=== PATIENT | female | born 1950 | race Caucasian/White ===

== ENCOUNTER → 2016-06-01 | Outpatient (CLI) | payer OTHER ==
[2016-06-01 15:13] LABS: CH 34.7; CHCM 35.2; HCT 48.3 % (34.0-46.0); HDW 2.61; HGB 16.7 gm/dL (11.4-16.0); MCH 34.2 pg (25.0-35.0); MCHC 34.5 g/dL (31.0-37.0); Mean Platelet Volume 8.1; RBC 4.87 m/uL (3.80-5.40)
[2016-06-01 15:30] LABS: Bilirubin, Delta 0.9 mg/dL (0.0-0.2); Total Bilirubin 1.7 mg/dL (0.2-1.3); Total Protein 8.4 g/dL (6.3-8.2)
[2016-06-02 17:21] LABS: Hepatits C Virus RNA, Quant 74 IU/mL (<12); LOG HCV IU/mL 1.87 (<1.08)
== END | disposition home or self-care (01) ==
LOC: LABWHC1 14:37
PROVIDERS: ATTEND Physician Assistant
DX: B18.2 Chronic viral hepatitis C (principal)
CPT/HCPCS: 36415; 80076; 85027; 87522

== ENCOUNTER → 2016-06-08 | Outpatient (CLI) | payer OTHER ==
--- NOTE | 2016-06-08 11:46 | US ---
EXAMINATION TYPE: US venous doppler duplex LE BI DATE OF EXAM: 06/08/2016 10:17 AM COMPARISON: None CLINICAL HISTORY: 65-year-old female with bilateral leg swelling x 1 month. TECHNIQUE: Duplex Doppler ultrasound examination of bilateral lower extremities. FINDINGS: SIDE PERFORMED: Bilateral VESSELS IMAGED: External Iliac Vein (EIV) Common Femoral Vein Deep Femoral Vein Greater Saphenous Vein * Femoral Vein Popliteal Vein Small Saphenous Vein * Proximal Calf Veins (* superficial vessels) Right Leg: Appears negative for DVT Left Leg: Appears negative for DVT IMPRESSION: No evidence of DVT within the bilateral lower extremities imaged from the groin to the upper calves.
== END | disposition home or self-care (01) ==
LOC: RADUSWWP 09:36
PROVIDERS: ATTEND Family Medicine
DX: R60.9 Edema, unspecified (principal)
CPT/HCPCS: 93970

== ENCOUNTER → 2016-06-15 | Outpatient (CLI) | payer OTHER ==
[2016-06-15 13:48] LABS: CH 34.4; HCT 49.4 % (34.0-46.0); HDW 2.74; MCH 34.2 pg (25.0-35.0); MCHC 34.5 g/dL (31.0-37.0); MCV 99.1 fL (80.0-100.0); Mean Platelet Volume 8.1; RBC 4.98 m/uL (3.80-5.40); WBC 4.1 k/uL (3.8-10.6)
[2016-06-15 13:56] LABS: Appearance,Urine Clear (Clear); Bilirubin,Urine Negative (Negative); Glucose,Urine (UA) Negative (Negative); Ketones,Urine Negative (Negative); Leukocyte Esterase,Urine Negative (Negative); Nitrite,Urine Negative (Negative); PH, Urine 6.5 (5.0-8.0); Protein,Urine Negative (Negative); Specific Gravity,Urine 1.004 (1.001-1.035); UA Billing (MACRO vs. MICRO) CHEM; Urobilinogen,Urine <2.0 mg/dL (<2.0)
[2016-06-15 14:08] LABS: Anion Gap 13 mmol/L; Blood Urea Nitrogen 26 mg/dL (7-17); Calcium 9.7 mg/dL (8.4-10.2); Carbon Dioxide 28 mmol/L (22-30); Chloride 98 mmol/L (98-107); Glucose 99 mg/dL (74-99); Non-African American GFR(MDRD) 50 (>60 ml/min/1.73 sqM); Potassium 3.8 mmol/L (3.5-5.1); Sodium 139 mmol/L (137-145)
== END | disposition home or self-care (01) ==
LOC: LABWHC1 12:28
PROVIDERS: ATTEND Nurse Practitioner Family
DX: N18.3 Chronic kidney disease, stage 3 (moderate) (principal); N25.81 Secondary hyperparathyroidism of renal origin; E55.9 Vitamin D deficiency, unspecified; N39.0 Urinary tract infection, site not specified
CPT/HCPCS: 36415; 80048; 81003; 82306; 83970; 85027

== ENCOUNTER → 2016-10-13 | Outpatient (CLI) | payer OTHER ==
[2016-10-13 10:24] LABS: Basophils % (A) 1 %; CH 33.8; Eosinophils # (A) 0.1 k/uL (0-0.7); Eosinophils % (A) 3 %; HCT 45.3 % (34.0-46.0); HGB 15.4 gm/dL (11.4-16.0); Luc # (Auto) 0.18; Luc % (Auto) 4; Lymphocytes # (A) 1.3 k/uL (1.0-4.8); Lymphocytes % (A) 27 %; MCH 33.1 pg (25.0-35.0); MCHC 34.1 g/dL (31.0-37.0); MCV 97.2 fL (80.0-100.0); Mean Platelet Volume 6.9; Monocytes # (A) 0.4 k/uL (0-1.0); Monocytes % (A) 8 %; Neutrophils # (A) 2.7 k/uL (1.3-7.7); Neutrophils % (A) 58 %; RBC 4.66 m/uL (3.80-5.40); RDW 14.2 % (11.5-15.5); WBC 4.7 k/uL (3.8-10.6); WBC (Perox) 4.73
[2016-10-13 10:36] LABS: INR 1.2 (<1.1); Prothrombin Time 11.9 sec (9.0-12.0)
[2016-10-13 10:57] LABS: Bilirubin, Delta 0.5 mg/dL (0.0-0.2); Calcium 9.7 mg/dL (8.4-10.2); Potassium 3.4 mmol/L (3.5-5.1); Total Bilirubin 1.3 mg/dL (0.2-1.3); Total Protein 8.4 g/dL (6.3-8.2)
[2016-10-17 15:04] LABS: Hepatits C Virus RNA, Quant <12 IU/mL (<12); LOG HCV IU/mL <1.08 (<1.08)
== END | disposition home or self-care (01) ==
LOC: LABWHC1 09:39
PROVIDERS: ATTEND Physician Assistant
DX: K74.60 Unspecified cirrhosis of liver (principal); B18.2 Chronic viral hepatitis C
CPT/HCPCS: 36415; 80053; 82105; 82248; 85025; 85610; 87522

== ENCOUNTER → 2016-11-07 | Outpatient (CLI) | payer OTHER ==
--- NOTE | 2016-11-07 16:51 | US ---
EXAMINATION TYPE: US kidneys/renal and bladder DATE OF EXAM: 11/07/2016 COMPARISON: Previous study dated 12/10/2013. CLINICAL HISTORY: Chronic Kidney Disease N18.9. CKD EXAM MEASUREMENTS: Right Kidney: 8.6 x 4.2 x 4.7 cm Left Kidney: 9.4 x 4.1 x 4.2 cm Right Kidney: no hydronephrosis or masses seen, inferior pole limited by overlying bowel gas Left Kidney: no hydronephrosis or masses seen, inferior pole limited by overlying bowel gas Bladder: wnl Bilateral Jets seen: yes The kidneys are morphologically normal. The bladder is unremarkable. Both ureteral jets were visualiz ed. IMPRESSION: NORMAL RENAL ULTRASOUND.
== END | disposition home or self-care (01) ==
LOC: RADUSWWP 14:16
PROVIDERS: ATTEND Family Medicine
DX: N18.9 Chronic kidney disease, unspecified (principal)
CPT/HCPCS: 76770

== ENCOUNTER → 2017-02-16 | Outpatient (CLI) | payer OTHER ==
--- NOTE | 2017-02-19 11:41 | MM ---
Reason for exam: screening (asymptomatic). Last mammogram was performed 1 year and 1 month ago. History: Patient is postmenopausal. Family history of breast cancer in mother at age 52, breast cancer in sister at age 53, and breast cancer in sister at age 48. Physical Findings: A clinical breast exam by your physician is recommended on an annual basis and results should be correlated with mammographic findings. MG Screening Mammo w CAD Bilateral CC and MLO view(s) were taken. Prior study comparison: January 11, 2016, bilateral MG screening mammo w CAD. August 10, 2014, bilateral MG screening mammo w CAD. The breast tissue is heterogeneously dense. This may lower the sensitivity of mammography. Finding: There are typically benign vascular, round calcifications in both breasts. New group of indeterminate calcifications central middle depth 4cm from the nipple. ASSESSMENT: Incomplete: need additional imaging evaluation, BI-RAD 0 RECOMMENDATION: Special view mammogram of the left breast. [facility] will attempt to contact patient to return for supplemental views.
== END | disposition home or self-care (01) ==
LOC: RADMAMWWP 16:53
PROVIDERS: ATTEND Family Medicine
DX: Z12.31 Encounter for screening mammogram for malignant neoplasm of breast (principal)

== ENCOUNTER → 2017-02-20 | Outpatient (CLI) | payer OTHER ==
--- NOTE | 2017-02-20 13:18 | MM ---
Reason for exam: additional evaluation requested from abnormal screening. Last mammogram was performed less than 1 month ago. History: Patient is postmenopausal. Family history of breast cancer in mother at age 52, breast cancer in sister at age 53, and breast cancer in sister at age 48. Physical Findings: Nurse did not find any significant physical abnormalities on exam. MG Work Up Mamm w CAD LT LM, CC with magnification, and LM with magnification view(s) were taken of the left breast. Prior study comparison: February 16, 2017, bilateral MG screening mammo w CAD. January 11, 2016, bilateral MG screening mammo w CAD. The breast tissue is heterogeneously dense. This may lower the sensitivity of mammography. Finding: There are typically benign calcifications in the left breast. These results were verbally communicated with the patient and result sheet given to the patient on 02/20/17. ASSESSMENT: Probably benign, BI-RAD 3 RECOMMENDATION: Follow-up diagnostic mammogram of the left breast in 6 months.
== END | disposition home or self-care (01) ==
LOC: RADMAMWWP 10:03
PROVIDERS: ATTEND Family Medicine
DX: R92.8 Other abnormal and inconclusive findings on diagnostic imaging of breast (principal)

== ENCOUNTER → 2017-07-11 | Outpatient (CLI) | payer OTHER ==
[2017-07-11 14:35] LABS: Appearance,Urine Clear (Clear); Bilirubin,Urine Negative (Negative); Blood,Urine Negative (Negative); Color,Urine Light Yellow; Glucose,Urine (UA) Negative (Negative); Ketones,Urine Negative (Negative); Leukocyte Esterase,Urine Negative (Negative); Nitrite,Urine Negative (Negative); Protein,Urine Negative (Negative); Specific Gravity,Urine 1.006 (1.001-1.035); Urobilinogen,Urine <2.0 mg/dL (<2.0)
== END | disposition home or self-care (01) ==
LOC: LABWHC1 13:40
PROVIDERS: ATTEND Nurse Practitioner Family
DX: N18.3 Chronic kidney disease, stage 3 (moderate) (principal); E55.9 Vitamin D deficiency, unspecified; E21.3 Hyperparathyroidism, unspecified; M10.9 Gout, unspecified; R80.9 Proteinuria, unspecified
CPT/HCPCS: 81003

== ENCOUNTER → 2017-07-12 | Outpatient (CLI) | payer OTHER ==
[2017-07-12 15:41] LABS: Anion Gap 14 mmol/L; Calcium 10.1 mg/dL (8.4-10.2); Carbon Dioxide 26 mmol/L (22-30); Chloride 97 mmol/L (98-107); Glucose 69 mg/dL (74-99); Sodium 137 mmol/L (137-145); Uric Acid 7.2 mg/dL (3.7-7.4)
[2017-07-12 15:48] LABS: Blood Urea Nitrogen 31 mg/dL (7-17); Phosphorus 3.5 mg/dL (2.5-4.5); Potassium 4.1 mmol/L (3.5-5.1)
[2017-07-12 16:06] LABS: Basophils % (A) 0 %; Eosinophils # (A) 0.1 k/uL (0-0.7); Eosinophils % (A) 2 %; HCT 44.4 % (34.0-46.0); HGB 14.7 gm/dL (11.4-16.0); Lymphocytes # (A) 1.1 k/uL (1.0-4.8); Lymphocytes % (A) 29 %; MCH 31.7 pg (25.0-35.0); MCHC 33.2 g/dL (31.0-37.0); MCV 95.5 fL (80.0-100.0); Mean Platelet Volume 7.7; Monocytes # (A) 0.3 k/uL (0-1.0); Monocytes % (A) 7 %; Neutrophils # (A) 2.2 k/uL (1.3-7.7); Neutrophils % (A) 59 %; RBC 4.65 m/uL (3.80-5.40); RDW 13.7 % (11.5-15.5); WBC 3.7 k/uL (3.8-10.6)
[2017-07-12 19:58] LABS: Iron Saturation 33.54 (12.00-45.00)
[2017-07-12 20:08] LABS: Vitamin D 25 Hydroxy 43.2 ng/mL (30.0-100.0)
[2017-07-12 20:09] LABS: Parathyroid Hormone Intact 76.8 pg/mL (14.0-72.0)
== END | disposition home or self-care (01) ==
LOC: LABWHC1 14:25
PROVIDERS: ATTEND Nurse Practitioner Family
DX: N18.3 Chronic kidney disease, stage 3 (moderate) (principal); E55.9 Vitamin D deficiency, unspecified; E21.3 Hyperparathyroidism, unspecified; M10.9 Gout, unspecified; R80.9 Proteinuria, unspecified
CPT/HCPCS: 36415; 80048; 82306; 82728; 83540; 83550; 83735; 83970; 84100; 84550; 85025

== ENCOUNTER 2017-08-09 10:03 | Emergency (ER) | payer OTHER ==
[2017-08-09 10:08] VITALS: RESP 18; TEMP 98.5
[2017-08-09] MEDS ORDERED: SODIUM CHLORIDE 0.9% 1,000 ML IV STA (10:47)
[2017-08-09] MEDS ORDERED: CLINDAMYCIN 600 MG in DEXTROSE 5% IN WATER 50 ML IVPB STA ×2 (10:49)
[2017-08-09] MEDS ORDERED: KETOROLAC 30 MG/ML 1 ML VIAL IVP STA (10:50)
--- NOTE | 2017-08-09 10:52 | ED ---
General Adult HPI - General Chief complaint: Skin/Abscess/Foreign Body Stated complaint: ABSCESS ON FACE, SEVERE HEADACHE Time Seen by Provider: 08/09/17 10:33 Source: patient, RN notes reviewed Mode of arrival: ambulatory Limitations: no limitations - History of Present Illness Initial comments: 66-year-old female presents for a chief complaint of left-sided shoulder pain and infection. She states that she's had an abscess to her left cheek that has been draining. sHe states it causes a lot of headache for her and a lot of pain to touch. She denies any history of MRSA. She states that she does have a low immune system and she feels as if she has had fevers. She denies any nausea vomiting with this. She states that now history of this in the past. She denies any dental pain associated with this. She was concerned due to the redness to the left side the face so she thought that she should be seen. Patient denies any recent shortness of breath, chest pain, back pain, abdominal pain, nausea vomiting, numbness or tingling, dysuria or hematuria, constipation or diarrhea, headaches or visual changes, or any other current symptoms. - Related Data Home Medications Medication Instructions Recorded Confirmed Cholecalciferol [Vitamin D3] 2,000 unit PO DAILY 11/16/15 08/09/17 Potassium Chloride ER [K-Dur 10] 10 meq PO TID@0800,1200,1700 11/16/15 08/09/17 Pravastatin Sodium [Pravachol] 40 mg PO HS 11/16/15 08/09/17 Spironolact/Hydrochlorothiazid 1 tab PO DAILY 11/16/15 08/09/17 [Spironolactone-Hctz 25-25 Tab] Vit C/E/Zn/Coppr/Lutein/Zeaxan 1 cap PO BID 11/16/15 08/09/17 [Preservision Areds 2 Softgel] Ziprasidone HCl [Geodon] 60 mg PO HS 11/16/15 08/09/17 buPROPion XL [Wellbutrin Xl] 150 mg PO DAILY 11/16/15 08/09/17 hydrOXYzine PAMOATE [Vistaril] 25 mg PO HS 11/16/15 08/09/17 ALPRAZolam [Xanax] 0.25 mg PO TID PRN 08/09/17 08/09/17 Fluticasone Nasal [place] [Flonase 1 - 2 spray EA NOSTRIL DAILY PRN 08/09/1708/09 Nasal [place]] Furosemide [Lasix] 40 mg PO BID@0800,1700 08/09/17 08/09/17 HYDROcodone/APAP 7.5-325MG [[place] 1 tab PO TID PRN 08/09/17 08/09/17 7.5-325] rOPINIRole HCL [Requip] 0.25 mg PO HS PRN 08/09/17 08/09/17 Previous Rx's Medication Instructions Recorded Clindamycin [Cleocin] 450 mg PO Q8HR #90 capsule 08/09/17 Allergies Allergy/AdvReac Type Severity Reaction Status Date / Time gabapentin [From Neurontin] Allergy Anaphylaxis Verified 08/09/17 10:26 Review of Systems ROS Statement: Those systems with pertinent positive or pertinent negative responses have been documented in the HPI. ROS Other: All systems not noted in ROS Statement are negative. Past Medical History Past Medical History: Renal Disease History of Any Multi-Drug Resistant Organisms: None Reported Past Surgical History: Back Surgery, Cholecystectomy, Hysterectomy, Joint Replacement Additional Past Surgical History / Comment(s): shoulder surgery, Past Psychological History: Depression Smoking Status: Never smoker Past Alcohol Use History: None Reported Past Drug Use History: None Reported General Exam Limitations: no limitations General appearance: alert, in no apparent distress Head exam: Present: atraumatic, normocephalic, other (Patient does appear to have some erythema along the left cheek with some induration with a healing abscess) Eye exam: Present: normal appearance, PERRL, EOMI. Absent: scleral icterus, conjunctival injection, periorbital swelling ENT exam: Present: normal exam, mucous membranes moist Neck exam: Present: normal inspection. Absent: tenderness, meningismus, lymphadenopathy Respiratory exam: Present: normal lung sounds bilaterally. Absent: respiratory distress, wheezes, rales, rhonchi, stridor Cardiovascular Exam: Present: regular rate, normal rhythm, normal heart sounds. Absent: systolic murmur, diastolic murmur, rubs, gallop, clicks Neurological exam: Present: alert, oriented X3 Course Vital Signs 08/09/17 08/09/17 10:05 12:14 Temperature 98.5 F Pulse Rate 83 74 Respiratory 18 18 Rate Blood Pressure 121/76 118/64 O2 Sat by Pulse 96 98 Oximetry Medical Decision Making - Medical Decision Making 66-year-old female presents with what appears to be a left-sided facial cellulitis with abscess. This time lab work was reviewed. Patient's white count is 2.5 previous WBC low and she states she has seen a beam warper for this platelet also seemed to be around patient's baseline.. At this time we will start patient on clindamycin for home for her facial cellulitis. This time there is no drainage from the wound. We discussed care follow-up return parameters all questions. Patient stated she understood and she is agreement this plan. Patient will be discharged at this time. - Lab Data Result diagrams: 08/09/17 11:53 08/09/17 11:53 Lab Results 08/09/17 08/09/17 Range/Units 11:53 11:53 WBC 2.5 L (3.8-10.6) k/uL RBC 4.82 (3.80-5.40) m/uL Hgb 15.3 (11.4-16.0) gm/dL Hct 42.7 (34.0-46.0) % MCV 88.7 D (80.0-100.0) fL MCH 31.7 (25.0-35.0) pg MCHC 35.8 (31.0-37.0) g/dL RDW 13.8 (11.5-15.5) % Plt Count 72 L (150-450) k/uL Neutrophils % 69 % Lymphocytes % 16 % Monocytes % 9 % Eosinophils % 3 % Basophils % 0 % Neutrophils # 1.7 (1.3-7.7) k/uL Lymphocytes # 0.4 L (1.0-4.8) k/uL Monocytes # 0.2 (0-1.0) k/uL Eosinophils # 0.1 (0-0.7) k/uL Basophils # 0.0 (0-0.2) k/uL Sodium 138 (137-145) mmol/L Potassium 4.0 (3.5-5.1) mmol/L Chloride 95 L (98-107) mmol/L Carbon Dioxide 30 (22-30) mmol/L Anion Gap 13 mmol/L BUN 22 H (7-17) mg/dL Creatinine 1.20 H (0.52-1.04) mg/dL Est GFR (CKD-EPI)AfAm 55 (>60 ml/min/1.73 sqM) Est GFR (CKD-EPI)NonAf 48 (>60 ml/min/1.73 sqM) Glucose 97 (74-99) mg/dL Calcium 10.1 (8.4-10.2) mg/dL Total Bilirubin 1.0 (0.2-1.3) mg/dL AST 60 H (14-36) U/L ALT 46 (9-52) U/L Alkaline Phosphatase 85 (38-126) U/L Total Protein 7.9 (6.3-8.2) g/dL Albumin 4.6 (3.5-5.0) g/dL Disposition Clinical Impression: Facial cellulitis Disposition: HOME SELF-CARE Condition: Stable Instructions: Cellulitis (ED) Additional Instructions: Please use medication as discussed. Please follow up with family doctor if symptoms have not improved over the next two days. Please return to the emergency room if your symptoms increase or worsen or for any other concerns. Prescriptions: Clindamycin [Cleocin] 450 mg PO Q8HR #90 capsule Referrals: Orlando Moore MD [Primary Care Provider] - 1-2 days Time of Disposition: 12:51
[2017-08-09 12:16] VITALS: BP 118/64; PULSE 74
[2017-08-09 12:28] LABS: Albumin 4.6 g/dL (3.5-5.0); Calcium 10.1 mg/dL (8.4-10.2); Total Protein 7.9 g/dL (6.3-8.2)
[2017-08-09 12:38] LABS: Basophils % (A) 0 %; Eosinophils # (A) 0.1 k/uL (0-0.7); Eosinophils % (A) 3 %; HCT 42.7 % (34.0-46.0); HGB 15.3 gm/dL (11.4-16.0); Lymphocytes # (A) 0.4 k/uL (1.0-4.8); Lymphocytes % (A) 16 %; MCH 31.7 pg (25.0-35.0); MCHC 35.8 g/dL (31.0-37.0); Mean Platelet Volume 7.6; Monocytes # (A) 0.2 k/uL (0-1.0); Monocytes % (A) 9 %; Neutrophils # (A) 1.7 k/uL (1.3-7.7); Neutrophils % (A) 69 %; RBC 4.82 m/uL (3.80-5.40); RDW 13.8 % (11.5-15.5); WBC 2.5 k/uL (3.8-10.6)
[2017-08-09 12:39] LABS: MCV 88.7 fL (80.0-100.0)
[2017-08-09 12:40] LABS: Platelet Count 72 k/uL (150-450)
[2017-08-09] MEDS ORDERED: CLINDAMYCIN 150 MG CAP PO STA (12:51)
== END 2017-08-09 13:10 | disposition home or self-care (01) ==
LOC: EC 10:03
DX: L03.211 Cellulitis of face (principal); L02.01 Cutaneous abscess of face; D72.819 Decreased white blood cell count, unspecified; M25.512 Pain in left shoulder; N28.9 Disorder of kidney and ureter, unspecified; Z79.899 Other long term (current) drug therapy; Z88.8 Allergy status to other drugs, medicaments and biological substances
CPT/HCPCS: 36415; 80053; 85025; 87040; 99284; 96374; J1885

== ENCOUNTER 2017-08-11 16:14 | Inpatient (IN) | payer OTHER ==
[2017-08-11] MEDS ORDERED: ONDANSETRON ODT 4 MG TAB PO STA (16:43)
[2017-08-11] MEDS ORDERED: SODIUM CHLORIDE 0.9% 1,000 ML IV STA ×2 (16:43)
[2017-08-11] MEDS ORDERED: KETOROLAC 30 MG/ML 1 ML VIAL IVP STA ×2 (16:44→19:38)
[2017-08-11] MEDS ORDERED: PANTOPRAZOLE 40 MG/10 ML VIAL IVP STA (16:45)
--- NOTE | 2017-08-11 16:48 | ED ---
Nausea/Vomiting/Diarrhea HPI - General Chief complaint: Nausea/Vomiting/Diarrhea Stated complaint: abdominal pain Time Seen by Provider: 08/11/17 16:36 Source: patient, RN notes reviewed Mode of arrival: ambulatory Limitations: no limitations - History of Present Illness Initial comments: This is a 66-year-old female who states she was started on antibiotics 3 days ago for facial infection that she seemed to acquire after cleaning fish tanks out last week. She states the pain is 10/10 severity sharp or radiates to her back from her epigastric area. She states it was 8/10 at worse she denies cough or phlegm production known heart disease she has had fevers chills and sweats however. She does have a history of a cholecystectomy in the past no diarrhea reported. She states the facial infection that she was being treated for has not gotten any better. MD complaint: nausea, vomiting, abdominal pain - Related Data Home Medications Medication Instructions Recorded Confirmed Cholecalciferol [Vitamin D3] 2,000 unit PO DAILY 11/16/15 08/11/17 Potassium Chloride ER [K-Dur 10] 10 meq PO TID@0800,1200,1700 11/16/15 08/11/17 Pravastatin Sodium [Pravachol] 40 mg PO HS 11/16/15 08/11/17 Spironolact/Hydrochlorothiazid 1 tab PO DAILY 11/16/15 08/11/17 [Spironolactone-Hctz 25-25 Tab] Vit C/E/Zn/Coppr/Lutein/Zeaxan 1 cap PO BID 11/16/15 08/11/17 [Preservision Areds 2 Softgel] Ziprasidone HCl [Geodon] 60 mg PO HS 11/16/15 08/11/17 buPROPion XL [Wellbutrin Xl] 150 mg PO DAILY 11/16/15 08/11/17 hydrOXYzine PAMOATE [Vistaril] 25 mg PO HS 11/16/15 08/11/17 ALPRAZolam [Xanax] 0.25 mg PO TID PRN 08/09/17 08/11/17 Fluticasone Nasal [place] [Flonase 1 - 2 spray EA NOSTRIL DAILY PRN 08/09/1708/11 Nasal [place]] Furosemide [Lasix] 40 mg PO BID@0800,1700 08/09/17 08/11/17 HYDROcodone/APAP 7.5-325MG [[place] 1 tab PO TID PRN 08/09/17 08/11/17 7.5-325] rOPINIRole HCL [Requip] 0.25 - 0.5 mg PO HS PRN 08/09/17 08/11/17 Previous Rx's Medication Instructions Recorded Clindamycin [Cleocin] 450 mg PO Q8HR #90 capsule 08/09/17 Allergies Allergy/AdvReac Type Severity Reaction Status Date / Time gabapentin [From Neurontin] Allergy Anaphylaxis Verified 08/11/17 16:54 Review of Systems ROS Statement: Those systems with pertinent positive or pertinent negative responses have been documented in the HPI. ROS Other: All systems not noted in ROS Statement are negative. Past Medical History Past Medical History: Renal Disease History of Any Multi-Drug Resistant Organisms: None Reported Past Surgical History: Back Surgery, Cholecystectomy, Hysterectomy, Joint Replacement Additional Past Surgical History / Comment(s): shoulder surgery, Past Psychological History: Depression Smoking Status: Never smoker Past Alcohol Use History: None Reported Past Drug Use History: None Reported General Exam - General Exam Comments Initial Comments: This is a well-developed well-nourished awake alert oriented 3 female Limitations: no limitations General appearance: alert, anxious Head exam: Present: normocephalic (Examination of face reveals some eschars and cellulitis over the left paranasal face as well as the nose and some medial left orbit involvement. No active bleeding no drainage or discharge at this time) Eye exam: Present: normal appearance, PERRL, EOMI. Absent: scleral icterus, conjunctival injection, periorbital swelling ENT exam: Present: mucous membranes dry Neck exam: Present: normal inspection. Absent: tenderness, meningismus, lymphadenopathy Respiratory exam: Present: normal lung sounds bilaterally. Absent: respiratory distress, wheezes, rales, rhonchi, stridor, chest wall tenderness Cardiovascular Exam: Present: regular rate, normal rhythm, normal heart sounds. Absent: systolic murmur, diastolic murmur, rubs, gallop, clicks GI/Abdominal exam: Present: soft, tenderness (Mild epigastric tenderness palpation no guarding rebound masses or bruits), normal bowel sounds. Absent: distended, guarding, rebound, rigid Extremities exam: Present: normal inspection, full ROM, normal capillary refill. Absent: tenderness, pedal edema, joint swelling, calf tenderness Back exam: Present: normal inspection Neurological exam: Present: alert, oriented X3, CN II-XII intact Psychiatric exam: Present: normal affect, normal mood Skin exam: Present: warm, dry, intact, normal color. Absent: rash Course Vital Signs 08/11/17 08/11/17 08/11/17 16:17 18:58 19:18 Temperature 98.1 F Pulse Rate 102 H 88 86 Respiratory 20 20 16 Rate Blood Pressure 126/84 143/56 104/68 O2 Sat by Pulse 100 99 97 Oximetry 08/11/17 20:46 Temperature Pulse Rate 100 Respiratory 16 Rate Blood Pressure O2 Sat by Pulse 96 Oximetry Medical Decision Making - Medical Decision Making I did discuss the findings with the patient she still has persistent abdominal pain she also has the infected wounds on the face she will be admitted with consultation by Dr. Hernández I did discuss the case with Dr. Moore. - Lab Data Result diagrams: 08/11/17 18:35 08/11/17 18:35 Lab Results 08/11/17 08/11/17 08/11/17 Range/Units 18:35 18:35 20:22 WBC 3.7 L (3.8-10.6) k/uL RBC 4.60 (3.80-5.40) m/uL Hgb 14.8 (11.4-16.0) gm/dL Hct 39.7 (34.0-46.0) % MCV 86.4 (80.0-100.0) fL MCH 32.1 (25.0-35.0) pg MCHC 37.2 H (31.0-37.0) g/dL RDW 13.7 (11.5-15.5) % Plt Count 75 L (150-450) k/uL Neutrophils % (Manual) 53 % Lymphocytes % (Manual) 31 % Monocytes % (Manual) 15 % Eosinophils % (Manual) 1 % Neutrophils # (Manual) 1.96 (1.3-7.7) k/uL Lymphocytes # (Manual) 1.15 (1.0-4.8) k/uL Monocytes # (Manual) 0.56 (0-1.0) k/uL Eosinophils # (Manual) 0.04 (0-0.7) k/uL Nucleated RBCs 0 (0-0) /100 WBC Manual Slide Review Performed Hyperchromasia Slight Sodium 131 L (137-145) mmol/L Potassium 3.7 (3.5-5.1) mmol/L Chloride 91 L (98-107) mmol/L Carbon Dioxide 26 (22-30) mmol/L Anion Gap 14 mmol/L BUN 19 H (7-17) mg/dL Creatinine 1.00 (0.52-1.04) mg/dL Est GFR (CKD-EPI)AfAm 69 (>60 ml/min/1.73 sqM) Est GFR (CKD-EPI)NonAf 60 (>60 ml/min/1.73 sqM) Glucose 95 (74-99) mg/dL Calcium 9.8 (8.4-10.2) mg/dL Total Bilirubin 0.8 (0.2-1.3) mg/dL AST 52 H (14-36) U/L ALT 46 (9-52) U/L Alkaline Phosphatase 87 (38-126) U/L Total Protein 7.4 (6.3-8.2) g/dL Albumin 4.2 (3.5-5.0) g/dL Amylase 112 H (30-110) U/L Lipase 373 H (23-300) U/L Urine Color Yellow Urine Appearance Clear (Clear) Urine pH 7.0 (5.0-8.0) Ur Specific [place] 1.012 (1.001-1.035) Urine Protein Negative (Negative) Urine Glucose (UA) Negative (Negative) Urine Ketones 1+ H (Negative) Urine Blood Negative (Negative) Urine Nitrite Negative (Negative) Urine Bilirubin Negative (Negative) Urine Urobilinogen 2.0 (<2.0) mg/dL Ur Leukocyte Esterase Negative (Negative) - Radiology Data Radiology results: report reviewed (I did review the imaging no definite acute findings or is evidence of hiatal hernia), image reviewed Disposition Clinical Impression: Facial cellulitis, Failure of outpatient treatment, Intractable vomiting, Abdominal pain, Dehydration, Pancreatitis Disposition: ADMITTED IP TO THIS [facility] Condition: Stable Referrals: Orlando Moore MD [Primary Care Provider] - 1-2 days
[2017-08-11 19:08] LABS: Albumin 4.2 g/dL (3.5-5.0); Calcium 9.8 mg/dL (8.4-10.2); Potassium 3.7 mmol/L (3.5-5.1); Total Bilirubin 0.8 mg/dL (0.2-1.3); Total Protein 7.4 g/dL (6.3-8.2)
[2017-08-11 19:14] LABS: HCT 39.7 % (34.0-46.0); HGB 14.8 gm/dL (11.4-16.0); Hyperchromasia Slight; MCH 32.1 pg (25.0-35.0); MCHC 37.2 g/dL (31.0-37.0); MCV 86.4 fL (80.0-100.0); Mean Platelet Volume 7.3; RDW 13.7 % (11.5-15.5); WBC 3.7 k/uL (3.8-10.6)
--- NOTE | 2017-08-11 19:16 | XR ---
Abdomen HISTORY: Pain and vomiting Frontal view of the abdomen on 2 images correlated to prior exam 10/10/2010 Retrocardiac density with central lucency compatible with hiatal hernia. Lung bases are clear. Postop changes are noted to the lumbosacral spine, surgical clips in the right upper quadrant. There is a d extroscoliosis present, degenerative disc changes in the visualized spine. No evident bowel obstructi on or pneumoperitoneum. Postop change noted to the left hip. IMPRESSION: Nonobstructive bowel gas pattern, hiatal hernia is conspicuous as compared to prior exam, follow-up as indicated.
--- NOTE | 2017-08-11 19:17 | XR ---
EXAMINATION TYPE: XR chest 2V DATE OF EXAM: 08/11/2017 COMPARISON: Prior chest x-ray 12/19/2010 HISTORY: Pain and vomiting TECHNIQUE: Frontal and lateral views of the chest are obtained. FINDINGS: Fixed hiatal hernia is noted in the retrocardiac region. Arthropathy noted within the righ t shoulder. No evident pneumonia, pneumothorax, or pleural effusion. The aorta is dense. Surgical cli ps present in the right upper quadrant. IMPRESSION: No acute cardiopulmonary process. Hiatal hernia.
[2017-08-11 19:23] LABS: Platelet Count 75 k/uL (150-450)
[2017-08-11 20:09] LABS: Eosinophils # (M) 0.04 k/uL (0-0.7); Lymphocytes # (M) 1.15 k/uL (1.0-4.8); Monocytes # (M) 0.56 k/uL (0-1.0); Neutrophils # (M) 1.96 k/uL (1.3-7.7); Neutrophils % (M) 53 %; Nucleated Red Blood Cells 0 /100 WBC (0-0); Total Cells Counted 100
[2017-08-11] MEDS ORDERED: MAG HYDROX/AL HYDROX/SIMETH 30 ML, HYOSCYAMINE ELIXIR 10 ML, CIMETIDINE HCL 300 MG PO STA ×3 (20:38)
[2017-08-11 20:40] LABS: Appearance,Urine Clear (Clear); Bilirubin,Urine Negative (Negative); Blood,Urine Negative (Negative); Color,Urine Yellow; Glucose,Urine (UA) Negative (Negative); Ketones,Urine 1+ (Negative); Leukocyte Esterase,Urine Negative (Negative); Nitrite,Urine Negative (Negative); Protein,Urine Negative (Negative); Specific Gravity,Urine 1.012 (1.001-1.035)
[2017-08-11] MEDS ORDERED: ONDANSETRON 4 MG/2 ML VIAL IVP PRN (21:21)
[2017-08-11] MEDS ORDERED: NALOXONE 0.4 MG/ML 1 ML VIAL IV PRN (21:21)
[2017-08-11] MEDS ORDERED: FLUTICASONE 50MCG/SPRAY NASAL 16GM EA NOSTRIL PRN (21:27)
[2017-08-11] MEDS: HYDROcodone/APAP 7.5-325MG 1 EACH TAB PO PRN (21:58)
[2017-08-11] MEDS: SODIUM CHLORIDE 0.9% 1,000 ML IV SCH (22:00)
[2017-08-11] MEDS: hydrOXYzine PAMOATE 25 MG CAP PO SCH (23:34)
[2017-08-11] MEDS: PRAVASTATIN SODIUM 40 MG TAB PO SCH (23:35)
[2017-08-11] MEDS: ZIPRASIDONE 60 MG CAP PO SCH (23:35)
[2017-08-11] MEDS: CLINDAMYCIN 600 MG in DEXTROSE 5% IN WATER 50 ML IVPB SCH ×2 (23:39)
[2017-08-12] MEDS: HYDROcodone/APAP 7.5-325MG 1 EACH TAB PO PRN ×3 (03:51→19:50)
[2017-08-12] MEDS: ALPRAZolam 0.25 MG TAB PO PRN (03:53)
[2017-08-12] MEDS: CLINDAMYCIN 600 MG in DEXTROSE 5% IN WATER 50 ML IVPB SCH ×2 (07:56)
[2017-08-12] MEDS: SODIUM CHLORIDE 0.9% 1,000 ML IV SCH ×2 (07:59→13:51)
[2017-08-12] MEDS ORDERED: POTASSIUM CHLORIDE ER 10 MEQ TAB.ER.PRT PO SCH (08:00)
[2017-08-12] MEDS ORDERED: FUROSEMIDE 40 MG TAB PO SCH (08:00)
[2017-08-12] MEDS: buPROPion XL 150 MG TAB.ER.24H PO SCH ×3 (08:01→21:44)
[2017-08-12] MEDS: PANTOPRAZOLE 40 MG/10 ML VIAL IV SCH ×2 (08:01→21:43)
[2017-08-12] MEDS: VIT A,C & E-LUTEIN-MINERALS 1 EACH TAB PO SCH ×2 (08:02→21:43)
[2017-08-12] MEDS: CHOLECALCIFEROL 1,000 UNIT TAB PO SCH (08:02)
[2017-08-12] MEDS: KETOROLAC 30 MG/ML 1 ML VIAL IVP PRN (08:10)
[2017-08-12] MEDS ORDERED: SPIRONOLACTONE-HCTZ 25-25MG 1 EACH TAB PO SCH (09:00)
[2017-08-12] MEDS ORDERED: buPROPion XL 150 MG TAB.ER.24H PO SCH (09:00)
--- NOTE | 2017-08-12 11:29 | P.CONS ---
History of Present Illness - Reason for Consult Consult date: 08/12/17 - Chief Complaint Lesions of face - History of Present Illness 66-year-old female presents to the emergency center with concerns lesions on her face that did not respond to outpatient clindamycin. The patient relates that she was cleaning a fish tank several days ago. The water had gotten quite dirty because she can take with her hands not wearing gloves. Despite taking water and became quite cloudy and she took a sample to the aquarium store and she was told that the bacterial count the water was extremely high and that was causing the of her fish. She did treat the water. She did notice rapidly after this she started to get some sores on her face. Somewhat uncomfortable. He was not noticing any improvement with antibiotic therapy and counseling presented to the emergency center for further intervention. Area is somewhat uncomfortable. It is not directly interfering with her ability to chew and swallow. She does not believe she's had a significant fever or chills. She's not had this problem in the past. She's noticed no lesions on her hands, subungual, arms or axillary areas. She was somewhat concerned that she transfer the bacteria from her hands to her face as a cause of this problem. Again there are no lesions on her hands at all. It is a fresh water tank. Review of Systems HEENT:Denies headache or acute visual change. Denies sinus or mouth discomforts. Denies neck stiffness or pain. Denies significant oral cavity pain. Denies difficulty on swallowing. Respiratory the HPI has a lesions on her face Lungs: Denies significant shortness of breath, cough, sputum production, or hemoptysis. Cardiovascular: Denies significant shortness of breath, chest pain, chest wall pain, orthopnea, dyspnea on exertion, syncope Gastrointestinal:Denies nausea, vomiting, diarrhea, constipation, hematemesis, melena, hematochezia. No no significant change of bowel habit noticed. Musculoskeletal: denies significant myalgias or arthralgias. No new joint swelling. Denies new back pain. Skin: As per the HPI Neuro: Denies headache or visual change. Denies any new onset weakness or difficulty with ambulation. Denies falls or seizures. Psychiatric:Denies anxiety or depression. Endocrine: Denies significant fatigue, denies significant weight loss or weight gain. Past Medical History Past Medical History: Renal Disease History of Any Multi-Drug Resistant Organisms: None Reported Past Surgical History: Back Surgery, Cholecystectomy, Hysterectomy, Joint Replacement Additional Past Surgical History / Comment(s): shoulder surgery, Past Psychological History: Depression Additional Psychological History / Comment(s): Lives with herfriend. There is a pet dog in the home that the friend is taking care. As noted freshwater aquarium with recent significant off from poor water quality. Does not work outside of the home relates that she is medically disabled. 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 Relates that she is a lifelong nonsmoker. Denies alcohol use. No experience. No extensive travel Smoking Status: Never smoker Past Alcohol Use History: None Reported Past Drug Use History: None Reported Medications and Allergies Home Medications and Allergies Comment(s): Current Medications Hydrocodone Bitart/Acetaminophen ([place] 7.5-325) 1 each PO TID PRN PRN Reason: Pain Last Admin: 08/12/17 03:51 Dose: 1 each Alprazolam (Xanax) 0.25 mg PO TID PRN PRN Reason: Anxiety Last Admin: 08/12/17 03:53 Dose: 0.25 mg Bupropion HCl (Wellbutrin Xl) 150 mg PO TID [facility] Last Admin: 08/12/17 08:01 Dose: 150 mg Cholecalciferol (Vitamin D3) 2,000 unit PO DAILY [facility] Last Admin: 08/12/17 08:02 Dose: 2,000 unit Fluticasone Propionate (Flonase Nasal [place]) 1 spray EA NOSTRIL DAILY PRN PRN Reason: Allergy Symptoms Hydroxyzine Pamoate (Vistaril) 25 mg PO HS [facility] Last Admin: 08/11/17 23:34 Dose: 25 mg Clindamycin Phosphate 600 mg/ (Dextrose/Water) 54 mls @ 100 mls/hr IVPB Q6HR [facility] Last Admin: 08/12/17 07:56 Dose: 100 mls/hr Sodium Chloride (Saline 0.9%) 1,000 mls @ 125 mls/hr IV .Q8H [facility] Last Admin: 08/12/17 07:59 Dose: Not Given Ketorolac Tromethamine (Toradol) 30 mg IVP Q6HR PRN PRN Reason: Moderate Pain Stop: 08/16/17 21:22 Last Admin: 08/12/17 08:10 Dose: 30 mg Multivitamins/Minerals (Ivite) 1 each PO BID [facility] Last Admin: 08/12/17 08:02 Dose: 1 each Naloxone HCl (Narcan) 0.2 mg IV Q2M PRN PRN Reason: Opioid Reversal Ondansetron HCl (Zofran) 4 mg IVP Q8HR PRN PRN Reason: Nausea And Vomiting Pantoprazole Sodium (Protonix) 40 mg IV BID [facility] Last Admin: 08/12/17 08:01 Dose: 40 mg Pravastatin Sodium (Pravachol) 40 mg PO [facility] Last Admin: 08/11/17 23:35 Dose: 40 mg Ropinirole HCl (Requip) 0.25 mg PO HS PRN PRN Reason: sleep Ziprasidone (Geodon) 60 mg PO [facility] Last Admin: 08/11/17 23:35 Dose: 60 mg Home Medications Medication Instructions Recorded Confirmed Type Cholecalciferol [Vitamin D3] 2,000 unit PO DAILY 11/16/15 08/11/17 History Potassium Chloride ER [K-Dur 10] 10 meq PO TID@0800,1200,1700 11/16/15 08/11/17 History Pravastatin Sodium [Pravachol] 40 mg PO HS 11/16/15 08/11/17 History Spironolact/Hydrochlorothiazid 1 tab PO DAILY 11/16/15 08/11/17 History [Spironolactone-Hctz 25-25 Tab] Vit C/E/Zn/Coppr/Lutein/Zeaxan 1 cap PO BID 11/16/15 08/11/17 History [Preservision Areds 2 Softgel] Ziprasidone HCl [Geodon] 60 mg PO HS 11/16/15 08/11/17 History buPROPion XL [Wellbutrin Xl] 150 mg PO DAILY 11/16/15 08/11/17 History hydrOXYzine PAMOATE [Vistaril] 25 mg PO HS 11/16/15 08/11/17 History ALPRAZolam [Xanax] 0.25 mg PO TID PRN 08/09/17 08/11/17 History Clindamycin [Cleocin] 450 mg PO Q8HR #90 capsule 08/09/17 08/11/17 Rx Fluticasone Nasal [place] [Flonase 1 - 2 spray EA NOSTRIL DAILY PRN 08/09/1708/11 History Nasal [place]] Furosemide [Lasix] 40 mg PO BID@0800,1700 08/09/17 08/11/17 History HYDROcodone/APAP 7.5-325MG [[place] 1 tab PO TID PRN 08/09/17 08/11/17 History 7.5-325] rOPINIRole HCL [Requip] 0.25 - 0.5 mg PO HS PRN 08/09/17 08/11/17 History Allergies Allergy/AdvReac Type Severity Reaction Status Date / Time gabapentin [From Neurontin] Allergy Anaphylaxis Verified 08/11/17 16:54 Physical Exam Vitals: Vital Signs Temp Pulse Pulse Resp BP BP Pulse Ox 08/12/17 08:00 73 08/12/17 07:00 97.5 F L 73 18 82/59 96 08/12/17 02:00 98.4 F 71 16 99/67 94 L 08/12/17 00:00 71 16 08/11/17 23:00 98.2 F 73 16 96/57 95 08/11/17 21:31 87 16 104/63 96 08/11/17 20:46 100 16 96 08/11/17 19:18 86 16 104/68 97 08/11/17 18:58 88 20 143/56 99 08/11/17 16:17 98.1 F 102 H 20 126/84 100 Intake and Output 08/11/17 08/12/17 08/12/17 22:59 06:59 14:59 Intake Total 1400 200 Balance 1400 200 Intake: Intake, IV Titration 1000 Amount Sodium Chloride 0.9% 1, 1000 000 ml @ 125 mls/hr IV . Q8H [facility] Rx#:[id number] Oral 400 200 Other: Voiding Method Bedside Commode Toilet # Voids 3 Weight 74.843 kg 66-year-old female who appears older than her stated age and has obesity HEENT: Anicteric conjunctiva are pink and moist nasal mucosa grossly intact without significant lesions, there is no thrush. She is edentulous On the left nasolabial fold is evidence of multiple dried lesions only one appears to have any vesicle nature to it, it involves the nares externally, onto the upper lip, and there is evidence of multiple healing lesions on the hard palate only to the left side that are nontender. Neck: The neck is supple without significant lymphadenopathy or thyromegaly. Lungs: Good bilateral air entry without significant crackles or wheezing. There is no significant bronchial sounds. There is no egophony or dullness. Heart: Regular rate and rhythm with an audible S1-S2, no S3 no S4. There is no significant murmur click or rub, PMI was nondisplaced. Abdomen: Obese, Positive bowel sounds soft and nontender without palpable masses or organomegaly. There was no guarding or rebound. Extremities: The upper extremities have excellent pulses they are symmetric, no significant petechiae or telangiectasia. No splinter hemorrhages were noted. The lower extremities are free from significant edema. The peripheral pulses were 2+ and symmetric. Neuro: Awake alert oriented to person place and time. There are no acute new gross focal sensory motor deficits. Results CBC & Chem 7: 08/11/17 18:35 08/11/17 18:35 Labs: Abnormal Lab Results - Last 24 Hours (Table) 08/11/17 08/11/17 08/11/17 Range/Units 18:35 18:35 20:22 WBC 3.7 L (3.8-10.6) k/uL MCHC 37.2 H (31.0-37.0) g/dL Plt Count 75 L (150-450) k/uL Sodium 131 L (137-145) mmol/L Chloride 91 L (98-107) mmol/L BUN 19 H (7-17) mg/dL AST 52 H (14-36) U/L Amylase 112 H (30-110) U/L Lipase 373 H (23-300) U/L Urine Ketones 1+ H (Negative) Laboratory Results WBC 3.7 k/uL (3.8-10.6) L 08/11/17 18:35 RBC 4.60 m/uL (3.80-5.40) 08/11/17 18:35 Hgb 14.8 gm/dL (11.4-16.0) 08/11/17 18:35 Hct 39.7 % (34.0-46.0) 08/11/17 18:35 MCV 86.4 fL (80.0-100.0) 08/11/17 18:35 MCH 32.1 pg (25.0-35.0) 08/11/17 18:35 MCHC 37.2 g/dL (31.0-37.0) H 08/11/17 18:35 RDW 13.7 % (11.5-15.5) 08/11/17 18:35 Plt Count 75 k/uL (150-450) L 08/11/17 18:35 Neutrophils % (Manual) 53 % 08/11/17 18:35 Lymphocytes % (Manual) 31 % 08/11/17 18:35 Monocytes % (Manual) 15 % 08/11/17 18:35 Eosinophils % (Manual) 1 % 08/11/17 18:35 Neutrophils # (Manual) 1.96 k/uL (1.3-7.7) 08/11/17 18:35 Lymphocytes # (Manual) 1.15 k/uL (1.0-4.8) 08/11/17 18:35 Monocytes # (Manual) 0.56 k/uL (0-1.0) 08/11/17 18:35 Eosinophils # (Manual) 0.04 k/uL (0-0.7) 08/11/17 18:35 Nucleated RBCs 0 /100 WBC (0-0) 08/11/17 18:35 Manual Slide Review Performed 08/11/17 18:35 Hyperchromasia Slight 08/11/17 18:35 Sodium 131 mmol/L (137-145) L 08/11/17 18:35 Potassium 3.7 mmol/L (3.5-5.1) 08/11/17 18:35 Chloride 91 mmol/L (98-107) L 08/11/17 18:35 Carbon Dioxide 26 mmol/L (22-30) 08/11/17 18:35 Anion Gap 14 mmol/L 08/11/17 18:35 BUN 19 mg/dL (7-17) H 08/11/17 18:35 Creatinine 1.00 mg/dL (0.52-1.04) 08/11/17 18:35 Est GFR (CKD-EPI)AfAm 69 (>60 ml/min/1.73 sqM) 08/11/17 18:35 Est GFR (CKD-EPI)NonAf 60 (>60 ml/min/1.73 sqM) 08/11/17 18:35 Glucose 95 mg/dL (74-99) 08/11/17 18:35 Calcium 9.8 mg/dL (8.4-10.2) 08/11/17 18:35 Total Bilirubin 0.8 mg/dL (0.2-1.3) 08/11/17 18:35 AST 52 U/L (14-36) H 08/11/17 18:35 ALT 46 U/L (9-52) 08/11/17 18:35 Alkaline Phosphatase 87 U/L (38-126) 08/11/17 18:35 Total Protein 7.4 g/dL (6.3-8.2) 08/11/17 18:35 Albumin 4.2 g/dL (3.5-5.0) 08/11/17 18:35 Amylase 112 U/L (30-110) H 08/11/17 18:35 Lipase 373 U/L (23-300) H 08/11/17 18:35 Urine Color Yellow 08/11/17 20:22 Urine Appearance Clear (Clear) 08/11/17 20:22 Urine pH 7.0 (5.0-8.0) 08/11/17 20:22 Ur Specific [place] 1.012 (1.001-1.035) 08/11/17 20:22 Urine Protein Negative (Negative) 08/11/17 20:22 Urine Glucose (UA) Negative (Negative) 08/11/17 20:22 Urine Ketones 1+ (Negative) H 08/11/17 20:22 Urine Blood Negative (Negative) 08/11/17 20:22 Urine Nitrite Negative (Negative) 08/11/17 20:22 Urine Bilirubin Negative (Negative) 08/11/17 20:22 Urine Urobilinogen 2.0 mg/dL (<2.0) 08/11/17 20:22 Ur Leukocyte Esterase Negative (Negative) 08/11/17 20:22 Assessment and Plan (1) Facial cellulitis Current Visit: Yes Status: Acute Code(s): L03.211 - CELLULITIS OF FACE SNOMED Code(s): 413938298 (2) Herpes zoster virus infection of face and ear nerves Narrative/Plan: 66-year-old female presents to Hospital with a several-day history of lesions on her face. She thought maybe she transferred bacteria from her fishtailing water onto her face. Being that she has no lesions on her hands, and that it is a freshwater tank to be somewhat unlikely. Patient however has evidence of this cluster of lesions on the nasolabial fold that involves the left nare, left upper lip and the left side of the hard palate which is consistent with varicella-zoster infection of this region. Valtrex will be given. At this juncture not likely to proceed much benefit from addition of steroids and will not be done. Does have some mild secondary infection and cephalexin can be utilized. When improved finished a course of oral Valtrex oral Keflex at her discharge. Current Visit: Yes Status: Acute Code(s): B02.29 - OTHER POSTHERPETIC NERVOUS SYSTEM INVOLVEMENT SNOMED Code(s): 7240837
[2017-08-12] MEDS: valACYclovir HCL 1,000 MG TABLET PO SCH ×2 (12:16→21:43)
[2017-08-12] MEDS: MULTIVITAMINS, THERA 1 EACH TAB PO SCH (12:17)
[2017-08-12] MEDS: ceFAZolin IN SWFI 2 GM/20 ML SYRINGE IVP SCH ×2 (13:40→19:51)
--- NOTE | 2017-08-12 20:28 | HP ---
HISTORY AND PHYSICAL CHIEF COMPLAINT: Rash and infection on the left side of the face. HISTORY OF PRESENT ILLNESS: This lady developed an erythematous, painful ulcerated rash on the left side of her nose, nasolabial fold and left cheek. She apparently was evaluated elsewhere and it was thought that this was MRSA. She was getting worse and came in. REVIEW OF SYSTEMS: She has had no other complaints. She has no chest pain, shortness of breath, abdominal pain, fever, chills, etc. The lesion is fairly painful. Past medical history, family history personal and social histories are otherwise unremarkable. PHYSICAL EXAM: Blood pressure is 140/90 with a pulse of 88, respirations of 35 and she is afebrile. In general, she appeared to be well-developed, well-nourished, in no acute distress. Skin color is normal. Skin is warm, dry. Head, ears, eyes, nose, mouth and throat demonstrated erythematous ulcerated rash on the left side of the nose and into the left cheek. This was consistent with herpes. Eyes were spared. Lymph nodes are slightly enlarged on the left. Chest is clear. The cardiac exam is normal. Abdomen is soft, nontender. Extremities normal. IMPRESSION: Herpes simplex or zoster dermatitis of the left side of the nose and cheek. PLAN: 1. IV fluids. 2. Infectious Disease consult. 3. Valtrex. MMVLAD / BISMARKN: [id number] /
[2017-08-12] MEDS ORDERED: PRAVASTATIN SODIUM 40 MG TAB PO SCH (21:00)
[2017-08-12] MEDS ORDERED: hydrOXYzine PAMOATE 25 MG CAP PO SCH (21:00)
[2017-08-12] MEDS ORDERED: ZIPRASIDONE 60 MG CAP PO SCH (21:00)
[2017-08-12] MEDS: hydrOXYzine PAMOATE 25 MG CAP PO SCH (21:43)
[2017-08-12] MEDS: PRAVASTATIN SODIUM 40 MG TAB PO SCH (21:43)
[2017-08-12] MEDS: ZIPRASIDONE 60 MG CAP PO SCH (21:43)
[2017-08-12] MEDS ORDERED: diphenhydrAMINE 50 MG/ML 1 ML VIAL IVP PRN (22:00)
[2017-08-13] MEDS: ceFAZolin IN SWFI 2 GM/20 ML SYRINGE IVP SCH ×3 (04:14→20:51)
[2017-08-13] MEDS: SODIUM CHLORIDE 0.9% 1,000 ML IV SCH ×3 (06:58→15:14)
[2017-08-13] MEDS: buPROPion XL 150 MG TAB.ER.24H PO SCH ×3 (08:45→20:53)
[2017-08-13] MEDS: valACYclovir HCL 1,000 MG TABLET PO SCH ×2 (08:45→20:53)
[2017-08-13] MEDS: PANTOPRAZOLE 40 MG/10 ML VIAL IV SCH ×2 (08:45→20:54)
[2017-08-13] MEDS: MULTIVITAMINS, THERA 1 EACH TAB PO SCH (08:46)
[2017-08-13] MEDS: CHOLECALCIFEROL 1,000 UNIT TAB PO SCH (08:46)
[2017-08-13] MEDS: VIT A,C & E-LUTEIN-MINERALS 1 EACH TAB PO SCH ×2 (08:58→20:52)
[2017-08-13] MEDS: HYDROcodone/APAP 7.5-325MG 1 EACH TAB PO PRN ×3 (09:03→23:30)
[2017-08-13] MEDS: KETOROLAC 30 MG/ML 1 ML VIAL IVP PRN ×3 (09:06→21:09)
--- NOTE | 2017-08-13 16:59 | PN ---
PROGRESS NOTE CHIEF COMPLAINT: Necrotic ulcer of the left side of the nose and cheek. HISTORY OF PRESENT ILLNESS: This lady is still having quite a bit of discomfort and the ulcers are starting to dry. There is a fair amount of itching associated as well. PHYSICAL EXAM: CHEST: Clear. Cardiac exam is normal. Abdomen is soft and nontender. The areas of the left side of the nose, nasal labial fold and cheek were started and scabbed somewhat. IMPRESSION: Herpes ulcer with necrosis of the left side of the nose and cheek. PLAN: Continue with current program and watch for any involvement of the left eye. MMODL / IJN: [id number] /
--- NOTE | 2017-08-13 17:05 | PN ---
PROGRESS NOTE DATE OF SERVICE: 08/13/2017. CHIEF COMPLAINT: Herpes cellulitis and ulceration of the left cheek and nose. HISTORY OF PRESENT ILLNESS: This lady's symptoms continue and she is having a little bit of irritability in the left eye. The vision is normal. She is having no blurring. PHYSICAL EXAM: Left eye looks normal. The necrotic ulcer on the left cheek nasolabial fold as well as the nose seems to be drying up. IMPRESSION: Herpes and probable herpes simplex of the left cheek and nose. PLAN: No change in program. MMODL / IJN: [id number] /
[2017-08-13] MEDS: FUROSEMIDE 40 MG TAB PO SCH (18:31)
[2017-08-13] MEDS: ZIPRASIDONE 60 MG CAP PO SCH (20:52)
[2017-08-13] MEDS: POTASSIUM CHLORIDE ER 20 MEQ TAB.ER PO SCH (20:52)
[2017-08-13] MEDS: PRAVASTATIN SODIUM 40 MG TAB PO SCH (20:53)
[2017-08-13] MEDS: hydrOXYzine PAMOATE 25 MG CAP PO SCH (21:09)
[2017-08-13] MEDS: ALPRAZolam 0.25 MG TAB PO PRN (23:30)
--- NOTE | 2017-08-13 23:30 | P.PN ---
Subjective Progress Note Date: 08/13/17 Principal diagnosis: Lesions of face 66-year-old female presents to the emergency center with concerns lesions on her face that did not respond to outpatient clindamycin. The patient relates that she was cleaning a fish tank several days ago. The water had gotten quite dirty because she can take with her hands not wearing gloves. Despite taking water and became quite cloudy and she took a sample to the aquarium store and she was told that the bacterial count the water was extremely high and that was causing the of her fish. She did treat the water. She did notice rapidly after this she started to get some sores on her face. Somewhat uncomfortable. He was not noticing any improvement with antibiotic therapy and counseling presented to the emergency center for further intervention. Area is somewhat uncomfortable. It is not directly interfering with her ability to chew and swallow. She does not believe she's had a significant fever or chills. She's not had this problem in the past. She's noticed no lesions on her hands, subungual, arms or axillary areas. She was somewhat concerned that she transfer the bacteria from her hands to her face as a cause of this problem. Again there are no lesions on her hands at all. It is a fresh water tank. 08/13/2017 reveals the patient to be a bit more comfortable. She is without difficulties as fevers chills or rigors but is having some lower extremity edema. Appears her outpatient Lasix has not been given. She relates that the facial lesions are improved but continues to have some discomfort of the oral cavity and of the very posterior aspect of the throat. No Evidence of any bleeding. Objective - Vital Signs Vital signs: Vital Signs Temp 97.8 F 08/13/17 14:24 Pulse 82 08/13/17 14:24 Resp 16 08/13/17 14:24 BP 95/55 08/13/17 14:24 Pulse Ox 93 L 08/13/17 14:24 Intake & Output 08/13/17 08/13/17 08/14/17 06:59 18:59 06:59 Intake Total 1680 Balance 1680 Intake: Intake, IV Titration 900 Amount Sodium Chloride 0.9% 1, 900 000 ml @ 125 mls/hr IV . Q8H [facility] Rx#:[id number] Oral 780 Other: Voiding Method Toilet Toilet # Voids 4 1 - Exam 66-year-old female who appears older than her stated age and has obesity HEENT: Anicteric conjunctiva are pink and moist nasal mucosa grossly intact without significant lesions, there is no thrush. She is edentulous On the left nasolabial fold is evidence of multiple dried lesions only one appears to have any vesicle nature to it, it involves the nares externally, onto the upper lip, and there is evidence of multiple healing lesions on the hard palate only to the left side that are nontender, but does have a few tender lesions on the left side of the uvula. Neck: The neck is supple without significant lymphadenopathy or thyromegaly. Lungs: Good bilateral air entry without significant crackles or wheezing. There is no significant bronchial sounds. There is no egophony or dullness. Heart: Regular rate and rhythm with an audible S1-S2, no S3 no S4. There is no significant murmur click or rub, PMI was nondisplaced. Abdomen: Obese, Positive bowel sounds soft and nontender without palpable masses or organomegaly. There was no guarding or rebound. Extremities: The upper extremities have excellent pulses they are symmetric, no significant petechiae or telangiectasia. No splinter hemorrhages were noted. The lower extremities are free from significant edema. The peripheral pulses were 2+ and symmetric. Neuro: Awake alert oriented to person place and time. There are no acute new gross focal sensory motor deficits. - Labs CBC & Chem 7: 08/11/17 18:35 08/11/17 18:35 Labs: Microbiology - Last 24 Hours (Table) 08/11/17 17:24 Blood Culture - Preliminary Blood No Growth after 48 hours 08/11/17 18:35 Blood Culture - Preliminary Blood No Growth after 24 hours Laboratory Results WBC 3.7 k/uL (3.8-10.6) L 08/11/17 18:35 RBC 4.60 m/uL (3.80-5.40) 08/11/17 18:35 Hgb 14.8 gm/dL (11.4-16.0) 08/11/17 18:35 Hct 39.7 % (34.0-46.0) 08/11/17 18:35 MCV 86.4 fL (80.0-100.0) 08/11/17 18:35 MCH 32.1 pg (25.0-35.0) 08/11/17 18:35 MCHC 37.2 g/dL (31.0-37.0) H 08/11/17 18:35 RDW 13.7 % (11.5-15.5) 08/11/17 18:35 Plt Count 75 k/uL (150-450) L 08/11/17 18:35 Neutrophils % (Manual) 53 % 08/11/17 18:35 Lymphocytes % (Manual) 31 % 08/11/17 18:35 Monocytes % (Manual) 15 % 08/11/17 18:35 Eosinophils % (Manual) 1 % 08/11/17 18:35 Neutrophils # (Manual) 1.96 k/uL (1.3-7.7) 08/11/17 18:35 Lymphocytes # (Manual) 1.15 k/uL (1.0-4.8) 08/11/17 18:35 Monocytes # (Manual) 0.56 k/uL (0-1.0) 08/11/17 18:35 Eosinophils # (Manual) 0.04 k/uL (0-0.7) 08/11/17 18:35 Nucleated RBCs 0 /100 WBC (0-0) 08/11/17 18:35 Manual Slide Review Performed 08/11/17 18:35 Hyperchromasia Slight 08/11/17 18:35 Sodium 131 mmol/L (137-145) L 08/11/17 18:35 Potassium 3.7 mmol/L (3.5-5.1) 08/11/17 18:35 Chloride 91 mmol/L (98-107) L 08/11/17 18:35 Carbon Dioxide 26 mmol/L (22-30) 08/11/17 18:35 Anion Gap 14 mmol/L 08/11/17 18:35 BUN 19 mg/dL (7-17) H 08/11/17 18:35 Creatinine 1.00 mg/dL (0.52-1.04) 08/11/17 18:35 Est GFR (CKD-EPI)AfAm 69 (>60 ml/min/1.73 sqM) 08/11/17 18:35 Est GFR (CKD-EPI)NonAf 60 (>60 ml/min/1.73 sqM) 03/24/18 18:35 Glucose 95 mg/dL (74-99) 08/11/17 18:35 Calcium 9.8 mg/dL (8.4-10.2) 08/11/17 18:35 Total Bilirubin 0.8 mg/dL (0.2-1.3) 08/11/17 18:35 AST 52 U/L (14-36) H 08/11/17 18:35 ALT 46 U/L (9-52) 08/11/17 18:35 Alkaline Phosphatase 87 U/L (38-126) 08/11/17 18:35 Total Protein 7.4 g/dL (6.3-8.2) 08/11/17 18:35 Albumin 4.2 g/dL (3.5-5.0) 08/11/17 18:35 Amylase 112 U/L (30-110) H 08/11/17 18:35 Lipase 373 U/L (23-300) H 08/11/17 18:35 Urine Color Yellow 08/11/17 20:22 Urine Appearance Clear (Clear) 08/11/17 20:22 Urine pH 7.0 (5.0-8.0) 08/11/17 20:22 Ur Specific [place] 1.012 (1.001-1.035) 08/11/17 20:22 Urine Protein Negative (Negative) 08/11/17 20:22 Urine Glucose (UA) Negative (Negative) 08/11/17 20:22 Urine Ketones 1+ (Negative) H 08/11/17 20:22 Urine Blood Negative (Negative) 08/11/17 20:22 Urine Nitrite Negative (Negative) 08/11/17 20:22 Urine Bilirubin Negative (Negative) 08/11/17 20:22 Urine Urobilinogen 2.0 mg/dL (<2.0) 08/11/17 20:22 Ur Leukocyte Esterase Negative (Negative) 08/11/17 20:22 Microbiology 08/11/17 17:24 Blood Blood Culture - Preliminary No Growth after 48 hours 08/11/17 18:35 Blood Blood Culture - Preliminary No Growth after 24 hours Assessment and Plan (1) Facial cellulitis Current Visit: Yes Status: Acute Code(s): L03.211 - CELLULITIS OF FACE SNOMED Code(s): 144276259 (2) Herpes zoster virus infection of face and ear nerves Narrative/Plan: 66-year-old female presents to Hospital with a several-day history of lesions on her face. She thought maybe she transferred bacteria from her fishtailing water onto her face. Being that she has no lesions on her hands, and that it is a freshwater tank to be somewhat unlikely. Patient however has evidence of this cluster of lesions on the nasolabial fold that involves the left nare, left upper lip and the left side of the hard palate which is consistent with varicella-zoster infection of this region. Valtrex will be given. At this juncture not likely to proceed much benefit from addition of steroids and will not be done. Does have some mild secondary infection and cephalexin can be utilized. When improved finished a course of oral Valtrex oral Keflex at her discharge. 08/13/2017 patient is having some improvement. Discomfort is improved. Continues to have the active lesions and the nasolabial fold and in the oral cavity. Continue with the Valtrex and intravenous cefazolin for the secondary bacterial infection from the varicella-zoster. She is definitely having difficulties with increasing edema. He fluid to decrease to 20 and Lasix 40 mg twice per day is given as well as some potassium chloride. Expect this will help her edema. And likely ready for discharge home in the near future. Current Visit: Yes Status: Acute Code(s): B02.29 - OTHER POSTHERPETIC NERVOUS SYSTEM INVOLVEMENT SNOMED Code(s): 8051142
[2017-08-14] MEDS: SODIUM CHLORIDE 0.9% 1,000 ML IV SCH (03:23)
[2017-08-14] MEDS: ceFAZolin IN SWFI 2 GM/20 ML SYRINGE IVP SCH ×3 (05:48→21:27)
[2017-08-14] MEDS: KETOROLAC 30 MG/ML 1 ML VIAL IVP PRN ×3 (05:48→20:12)
[2017-08-14] MEDS: CHOLECALCIFEROL 1,000 UNIT TAB PO SCH (08:18)
[2017-08-14] MEDS: FUROSEMIDE 40 MG TAB PO SCH ×2 (08:18→16:34)
[2017-08-14] MEDS: CHLORTHALIDONE 25 MG TAB PO SCH (08:18)
[2017-08-14] MEDS: POTASSIUM CHLORIDE ER 20 MEQ TAB.ER PO SCH ×2 (08:18→21:28)
[2017-08-14] MEDS: VIT A,C & E-LUTEIN-MINERALS 1 EACH TAB PO SCH ×2 (08:18→21:29)
[2017-08-14] MEDS: buPROPion XL 150 MG TAB.ER.24H PO SCH ×3 (08:18→21:28)
[2017-08-14] MEDS: valACYclovir HCL 1,000 MG TABLET PO SCH ×2 (08:18→21:28)
[2017-08-14] MEDS: PANTOPRAZOLE 40 MG/10 ML VIAL IV SCH ×2 (08:18→21:28)
[2017-08-14] MEDS: HYDROcodone/APAP 7.5-325MG 1 EACH TAB PO PRN ×2 (08:20→16:33)
[2017-08-14] MEDS: TRIFLURIDINE 1% OPHTH DROPS 7.5 ML BTL LEFT EYE SCH ×4 (13:12→17:28)
[2017-08-14] MEDS: MULTIVITAMINS, THERA 1 EACH TAB PO SCH (13:15)
--- NOTE | 2017-08-14 18:10 | PN ---
PROGRESS NOTE CHIEF COMPLAINT: Herpes cellulitis of the left side of the nose and cheek with irritation in the left eye. HISTORY OF PRESENT ILLNESS: This lady's pain is slowly subsiding and the lesions are healing. She still has some irritation in the left eye. PHYSICAL EXAMINATION: She has mild conjunctivitis in the left eye, which is not in the right. Lesions on the nose and cheek are healing. Lymph nodes are not enlarged. IMPRESSION: 1. Herpes ulceration on the left side of the nose and cheek. 2. Possible herpes involvement in the left eye. PLAN: Start Viroptic drops and obtain ophthalmology consult. MMODL / IJN: [id number] /
--- NOTE | 2017-08-14 18:46 | CONS ---
CONSULTATION CHIEF COMPLAINT: Redness, left eye. HISTORY OF PRESENT ILLNESS: Patient developed a rash over the left nose and cheek in the last 4 days. She was admitted and she was treated with an antiviral and antibiotic intravenously. The patient denies any history of previous eye surgery but admits to age-related macular degeneration. The patient is using PreserVision tablets for her macular degeneration. Review of systems was evaluated thoroughly. EYE EXAMINATION: Vision is 20/40, each eye, reading without reading glasses. Extraocular motility full. Confrontation: no visual field defect. Pupils were equal, small and reactive. The left lower lid shows small vesicle. Conjunctiva shows 1+ injection. Cornea shows superficial punctate staining. AC looks quiet. Retina exam deferred. ASSESSMENT: 1. Left herpetic keratitis. 2. Left herpes zoster. PLAN: The intraocular pressure was normal. I advised Ciloxan eye drops 1 drop 4 times a day to the left eye, to continue on the antiviral and antibiotic intravenous treatment. I will re-evaluate the patient on Sunday between 9 and noon in the office. Please call the office to confirm the appointment: . MMODL / IJN: [id number] /
[2017-08-14] MEDS: ZIPRASIDONE 60 MG CAP PO SCH (21:28)
[2017-08-14] MEDS: PRAVASTATIN SODIUM 40 MG TAB PO SCH (21:28)
[2017-08-14] MEDS: hydrOXYzine PAMOATE 25 MG CAP PO SCH (21:31)
[2017-08-14] MEDS: CIPROFLOXACIN 0.3% OPHTH SOLN 5 ML BTL LEFT EYE SCH (21:32)
[2017-08-14] MEDS: ALPRAZolam 0.25 MG TAB PO PRN (21:41)
[2017-08-14 23:19] VITALS: PULSE 76
[2017-08-15] MEDS: CIPROFLOXACIN 0.3% OPHTH SOLN 5 ML BTL LEFT EYE SCH ×4 (00:21→11:20)
--- NOTE | 2017-08-15 00:25 | P.PN ---
Subjective Progress Note Date: 08/14/17 Principal diagnosis: Lesions of face 66-year-old female presents to the emergency center with concerns lesions on her face that did not respond to outpatient clindamycin. The patient relates that she was cleaning a fish tank several days ago. The water had gotten quite dirty because she can take with her hands not wearing gloves. Despite taking water and became quite cloudy and she took a sample to the aquarium store and she was told that the bacterial count the water was extremely high and that was causing the of her fish. She did treat the water. She did notice rapidly after this she started to get some sores on her face. Somewhat uncomfortable. He was not noticing any improvement with antibiotic therapy and counseling presented to the emergency center for further intervention. Area is somewhat uncomfortable. It is not directly interfering with her ability to chew and swallow. She does not believe she's had a significant fever or chills. She's not had this problem in the past. She's noticed no lesions on her hands, subungual, arms or axillary areas. She was somewhat concerned that she transfer the bacteria from her hands to her face as a cause of this problem. Again there are no lesions on her hands at all. It is a fresh water tank. 08/13/2017 reveals the patient to be a bit more comfortable. She is without difficulties as fevers chills or rigors but is having some lower extremity edema. Appears her outpatient Lasix has not been given. She relates that the facial lesions are improved but continues to have some discomfort of the oral cavity and of the very posterior aspect of the throat. No Evidence of any bleeding. 08/14/2017 patient is more comfortable, having no fevers or chills. Lower extremity edema starting to improve with the Lasix is being utilized. Facial pain is improved however now complaining some scratchiness to her left eye that is new today. Objective - Vital Signs Vital signs: Vital Signs Temp 97.7 F 08/14/17 23:00 Pulse 76 08/14/17 23:00 Resp 18 08/14/17 23:00 BP 93/60 08/14/17 23:00 Pulse Ox 96 08/14/17 23:00 Intake & Output 08/14/17 08/14/17 08/15/17 06:59 18:59 06:59 Other: Voiding Method Toilet # Voids 2 2 - Exam 66-year-old female who appears older than her stated age and has obesity HEENT: Anicteric conjunctiva are pink and moist, patient complains of some mild scratchy sensations of the left eye, no purulent drainage is noted nasal mucosa grossly intact without significant lesions, there is no thrush. She is edentulous On the left nasolabial fold is evidence of multiple dried lesions only one appears to have any vesicle nature to it, it involves the nares externally, onto the upper lip, and there is evidence of multiple healing lesions on the hard palate only to the left side that are nontender, but does have a few tender lesions on the left side of the uvula. Neck: The neck is supple without significant lymphadenopathy or thyromegaly. Lungs: Good bilateral air entry without significant crackles or wheezing. There is no significant bronchial sounds. There is no egophony or dullness. Heart: Regular rate and rhythm with an audible S1-S2, no S3 no S4. There is no significant murmur click or rub, PMI was nondisplaced. Abdomen: Obese, Positive bowel sounds soft and nontender without palpable masses or organomegaly. There was no guarding or rebound. Extremities: The upper extremities have excellent pulses they are symmetric, no significant petechiae or telangiectasia. No splinter hemorrhages were noted. The lower extremities are free from significant edema. The peripheral pulses were 2+ and symmetric. Neuro: Awake alert oriented to person place and time. There are no acute new gross focal sensory motor deficits. - Labs CBC & Chem 7: 08/11/17 18:35 08/11/17 18:35 Labs: Microbiology - Last 24 Hours (Table) 08/11/17 18:35 Blood Culture - Preliminary Blood No Growth after 72 hours 08/11/17 17:24 Blood Culture - Preliminary Blood No Growth after 72 hours Laboratory Results WBC 3.7 k/uL (3.8-10.6) L 08/11/17 18:35 RBC 4.60 m/uL (3.80-5.40) 08/11/17 18:35 Hgb 14.8 gm/dL (11.4-16.0) 08/11/17 18:35 Hct 39.7 % (34.0-46.0) 08/11/17 18:35 MCV 86.4 fL (80.0-100.0) 08/11/17 18:35 MCH 32.1 pg (25.0-35.0) 08/11/17 18:35 MCHC 37.2 g/dL (31.0-37.0) H 08/11/17 18:35 RDW 13.7 % (11.5-15.5) 08/11/17 18:35 Plt Count 75 k/uL (150-450) L 08/11/17 18:35 Neutrophils % (Manual) 53 % 08/11/17 18:35 Lymphocytes % (Manual) 31 % 08/11/17 18:35 Monocytes % (Manual) 15 % 08/11/17 18:35 Eosinophils % (Manual) 1 % 08/11/17 18:35 Neutrophils # (Manual) 1.96 k/uL (1.3-7.7) 08/11/17 18:35 Lymphocytes # (Manual) 1.15 k/uL (1.0-4.8) 08/11/17 18:35 Monocytes # (Manual) 0.56 k/uL (0-1.0) 08/11/17 18:35 Eosinophils # (Manual) 0.04 k/uL (0-0.7) 08/11/17 18:35 Nucleated RBCs 0 /100 WBC (0-0) 08/11/17 18:35 Manual Slide Review Performed 08/11/17 18:35 Hyperchromasia Slight 08/11/17 18:35 Sodium 131 mmol/L (137-145) L 08/11/17 18:35 Potassium 3.7 mmol/L (3.5-5.1) 08/11/17 18:35 Chloride 91 mmol/L (98-107) L 08/11/17 18:35 Carbon Dioxide 26 mmol/L (22-30) 08/11/17 18:35 Anion Gap 14 mmol/L 08/11/17 18:35 BUN 19 mg/dL (7-17) H 08/11/17 18:35 Creatinine 1.00 mg/dL (0.52-1.04) 08/11/17 18:35 Est GFR (CKD-EPI)AfAm 69 (>60 ml/min/1.73 sqM) 08/11/17 18:35 Est GFR (CKD-EPI)NonAf 60 (>60 ml/min/1.73 sqM) 08/11/17 18:35 Glucose 95 mg/dL (74-99) 08/11/17 18:35 Calcium 9.8 mg/dL (8.4-10.2) 08/11/17 18:35 Total Bilirubin 0.8 mg/dL (0.2-1.3) 08/11/17 18:35 AST 52 U/L (14-36) H 08/11/17 18:35 ALT 46 U/L (9-52) 08/11/17 18:35 Alkaline Phosphatase 87 U/L (38-126) 08/11/17 18:35 Total Protein 7.4 g/dL (6.3-8.2) 08/11/17 18:35 Albumin 4.2 g/dL (3.5-5.0) 08/11/17 18:35 Amylase 112 U/L (30-110) H 08/11/17 18:35 Lipase 373 U/L (23-300) H 08/11/17 18:35 Urine Color Yellow 08/11/17 20:22 Urine Appearance Clear (Clear) 08/11/17 20:22 Urine pH 7.0 (5.0-8.0) 08/11/17 20:22 Ur Specific [place] 1.012 (1.001-1.035) 08/11/17 20:22 Urine Protein Negative (Negative) 08/11/17 20:22 Urine Glucose (UA) Negative (Negative) 08/11/17 20:22 Urine Ketones 1+ (Negative) H 08/11/17 20:22 Urine Blood Negative (Negative) 08/11/17 20:22 Urine Nitrite Negative (Negative) 08/11/17 20:22 Urine Bilirubin Negative (Negative) 08/11/17 20:22 Urine Urobilinogen 2.0 mg/dL (<2.0) 08/11/17 20:22 Ur Leukocyte Esterase Negative (Negative) 08/11/17 20:22 Microbiology 08/11/17 18:35 Blood Blood Culture - Preliminary No Growth after 72 hours 08/11/17 17:24 Blood Blood Culture - Preliminary No Growth after 72 hours Assessment and Plan (1) Facial cellulitis Current Visit: Yes Status: Acute Code(s): L03.211 - CELLULITIS OF FACE SNOMED Code(s): 915617680 (2) Herpes zoster virus infection of face and ear nerves Narrative/Plan: 66-year-old female presents to Hospital with a several-day history of lesions on her face. She thought maybe she transferred bacteria from her fishtailing water onto her face. Being that she has no lesions on her hands, and that it is a freshwater tank to be somewhat unlikely. Patient however has evidence of this cluster of lesions on the nasolabial fold that involves the left nare, left upper lip and the left side of the hard palate which is consistent with varicella-zoster infection of this region. Valtrex will be given. At this juncture not likely to proceed much benefit from addition of steroids and will not be done. Does have some mild secondary infection and cephalexin can be utilized. When improved finished a course of oral Valtrex oral Keflex at her discharge. 08/13/2017 patient is having some improvement. Discomfort is improved. Continues to have the active lesions and the nasolabial fold and in the oral cavity. Continue with the Valtrex and intravenous cefazolin for the secondary bacterial infection from the varicella-zoster. She is definitely having difficulties with increasing edema. He fluid to decrease to 20 and Lasix 40 mg twice per day is given as well as some potassium chloride. Expect this will help her edema. And likely ready for discharge home in the near future. 08/14/2017 overall the patient has improvement. Diuresis has helped her with her volume overload and lower extremity edema. She relates that she does quite well when she is on Aldactone also. We'll relate that to the primary service. The patient has a varicella-zoster and is showing some improvement but does have some irritation to the left eye. Abnormality is seen or impossible early herpetic keratitis is noted. Continue antiviral therapy. Topical drops of an ordered by ophthalmology. She'll follow in our office. Likely ready for discharge home soon Current Visit: Yes Status: Acute Code(s): B02.29 - OTHER POSTHERPETIC NERVOUS SYSTEM INVOLVEMENT SNOMED Code(s): 5779272
[2017-08-15] MEDS: SODIUM CHLORIDE 0.9% 1,000 ML IV SCH (01:26)
[2017-08-15] MEDS: ceFAZolin IN SWFI 2 GM/20 ML SYRINGE IVP SCH ×2 (05:23→11:20)
[2017-08-15 07:14] VITALS: BP 103/69; RESP 16; TEMP 97.4
[2017-08-15] MEDS: PANTOPRAZOLE 40 MG/10 ML VIAL IV SCH (07:36)
[2017-08-15] MEDS: valACYclovir HCL 1,000 MG TABLET PO SCH (07:36)
[2017-08-15] MEDS: FUROSEMIDE 40 MG TAB PO SCH (07:36)
[2017-08-15] MEDS: buPROPion XL 150 MG TAB.ER.24H PO SCH (07:36)
[2017-08-15] MEDS: CHOLECALCIFEROL 1,000 UNIT TAB PO SCH (07:36)
[2017-08-15] MEDS: VIT A,C & E-LUTEIN-MINERALS 1 EACH TAB PO SCH (07:37)
[2017-08-15] MEDS: CHLORTHALIDONE 25 MG TAB PO SCH (07:37)
[2017-08-15] MEDS: POTASSIUM CHLORIDE ER 20 MEQ TAB.ER PO SCH (07:37)
[2017-08-15] MEDS: HYDROcodone/APAP 7.5-325MG 1 EACH TAB PO PRN (11:00)
[2017-08-15] MEDS: MULTIVITAMINS, THERA 1 EACH TAB PO SCH (11:20)
[2017-08-15] MEDS: KETOROLAC 30 MG/ML 1 ML VIAL IVP PRN (12:25)
--- NOTE | 2017-08-15 19:02 | DS ---
DISCHARGE SUMMARY CHIEF COMPLAINT: Pain, redness and vesicles on the left cheek. HISTORY OF PRESENT ILLNESS AND PHYSICAL EXAM: Details of this lady's history and physical can be found in the initial workup. LABORATORY STUDIES: While she was in a hospital she had laboratory studies, details of which can be found in the laboratory section of her chart. COURSE IN HOSPITAL: After admission, she was placed on bedrest, started on intravenous fluids and IV antibiotics. It was determined that the painful ulcerated erythematous area on the left side of her nose and left cheek was likely due to herpes virus and she was started on acyclovir. She improved slowly and the ulcerated area began to form an eschar. She developed some irritation of the left eye and was started on Viroptic every 2 hours and she was seen by Ophthalmology. She is doing well enough that it was felt that she could go home on the and she will stay on the Valtrex and eye drops as prescribed by Ophthalmology and we will see her in 1 or 2 days. FINAL DIAGNOSIS: Probable herpes simplex ulcerations, cellulitis of the left cheek and left side of the nose. OPERATIONS: None. CONSULTATIONS: Infectious Disease and Ophthalmology. She was improved. MMODL / IJN: [id number] /
== END 2017-08-15 12:57 | disposition home or self-care (01) | DRG 866 ==
LOC: EC 16:14 → 3SUR 21:22 → 4MS4W 08-13 11:06
PROVIDERS: ADMIT Family Medicine; ATTEND Family Medicine
DX: B02.8 Zoster with other complications (principal); B00.52 Herpesviral keratitis; L03.211 Cellulitis of face; B00.1 Herpesviral vesicular dermatitis; E87.70 Fluid overload, unspecified; F32.9 Major depressive disorder, single episode, unspecified; H10.89 Other conjunctivitis; H35.30 Unspecified macular degeneration; Z79.899 Other long term (current) drug therapy; Z90.710 Acquired absence of both cervix and uterus; Z79.51 Long term (current) use of inhaled steroids; Z88.8 Allergy status to other drugs, medicaments and biological substances
CPT/HCPCS: 36415; 71046; 74018; 80053; 81003; 82150; 83690; 85025; 87040; 96361; 96374; 96375; 96376; 99285

== ENCOUNTER → 2017-08-28 | Outpatient (CLI) | payer OTHER ==
--- NOTE | 2017-08-28 13:32 | MM ---
Reason for exam: follow-up at short interval from prior study. Last mammogram was performed 6 months ago. History: Patient is postmenopausal. Family history of breast cancer in mother at age 52, breast cancer in sister at age 53, and breast cancer in sister at age 48. Physical Findings: Nurse did not find any significant physical abnormalities on exam. MG 3D Diag Mammo W/Cad LT CC and MLO view(s) were taken of the left breast. Prior study comparison: February 20, 2017, left breast MG work up mamm w CAD LT. February 16, 2017, bilateral MG screening mammo w CAD. The breast tissue is heterogeneously dense. This may lower the sensitivity of mammography. Linear calcifications, possible early vascular calcifications 1 o'clock left breast middle depth are unchanged for 6 months. Additional short interval follow up recommended. These results were verbally communicated with the patient and result sheet given to the patient on 08/28/17. ASSESSMENT: Probably benign, BI-RAD 3 RECOMMENDATION: Follow-up diagnostic mammogram of both breasts in 6 months (total 1 year followup for the left breast calcifications and annual exam for the right breast ). PHIL
== END | disposition home or self-care (01) ==
LOC: RADMAMWWP 12:44
PROVIDERS: ATTEND Family Medicine
DX: R92.8 Other abnormal and inconclusive findings on diagnostic imaging of breast (principal)
CPT/HCPCS: 77065; G0279

== ENCOUNTER → 2017-12-13 | Outpatient (CLI) | payer MEDICARE, OTHER ==
[2017-12-13 17:49] LABS: INR 1.1 (<1.2); Prothrombin Time 10.7 sec (9.0-12.0)
[2017-12-13 17:54] LABS: Albumin 4.5 g/dL (3.5-5.0); Calcium 9.9 mg/dL (8.4-10.2); Potassium 4.3 mmol/L (3.5-5.1); Total Bilirubin 0.6 mg/dL (0.2-1.3); Total Protein 7.4 g/dL (6.3-8.2)
[2017-12-13 18:38] LABS: Basophils % (A) 1 %; Eosinophils # (A) 0.1 k/uL (0-0.7); Eosinophils % (A) 3 %; HCT 42.7 % (34.0-46.0); HGB 14.4 gm/dL (11.4-16.0); Lymphocytes # (A) 1.2 k/uL (1.0-4.8); Lymphocytes % (A) 28 %; MCHC 33.9 g/dL (31.0-37.0); MCV 91.5 fL (80.0-100.0); Mean Platelet Volume 7.3; Monocytes # (A) 0.3 k/uL (0-1.0); Monocytes % (A) 6 %; Neutrophils # (A) 2.6 k/uL (1.3-7.7); Neutrophils % (A) 60 %; RBC 4.66 m/uL (3.80-5.40); RDW 13.7 % (11.5-15.5); WBC 4.3 k/uL (3.8-10.6)
[2017-12-13 18:47] LABS: Platelet Count 93 k/uL (150-450)
== END | disposition home or self-care (01) ==
LOC: LABWHC1 16:35
PROVIDERS: ATTEND Internal Medicine Gastroenterology
DX: K74.60 Unspecified cirrhosis of liver (principal)
CPT/HCPCS: 36415; 80053; 85025; 85610

== ENCOUNTER → 2018-01-04 | Outpatient (CLI) | payer MEDICARE, OTHER | END | disposition home or self-care (01) | LOC: RADMRIMAIN 16:46 | PROVIDERS: ATTEND Internal Medicine Gastroenterology | DX: Z53.9 Procedure and treatment not carried out, unspecified reason (principal) ==

== ENCOUNTER → 2018-01-25 | Outpatient (CLI) | payer MEDICARE, OTHER ==
--- NOTE | 2018-01-25 12:18 | MR ---
MR liver with and without contrast HISTORY: Cirrhosis Multiplanar multisequence and postcontrast images through the liver following 7 cc Gadavist IV. Correlation to prior liver MRI 04/11/2016 There is a hiatal hernia with partial intrathoracic stomach. Spleen is enlarged. No evident pleural e ffusion. Gallbladder is not seen. The bony artery compatible with postcholecystectomy change. Prominence of th e bile duct likely due to postcholecystectomy change and is stable. Kidneys are unchanged. Adrenal gl ands unremarkable. Pancreas is normal. Postop change suspected to the lumbar spine. Spinal curvature is present. Degenerative disc changes in the visualized spine. Liver shows some signal drop on out of phase imaging suggesting possible underlying component of hepa tic steatosis. Nodular contour is compatible with cirrhosis. There is no evident mass within the live r to suggest hepatocellular carcinoma. Hepatic veins, portal veins are patent. Aorta shows normal caliber, no evident dissection. No retroperitoneal adenopathy or ascites. IMPRESSION: Hepatocellular carcinoma is not evident. Findings compatible with cirrhosis. Additional f indings above.
== END | disposition home or self-care (01) ==
LOC: RADMRIMAIN 08:09
PROVIDERS: ATTEND Internal Medicine Gastroenterology
DX: K74.60 Unspecified cirrhosis of liver (principal)
CPT/HCPCS: 74183; A9581

== ENCOUNTER → 2018-03-14 | Outpatient (CLI) | payer MEDICARE, OTHER ==
--- NOTE | 2018-03-14 14:22 | MM ---
Reason for exam: follow-up at short interval from prior study. Last mammogram was performed 6 months ago. History: Patient is postmenopausal. Family history of breast cancer in mother at age 52, breast cancer in sister at age 53, and breast cancer in sister at age 48. Physical Findings: Nurse did not find any significant physical abnormalities on exam. MG 3D Diag Mammo W/Cad ERYN Bilateral CC and MLO view(s) were taken. Prior study comparison: August 28, 2017, left breast MG 3d diag mammo w/cad LT. February 20, 2017, left breast MG work up mamm w CAD LT. The breast tissue is heterogeneously dense. This may lower the sensitivity of mammography. There is a stable central lower right mass at middle depth similar to 2012. There are stable upper outer quadrant middle depth calcifications, somewhat circular on the CC, possible fat necrosis, probably benign, 1 year follow up diagnostic for 2 year stability documentation. These results were verbally communicated with the patient and result sheet given to the patient on 03/14/18. ASSESSMENT: Probably benign, BI-RAD 3 RECOMMENDATION: Follow-up diagnostic mammogram of both breasts in 1 year.
== END | disposition home or self-care (01) ==
LOC: RADMAMWWP 12:57
PROVIDERS: ATTEND Family Medicine
DX: R92.8 Other abnormal and inconclusive findings on diagnostic imaging of breast (principal)
CPT/HCPCS: 77066; G0279; 77062

== ENCOUNTER → 2018-06-12 | Outpatient (CLI) | payer MEDICARE ==
[2018-06-12 14:34] LABS: Basophils % (A) 0 %; Eosinophils # (A) 0.2 k/uL (0-0.7); Eosinophils % (A) 4 %; HCT 44.8 % (34.0-46.0); HGB 14.9 gm/dL (11.4-16.0); Lymphocytes # (A) 1.2 k/uL (1.0-4.8); Lymphocytes % (A) 30 %; MCH 30.1 pg (25.0-35.0); MCHC 33.3 g/dL (31.0-37.0); MCV 90.5 fL (80.0-100.0); Mean Platelet Volume 7.2; Monocytes # (A) 0.3 k/uL (0-1.0); Monocytes % (A) 8 %; Neutrophils # (A) 2.2 k/uL (1.3-7.7); Neutrophils % (A) 56 %; Platelet Count 114 k/uL (150-450); RBC 4.94 m/uL (3.80-5.40); RDW 13.7 % (11.5-15.5)
[2018-06-12 14:43] LABS: Prothrombin Time 10.8 sec (9.0-12.0)
[2018-06-12 18:14] LABS: Albumin 4.7 g/dL (3.80-4.90); Albumin/Globulin Ratio 1.96 (1.20-2.10); Anion Gap 10.7 mmol/L (4.00-12.00); Calcium 9.9 mg/dL (8.7-10.3); Carbon Dioxide 29.3 mmol/L (21.6-31.8); Globulin 2.4 g/dL (1.6-3.3); Potassium 4.3 mmol/L (3.5-5.5); Total Bilirubin 0.8 mg/dL (0.3-1.2); Total Protein 7.1 g/dL (6.2-8.2)
== END | disposition home or self-care (01) ==
LOC: LABWHC1 13:06
PROVIDERS: ATTEND Internal Medicine Gastroenterology
DX: K74.60 Unspecified cirrhosis of liver (principal)
CPT/HCPCS: 36415; 80053; 82105; 85025; 85610

== ENCOUNTER → 2018-10-29 | Outpatient (CLI) | payer MEDICARE ==
--- NOTE | 2018-10-29 13:55 | US ---
EXAMINATION TYPE: US kidneys/renal and bladder DATE OF EXAM: 10/29/2018 COMPARISON: NONE CLINICAL HISTORY: CKD N18.3 STAGE III. EXAM MEASUREMENTS: Right Kidney: 9.2 x 4.4 x 4.5 cm Left Kidney: 9.0 x 4.7 x 3.9 cm Right Kidney: No hydronephrosis or masses seen, superior pole obscured by bowel gas Left Kidney: No hydronephrosis or masses seen, inferior pole obscured by bowel gas Bladder: wnl Bilateral Jets seen: Yes Very minimal diminished cortical medullary differentiation is appreciated bilaterally. There is no ev idence for hydronephrosis at this point in time. No nephrolithiasis is seen. No masses are identifi ed. The urinary bladder is anechoic. Bilateral ureteral jets are seen. IMPRESSION: Very minimal diminished cortical medullary differentiation, sonographic sequela of medical renal dise ase. No hydronephrosis or nephrolithiasis.
== END | disposition home or self-care (01) ==
LOC: RADUSWWP 12:51
PROVIDERS: ATTEND Internal Medicine Nephrology
DX: N18.3 Chronic kidney disease, stage 3 (moderate) (principal)
CPT/HCPCS: 76770

== ENCOUNTER → 2018-11-27 | Outpatient (CLI) | payer MEDICARE ==
[2018-11-27 14:31] LABS: Basophils % (A) 0 %; Eosinophils # (A) 0.1 k/uL (0-0.7); Eosinophils % (A) 3 %; HCT 42.7 % (34.0-46.0); HGB 14.5 gm/dL (11.4-16.0); Lymphocytes % (A) 27 %; MCH 30.7 pg (25.0-35.0); MCHC 34.1 g/dL (31.0-37.0); Mean Platelet Volume 7.3; Monocytes # (A) 0.2 k/uL (0-1.0); Monocytes % (A) 6 %; Neutrophils # (A) 2.3 k/uL (1.3-7.7); Neutrophils % (A) 62 %; Platelet Count 101 k/uL (150-450); RBC 4.74 m/uL (3.80-5.40); RDW 13.6 % (11.5-15.5); WBC 3.8 k/uL (3.8-10.6)
[2018-11-27 14:41] LABS: Prothrombin Time 10.7 sec (9.0-12.0)
[2018-11-27 19:03] LABS: African American GFR (CKD) 68.5 (60.0-200.0); Total Protein 6.8 g/dL (6.2-8.2)
[2018-11-27 19:04] LABS: Albumin 4.7 g/dL (3.80-4.90); Albumin/Globulin Ratio 2.24 (1.60-3.17); Globulin 2.1 g/dL (1.6-3.3); Total Bilirubin 0.7 mg/dL (0.2-1.2)
== END | disposition home or self-care (01) ==
LOC: LABWHC1 13:52
PROVIDERS: ATTEND Internal Medicine Gastroenterology
DX: K74.60 Unspecified cirrhosis of liver (principal)
CPT/HCPCS: 36415; 80053; 82105; 85025; 85610

== ENCOUNTER 2018-12-13 13:05 | Emergency (ER) | payer MEDICARE, OTHER ==
[2018-12-13 13:08] VITALS: PULSE 83; RESP 18; TEMP 98
[2018-12-13] MEDS ORDERED: LIDOCAINE 5% PATCH TOPICAL STA (14:00)
[2018-12-13] MEDS ORDERED: Acetaminophen-Codeine 300-30mg TAB PO STA (14:01)
[2018-12-13] MEDS ORDERED: CYCLOBENZAPRINE 10MG STARTER 3 TAB BTL PO STA (14:01)
[2018-12-13] MEDS ORDERED: CYCLOBENZAPRINE 10 MG TAB PO STA (14:23)
[2018-12-13 14:34] VITALS: BP 131/75
--- NOTE | 2018-12-13 15:01 | XR ---
EXAMINATION TYPE: XR thoracic spine 2V DATE OF EXAM: 12/13/2018 CLINICAL HISTORY: Twisting injury with subsequent back pain TECHNIQUE: Frontal, lateral, and swimmer's view of thoracic spine are obtained. COMPARISON: 12/05/2009 FINDINGS: Thoracic spine show satisfactory alignment. There is a new compression deformity of the T11 vertebral body in comparison to the prior 2010 with vertebral body height loss of approximately 20%. Old compression deformities of L1 and L2 are similar to the prior 2009. There is also a very mild co mpression deformity of T7. Height loss is approximately 10%. Mild multilevel degenerative changes of the spine are seen as small anterior osteophytes. IMPRESSION: Age indeterminant compression deformities of T7 and T11 are seen that were not present on the prior exam of 2009. Correlate for point tenderness. MRI could evaluate for bone marrow edema if physical exam is equivocal.
--- NOTE | 2018-12-13 15:18 | ED ---
Back Pain HPI - General Chief Complaint: Back Pain/Injury Stated Complaint: back pain Source: patient Limitations: no limitations - History of Present Illness Initial Comments: Patient is 68-year-old female presents emergency Department with thoracic pain. Patient reports the pain started yesterday which she was bending over and felt and heard a "pop" in her thoracic region patient reports the pain is located in her lower thoracic region that is exacerbated with palpation. Patient denies any numbness tingling or radiation of the pain. Patient denies one-sided weakness. Patient reports pain is exacerbated with flexion of her spine and when she is carrying anything in her hands. Patient reports taking pain medication that she was prescribed with minimal improvement. Patient denies chest pain, chest tightness, shortness of breath. - Related Data Home Medications Medication Instructions Recorded Confirmed Cholecalciferol [Vitamin D3 (25 2,000 unit PO DAILY 11/16/15 01/18/18 Mcg = 1000 Iu)] Potassium Chloride ER [K-Dur 10] 10 meq PO TID@0800,1200,1700 11/16/15 01/18/18 Pravastatin Sodium [Pravachol] 40 mg PO HS 11/16/15 01/18/18 Spironolact/Hydrochlorothiazid 1 tab PO BID 11/16/15 01/18/18 [Spironolactone-Hctz 25-25 Tab] Vit C/E/Zn/Coppr/Lutein/Zeaxan 1 cap PO BID 11/16/15 01/18/18 [Preservision Areds 2 Softgel] Ziprasidone HCl [Geodon] 60 mg PO HS 11/16/15 01/18/18 buPROPion XL [Wellbutrin XL] 150 mg PO TID 11/16/15 01/18/18 hydrOXYzine PAMOATE [Vistaril] 25 mg PO HS 11/16/15 01/18/18 ALPRAZolam [Xanax] 0.25 mg PO BID 08/09/17 01/18/18 Fluticasone Nasal [place] [Flonase 1 - 2 spray EA NOSTRIL DAILY PRN 08/09/17 01/18/18 Nasal [place]] Furosemide [Lasix] 40 mg PO 0800 08/09/17 01/18/18 HYDROcodone/APAP 7.5-325MG [[place] 1 tab PO TID PRN 08/09/17 01/18/18 7.5-325] rOPINIRole HCL [Requip] 0.25 - 0.5 mg PO HS PRN 08/09/17 01/18/18 Allergies Allergy/AdvReac Type Severity Reaction Status Date / Time gabapentin [From Neurontin] Allergy Anaphylaxis Verified 12/13/18 13:05 Review of Systems ROS Statement: Those systems with pertinent positive or pertinent negative responses have been documented in the HPI. ROS Other: All systems not noted in ROS Statement are negative. Past Medical History Past Medical History: Coronary Artery Disease (CAD), Eye Disorder, Osteoarthritis (OA), Renal Disease Additional Past Medical History / Comment(s): EDEMA OF LEGS AT TIMES, MACULAR DEGENERATION History of Any Multi-Drug Resistant Organisms: None Reported Past Surgical History: Back Surgery, Cholecystectomy, Hysterectomy, Joint Replacement Additional Past Surgical History / Comment(s): shoulder surgery, Past Anesthesia/Blood Transfusion Reactions: No Reported Reaction Past Psychological History: ADD/ADHD, Depression Smoking Status: Never smoker Past Alcohol Use History: None Reported Past Drug Use History: None Reported - Past Family History Mother Family Medical History: Cancer Father Family Medical History: Cancer Sister(s) Family Medical History: Cancer Additional Family Medical History / Comment(s): SISTER X2 General Exam - General Exam Comments Initial Comments: General: Well-developed well-nourished distress HEENT: Normocephalic/atraumatic, PERLL, no exudates, TM clear, no cervical lymph nodes Neck: Supple, nontender, trachea midline Chest/Lungs: Normal respirations, no signs of respiratory distress clear to auscultation bilaterally no wheezes, rales, rhonchi Cardiac: Regular rate and rhythm, normal S1-S2, no murmurs rubs or gallops Abdomen/GI: Soft nontender, bowel sounds equal or quadrant x4, no guarding, Back: Vertebral tenderness on palpation on the lower thoracic region, no paraspinal tenderness, limited range of motion due to pain especially with flexion Musculoskeletal: Nontender, full range of motion, no edema, strength equal bilaterally, +2 dorsalis pedis and posterior tibialis bilaterally, +2 ulnar and radial pulses bilaterally. Skin: Warmth, no rashes or lesions, no cyanosis or diaphoresis Neurologic: AAO x 3, CN 2-12 intact, Psychiatric: Mood and affect normal, judgment normal Limitations: no limitations Course Vital Signs 12/13/18 12/13/18 13:06 14:32 Temperature 98 F Pulse Rate 83 Respiratory 18 Rate Blood Pressure 134/95 Blood Pressure 124/81 [Left Arm] Blood Pressure 131/75 [Right Arm] O2 Sat by Pulse 96 Oximetry Medical Decision Making - Medical Decision Making Patient is a 68-year-old female presenting to emergency Department with thoracic pain. Thoracic spine x-ray is indicative of compression deformities in T7 and T11 that were not present in her last imaging in 2009. The tenderness noted on physical examination is correlated to the deformities represented in the imaging. Patient advised to follow-up with orthopedics for further management. Patient advised to alternate between Tylenol and ibuprofen for pain control. Strict return parameters were thoroughly discussed with patient was understanding and agreeable. Case discussed with physician. Disposition Clinical Impression: Thoracic back pain Disposition: HOME SELF-CARE Condition: Stable Instructions (If sedation given, give patient instructions): Acute Low Back Pain (ED) Additional Instructions: Please follow up with orthopedics. Alternate between Tylenol and ibuprofen for pain control. Please return to emergency department if symptoms worsen. Is patient prescribed a controlled substance at d/c from ED?: No Referrals: Orlando Moore MD [Primary Care Provider] - 1-2 days Sean Pineda DO [Doctor of Osteopathic Medicine] - 1-2 days Time of Disposition: 15:18
== END 2018-12-13 15:24 | disposition home or self-care (01) ==
LOC: EC 13:05
DX: M54.6 Pain in thoracic spine (principal); M43.8X4 Other specified deforming dorsopathies, thoracic region; I25.10 Atherosclerotic heart disease of native coronary artery without angina pectoris; M19.90 Unspecified osteoarthritis, unspecified site; F90.9 Attention-deficit hyperactivity disorder, unspecified type; F32.9 Major depressive disorder, single episode, unspecified; Z79.899 Other long term (current) drug therapy; Z88.8 Allergy status to other drugs, medicaments and biological substances
CPT/HCPCS: 72070; 99284

== ENCOUNTER → 2018-12-17 | Outpatient (CLI) | payer MEDICARE, OTHER ==
[2018-12-17 14:00] LABS: Appearance,Urine Clear (Clear); Bilirubin,Urine Negative (Negative); Blood,Urine Negative (Negative); Color,Urine Yellow; Glucose,Urine (UA) Negative (Negative); Ketones,Urine Negative (Negative); Leukocyte Esterase,Urine Negative (Negative); Nitrite,Urine Negative (Negative); PH, Urine 5.5 (5.0-8.0); Protein,Urine Negative (Negative); Specific Gravity,Urine 1.022 (1.001-1.035); Urobilinogen,Urine <2.0 mg/dL (<2.0)
[2018-12-17 14:23] LABS: Basophils % (A) 0 %; Eosinophils # (A) 0.2 k/uL (0-0.7); Eosinophils % (A) 4 %; HCT 43.2 % (34.0-46.0); HGB 14.2 gm/dL (11.4-16.0); Lymphocytes # (A) 1.1 k/uL (1.0-4.8); Lymphocytes % (A) 24 %; MCH 29.5 pg (25.0-35.0); MCHC 32.8 g/dL (31.0-37.0); Mean Platelet Volume 7.4; Monocytes # (A) 0.4 k/uL (0-1.0); Monocytes % (A) 9 %; Neutrophils # (A) 2.7 k/uL (1.3-7.7); Neutrophils % (A) 61 %; Platelet Count 109 k/uL (150-450); RDW 13.5 % (11.5-15.5); WBC 4.5 k/uL (3.8-10.6)
[2018-12-17 20:37] LABS: Iron Saturation 27.22 (12.00-45.00)
[2018-12-17 20:45] LABS: Vitamin D 25 Hydroxy 27.9 ng/mL (30.0-100.0)
[2018-12-17 21:02] LABS: African American GFR (CKD) 45.3 (60.0-200.0); Albumin 4.7 g/dL (3.80-4.90); Anion Gap 10.9 mmol/L (4.00-12.00); BUN/Creat Ratio 22.86 Ratio (12.00-20.00); Calcium 9.9 mg/dL (8.7-10.3); Carbon Dioxide 26.1 mmol/L (21.6-31.8); Magnesium 2.2 mg/dL (1.5-2.4); Non-African American GFR(CKD) 39.1 (60.0-200.0); Phosphorus 3.8 mg/dL (2.4-5.1); Potassium 4.3 mmol/L (3.5-5.5); Uric Acid 6.4 mg/dL (2.9-7.7)
[2018-12-17 22:18] LABS: Total Protein,Urine Random 12.3 mg/dL (0.0-13.5)
[2018-12-17 22:19] LABS: Creatinine,Urine Random 107.8 mg/dL
== END | disposition home or self-care (01) ==
LOC: LABWHC1 13:12
PROVIDERS: ATTEND Internal Medicine Nephrology
DX: N18.3 Chronic kidney disease, stage 3 (moderate) (principal); N17.9 Acute kidney failure, unspecified; E55.9 Vitamin D deficiency, unspecified; N25.81 Secondary hyperparathyroidism of renal origin; M10.9 Gout, unspecified; N39.0 Urinary tract infection, site not specified; D63.1 Anemia in chronic kidney disease; R80.9 Proteinuria, unspecified; R07.1 Chest pain on breathing
CPT/HCPCS: 36415; 80048; 81003; 82040; 82306; 82570; 82728; 83540; 83550; 83735; 83970; 84100; 84156; 84550; 85025; 85379

== ENCOUNTER → 2018-12-25 | Outpatient (CLI) | payer MEDICARE, OTHER ==
--- NOTE | 2018-12-25 09:54 | BD ---
EXAMINATION TYPE: Axial Bone Density DATE OF EXAM: 12/25/2018 COMPARISON: 2008 CLINICAL HISTORY: M 83.0, and 80.0 Height: 4 FT 9 1/4 IN Weight: 161 FRAX RISK QUESTIONS: History of Fracture in Adulthood: YES Secondary Osteoporosis: 5. Chronic liver disease: HX HEP C RISK FACTORS HISTORY OF: Hip Fracture (Right/Left): LT HIP When: UNSURE Surgery to Spine/Hip(right/left)/Wrist (right/left): LUMBAR SURG, LT HIP When: POOR HISTORIAN ON DATES OF SURGURIES Active: MUCH SHE CAN Postmenopausal woman: TOTAL HYST AGE 52 Lost more than 2 inches in height since high school: YES MEDICATIONS: Additional Medications: PRAVASTATIN, LASIX,ZAPRASIDONE, BUPROPION, HYDROXYZINE, SPIRONOLACTONE, KLORC ON, XANAX, NORCO, VIT D PRESERVISION Additional History: EXAM MEASUREMENTS: Bone mineral density about the R hip (g/cm2): 0.937 T Score values are as follows: -----R Neck: -0.7 -----R Total: 0.5 Bone mineral density has: DECREASED -0.5 % since study of: 2008 Bone mineral density about the L Wrist (g/cm2): 0.574 T Score values are as follows: -----Dist. R+U: -0.8 -----Prox. R+U: -1.3 -----Radius total: -1.8 Bone mineral density has: INCREASED 6.2 % since study of: 2008 IMPRESSION: Osteopenia (T Score between -2.5 and -1). There is slightly increased risk of fracture and the patient may be considered for treatment. Re-Screen 2-5 years. NOTE: T-SCORE=SD OF THE YOUNG ADULT MEAN.
== END | disposition home or self-care (01) ==
LOC: RADBDWWP 08:01
PROVIDERS: ATTEND Family Medicine
DX: M85.842 Other specified disorders of bone density and structure, left hand (principal)
CPT/HCPCS: 77080

== ENCOUNTER → 2018-12-30 | Outpatient (CLI) | payer MEDICARE, OTHER ==
--- NOTE | 2018-12-30 09:54 | CT ---
EXAMINATION TYPE: CT thoracic spine wo con DATE OF EXAM: 12/30/2018 COMPARISON: X-ray of the thoracic spine dated 12/13/2018 and MRI dated 08/24/2010 HISTORY: Lower dorsal and upper lumbar spine CT DLP: 768.07 mGycm Automated exposure control for dose reduction was used. FINDINGS: Redemonstration of wedge-shaped compression deformities seen in the T7 vertebral body with approximat joshua 60% height loss. Mild bulging of the posterior cortex without evidence of significant retropulsio n. The height loss is increased when compared to x-ray dated 12/13/2018 and was approximately 20-30%. There is adjacent vacuum disc phenomenon in the T7-8 disc space. There is moderate bilateral neural f oraminal stenosis and minimal spinal canal stenosis at T7-8. There is development of kyphosis within the thoracic spine, which appears new when compared to 08/24/2010. The fracture also appears new when c ompared to 08/24/2010. Redemonstration of superior endplate chronic compression deformity of the T11 vertebral body, stable when compared to 08/24/2010. Pedicles and posterior elements appear intact. Visualized lungs are clear. Cholecystectomy clips are seen in the right upper quadrant. Ectasia and tortuosity of the thoracic aorta. Moderate size hiatal hernia. Prevertebral and paraspinal soft tissues and muscles appear grossly unremarkable. IMPRESSION: WORSENING COMPRESSION DEFORMITY IN THE T7 VERTEBRAL BODY WITH APPROXIMATELY 60% HEIGHT LOSS WHEN COMP ARED TO 12/13/2018. UNCHANGED APPEARANCE OF CHRONIC SUPERIOR ENDPLATE COMPRESSION DEFORMITY OF T11 DATING BACK TO 2010. MODERATE HIATAL HERNIA.
--- NOTE | 2018-12-30 09:54 | CT ---
EXAMINATION TYPE: CT lumbar spine wo con DATE OF EXAM: 12/30/2018 8:52 AM COMPARISON: MRI lumbar spine dated 12/13/2010 HISTORY: Lower Dorasal and Upper Lumbar Spine pain CT DLP: 1398.97 mGycm Automated exposure control for dose reduction was used. Unenhanced CT of the lumbar spine was performed. Bone and soft tissue window settings are submitted as well as coronal and sagittal reconstructions. Redemonstration of posterior fusion from L4-S1 with transpedicular screws at L4, L5 and S1 bilaterall y. Bilateral laminectomies are seen at these levels. Hardware appears intact. No evidence of loosenin g. There is redemonstration of mild dextroconvex curvature of the lower thoracic and lumbar spine. Chronic superior endplate compression deformities are seen at L1 and L2, similar to MRI dated 12/14/19 11. There is a Schmorl's node seen at the superior endplate of L3. Prevertebral and paraspinal soft tissues appear grossly unremarkable. L1-L2: Disc spur complex causing [id number] spinal canal stenosis and severe left neural forami nal stenosis. L2-L3: Disc spur complex causing moderate spinal canal stenosis and moderate bilateral neural foramin al stenosis. L3-L4: Disc per complex and disc bulge eccentric to the right, facet arthropathy at the and ligamentu m flavum hypertrophy contributing to mild spinal canal stenosis and severe right neural foraminal chase nosis. There is also moderate left neural foraminal stenosis. L4-L5 and L5-S1: No spinal canal stenosis or neural foraminal stenosis, but limited due to streak art ifact from hardware. IMPRESSION: Posterior fusion from L4-S1. Hardware is intact. Chronic compression deformities of L1 and L2, similar to 2011. Multilevel lumbar spondylosis most severe at L1-2, L2-3 and L3-4, appearing slightly worse when kim red to 2011.
== END | disposition home or self-care (01) ==
LOC: RADCTMAIN 08:00
PROVIDERS: ATTEND Family Medicine
DX: M47.816 Spondylosis without myelopathy or radiculopathy, lumbar region (principal); M54.6 Pain in thoracic spine; Z88.8 Allergy status to other drugs, medicaments and biological substances
CPT/HCPCS: 72128; 72131

== ENCOUNTER → 2019-02-10 | Outpatient (CLI) | payer MEDICARE ==
[2019-02-10 14:43] LABS: Appearance,Urine Clear (Clear); Bilirubin,Urine Negative (Negative); Blood,Urine Negative (Negative); Color,Urine Light Yellow; Glucose,Urine (UA) Negative (Negative); Ketones,Urine Negative (Negative); Leukocyte Esterase,Urine Negative (Negative); Nitrite,Urine Negative (Negative); Protein,Urine Negative (Negative); Specific Gravity,Urine 1.005 (1.001-1.035); Urobilinogen,Urine <2.0 mg/dL (<2.0)
[2019-02-10 15:07] LABS: Basophils % (A) 1 %; Eosinophils # (A) 0.1 k/uL (0-0.7); Eosinophils % (A) 2 %; HCT 45.2 % (34.0-46.0); HGB 15.2 gm/dL (11.4-16.0); Lymphocytes # (A) 0.8 k/uL (1.0-4.8); Lymphocytes % (A) 18 %; MCH 30.3 pg (25.0-35.0); MCHC 33.7 g/dL (31.0-37.0); MCV 89.9 fL (80.0-100.0); Mean Platelet Volume 7.4; Monocytes # (A) 0.3 k/uL (0-1.0); Monocytes % (A) 6 %; Neutrophils # (A) 3.1 k/uL (1.3-7.7); Neutrophils % (A) 71 %; RBC 5.03 m/uL (3.80-5.40); RDW 13.7 % (11.5-15.5); WBC 4.4 k/uL (3.8-10.6)
[2019-02-10 15:36] LABS: Platelet Count 96 k/uL (150-450)
[2019-02-10 20:06] LABS: Iron Saturation 26.77 (12.00-45.00)
[2019-02-10 20:17] LABS: Ferritin 429.2 ng/mL (10.0-291.0)
[2019-02-10 21:44] LABS: African American GFR (CKD) 54.5 (60.0-200.0); Anion Gap 15.2 mmol/L (4.00-12.00); BUN/Creat Ratio 18.33 Ratio (12.00-20.00); Calcium 10.2 mg/dL (8.7-10.3); Carbon Dioxide 26.8 mmol/L (21.6-31.8); Magnesium 2.2 mg/dL (1.5-2.4); Phosphorus 3.1 mg/dL (2.4-5.1); Potassium 3.7 mmol/L (3.5-5.5)
[2019-02-10 22:33] LABS: Total Protein,Urine Random <4.0 mg/dL (0.0-13.5)
[2019-02-10 22:35] LABS: Creatinine,Urine Random 21.3 mg/dL
== END | disposition home or self-care (01) ==
LOC: LABWHC1 13:47
PROVIDERS: ATTEND Internal Medicine Nephrology
DX: N18.3 Chronic kidney disease, stage 3 (moderate) (principal); N17.9 Acute kidney failure, unspecified; E55.9 Vitamin D deficiency, unspecified; N25.81 Secondary hyperparathyroidism of renal origin; M10.9 Gout, unspecified; N39.0 Urinary tract infection, site not specified; D63.1 Anemia in chronic kidney disease; R80.9 Proteinuria, unspecified
CPT/HCPCS: 36415; 80048; 81003; 82040; 82570; 82728; 83540; 83550; 83735; 83970; 84100; 84156; 84550; 85025

== ENCOUNTER → 2019-03-17 | Outpatient (CLI) | payer MEDICARE, OTHER ==
--- NOTE | 2019-03-17 13:21 | US ---
EXAMINATION TYPE: US liver DATE OF EXAM: 03/17/2019 COMPARISON: NONE CLINICAL HISTORY: K74.60 Unspecified cirrhosis of liver. h/o hep c and cirrhosis, no symptoms, cholec ystectomy, EXAM MEASUREMENTS: Liver Length: 13.6 cm Gallbladder Wall: Surgically absent CBD: 0.8 cm Right Kidney: 8.4 x 3.7 x 4.2 cm *patient is short waisted and it limits window of imaging, intercostal space used for imaging Pancreas: Limited by bowel gas Liver: heterogeneous lobes Gallbladder: Surgically absent Evidence for sonographic Lazcano's sign: no CBD: wnl Right Kidney: small in size IMPRESSION: 1. Liver is heterogeneous which is nonspecific be seen with hepatitis or diffuse hepatocellular disea se correlate clinically. 2. Postcholecystectomy.
== END ==
LOC: RADUSWWP 12:34
PROVIDERS: ATTEND Internal Medicine Gastroenterology
DX: R93.3 Abnormal findings on diagnostic imaging of other parts of digestive tract (principal); Z90.49 Acquired absence of other specified parts of digestive tract
CPT/HCPCS: 76705

== ENCOUNTER → 2019-03-17 | Outpatient (CLI) | payer MEDICARE, OTHER ==
--- NOTE | 2019-03-18 08:43 | MM ---
Reason for exam: additional evaluation requested from prior study. Last mammogram was performed 1 year ago. History: Patient is postmenopausal. Family history of breast cancer in mother at age 52, breast cancer in sister at age 53, and breast cancer in sister at age 48. Physical Findings: Nurse did not find any significant physical abnormalities on exam. MG 3D Diag Mammo W/Cad ERYN Bilateral CC and MLO view(s) were taken. ML, spot compression MLO, and spot compression CC view(s) were taken of the right breast. Prior study comparison: March 14, 2018, bilateral MG 3d diag mammo w/cad ERYN. August 28, 2017, left breast MG 3d diag mammo w/cad LT. The breast tissue is heterogeneously dense. This may lower the sensitivity of mammography. Finding #1: There is a 5 mm mass located 5 cm from the nipple in the central position of the right breast. Finding #2: There are typically benign calcifications in both breasts. These results were verbally communicated with the patient and result sheet given to the patient on 03/17/19. ASSESSMENT: Incomplete: need additional imaging evaluation, BI-RAD 0 RECOMMENDATION: Ultrasound of the right breast.
--- NOTE | 2019-03-18 08:45 | USB ---
Reason for exam: additional evaluation requested from abnormal screening. History: Patient is postmenopausal. Family history of breast cancer in mother at age 52, breast cancer in sister at age 53, and breast cancer in sister at age 48. US Breast Limited RT Right limited breast ultrasound including focal area of concern, retroareolar and axilla demonstrates a 0.4 x 0.3 x 0.2cm mixed lesion with calcification at 8 o'clock. These results were verbally communicated with the patient and result sheet given to the patient on 03/17/19. ASSESSMENT: Suspicious, BI-RAD 4 RECOMMENDATION: Ultrasound core biopsy of the right breast. Called office with mammographic findings and has scheduled an appointment for the patient for 04/22/19 at 3:[address] Saldana. Biopsy scheduled for 04/14/19 at 2:00. PRELIMINARY REPORT CALLED AND FAXED TO DR. SALDANA ON 03/18/19.
== END | disposition home or self-care (01) ==
LOC: RADMAMWWP 12:31
PROVIDERS: ATTEND Internal Medicine Hematology & Oncology
DX: R92.8 Other abnormal and inconclusive findings on diagnostic imaging of breast (principal)
CPT/HCPCS: 77066; 76642; G0279; 77062

== ENCOUNTER → 2019-04-08 | Outpatient (CLI) | payer MEDICARE, OTHER ==
[2019-04-08 12:48] LABS: Basophils % (A) 1 %; Eosinophils # (A) 0.1 k/uL (0-0.7); Eosinophils % (A) 2 %; HGB 15.1 gm/dL (11.4-16.0); Lymphocytes # (A) 0.6 k/uL (1.0-4.8); Lymphocytes % (A) 18 %; MCHC 33.6 g/dL (31.0-37.0); MCV 92.3 fL (80.0-100.0); Mean Platelet Volume 7.1; Monocytes # (A) 0.2 k/uL (0-1.0); Monocytes % (A) 7 %; Neutrophils # (A) 2.4 k/uL (1.3-7.7); Neutrophils % (A) 71 %; Platelet Count 101 k/uL (150-450); RBC 4.87 m/uL (3.80-5.40); RDW 13.7 % (11.5-15.5); WBC 3.4 k/uL (3.8-10.6)
[2019-04-08 18:57] LABS: T4, Free (Free Thyroxine) 1.7 ng/dL (0.80-1.80)
[2019-04-08 19:15] LABS: Albumin 4.7 g/dL (3.80-4.90); Albumin/Globulin Ratio 2.14 (1.60-3.17); Anion Gap 10.7 mmol/L (4.00-12.00); Carbon Dioxide 26.3 mmol/L (21.6-31.8); Chol/HDL Ratio 2.98; Globulin 2.2 g/dL (1.6-3.3); LDL Cholesterol,Calculated 80.4 mg/dL (0.0-131.0); Potassium 4.2 mmol/L (3.5-5.5); Total Bilirubin 0.8 mg/dL (0.2-1.2); Total Protein 6.9 g/dL (6.2-8.2); VLDL Calculation 26.6 mg/dL (5.00-40.00)
== END ==
LOC: LABWHC1 11:47
PROVIDERS: ATTEND Family Medicine
DX: Z00.00 Encounter for general adult medical examination without abnormal findings (principal); E55.9 Vitamin D deficiency, unspecified; E78.5 Hyperlipidemia, unspecified; R53.83 Other fatigue; Z13.220 Encounter for screening for lipoid disorders
CPT/HCPCS: 36415; 80053; 80061; 82306; 84439; 84443; 85025

== ENCOUNTER → 2019-04-14 | Day surgery (SDC) | payer MEDICARE, OTHER ==
[2019-04-14 13:08] VITALS: RESP 16
--- NOTE | 2019-04-14 15:16 | USB ---
EXAMINATION TYPE: US biopsy breast VAD RT DATE OF EXAM: 04/14/2019 CLINICAL HISTORY: R92.8 Abn mammo. TECHNIQUE: Ultrasound guided vaccuum assisted core biopsy of right breast, 8:00 position. COMPARISON: NONE FINDINGS: The ultrasound guided core biopsy procedure was explained to the patient. The risks, benef its, alternatives were discussed. An informed consent was then obtained. Timeout was performed. The patient was placed in supine positioning for imaging and for the procedure. The overlying skin w as prepped with betadine and sterilely draped in usual sterile fashion. Lidocaine 1% was used as ane sthetic into the skin and deeper breast tissue up to area of concern in the breast. A small skin james k was made with surgical scalpel. Under ultrasound guidance, a 12-gauge vacuum assisted biopsy device was used to obtain 2 core samples . This appeared to resect the entire lesion. A biopsy clip was left at the lesion site. Good hemostasis was obtained with direct pressure. Discharge instructions were discussed with the pa tieadams. Risks for bleeding and follow-up for bleeding following the procedure were discussed with the patient. The patient will follow up with the referring physician for results. Postprocedure mammogram: The patient was transferred to mammography for physician ordered post proced ure mammogram for clip placement verification. The clip is in the expected region of the biopsy. The patient tolerated the procedure well without any immediate complication. The patient was dischar ged to home in stable condition. IMPRESSION: 1. Successful ultrasound guided biopsy right breast. Recommendations: 1. Recommendations are pending pathology results
[2019-04-14 15:18] VITALS: BP 113/75; PULSE 72; TEMP 97.9
== END ==
LOC: RADUSWWP 12:50
PROVIDERS: ATTEND Internal Medicine Hematology & Oncology
DX: N60.11 Diffuse cystic mastopathy of right breast (principal); N60.21 Fibroadenosis of right breast
CPT/HCPCS: 88305; 77065; 19083; A4648; J2001

== ENCOUNTER → 2019-06-16 | Outpatient (CLI) | payer MEDICARE ==
[2019-06-16 14:18] LABS: Basophils % (A) 1 %; Eosinophils # (A) 0.1 k/uL (0-0.7); Eosinophils % (A) 4 %; HCT 42.4 % (34.0-46.0); HGB 14.3 gm/dL (11.4-16.0); Lymphocytes # (A) 1.3 k/uL (1.0-4.8); Lymphocytes % (A) 34 %; MCH 30.5 pg (25.0-35.0); MCHC 33.7 g/dL (31.0-37.0); MCV 90.6 fL (80.0-100.0); Mean Platelet Volume 8.3; Monocytes # (A) 0.3 k/uL (0-1.0); Monocytes % (A) 7 %; Neutrophils % (A) 53 %; Platelet Count 102 k/uL (150-450); RBC 4.68 m/uL (3.80-5.40); RDW 12.9 % (11.5-15.5); WBC 3.7 k/uL (3.8-10.6)
[2019-06-16 14:22] LABS: INR 1.1 (<1.2); Prothrombin Time 10.9 sec (9.0-12.0)
[2019-06-16 18:36] LABS: African American GFR (CKD) 60.6 (60.0-200.0); Albumin 4.8 g/dL (3.80-4.90); Albumin/Globulin Ratio 2.53 (1.60-3.17); Anion Gap 11.7 mmol/L (4.00-12.00); BUN/Creat Ratio 21.82 Ratio (12.00-20.00); Calcium 9.6 mg/dL (8.7-10.3); Carbon Dioxide 26.3 mmol/L (21.6-31.8); Globulin 1.9 g/dL (1.6-3.3); Non-African American GFR(CKD) 52.3 (60.0-200.0); Potassium 3.6 mmol/L (3.5-5.5); Total Bilirubin 0.6 mg/dL (0.2-1.2); Total Protein 6.7 g/dL (6.2-8.2)
== END | disposition home or self-care (01) ==
LOC: LABWHC1 13:44
PROVIDERS: ATTEND Internal Medicine Gastroenterology
DX: K74.60 Unspecified cirrhosis of liver (principal)
CPT/HCPCS: 36415; 80053; 82105; 85025; 85610

== ENCOUNTER → 2019-11-20 | Outpatient (CLI) | payer MEDICARE ==
--- NOTE | 2019-11-20 11:07 | USB ---
Reason for exam: follow-up at short interval from prior study. History: Patient is postmenopausal. Family history of breast cancer in mother at age 52, breast cancer in sister at age 53, and breast cancer in sister at age 48. Benign US biopsy breast VAD RT of the right breast, April 14, 2019. Physical Findings: Nurse did not find any significant physical abnormalities on exam. US Breast Limited RT Right limited breast ultrasound including focal area of concern, retroareolar and axilla demonstrates a 0.3 x 0.4 x 0.2cm hypoechoic lesion too small to characterize at 8 o'clock, previous biopsy. Scanned 6-9 o'clock. Diagnostic follow up at the time of the patient's annual. These results were verbally communicated with the patient and result sheet given to the patient on 11/20/19. ASSESSMENT: Probably benign, BI-RAD 3 RECOMMENDATION: Follow-up diagnostic mammogram of both breasts in 4 months. (total 1 year follow up right breast) Back on schedule for March 2020.
== END | disposition home or self-care (01) ==
LOC: RADUSWWP 09:32
PROVIDERS: ATTEND Family Medicine
DX: N64.9 Disorder of breast, unspecified (principal)

== ENCOUNTER 2019-12-20 18:35 | Emergency (ER) | payer MEDICARE ==
[2019-12-20 18:41] VITALS: RESP 18
--- NOTE | 2019-12-20 19:36 | ED ---
Extremity Problem HPI - General Chief complaint: Extremity Problem,Nontraumatic Stated complaint: R Arm Injury Time Seen by Provider: 12/20/19 18:57 Source: patient, RN notes reviewed, old records reviewed Mode of arrival: ambulatory Limitations: no limitations - History of Present Illness Initial comments: Patient is a 69-year-old female who presents emergency department today with chief complaint of too tight of a cast on her right hand. She reports that she fell and broke her fifth metasupple. Patient states that she had a cast placed 3 days ago. She reports the cast seems heavy and she is holding her arm down. Patient believes she's had increased swelling causing the pain. She reports normal sensation to the fingertips. She denies any elbow pain. - Related Data Home Medications Medication Instructions Recorded Confirmed Cholecalciferol [Vitamin D3 (25 2,000 unit PO DAILY 11/16/15 04/14/19 Mcg = 1000 Iu)] Potassium Chloride ER [K-Dur 10] 10 meq PO BID 11/16/15 04/14/19 Pravastatin Sodium [Pravachol] 40 mg PO HS 11/16/15 04/14/19 Spironolact/Hydrochlorothiazid 50 mg PO BID 11/16/15 04/14/19 [Spironolactone-Hctz 25-25 Tab] Vit C/E/Zn/Coppr/Lutein/Zeaxan 1 cap PO BID 11/16/15 04/14/19 [Preservision Areds 2 Softgel] Ziprasidone HCl [Geodon] 60 mg PO HS 11/16/15 04/14/19 buPROPion XL [Wellbutrin XL] 450 mg PO DAILY 11/16/15 04/14/19 hydrOXYzine pamoate [Vistaril] 25 mg PO HS 11/16/15 04/14/19 ALPRAZolam [Xanax] 0.25 mg PO BID PRN 08/09/17 04/14/19 Furosemide [Lasix] 40 mg PO 0800 08/09/17 04/14/19 HYDROcodone/APAP 7.5-325MG [[employer] 1 tab PO TID PRN 08/09/17 04/14/19 7.5-325] Alendronate Sodium 70 mg PO WEEKLY 04/02/19 04/14/19 Aspirin 81 mg PO DAILY 04/02/19 04/14/19 Allergies Allergy/AdvReac Type Severity Reaction Status Date / Time No Known Allergies Allergy Verified 12/20/19 18:37 Review of Systems ROS Statement: Those systems with pertinent positive or pertinent negative responses have been documented in the HPI. ROS Other: All systems not noted in ROS Statement are negative. Past Medical History Past Medical History: Coronary Artery Disease (CAD), Eye Disorder, Osteoarthritis (OA), Renal Disease Additional Past Medical History / Comment(s): EDEMA OF LEGS AT TIMES, MACULAR DEGENERATION History of Any Multi-Drug Resistant Organisms: MRSA Date of last positivie culture/infection: face (unknown yr) Past Surgical History: Back Surgery, Cholecystectomy, Hysterectomy, Joint Replacement Additional Past Surgical History / Comment(s): shoulder surgery Past Anesthesia/Blood Transfusion Reactions: No Reported Reaction Past Psychological History: Anxiety, Bipolar Smoking Status: Never smoker Past Alcohol Use History: None Reported Past Drug Use History: None Reported - Past Family History Mother Family Medical History: Cancer Father Family Medical History: Cancer Sister(s) Family Medical History: Cancer Additional Family Medical History / Comment(s): SISTER X2 General Exam Limitations: no limitations General appearance: alert, in no apparent distress Head exam: Present: atraumatic, normocephalic, normal inspection Eye exam: Present: normal appearance, PERRL, EOMI. Absent: scleral icterus, conjunctival injection, periorbital swelling ENT exam: Present: normal exam, mucous membranes moist Neck exam: Present: normal inspection. Absent: tenderness, meningismus, lymphadenopathy Respiratory exam: Present: normal lung sounds bilaterally. Absent: respiratory distress, wheezes, rales, rhonchi, stridor Cardiovascular Exam: Present: regular rate, normal rhythm, normal heart sounds. Absent: systolic murmur, diastolic murmur, rubs, gallop, clicks GI/Abdominal exam: Present: soft, normal bowel sounds. Absent: distended, tenderness, guarding, rebound, rigid Extremities exam: Present: full ROM, normal capillary refill. Absent: tenderness, pedal edema, joint swelling, calf tenderness Right Forearm Wrist exam: Present: full ROM, tenderness (Patient has tenderness over the distal fifth metacarpal with swelling noted over the wrist. Patient had a cast on. She had normal sensation for range motion of fingertips. Capillary refill is less than 2 seconds. The Was removed with bivalve technique. The skin is examined underneath and there is no signs of ulceration or skin breakdown.), swelling. Absent: normal inspection Hand Wrist exam: Present: normal inspection, tenderness (Over fifth metacerbal), swelling Neuro motor exam: Present: wrist extension intact, thumb opposition intact, thumb IP flexion intact, thumb adduction intact, fingers 2-5 abduction intact Vascular: Present: normal capillary refill Back exam: Present: normal inspection Neurological exam: Present: alert, oriented X3, CN II-XII intact Psychiatric exam: Present: normal affect, normal mood Skin exam: Present: warm, dry, intact, normal color. Absent: rash Course Vital Signs 12/20/19 18:37 Temperature 98.3 F Pulse Rate 79 Respiratory 18 Rate Blood Pressure 124/84 O2 Sat by Pulse 95 Oximetry Procedures - Cast Removal Reason for procedure: too tight Cut Saw used: Yes Cast procedure: bivalve Post Removal Neuro Exam: intact Post Removal Vascular Exam: intact Patient Tolerated Procedure: well, no complications Additional Comments: Is instructed to castand skin breakdown. Patient had the bivalved cast wrapped with Joe wrap after taking place. Medical Decision Making - Medical Decision Making 69-year-old female presents for instrument today with concerns for too tight of a cast on her right hand and wrist. She reports that she fell and broke her fifth metacarpal. She had a cast placed 3 days ago. She has normal sensation to the distal fingertips. Capillary refills less than 2 seconds. Patient's complaining of cast swelling and pain near the fracture site. The cast was bivalved. The skin was examined underneath and there is no sign of skin breakdown. Compartment is soft, no erythema. She has normal sensation and rOM of fingers. Cap refill less than 2 seconds. Patient's cast was opened with bivalved technique. I put Labral between the 2 areas of the cast. I discussed Patient needs to keep the hand and wrist elevated. Advised her to follow-up with orthopedic next week to have a new cast placed. Disposition Clinical Impression: Cast discomfort Disposition: HOME SELF-CARE Condition: Good Instructions (If sedation given, give patient instructions): Cast Care (ED) Additional Instructions: Follow-up with orthopedic to have the new cast placed early next week. Remain in JOE wrap. Keep the hand elevated above heart. Return to the emergency department if any alarming signs or symptoms occur. Is patient prescribed a controlled substance at d/c from ED?: No Referrals: Orlando Moore MD [Primary Care Provider] - 1-2 days Time of Disposition: 19:35
[2019-12-20 19:54] VITALS: BP 119/89; PULSE 67; TEMP 97.6
== END 2019-12-20 19:54 | disposition home or self-care (01) ==
LOC: EC 18:35
DX: Z47.89 Encounter for other orthopedic aftercare (principal); S42.301D Unspecified fracture of shaft of humerus, right arm, subsequent encounter for fracture with routine healing; M19.90 Unspecified osteoarthritis, unspecified site; F41.9 Anxiety disorder, unspecified; F31.9 Bipolar disorder, unspecified; Z79.899 Other long term (current) drug therapy; Z79.82 Long term (current) use of aspirin; Z96.60 Presence of unspecified orthopedic joint implant; W19.XXXD Unspecified fall, subsequent encounter
CPT/HCPCS: 29125; 99283

== ENCOUNTER → 2020-03-05 | Outpatient (CLI) | payer MEDICARE ==
[2020-03-05 12:00] LABS: Basophils % (A) 1 %; Eosinophils # (A) 0.1 k/uL (0-0.7); Eosinophils % (A) 4 %; HCT 45.2 % (34.0-46.0); HGB 14.8 gm/dL (11.4-16.0); Lymphocytes % (A) 32 %; MCH 30.9 pg (25.0-35.0); MCHC 32.8 g/dL (31.0-37.0); MCV 94.1 fL (80.0-100.0); Mean Platelet Volume 7.4; Monocytes # (A) 0.2 k/uL (0-1.0); Monocytes % (A) 7 %; Neutrophils # (A) 1.7 k/uL (1.3-7.7); Neutrophils % (A) 54 %; Platelet Count 105 k/uL (150-450); RDW 13.5 % (11.5-15.5); WBC 3.1 k/uL (3.8-10.6)
[2020-03-05 15:45] LABS: INR 0.99 (0.90-1.11); Prothrombin Time 10.6 sec (9.9-11.9)
[2020-03-05 17:23] LABS: African American GFR (CKD) 49.2 (60.0-200.0); Albumin 4.9 g/dL (3.80-4.90); Albumin/Globulin Ratio 1.88 (1.60-3.17); Anion Gap 16.3 mmol/L (4.00-12.00); Carbon Dioxide 20.7 mmol/L (21.6-31.8); Globulin 2.6 g/dL (1.6-3.3); Non-African American GFR(CKD) 42.4 (60.0-200.0); Potassium 4.6 mmol/L (3.5-5.5); Total Bilirubin 0.7 mg/dL (0.2-1.2); Total Protein 7.5 g/dL (6.2-8.2)
== END | disposition home or self-care (01) ==
LOC: LABWHC1 11:03
PROVIDERS: ATTEND Internal Medicine Gastroenterology
DX: K74.60 Unspecified cirrhosis of liver (principal)
CPT/HCPCS: 36415; 80053; 82105; 85025; 85610

== ENCOUNTER 2020-05-17 13:18 | Inpatient (IN) | payer MEDICARE ==
[2020-05-17] MEDS ORDERED: ONDANSETRON 4 MG/2 ML VIAL IVP STA (13:37)
[2020-05-17] MEDS ORDERED: HYDROmorphone 0.5 MG/0.5 ML SYRINGE IVP STA (13:37)
--- NOTE | 2020-05-17 14:02 | ED ---
Fall HPI - General Chief Complaint: Fall Stated Complaint: Fall/Left hip injury Time Seen by Provider: 05/17/20 13:21 Source: patient, RN notes reviewed Mode of arrival: EMS Limitations: no limitations - History of Present Illness Initial Comments: This a 69-year-old female presents emergency from via EMS chief complaint trip and fall. Patient states she tripped over her dog stuff fell onto her left hip. Patient left hip pain she did strike her head has mild headache no neck pain no increasing back pain she states she has chronic back pain. Denies any bowel bladder incontinence or retention. No saddle anesthesias. Patient's had no prior hip surgeries. - Related Data Home Medications Medication Instructions Recorded Confirmed Cholecalciferol [Vitamin D3 (25 2,000 unit PO DAILY 11/16/15 04/14/19 Mcg = 1000 Iu)] Potassium Chloride ER [K-Dur 10] 10 meq PO BID 11/16/15 04/14/19 Pravastatin Sodium [Pravachol] 40 mg PO HS 11/16/15 04/14/19 Spironolact/Hydrochlorothiazid 50 mg PO BID 11/16/15 04/14/19 [Spironolactone-Hctz 25-25 Tab] Vit C/E/Zn/Coppr/Lutein/Zeaxan 1 cap PO BID 11/16/15 04/14/19 [Preservision Areds 2 Softgel] Ziprasidone HCl [Geodon] 60 mg PO HS 11/16/15 04/14/19 buPROPion XL [Wellbutrin XL] 450 mg PO DAILY 11/16/15 04/14/19 hydrOXYzine pamoate [Vistaril] 25 mg PO HS 11/16/15 04/14/19 ALPRAZolam [Xanax] 0.25 mg PO BID PRN 08/09/17 04/14/19 Furosemide [Lasix] 40 mg PO 0800 08/09/17 04/14/19 HYDROcodone/APAP 7.5-325MG [[employer] 1 tab PO TID PRN 08/09/17 04/14/19 7.5-325] Alendronate Sodium 70 mg PO WEEKLY 04/02/19 04/14/19 Aspirin 81 mg PO DAILY 04/02/19 04/14/19 Allergies Allergy/AdvReac Type Severity Reaction Status Date / Time No Known Allergies Allergy Verified 12/20/19 18:37 Review of Systems ROS Statement: Those systems with pertinent positive or pertinent negative responses have been documented in the HPI. ROS Other: All systems not noted in ROS Statement are negative. Past Medical History Past Medical History: Coronary Artery Disease (CAD), Eye Disorder, Osteoarthritis (OA), Renal Disease Additional Past Medical History / Comment(s): EDEMA OF LEGS AT TIMES, MACULAR DEGENERATION History of Any Multi-Drug Resistant Organisms: MRSA Date of last positivie culture/infection: face (unknown yr) Past Surgical History: Back Surgery, Cholecystectomy, Hysterectomy, Joint Replacement Additional Past Surgical History / Comment(s): shoulder surgery Past Anesthesia/Blood Transfusion Reactions: No Reported Reaction Past Psychological History: Anxiety, Bipolar Smoking Status: Never smoker Past Alcohol Use History: None Reported Past Drug Use History: None Reported - Past Family History Mother Family Medical History: Cancer Father Family Medical History: Cancer Sister(s) Family Medical History: Cancer Additional Family Medical History / Comment(s): SISTER X2 General Exam Limitations: no limitations General appearance: alert, in no apparent distress Head exam: Present: atraumatic, normocephalic, normal inspection Eye exam: Present: normal appearance, PERRL, EOMI. Absent: scleral icterus, conjunctival injection, periorbital swelling ENT exam: Present: normal exam, mucous membranes moist Neck exam: Present: normal inspection, full ROM. Absent: tenderness, meningismus, lymphadenopathy Respiratory exam: Present: normal lung sounds bilaterally. Absent: respiratory distress, wheezes, rales, rhonchi, stridor Cardiovascular Exam: Present: regular rate, normal rhythm, normal heart sounds. Absent: systolic murmur, diastolic murmur, rubs, gallop, clicks Extremities exam: Present: other (Moderate left hip tenderness, lower extremity neurovascular intact equal pedal pulses, there is mild shortening to left) Back exam: Present: tenderness, paraspinal tenderness. Absent: vertebral tenderness Neurological exam: Present: alert, oriented X3. Absent: motor sensory deficit Skin exam: Present: warm, dry, intact, normal color. Absent: rash Course Vital Signs 05/17/20 13:29 Temperature 98 F Pulse Rate 72 Respiratory 18 Rate Blood Pressure 107/78 O2 Sat by Pulse 95 Oximetry Medical Decision Making - Medical Decision Making X-ray shows bilateral pubic rami fracture, hardware stable her left hip. Patient unable to ambulate. Patient unable to care for ADLs. Patient's case discussed with neck branch on-call for advanced orthopedics patient will be admitted with physical therapy consult, social work consult for possible placement Disposition Clinical Impression: Fall, Bilateral pubic rami fractures Disposition: ADMITTED IP TO THIS HOSP Condition: Fair Referrals: Orlando Moore MD [Primary Care Provider] - 1-2 days
--- NOTE | 2020-05-17 14:36 | XR ---
EXAMINATION TYPE: XR Hip LT and AP Pelvis DATE OF EXAM: 05/17/2020 COMPARISON: Abdominal x-ray August 11, 2017 HISTORY: Pain after falling. TECHNIQUE: A single AP view of the pelvis is obtained. Two views of the left hip are obtained. FINDINGS: Osseous structures are demineralized. Postsurgical change to the lower lumbar spine and up per sacrum redemonstrated. Postsurgical changes to the left hip again seen through healed fracture. Moderate axial joint space loss both hips right greater than left redemonstrated. Focal demineralization centered at the pubic symphysis without widening. New cortical breakthrough ri ght superior pelvic ramus. Step-off suspected to the left superior and inferior pelvic rami. IMPRESSION: There are acute nondisplaced comminuted fractures is involving the superior and inferio r pelvic rami at level of pubic symphysis without disruption or separation.
--- NOTE | 2020-05-17 14:47 | CT ---
EXAMINATION TYPE: CT brain cspine wo con DATE OF EXAM: 05/17/2020 COMPARISON: CT brain and cervical spine December 01, 2009 HISTORY: Fall injury with headache and neck pain CT DLP: 1256.2 mGycm. Automated Exposure Control for Dose Reduction was Utilized. TECHNIQUE: CT scan of the head and cervical spine are performed without contrast. FINDINGS: There is no acute intracranial hemorrhage or midline shift identified. The mild ventricu lar and sulcal prominence redemonstrated. Low attenuation in the deep and periventricular white matte r is more prominent on current study. Findings presumed on the basis of moderate to severe chronic sm all vessel ischemic change in patient of this age. The globes are intact and the visualized sinuses a re clear. The calvarium is intact. Cervical spine is visualized in its entirety from C1 through upper thoracic levels and demonstrates s table and satisfactory alignment without evidence of acute fracture or dislocation. Prevertebral sof t tissue appears within normal limits. The C1-C2 articulation is within normal limits on the coronal images. Vertebral body heights and disc space heights are maintained. Spinal canal is preserved. Radha ng apices show no pneumothorax. IMPRESSION: 1. There is no acute fracture or dislocation evident in the cervical spine. 2. No acute intracranial hemorrhage or midline shift is seen.
[2020-05-17] MEDS ORDERED: HYDROmorphone 0.5 MG/0.5 ML SYRINGE IVP PRN (15:24)
[2020-05-17] MEDS ORDERED: NALOXONE 0.4 MG/ML 1 ML VIAL IV PRN (15:24)
[2020-05-17] MEDS ORDERED: ONDANSETRON 4 MG/2 ML VIAL IVP PRN (15:24)
[2020-05-17] MEDS ORDERED: ALPRAZolam 0.25 MG TAB PO PRN (15:25)
[2020-05-17 15:52] LABS: Calcium 9.8 mg/dL (8.4-10.2); Potassium 3.6 mmol/L (3.5-5.1); Total Bilirubin 0.8 mg/dL (0.2-1.3); Total Protein 8.1 g/dL (6.3-8.2)
[2020-05-17 16:16] LABS: Basophils % (A) 0 %; Eosinophils # (A) 0.1 k/uL (0-0.7); Eosinophils % (A) 2 %; HCT 42.5 % (34.0-46.0); HGB 14.6 gm/dL (11.4-16.0); Lymphocytes # (A) 0.7 k/uL (1.0-4.8); Lymphocytes % (A) 12 %; MCH 30.3 pg (25.0-35.0); MCHC 34.4 g/dL (31.0-37.0); MCV 88.1 fL (80.0-100.0); Mean Platelet Volume 7.6; Monocytes # (A) 0.3 k/uL (0-1.0); Monocytes % (A) 6 %; Neutrophils # (A) 4.3 k/uL (1.3-7.7); Neutrophils % (A) 78 %; RBC 4.83 m/uL (3.80-5.40); RDW 13.6 % (11.5-15.5); WBC 5.6 k/uL (3.8-10.6)
--- NOTE | 2020-05-17 16:54 | P.HPOR ---
History of Present Illness H&P Date: 05/17/20 Chief Complaint: Bilateral pubic rami fractures Patient is a 69-year-old female who was admitted to [facility] today after falling at home. Patient was walking through her home when she tripped over one of her dogs toys landing on her left side. After the fall, she was unable to weight-bear, EMS was contacted and did bring the patient to the hospital. Upon arrival, multiple lab tests imaging test were done. Images demonstrated superior and inferior pubic rami fractures on the left side along with the superior pubic rami fracture on the right side. I was contacted by the emergency room staff regarding the patient, I then was able to review the case with my attending Dr. Encarnacion. Patient was admitted initially under our care due to the fall and orthopedic problems. Patient was evaluated today on the medical floor, she is resting in her hospital bed. She notes most of discomfort in the pelvic region on both sides, left being worse than the right. Patient admits that she has a very difficult time moving the left and right lower extremity since the fall due to the amount of pain. She denies any numbness or tingling involving the lower extremities. She denies any loss of bowel or bladder function. She denies genital or peroneal n umbness. She has no cervical, thoracic, bilateral upper extremity pain. Patient does have a previous compression screw from a left intertrochanteric femur fracture. She believes this was done more than [address] Lindo. She is a relatively poor historian with her medical history. She also has a history of a lumbar procedure, she believes that was done about 10 years ago at [facility] by Dr. Christine. Other previous surgeries she states she had a connor put in her lower right leg at [facility] by Dr. Mckeon, she believes this was in 2007. Patient states that she spends a lot of time in her chair, she does not utilize a walker or cane for ambulation. Review of Systems Constitutional: Reports as per HPI Past Medical History Past Medical History: Coronary Artery Disease (CAD), Eye Disorder, Osteoarthritis (OA), Renal Disease Additional Past Medical History / Comment(s): EDEMA OF LEGS AT TIMES, MACULAR DEGENERATION History of Any Multi-Drug Resistant Organisms: MRSA Date of last positivie culture/infection: face (unknown yr) Past Surgical History: Back Surgery, Cholecystectomy, Hysterectomy, Joint Replacement Additional Past Surgical History / Comment(s): shoulder surgery Past Anesthesia/Blood Transfusion Reactions: No Reported Reaction Past Psychological History: Anxiety, Bipolar Smoking Status: Never smoker Past Alcohol Use History: None Reported Past Drug Use History: None Reported - Past Family History Mother Family Medical History: Cancer Father Family Medical History: Cancer Sister(s) Family Medical History: Cancer Additional Family Medical History / Comment(s): SISTER X2 Medications and Allergies Home Medications Medication Instructions Recorded Confirmed Type Pravastatin Sodium [Pravachol] 40 mg PO HS 11/16/15 05/17/20 History Spironolact/Hydrochlorothiazid 2 tab PO DAILY 11/16/15 05/17/20 History [Spironolactone-Hctz 25-25 Tab] Ziprasidone HCl [Geodon] 60 mg PO HS 11/16/15 05/17/20 History buPROPion XL [Wellbutrin XL] 150 mg PO TID 11/16/15 05/17/20 History hydrOXYzine pamoate [Vistaril] 25 mg PO HS 11/16/15 05/17/20 History ALPRAZolam [Xanax] 0.25 mg PO TID PRN 08/09/17 05/17/20 History Furosemide [Lasix] 40 mg PO BID PRN 08/09/17 05/17/20 History Alendronate Sodium 70 mg PO MO 04/02/19 05/17/20 History Famotidine [Pepcid] 20 mg PO BID 05/17/20 05/17/20 History Gabapentin 300 mg PO TID 05/17/20 05/17/20 History HYDROcodone/APAP 10-325MG [[place] 1 tab PO QID 05/17/20 05/17/20 History 10-325] Potassium Chloride ER [K-Dur 20] 60 meq PO DAILY 05/17/20 05/17/20 History Allergies Allergy/AdvReac Type Severity Reaction Status Date / Time No Known Allergies Allergy Verified 05/17/20 15:40 Physical Examination General orthopedic exam: Left lower extremity- well-healed scar over the lateral aspect of the upper leg, there is no significant areas of erythema or soft tissue swelling. There are no open lesions or sores visualized. Logroll maneuver the leg does reproduce pain in the groin. She is nontender with palpation over the lateral aspect of the upper leg. She is nontender with palpation surrounding the knee, unable to appreciate any effusion. She is nontender with palpation distal to the knee, this including the foot and ankle. Plantar flexion, dorsiflexion, EHL, FHL are intact, there is weakness noted specifically with plantar and dorsiflexion, this seems related to pain. She is unable to straight leg raise due to pain. Hip flexion she was unable to do also due to pain. Sensory exam to light touch throughout the extremity is intact. Dorsalis pedis pulses 2+ Right lower extremity- well-healed scar over the lower leg just distal to the knee joint. No other areas of erythema or soft tissue swelling. There are no open lesions or sores. Logroll of the leg does reproduce pain in the groin. She is nontender with palpation of the lateral aspect of the upper leg. She is nontender with palpation surrounding the knee, unable to appreciate any effusion. She is nontender with palpation distal to the knee, this including foot and ankle. Plantar flexion, dorsiflexion, EHL, FHL are intact, slight weakness is appreciated with all motions. She is unable to straight leg raise due to pain, hip flexion was unachievable due to pain. Her sensory exam to light touch throughout the extremity is intact. Dorsalis pedis pulses 2+. Attempt was made to examine her spine region, this including cervical, thoracic and lumbar. She was unable to lean forward due to her general medical status along with current pain. Results - Labs Labs: Abnormal Lab Results - Last 24 Hours (Table) 05/17/20 Range/Units 15:35 Sodium 134 L (137-145) mmol/L Chloride 92 L (98-107) mmol/L Carbon Dioxide 32 H (22-30) mmol/L BUN 42 H (7-17) mg/dL Creatinine 1.10 H (0.52-1.04) mg/dL AST 44 H (14-36) U/L H & H 05/17/20 Range/Units 15:39 Hgb 14.6 (11.4-16.0) gm/dL Hct 42.5 (34.0-46.0) % Result Diagrams: 05/17/20 15:39 05/17/20 15:35 - Diagnostic results Hip x-ray: report reviewed, image reviewed (Images demonstrate stable left hip compression screw, no obvious fractures or dislocations appreciated. Evidence of minimally displaced superior and inferior left pubic rami fracture. Minimally displaced superior right pubic rami fractures also noted. Lumbar spine hardware is also noted.) Assessment and Plan Assessment: Left minimally displaced superior and inferior pubic rami fracture Right minimally displaced superior pubic rami fracture Previous left intertrochanteric femur fracture with compression screw, stable hardware History of lumbar fusion Chronic pain Multiple medical comorbidities Plan: I was able to discuss the case, including most physical exam findings and jim ging studies my attending Dr. Encarnacion. No orthopedic surgical intervention recommended at this time. Patient will need PT/OT evaluation, along with likely subacute rehab placement Recommend weight-bear as tolerated with walker at all times Resume her normally prescribed oral pain medication Internal medicine recommendations DVT prophylaxis per medical recommendations We'll reexamine patient tomorrow for any acute changes, we willl also be available for any further questions regarding this patient. Time with Patient: Less than 30
[2020-05-17 17:32] LABS: Platelet Count 95 k/uL (150-450)
[2020-05-17] MEDS: HYDROmorphone 1 MG/ML 1 ML SYRINGE IVP PRN (18:25)
[2020-05-17] MEDS: ZIPRASIDONE 60 MG CAP PO SCH (19:23)
[2020-05-17] MEDS: PRAVASTATIN SODIUM 40 MG TAB PO SCH (19:23)
[2020-05-17] MEDS: POTASSIUM CHLORIDE ER 10 MEQ TAB.ER.PRT PO SCH (19:24)
[2020-05-17] MEDS: hydrOXYzine pamoate 25 MG CAP PO SCH (19:24)
[2020-05-18] MEDS: HYDROmorphone 1 MG/ML 1 ML SYRINGE IVP PRN ×4 (03:06→16:30)
[2020-05-18] MEDS: FUROSEMIDE 40 MG TAB PO SCH (07:57)
[2020-05-18] MEDS: POTASSIUM CHLORIDE ER 10 MEQ TAB.ER.PRT PO SCH ×2 (07:57→19:51)
[2020-05-18] MEDS ORDERED: SPIRONOLACTONE-HCTZ 25-25MG 1 EACH TAB PO SCH (09:00)
[2020-05-18] MEDS: buPROPion XL 150 MG TAB.ER.24H PO SCH (10:15)
--- NOTE | 2020-05-18 11:48 | CT ---
EXAMINATION TYPE: CT pelvis wo con DATE OF EXAM: 05/18/2020 COMPARISON: Pelvic and left hip x-ray from yesterday HISTORY: Bilateral hip pain post fall yesterday CT DLP: 649 mGycm Automated exposure control for dose reduction was used. FINDINGS: Osseous structures are demineralized. Acute comminuted minimally displaced fractures through the bila teral superior and inferior pelvic rami at the level of pubic symphysis is confirmed as suspected on x-ray. No pubic symphysis separation or diastases noted. Metallic hardware from prior fixation through healed fracture intertrochanteric region left proximal femur is redemonstrated. No new fracture is seen. Partial visualization of metallic hardware distal f emur lateral aspect on localizer in the right lower extremity. Sacral iliac joints are maintained bilaterally. No additional fractures seen. Posterior interpedicula r screws L4-S1 level bilaterally are redemonstrated. Thrasher catheter decompresses bladder. Uterus surgically absent. No suspicious bowel dilatation. No rio e air noted. IMPRESSION: Confirmation of acute nondisplaced and minimally displaced fractures through the left and right superior and inferior pelvic rami at level of pubic symphysis without diastases.
--- NOTE | 2020-05-18 12:23 | P.PN ---
Subjective Progress Note Date: 05/18/20 Principal diagnosis: pelvic fractures Patient seen and examined this morning. I agree with no by PAULINA Guo. Patient is a 69-year-old female who had a fall from standing onto her left hip. States immediate pain and inability to actively after this. She denies any nu mbness or tingling or weakness in her legs. She states pain with any motion in her legs. She has a history of shortness of breath or chest pain. Today she is still having pain in her legs and painful motion within both of her hips. She is unable to lift her legs up secondary to the pain that she has in her pelvis. Objective - Vital Signs Vital signs: Vital Signs Temp 98.7 F 05/18/20 02:00 Pulse 77 05/18/20 02:00 Resp 16 05/18/20 02:00 BP 111/73 05/18/20 02:00 Pulse Ox 95 05/18/20 02:00 Intake & Output 05/17/20 05/18/20 05/18/20 18:59 06:59 18:59 Intake Total 120 Output Total 300 550 Balance -180 -550 Weight 74.843 kg Intake: Oral 120 Output: Urine 300 550 Uretheral (Thrasher) 300 Other: Voiding Method Indwelling Catheter Indwelling Catheter - Exam GEN: AOX3, NAD VSS Inspection: Sitting in bed comfortable Palpation: With logroll of bilateral hips as well as palpation of pubic rami. Painful patellar compression test. Motor: [5]/5 shoulder abd/EF/EE/WF/intrinsics 4+ series what/5 DF/PF/EHL/FHL/HF/KE/KF she has 3+ strength in her bilateral hip flexion secondary to pain in her pelvis. Reflexes: 2/4 DTR all upper and LE Sensation intact to light touch in C5-T1 as well as L2-S1 distribution Cranial nerves II through XII grossly intact 2/4 distal pulses in all extremities Full painless range of motion of bilateral upper extremity shoulder elbow and wrists Painless passive range of motion of knee he has and ankles bilaterally lower extremities - Labs CBC & Chem 7: 05/17/20 15:39 05/17/20 15:35 Labs: Abnormal Lab Results - Last 24 Hours (Table) 05/17/20 05/17/20 Range/Units 15:35 15:39 Plt Count 95 L (150-450) k/uL Lymphocytes # 0.7 L (1.0-4.8) k/uL Sodium 134 L (137-145) mmol/L Chloride 92 L (98-107) mmol/L Carbon Dioxide 32 H (22-30) mmol/L BUN 42 H (7-17) mg/dL Creatinine 1.10 H (0.52-1.04) mg/dL AST 44 H (14-36) U/L Assessment and Plan Assessment: 69-year-old female LC 1 right pelvic fracture Superior-inferior pubic rami fractures comminuted minimally displaced Status post fall from standing Plan: -Appreciate medicine management. -Pain control: Currently adequate. She may need more pain control when she is up and about. -Aggressive ambulation protocol. OOB with all meals. OOB or in chair 4-5x daily. -PT/OT -TEDs, SCDs, mechanical ppx. OK for heparin today. Early ambulation is best. -GI ppx. -Computed tomography scan is reviewed this demonstrates LC 1 type fracture on the right with gapping of the right SI joint. There is pedal grade my fractures bilaterally anteriorly superior and inferior. There is no significant displacement however the gapping at the SI joint of the right hip was painful and limit her ambulation. Should this limit her ambulation to extreme she may need SI fixation on the right-hand side -Trend labs. -Dispo: Await PT OT ambulation testing and mobilization
[2020-05-18 15:40] LABS: Basophils % (A) 0 %; Eosinophils # (A) 0.1 k/uL (0-0.7); Eosinophils % (A) 2 %; HCT 38.6 % (34.0-46.0); HGB 13.2 gm/dL (11.4-16.0); Lymphocytes # (A) 0.8 k/uL (1.0-4.8); Lymphocytes % (A) 14 %; MCH 30.6 pg (25.0-35.0); MCHC 34.1 g/dL (31.0-37.0); MCV 89.7 fL (80.0-100.0); Mean Platelet Volume 8.3; Monocytes # (A) 0.5 k/uL (0-1.0); Monocytes % (A) 8 %; Neutrophils # (A) 4.2 k/uL (1.3-7.7); Neutrophils % (A) 74 %; RBC 4.31 m/uL (3.80-5.40); RDW 13.6 % (11.5-15.5); WBC 5.7 k/uL (3.8-10.6)
[2020-05-18 15:42] LABS: Platelet Count 87 k/uL (150-450)
[2020-05-18 15:54] VITALS: RESP 16
[2020-05-18 15:54] LABS: ALT 71 U/L (4-34); AST 88 U/L (14-36); African American GFR (CKD) 71 (>60 ml/min/1.73 sqM); Albumin 4.2 g/dL (3.5-5.0); Albumin/Globulin Ratio 1.5; Alkaline Phosphatase 54 U/L (38-126); Anion Gap 8 mmol/L; Blood Urea Nitrogen 31 mg/dL (7-17); Calcium 9.4 mg/dL (8.4-10.2); Carbon Dioxide 31 mmol/L (22-30); Chloride 94 mmol/L (98-107); Globulin 2.8 g/dL; Glucose 133 mg/dL (74-99); Non-African American GFR(CKD) 61 (>60 ml/min/1.73 sqM); Potassium 3.7 mmol/L (3.5-5.1); Sodium 133 mmol/L (137-145); Total Bilirubin 1.2 mg/dL (0.2-1.3)
[2020-05-18] MEDS: GABAPENTIN 300 MG CAP PO SCH ×2 (16:31→19:51)
[2020-05-18] MEDS: DEXTROSE 5%-0.45% NACL 1,000 ML IV SCH (16:31)
--- NOTE | 2020-05-18 17:14 | CT ---
EXAMINATION TYPE: CT lumbar spine wo con DATE OF EXAM: 05/18/2020 COMPARISON: 12/30/2018 HISTORY: Bilateal hip and back pain post fall. CT DLP: 1455.8 mGycm CONTRAST: None TECHNIQUE: CT of the lumbar spine is performed on a spiral scan at 3 mm thick sections. Reconstructed images are performed in the coronal and sagittal planes. FINDINGS: There are compression deformities of L1 and L2 and T11. Those within the [id number] were present previously and appears stable. Some posterior wall displacement appears to be present at the inferior endplate of L2 superior endplate of L1 with superior stable. Some canal narrowing as it is present at L1 posterior to the posterior wall displacement this is stab le. Right paracentral spur is present at L2 inferior endplate is stable from comparison Pedicle screws cause beam hardening artifact L4-L5 and S1. There is a grade 2 spondylolisthesis of L5 5 anterior on S1 This study is compared with the January 07, 2019 comparison. Findings appear stable over the interval. IMPRESSION: 1. Stable compression deformities L1 and L2 and superior endplate of L3. 4. Posterior wall displacement at L1 and L2 with some spinal canal narrowing. This is stable from the 2019 comparison. 3. Grade 2 spondylolisthesis of L5 anterior on S1. 4. Stable postsurgical changes lumbar spine
[2020-05-18] MEDS: HYDROcodone/APAP 7.5-325MG 1 EACH TAB PO PRN (17:34)
[2020-05-18 19:42] LABS: INR 1.03 (0.90-1.11); Prothrombin Time 11.1 sec (9.9-11.9)
[2020-05-18] MEDS: PRAVASTATIN SODIUM 40 MG TAB PO SCH (19:51)
[2020-05-18] MEDS: ZIPRASIDONE 60 MG CAP PO SCH (19:51)
[2020-05-18] MEDS: FAMOTIDINE 20 MG TAB PO SCH (19:51)
[2020-05-18] MEDS: hydrOXYzine pamoate 25 MG CAP PO SCH (19:52)
--- NOTE | 2020-05-18 19:56 | PN ---
PROGRESS NOTE CHIEF COMPLAINT: Fracture of pelvis. HISTORY OF PRESENT ILLNESS: Other than the discomfort, she is doing well. Physical Therapy is going to be starting to see how she can move about effectively and safely. She will require rehab. PHYSICAL EXAMINATION: Her chest is clear. Cardiac exam is normal. Abdomen is soft, nontender. IMPRESSION: Fracture of the pelvis. PLAN: Physical therapy, rehab and probable skilled nursing placement for a period of time. MMODL / IJN: [id number] /
--- NOTE | 2020-05-18 20:53 | CONS ---
CONSULTATION CHIEF COMPLAINT: Fall with left-sided hip pain and fractured pelvis. HISTORY OF PRESENT ILLNESS: This is another admission for this 69-year-old white female who apparently fell and sustained a significant fracture in the left hemipelvis with disruption of the superior and inferior rami in the SI joint. She did not pass out. She has had no chest pain. She does have a history of hypertension, COPD, anxiety, depression and CKD. REVIEW OF SYSTEMS: She denies any focal neurologic deficits, change in vision or hearing, chest pain, shortness of breath, orthopnea, PND, abdominal pain, nausea, vomiting, hematemesis, melena, hematochezia, jaundice, urinary complaints, hematuria, incontinence, dysuria, diabetes, etc. Past medical history, family history, and personal and social histories reveal that she is on: 1. Hydroxyzine 25 mg daily. 2. KCl 20 mEq 3 a day. 3. Pravastatin 40 mg at bedtime. 4. Aldactazide 25/25 twice a day. 5. Ropinirole 0.25 at bedtime. 6. Alendronate 70 mg once a week. 7. Gabapentin 300 mg t.i.d. 8. Ziprasidone 60 mg once a day. 9. Bupropion 150 mg 3 times a day. 10.Ibuprofen 600 t.i.d. p.r.n. 11.Robaxin 500 mg q.i.d. p.r.n. 12.Vicodin 7.5 p.r.n. 13.Vitamin D. 14.Xanax 0.25 t.i.d. The remainder of her history is unremarkable. She has never been a smoker. She does not drink, either. PHYSICAL EXAMINATION: Blood pressure is 110/62 with a pulse of 68, respirations of 22, and she is afebrile. In general she appears to be in no acute distress. Skin color is normal. Skin is warm and dry. She was slightly dehydrated. Head, ears, eyes, nose, mouth and throat were normal. Neck veins were not distended. Chest is clear to auscultation and percussion. Cardiac exam demonstrated normal sinus rhythm and no murmurs or extra sounds. The abdomen is soft and nontender without any visceromegaly or masses. Bowel sounds are present. Extremities are normal. Neurologically she is intact. She is admitted to the hospital with the diagnoses: 1. Fractured pelvis. 2. Old chronic obstructive pulmonary disease. 3. History of hypertension. 4. History of depression. PLAN/RECOMMENDATIONS: None at this time. Will follow as she goes through rehab and will likely have to go to an extended-care facility for this. CLAIRE / BISMARKN: [id number] /
[2020-05-19 03:24] VITALS: PULSE 77
[2020-05-19] MEDS: HYDROcodone/APAP 7.5-325MG 1 EACH TAB PO PRN (05:18)
[2020-05-19] MEDS: DEXTROSE 5%-0.45% NACL 1,000 ML IV SCH ×2 (05:18→07:23)
[2020-05-19] MEDS: FAMOTIDINE 20 MG TAB PO SCH (07:22)
[2020-05-19] MEDS: GABAPENTIN 300 MG CAP PO SCH (07:22)
[2020-05-19] MEDS: FUROSEMIDE 40 MG TAB PO SCH (07:22)
[2020-05-19] MEDS: buPROPion XL 150 MG TAB.ER.24H PO SCH (07:22)
[2020-05-19] MEDS: POTASSIUM CHLORIDE ER 10 MEQ TAB.ER.PRT PO SCH (07:23)
[2020-05-19 07:26] VITALS: BP 91/62; TEMP 98.6
--- NOTE | 2020-05-19 09:37 | P.PN ---
Subjective Progress Note Date: 05/19/20 Principal diagnosis: pelvic fractures Patient seen and examined this morning. I agree with no by PAULINA Guo. Patient is a 69-year-old female who had a fall from standing onto her left hip. States immediate pain and inability to actively after this. She denies any nu mbness or tingling or weakness in her legs. She states pain with any motion in her legs. She has a history of shortness of breath or chest pain. She continues to have fairly severe pain in her buttock on the right as well as her hip. She refuses to get out of bed secondary to this. He states that her legs feel somewhat heavy secondary to pain. I did speak with Dr. Amado phan at [facility] and we recommend surgical fixation. I discussed this with the patient at length. She is amenable to this. We will send her down to [facility] for pelvic fixation Objective - Vital Signs Vital signs: Vital Signs Temp 98.6 F 05/19/20 07:26 Pulse 77 05/19/20 07:26 Resp 16 05/19/20 07:26 BP 91/62 05/19/20 07:26 Pulse Ox 93 L 05/19/20 07:26 Intake & Output 05/18/20 05/19/20 05/19/20 18:59 06:59 18:59 Intake Total 346 Output Total 300 300 Balance 46 -300 Intake: Oral 346 Output: Urine 300 300 Other: Voiding Method Indwelling Catheter Indwelling Catheter Indwelling Catheter - Exam GEN: AOX3, NAD VSS Inspection: Sitting in bed comfortable Palpation: With logroll of bilateral hips as well as palpation of pubic rami. Painful patellar compression test. Motor: [5]/5 shoulder abd/EF/EE/WF/intrinsics 4+ series what/5 DF/PF/EHL/FHL/HF/KE/KF she has 3+ strength in her bilateral hip flexion secondary to pain in her pelvis. Reflexes: 2/4 DTR all upper and LE Sensation intact to light touch in C5-T1 as well as L2-S1 distribution Cranial nerves II through XII grossly intact 2/4 distal pulses in all extremities Full painless range of motion of bilateral upper extremity shoulder elbow and wrists Painless passive range of motion of knee he has and ankles bilaterally lower extremities - Labs CBC & Chem 7: 05/18/20 14:48 12/29/20 14:48 Labs: Abnormal Lab Results - Last 24 Hours (Table) 05/18/20 05/18/20 Range/Units 14:48 14:48 Plt Count 87 L (150-450) k/uL Lymphocytes # 0.8 L (1.0-4.8) k/uL Sodium 133 L (137-145) mmol/L Chloride 94 L (98-107) mmol/L Carbon Dioxide 31 H (22-30) mmol/L BUN 31 H (7-17) mg/dL Glucose 133 H (74-99) mg/dL AST 88 H (14-36) U/L ALT 71 H (4-34) U/L Assessment and Plan Assessment: 69-year-old female LC 1 right pelvic fracture Superior-inferior pubic rami fractures comminuted minimally displaced Status post fall from standing Plan: -Appreciate medicine management. -Pain control: Currently adequate. She may need more pain control when she is up and about. -Aggressive ambulation protocol. OOB with all meals. OOB or in chair 4-5x daily. -PT/OT -TEDs, SCDs, mechanical ppx. OK for heparin today. Early ambulation is best. -GI ppx. -Computed tomography scan is reviewed this demonstrates LC 1 type fracture on the right with gapping of the right SI joint. There is pedal grade my fractures bilaterally anteriorly superior and inferior. There is no significant d isplacement however the gapping at the SI joint of the right hip was painful and limit her ambulation. Should this limit her ambulation to extreme she may need SI fixation on the right-hand side -Trend labs. -Dispo: I discussed the case with Dr. Amado [facility] he is willing to accept we will send her to [facility] under the trauma service due to her fall as well as needed for pelvic fixation. Plan will be to take the patient to surgery sometime in the next day for pelvic fixation. This is discussed at length with the patient she agreed and was amendable to this. We will work on transfer the patient
[2020-05-19] MEDS: HYDROmorphone 1 MG/ML 1 ML SYRINGE IVP PRN (12:11)
--- NOTE | 2020-05-19 19:35 | PN ---
PROGRESS NOTE DATE OF SERVICE: 05/19/2020 CHIEF COMPLAINT: Fracture of pelvis. HISTORY OF PRESENT ILLNESS: This lady is doing fairly well except for the pain. Orthopedics is apparently considering surgical intervention. It looks as though she may have to be transferred to an outside hospital for this. In the meantime, other than the discomfort, she is doing well. PHYSICAL EXAMINATION: Her vital signs are normal. The chest is clear. Cardiac exam is normal. Abdomen is soft, nontender. IMPRESSION: Fracture of the pelvis. PLAN: Continue with conservative management until a decision is made about possible surgery with or without transfer. MMODL / IJN: [id number] /
== END 2020-05-19 13:00 | disposition other institution (70) | DRG 536 ==
LOC: EC 13:18 → 5NMEDONC 15:23
PROVIDERS: ADMIT Orthopaedic Surgery; ATTEND Orthopaedic Surgery
DX: S32.512A Fracture of superior rim of left pubis, initial encounter for closed fracture (principal); S32.511A Fracture of superior rim of right pubis, initial encounter for closed fracture; I25.10 Atherosclerotic heart disease of native coronary artery without angina pectoris; M19.90 Unspecified osteoarthritis, unspecified site; W01.0XXA Fall on same level from slipping, tripping and stumbling without subsequent striking against object, initial encounter; Y93.01 Activity, walking, marching and hiking; J44.9 Chronic obstructive pulmonary disease, unspecified; I12.9 Hypertensive chronic kidney disease with stage 1 through stage 4 chronic kidney disease, or unspecified chronic kidney disease; F41.9 Anxiety disorder, unspecified; N18.9 Chronic kidney disease, unspecified; F31.9 Bipolar disorder, unspecified; G89.29 Other chronic pain; Y92.009 Unspecified place in unspecified non-institutional (private) residence as the place of occurrence of the external cause; Z80.9 Family history of malignant neoplasm, unspecified; Z79.899 Other long term (current) drug therapy; Z86.14 Personal history of Methicillin resistant Staphylococcus aureus infection; Z98.1 Arthrodesis status; Z90.710 Acquired absence of both cervix and uterus; Z79.82 Long term (current) use of aspirin
CPT/HCPCS: 70450; 72125; 72131; 72192; 73502; 80053; 85025; 85610; 96374; 96375; 99285

== ENCOUNTER 2020-07-14 11:01 | Inpatient (IN) | payer MEDICARE ==
[2020-07-14] MEDS ORDERED: ONDANSETRON 4 MG/2 ML VIAL IVP STA (11:25)
[2020-07-14] MEDS ORDERED: HYDROmorphone 0.5 MG/0.5 ML SYRINGE IVP STA (11:25)
--- NOTE | 2020-07-14 11:28 | ED ---
General Adult HPI - General Chief complaint: Fall Stated complaint: Fall Source: EMS, RN notes reviewed Mode of arrival: EMS Limitations: physical limitation - History of Present Illness Initial comments: 69-year-old female with a past medical history of CAD, renal disease, lower extremity edema presents to the emergency room for a chief complaint of pelvic pain. Patient reports that she had pelvic rami fractures at the end of April. Patient was transferred to [facility] and underwent fixation of this on 05/20/2020. Patient reports she then was at a custodial until about 2 weeks ago when she went back to her house. Patient states that 4 days ago she slipped out of bed and fell and has had pain in the pelvic area ever since. Patient reports that EMS did come to get her up that she did not want to go to the hospital. States that for the past 4 days she has had increasing pain. Today she was walking down the hallway and the pain was too severe so she came to the emergency room. Patient is supposed to follow-up with Dr. Fischer in one week.Patient has no other complaints at this time including shortness of breath, chest pain, abdominal pain, nausea or vomiting, headache, or visual changes. - Related Data Home Medications Medication Instructions Recorded Confirmed Pravastatin Sodium [Pravachol] 40 mg PO HS 11/16/15 05/17/20 Spironolact/Hydrochlorothiazid 2 tab PO DAILY 11/16/15 05/17/20 [Spironolactone-Hctz 25-25 Tab] Ziprasidone HCl [Geodon] 60 mg PO HS 11/16/15 05/17/20 buPROPion XL [Wellbutrin XL] 150 mg PO TID 11/16/15 05/17/20 hydrOXYzine pamoate [Vistaril] 25 mg PO HS 11/16/15 05/17/20 ALPRAZolam [Xanax] 0.25 mg PO TID PRN 08/09/17 05/17/20 Furosemide [Lasix] 40 mg PO BID PRN 08/09/17 05/17/20 Alendronate Sodium 70 mg PO MO 04/02/19 05/17/20 Famotidine [Pepcid] 20 mg PO BID 05/17/20 05/17/20 Gabapentin 300 mg PO TID 05/17/20 05/17/20 HYDROcodone/APAP 10-325MG [[place] 1 tab PO QID 05/17/20 05/17/20 10-325] Potassium Chloride ER [K-Dur 20] 60 meq PO DAILY 05/17/20 05/17/20 Allergies Allergy/AdvReac Type Severity Reaction Status Date / Time No Known Allergies Allergy Verified 07/14/20 11:18 Review of Systems ROS Statement: Those systems with pertinent positive or pertinent negative responses have been documented in the HPI. ROS Other: All systems not noted in ROS Statement are negative. Past Medical History Past Medical History: Coronary Artery Disease (CAD), Eye Disorder, Osteoarthritis (OA), Renal Disease Additional Past Medical History / Comment(s): EDEMA OF LEGS AT TIMES, MACULAR DEGENERATION History of Any Multi-Drug Resistant Organisms: MRSA Date of last positivie culture/infection: face (unknown yr) MDRO Source:: Face Past Surgical History: Back Surgery, Cholecystectomy, Hysterectomy, Joint Replacement Additional Past Surgical History / Comment(s): shoulder surgery, pelvic fracture repaired. Past Anesthesia/Blood Transfusion Reactions: No Reported Reaction Past Psychological History: Anxiety, Bipolar Smoking Status: Never smoker Past Alcohol Use History: None Reported Past Drug Use History: None Reported - Past Family History Mother Family Medical History: Cancer Father Family Medical History: Cancer Sister(s) Family Medical History: Cancer Additional Family Medical History / Comment(s): SISTER X2 General Exam Limitations: physical limitation General appearance: alert, in no apparent distress Head exam: Present: atraumatic, normal inspection Eye exam: Present: normal appearance, PERRL, EOMI. Absent: scleral icterus, conjunctival injection ENT exam: Present: normal exam, mucous membranes moist Neck exam: Present: normal inspection, full ROM. Absent: tenderness Respiratory exam: Present: normal lung sounds bilaterally. Absent: respiratory distress, wheezes Cardiovascular Exam: Present: regular rate, normal rhythm, normal heart sounds GI/Abdominal exam: Present: soft, normal bowel sounds. Absent: distended, tenderness Extremities exam: Present: normal capillary refill (Capillary refill less than 2 seconds, DP pulses 2+ bilaterally), other (Patient able to move both feet. Sensation intact in bilateral lower extremities. 1+ lower extremity edema noted) Back exam: Absent: vertebral tenderness (No lumbar spine tenderness) Course Vital Signs 07/14/20 07/14/20 07/14/20 11:12 12:24 14:29 Temperature 98.3 F Pulse Rate 75 73 75 Respiratory 16 18 18 Rate Blood Pressure 143/88 136/83 111/72 O2 Sat by Pulse 95 97 99 Oximetry Medical Decision Making - Medical Decision Making Vitals are stable. Patient has pain to the right buttock area area and no significant bruising noted. Patient is able to move both legs the wrist pain with lifting the right leg. DP pulse 2+ in bilateral lower extremities. X-ray does show deformities involving the pelvic bones stomach assessment for acute fracture limited. There is irregularity along the superior pubic ramus which is the site of previous fracture. Patient was given pain medications and continues to be unable to ambulate. Upon review of previous admission patient was seen by Dr. Kohler and ultimately transferred to [facility] for ortho trauma to fixate the pelvis. At this time we do not see any new fractures, Dr Redding and I do not think this is surgical, more pain management and possible placement. I discussed this case with Dr. Moore who does accept admission. I will consult Dr. Lindo as he is information technology assistant as Dr Encarnacion as this is who saw patient on previous admission. Disposition Clinical Impression: Fall, Bilateral pubic rami fractures, Intractable pain, Unable to walk Disposition: ADMITTED IP TO THIS HOSP Is patient prescribed a controlled substance at d/c from ED?: No Referrals: Orlando Moore MD [Primary Care Provider] - 1-2 days Time of Disposition: 14:37
[2020-07-14] MEDS ORDERED: HYDROmorphone 1 MG/ML 1 ML SYRINGE IVP STA (12:11)
[2020-07-14] MEDS ORDERED: HYDROmorphone 1 MG/ML 1 ML SYRINGE IM STA (12:11)
[2020-07-14] MEDS ORDERED: ONDANSETRON ODT 4 MG TAB PO STA (12:12)
--- NOTE | 2020-07-14 12:31 | XR ---
EXAMINATION TYPE: XR pelvis AP view DATE OF EXAM: 07/14/2020 COMPARISON: NONE HISTORY: Pain The osseous structures are intact and the joint spaces are preserved. No acute fracture is seen. Vi sualized bowel gas pattern is nonspecific. Postsurgical change involving the pelvis and left hip. Ch ronic appearing deformities of the pelvic bones. Arthropathy of the hips. IMPRESSION: 1. Deformities involving the pelvic bones make assessment for acute fracture limited. There is irregu larity along the right superior pubic ramus which is the site of previous fracture. Correlate with po int tenderness.
[2020-07-14] MEDS ORDERED: NALOXONE 0.4 MG/ML 1 ML VIAL IV PRN (14:29)
[2020-07-14] MEDS ORDERED: ONDANSETRON 4 MG/2 ML VIAL IVP PRN (14:29)
[2020-07-14] MEDS ORDERED: SODIUM CHLORIDE 0.9% 1,000 ML IV STA (14:33)
[2020-07-14 15:28] LABS: Basophils % (A) 0 %; Eosinophils # (A) 0.1 k/uL (0-0.7); Eosinophils % (A) 3 %; HCT 39.5 % (34.0-46.0); Hypochromasia Moderate; Lymphocytes # (A) 0.7 k/uL (1.0-4.8); Lymphocytes % (A) 19 %; MCH 31.7 pg (25.0-35.0); MCHC 32.2 g/dL (31.0-37.0); MCV 98.5 fL (80.0-100.0); Mean Platelet Volume 7.3; Monocytes # (A) 0.3 k/uL (0-1.0); Monocytes % (A) 9 %; Neutrophils # (A) 2.6 k/uL (1.3-7.7); Neutrophils % (A) 66 %; RBC 4.01 m/uL (3.80-5.40); RDW 14.8 % (11.5-15.5); WBC 3.9 k/uL (3.8-10.6)
[2020-07-14 15:31] LABS: HGB 12.7 gm/dL (11.4-16.0)
[2020-07-14 15:32] LABS: Platelet Count 97 k/uL (150-450)
[2020-07-14 15:44] LABS: Albumin 4.2 g/dL (3.5-5.0); Calcium 9.2 mg/dL (8.4-10.2); Potassium 5.3 mmol/L (3.5-5.1); Total Bilirubin 0.9 mg/dL (0.2-1.3); Total Protein 7.2 g/dL (6.3-8.2)
--- NOTE | 2020-07-14 17:08 | XR ---
RESULT: HISTORY: pain TECHNIQUE: 2 views of the right femur were obtained. COMPARISON: 05/17/2020. FINDINGS: There is no acute fracture or dislocation. Remote healed right distal femur fracture status post ORIF is seen. No evidence of hardware complication. IMPRESSION: No acute osseous abnormality.
[2020-07-14] MEDS: HYDROmorphone 0.5 MG/0.5 ML SYRINGE IVP PRN ×2 (18:35→21:31)
[2020-07-14] MEDS ORDERED: IBUPROFEN 600 MG TAB PO PRN (19:33)
[2020-07-14] MEDS ORDERED: ALPRAZolam 0.25 MG TAB PO PRN (19:33)
[2020-07-14] MEDS ORDERED: traZODone HCL 100 MG TAB PO PRN (19:33)
[2020-07-14] MEDS ORDERED: busPIRone HCl 5 MG TAB PO PRN (19:33)
[2020-07-14] MEDS ORDERED: FAMOTIDINE 20 MG TAB PO PRN (19:33)
[2020-07-14] MEDS: HYDROcodone/APAP 5-325MG 1 EACH TAB PO PRN (19:54)
[2020-07-14] MEDS: buPROPion XL 150 MG TAB.ER.24H PO SCH (20:41)
[2020-07-14] MEDS: APIXABAN 5 MG TAB PO SCH (20:42)
[2020-07-14] MEDS: GABAPENTIN 300 MG CAP PO SCH (20:42)
[2020-07-14] MEDS ORDERED: MIRTAZAPINE 45 MG TABLET PO SCH (21:00)
[2020-07-14] MEDS ORDERED: ZIPRASIDONE 60 MG CAP PO SCH (21:00)
[2020-07-15] MEDS: HYDROmorphone 0.5 MG/0.5 ML SYRINGE IVP PRN ×3 (02:39→12:40)
[2020-07-15] MEDS: buPROPion XL 150 MG TAB.ER.24H PO SCH (08:15)
[2020-07-15] MEDS: GABAPENTIN 300 MG CAP PO SCH (08:16)
[2020-07-15] MEDS: APIXABAN 5 MG TAB PO SCH (08:20)
[2020-07-15] MEDS ORDERED: ETODOLAC 400 MG TAB PO SCH (09:00)
[2020-07-15] MEDS ORDERED: NON FORMULARY DRUG (Alendronate Sodium [Alendronate Sodium] 70 MG Tablet) PO SCH (09:00)
[2020-07-15] MEDS ORDERED: SPIRONOLACTONE-HCTZ 25-25MG 1 EACH TAB PO SCH (09:00)
[2020-07-15] MEDS ORDERED: FUROSEMIDE 20 MG TAB PO SCH (09:00)
[2020-07-15] MEDS ORDERED: POTASSIUM CHLORIDE ER 20 MEQ TAB.ER PO SCH (09:00)
[2020-07-15] MEDS ORDERED: hydrOXYzine pamoate 25 MG CAP PO SCH (09:00)
[2020-07-15] MEDS ORDERED: CHOLECALCIFEROL 25 MCG (1000 IU) TABLET PO SCH (09:00)
[2020-07-15] MEDS: HYDROcodone/APAP 5-325MG 1 EACH TAB PO PRN (10:01)
--- NOTE | 2020-07-15 10:28 | P.CNOR ---
History of Present Illness - [facility] Consult date: 07/15/20 Consult reason: other (Intractable pain ,recent pelvic surgery) History of present illness: Patient is a 69-year-old female who was brought to [facility] last night due to right-sided low back pain/pelvic pain and inability to ambulate. Patient was initially evaluated at [facility] by our orthopedic service in late April 2020 after a fall that resulted in a LC1 type injury resulting in an bilateral superior and inferior pubic rami fractures, and right sided SI joint widening. Conservative management was first attempted, but due to her worsening symptoms patient was transferred to [facility] to the orthopedic trauma service where she underwent SI joint fixation. Patient spent about 6 weeks and subacute rehab, she's been home for the last 2 weeks. She has both physical therapy and occupational therapy coming out of the house. She has been utilizing a walker with ambulation. She states that she has been doing a lot better. Patient states that on 07/10/2020 she fell out of bed landing on her right side. EMS did come to the house to evaluate, patient did not want to go to the hospital. She was able to ambulate the next few days, the pain has continued to worsen. As of yesterday, the pain was so severe and had very difficult time with ambulating as she report to the hospital. X-rays were done of the right femur along with pelvis. She was admitted under internal medicine due to the intractable pain and inability to ambulate. Our orthopedic team was not contacted while the patient was in the ER. We were contacted this morning as a consult. Patient was evaluated at bedside today, she is resting comfortably. Her pain is well-controlled when stationary. She notices most of the pain in the right pelvic region with ambulation. She states that she's had bladder incontinence since the fall. She states that the incontinence happens when she stands up, then she realizes she hasn't even urinated. She denies any bowel incontinence. She also notes a vague numbness on the bottom of her right foot that has been present since the fall. She denies any radiating pain, numbness or tingling of the left lower extremity or bilateral upper extremities. She has no radiating pain down the right lower extremity. She denies any pain of the bilateral lower extremities. She denies any discomfort in any areas of the left lower extremity. She admits to pain in the right pelvic area, more anterior and lateral Patient has a very detailed orthopedic history, she has a history of a lumbar fusion procedure, she has a compression screw for a left intertrochanteric also plates and screws of the right distal femur. Review of Systems Constitutional: Reports as per HPI Past Medical History Past Medical History: Coronary Artery Disease (CAD), Eye Disorder, Osteoar thritis (OA), Renal Disease Additional Past Medical History / Comment(s): EDEMA OF LEGS AT TIMES, MACULAR DEGENERATION History of Any Multi-Drug Resistant Organisms: MRSA Year Discovered:: face (unknown yr) MDRO Source:: Face Past Surgical History: Back Surgery, Cholecystectomy, Hysterectomy, Joint Replacement Additional Past Surgical History / Comment(s): shoulder surgery, pelvic fracture repaired. Past Anesthesia/Blood Transfusion Reactions: No Reported Reaction Past Psychological History: Anxiety, Bipolar Additional Psychological History / Comment(s): Lives with her friend. There is a pet dog in the home that the friend is taking care. Does not work outside of the home relates that she is medically disabled. 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 Relates that she is a lifelong nonsmoker. Denies alcohol use. No experience. No extensive travel Smoking Status: Never smoker Past Alcohol Use History: None Reported Past Drug Use History: None Reported - Past Family History Mother Family Medical History: Cancer Father Family Medical History: Cancer Sister(s) Family Medical History: AICD/Pacemaker, Cancer, Chest Pain / Angina, Congestive Heart Failure (CHF), COPD, Coronary Artery Disease (CAD), CVA/TIA, Diabetes Mellitus, GERD/Reflux, Hyperlipidemia, Hypertension, Liver Disease, Myocardial Infarction (VT), Osteoarthritis (OA), Pneumonia, Renal Disease Additional Family Medical History / Comment(s): SISTER X2 Medications and Allergies Home Medications Medication Instructions Recorded Confirmed Type Pravastatin Sodium [Pravachol] 40 mg PO HS 11/16/15 07/14/20 History Spironolact/Hydrochlorothiazid 2 tab PO DAILY 11/16/15 07/14/20 History [Spironolactone-Hctz 25-25 Tab] Ziprasidone HCl [Geodon] 60 mg PO HS 11/16/15 07/14/20 History buPROPion XL [Wellbutrin XL] 150 mg PO TID 11/16/15 07/14/20 History hydrOXYzine pamoate [Vistaril] 25 mg PO DAILY 11/16/15 07/14/20 History ALPRAZolam [Xanax] 0.25 mg PO TID PRN 08/09/17 07/14/20 History Alendronate Sodium 70 mg PO TH 04/02/19 07/14/20 History Famotidine [Pepcid] 20 mg PO BID PRN 05/17/20 07/14/20 History Gabapentin 300 mg PO TID 05/17/20 07/14/20 History HYDROcodone/APAP 10-325MG [[place] 1 tab PO QID 05/17/20 07/14/20 History 10-325] Potassium Chloride ER [K-Dur 20] 60 meq PO DAILY 05/17/20 07/14/20 History Apixaban [Eliquis] 5 mg PO BID 07/14/20 07/14/20 History Cholecalciferol [Vitamin D3 (25 50 mcg PO DAILY 07/14/20 07/14/20 History Mcg = 1000 Iu)] Diclofenac Sodium [Voltaren] 75 mg PO DAILY 07/14/20 07/14/20 History Furosemide [Lasix] 20 mg PO DAILY 07/14/20 07/14/20 History Ibuprofen [Motrin] 600 mg PO Q8HR PRN 07/14/20 07/14/20 History Mirtazapine [Remeron] 45 mg PO HS 07/14/20 07/14/20 History Vit C/E/Zn/Coppr/Lutein/Zeaxan 2 cap PO DAILY 07/14/20 07/14/20 History [Preservision Areds 2 Softgel] busPIRone HCl [Buspar] 5 mg PO TID 07/14/20 07/14/20 History traZODone HCL 100 mg PO HS PRN 07/14/20 07/14/20 History Allergies Allergy/AdvReac Type Severity Reaction Status Date / Time No Known Allergies Allergy Verified 07/14/20 11:18 Physical Examination Gen: AOx3, NAD VSS stable at this time Integument: Incision is well-healed near the right ASIS. Well-healed scar of the right distal femur along with left proximal femur. No obvious skin changes present throughout the cervical, thoracic or lumbar. Previous lumbar incision is well- healed. No areas of fluctuance or erythema appreciated. +1 pitting edema of the bilateral lower extremities Palpation: Patient is nontender with palpation of the midline paraspinal region of the cervical, thoracic or lumbar spine. Patient is tender with palpation in the right pelvic region, near ASIS and superior-inferior rami. She is nontender with palpation of the greater trochanter on the right side, also including the distal femur including the knee, lower leg and foot and ankle. She is nontender with palpation throughout the left side of the pelvis , greater trochanter, proximal femur, knee, lower leg, foot or ankle. ROM/Strength: Full range of motion of all major muscle of bilateral upper extremities Left lower extremity: Hip flexion, knee extension, knee flexion, plantar flexion, dorsiflexion, EHL, FHL are intact. Notable weakness likely due to her medical state Right lower extremity: Hip flexion, knee flexion, knee extension, plantar flexion, dorsiflexion, EHL, FHL are intact. Weakness appreciated with hip flexion, also generalized weakness due to her mental state Sensory Exam: Senory exam to light touch is intact C5-T1 bilateral upper extremities Senosry exam to light touch is intact L2-S1 bilateral lower extremities, she does note tingling on the plantar aspect of the right foot Special Test: Negative straight leg raise left side, straight leg raise on the right does reproduce discomfort in the pelvic region Results - Labs Labs: Abnormal Lab Results - Last 24 Hours (Table) 07/14/20 07/14/20 Range/Units 14:56 14:56 Plt Count 97 L (150-450) k/uL Lymphocytes # 0.7 L (1.0-4.8) k/uL Potassium 5.3 H (3.5-5.1) mmol/L Chloride 108 H (98-107) mmol/L Carbon Dioxide 18 L (22-30) mmol/L AST 40 H (14-36) U/L Alkaline Phosphatase 162 H (38-126) U/L H & H 07/14/20 Range/Units 14:56 Hgb 12.7 D (11.4-16.0) gm/dL Hct 39.5 (34.0-46.0) % Result Diagrams: 07/14/20 14:56 07/14/20 14:56 Assessment and Plan Assessment: Right-sided pelvic pain Bladder incontinence Inability to ambulate Recent fall from bed History of fall from standing with LC1 type injury, bilateral superior and inferior pubic rami fracture, right-sided SI joint widening History of right-sided SI joint stabilization Previous lumbar fusion procedure Previous left intertrochanteric femur fracture with compression screw fixation Previous right distal femur fracture with plate and screw fixation Other medical comorbidities Plan: Imaging: Both images and reports were reviewed of the AP pelvis along with right femur x- rays. Report states no acute changes of the hardware on the right distal femur. They also noted no acute changes of the hardware involving the pelvis, left femur and lumbar spine. Fractures are still visualized of the bilateral superior and inferior pubic rami Plan: I was able to discuss the case, including both physical exam findings and imaging studies with my attending Dr. Lindo. Due to the complexity of this patient, including her recent pelvic surgery along with current symptoms including intractable pain, inability to ambulate and bladder incontinence since most recent fall, we recommended immediate transfer to [facility] for evaluation by orthopedic trauma service. Currently our orthopedic spine surgeon is not available to discuss this case We will hold off on any further imaging or diagnostic studies at this time Please contact us with any questions regarding this patient Time with Patient: Less than 30
[2020-07-15 10:55] VITALS: RESP 14
[2020-07-15 14:08] VITALS: BP 117/82; PULSE 84; TEMP 98.8
--- NOTE | 2020-07-15 14:10 | HP ---
HISTORY AND PHYSICAL CHIEF COMPLAINT: Fall with right hip pain. HISTORY OF PRESENT ILLNESS: This is another admission recently for this 69-year-old white female. She fell some weeks ago and fractured her pelvis. She was admitted here and transferred to [facility] where she underwent a fixation and stabilization surgery. She left there to go to [facility] and did well and recently went home. She apparently fell and landed on the right hip and came in with pain. X-rays in the emergency room failed to demonstrate any problems or obvious new fractures or change in the stability fixation devices. She did not have chest pain, head injury, etc. REVIEW OF SYSTEMS: She has had no headaches, seizures, chest pain, shortness of breath, abdominal pain, nausea, vomiting, diarrhea, melena, urinary complaints, fever, chills, etc. Past medical history, family history and personal and social histories reveal that she has had multiple orthopedic problems in the past, hypertension, CKD, old compression fractures of the dorsal spine history, COPD. Medications can be found in the med rec portion of her chart. Her past medical history, family history and personal and social histories are all otherwise unremarkable or unchanged from her recent admitting and discharge summaries. PHYSICAL EXAMINATION: Blood pressure is 123/86 with a pulse of 79, respirations of 32, and she is afebrile. In general, she appeared to be awake and alert. Skin color is normal. Skin is warm, dry. Lymph nodes are not enlarged. Head, ears, eyes, nose, mouth and throat were unremarkable. Chest is clear to auscultation and percussion. Cardiac exam demonstrates sinus rhythm and no murmurs or extra sounds. Abdomen is soft and nontender without any visceromegaly or masses. She was tender over the iliac crest and anterior iliac spine. Extremities are normal except for shortening of the right lower leg from previous fracture. Pulses are good. Neurologically, she seemed to be intact. IMPRESSION: 1. Fall with pain in the right hip. 2. Recent fracture of the pelvis, status post ORIF. 3. Chronic obstructive pulmonary disease. 4. History of depression. 5. Osteoporosis. PLAN: 1. Bed rest. 2. IV fluids. 3. Analgesics. 4. Consult with Orthopedic Surgery. 5. Physical therapy and rehab and probably readmit to extended-care facility for rehab. MMODL / IJN: [id number] /
--- NOTE | 2020-07-16 22:36 | DS ---
DISCHARGE SUMMARY DATE OF SERVICE: 07/15/2020 CHIEF COMPLAINT: Fall with hip pain. HISTORY OF PRESENT ILLNESS AND PHYSICAL EXAMINATION: Details of this lady's history and physical can be found in the initial workup. LABORATORY STUDIES: While she was in the hospital she had laboratory studies, details of which can be found in the laboratory section of her chart. COURSE IN THE HOSPITAL: After admission she was placed on bedrest, started on intravenous fluids and analgesics. She was seen by Orthopedics. She was not found to have any new orthopedic abnormalities on her x-ray studies. Orthopedics felt she should be transferred back to [facility], where she underwent her original surgery. Arrangements were made for her to be transferred to the 07/15. FINAL DIAGNOSES: 1. Fall with trauma to the right hip and pelvis. 2. Recent pelvic fracture with open reduction internal fixation. 3. Chronic obstructive pulmonary disease. OPERATIONS: None. CONSULTATION: Orthopedics. She was transferred to [facility]. MMVLAD / BISMARKN: [id number] /
== END 2020-07-15 14:45 | disposition short-term general hospital (02) | DRG 536 ==
LOC: EC 11:01 → 5NMEDONC 14:29
PROVIDERS: ADMIT Family Medicine; ATTEND Family Medicine
DX: S32.511A Fracture of superior rim of right pubis, initial encounter for closed fracture (principal); S32.512A Fracture of superior rim of left pubis, initial encounter for closed fracture; F31.9 Bipolar disorder, unspecified; J44.9 Chronic obstructive pulmonary disease, unspecified; Z20.822 Contact with and (suspected) exposure to COVID-19; I25.10 Atherosclerotic heart disease of native coronary artery without angina pectoris; M81.0 Age-related osteoporosis without current pathological fracture; H35.30 Unspecified macular degeneration; F41.9 Anxiety disorder, unspecified; R26.2 Difficulty in walking, not elsewhere classified; R32 Unspecified urinary incontinence; M19.90 Unspecified osteoarthritis, unspecified site; Z79.01 Long term (current) use of anticoagulants; Z79.83 Long term (current) use of bisphosphonates; Z79.899 Other long term (current) drug therapy; Z86.14 Personal history of Methicillin resistant Staphylococcus aureus infection; Z90.49 Acquired absence of other specified parts of digestive tract; Z90.710 Acquired absence of both cervix and uterus; Z87.42 Personal history of other diseases of the female genital tract; Z96.60 Presence of unspecified orthopedic joint implant; Z98.1 Arthrodesis status; Z87.448 Personal history of other diseases of urinary system; Z98.890 Other specified postprocedural states; W06.XXXA Fall from bed, initial encounter; Z80.9 Family history of malignant neoplasm, unspecified; Z82.49 Family history of ischemic heart disease and other diseases of the circulatory system; Z82.5 Family history of asthma and other chronic lower respiratory diseases; Z83.3 Family history of diabetes mellitus; Z82.3 Family history of stroke; Z83.79 Family history of other diseases of the digestive system; Z83.49 Family history of other endocrine, nutritional and metabolic diseases; Z82.61 Family history of arthritis; Z84.1 Family history of disorders of kidney and ureter
CPT/HCPCS: 36415; 72170; 80053; 85025; 87635; 96372; 99284

== ENCOUNTER 2020-07-25 16:53 | Observation (INO) | payer MEDICARE ==
[2020-07-25] MEDS ORDERED: NALOXONE 0.4 MG/ML 1 ML VIAL IV PRN (17:26)
[2020-07-25] MEDS ORDERED: IBUPROFEN 400 MG TAB PO PRN (17:26)
[2020-07-25] MEDS ORDERED: Acetaminophen-Codeine 300-30mg TAB PO PRN (17:26)
--- NOTE | 2020-07-25 17:26 | ED ---
Weakness HPI - General Chief complaint: Weakness Stated complaint: Inability to walk, Hip Pain Source: patient Mode of arrival: EMS Limitations: no limitations - History of Present Illness Initial comments: Ebony is a 69-year-old female who presents the ER today by ambulance for evaluation of back pelvic and hip pain. Patient had a fall on May 17 subsequently underwent orthopedic surgery to repair pelvic fracture. After a stay in rehab she return to this ER for intractable pain and was transferred to [place] for further evaluation. Patient reports that she left [facility] on or Sunday after refusing to be transferred to a care home facility. After returning home she is realized that she's not capable of getting out of better ambulating independently so she called 911 to be brought back to the hospital looking for placement in a subacute rehab. She denies any acute complaints. - Related Data Home Medications Medication Instructions Recorded Confirmed Pravastatin Sodium [Pravachol] 40 mg PO HS 11/16/15 07/14/20 Spironolact/Hydrochlorothiazid 2 tab PO DAILY 11/16/15 07/14/20 [Spironolactone-Hctz 25-25 Tab] Ziprasidone HCl [Geodon] 60 mg PO HS 11/16/15 07/14/20 buPROPion XL [Wellbutrin XL] 150 mg PO TID 11/16/15 07/14/20 hydrOXYzine pamoate [Vistaril] 25 mg PO DAILY 11/16/15 07/14/20 ALPRAZolam [Xanax] 0.25 mg PO TID PRN 08/09/17 07/14/20 Alendronate Sodium 70 mg PO 04/02/19 07/14/20 Famotidine [Pepcid] 20 mg PO BID PRN 05/17/20 07/14/20 Gabapentin 300 mg PO TID 05/17/20 07/14/20 HYDROcodone/APAP 10-325MG [[place] 1 tab PO QID 05/17/20 07/14/20 10-325] Potassium Chloride ER [K-Dur 20] 60 meq PO DAILY 05/17/20 07/14/20 Apixaban [Eliquis] 5 mg PO BID 07/14/20 07/14/20 Cholecalciferol [Vitamin D3 (25 50 mcg PO DAILY 07/14/20 07/14/20 Mcg = 1000 Iu)] Diclofenac Sodium [Voltaren] 75 mg PO DAILY 07/14/20 07/14/20 Furosemide [Lasix] 20 mg PO DAILY 07/14/20 07/14/20 Ibuprofen [Motrin] 600 mg PO Q8HR PRN 07/14/20 07/14/20 Mirtazapine [Remeron] 45 mg PO HS 07/14/20 07/14/20 Vit C/E/Zn/Coppr/Lutein/Zeaxan 2 cap PO DAILY 07/14/20 07/14/20 [Preservision Areds 2 Softgel] busPIRone HCl [Buspar] 5 mg PO TID 07/14/20 07/14/20 traZODone HCL 100 mg PO HS PRN 07/14/20 07/14/20 Allergies Allergy/AdvReac Type Severity Reaction Status Date / Time No Known Allergies Allergy Verified 07/25/20 17:06 Review of Systems ROS Statement: Those systems with pertinent positive or pertinent negative responses have been documented in the HPI. ROS Other: All systems not noted in ROS Statement are negative. Past Medical History Past Medical History: Coronary Artery Disease (CAD), Eye Disorder, Osteoarthritis (OA), Renal Disease Additional Past Medical History / Comment(s): EDEMA OF LEGS AT TIMES, MACULAR DEGENERATION History of Any Multi-Drug Resistant Organisms: MRSA Date of last positivie culture/infection: face (unknown yr) MDRO Source:: Face Past Surgical History: Back Surgery, Cholecystectomy, Hysterectomy, Joint Replacement Additional Past Surgical History / Comment(s): shoulder surgery, pelvic fracture repaired. Past Anesthesia/Blood Transfusion Reactions: No Reported Reaction Past Psychological History: Anxiety, Bipolar Smoking Status: Never smoker Past Alcohol Use History: None Reported Past Drug Use History: None Reported - Past Family History Mother Family Medical History: Cancer Father Family Medical History: Cancer Sister(s) Family Medical History: AICD/Pacemaker, Cancer, Chest Pain / Angina, Congestive Heart Failure (CHF), COPD, Coronary Artery Disease (CAD), CVA/TIA, Diabetes Mellitus, GERD/Reflux, Hyperlipidemia, Hypertension, Liver Disease, Myocardial Infarction ([place]), Osteoarthritis (OA), Pneumonia, Renal Disease Additional Family Medical History / Comment(s): SISTER X2 General Exam - General Exam Comments Initial Comments: Physical Exam GENERAL: Chronically debilitated HENT: Normocephalic, Atraumatic. EYES: PERRL, EOMI PULMONARY: Unlabored respirations. CARDIOVASCULAR: RRR Warm and well perfused extremities ABDOMEN: Non-distended SKIN: No rashes or bruising : Deferred Incontinent of urine NEUROLOGIC: Alert and oriented Normal speech MUSCULOSKELETAL: Moving all extremities with no apparent injury PSYCHIATRIC: No SI/HI Limitations: no limitations Course Vital Signs 07/25/20 17:03 Temperature 97.5 F L Pulse Rate 73 Respiratory 18 Rate Blood Pressure 126/87 O2 Sat by Pulse 99 Oximetry Medical Decision Making - Medical Decision Making The patient was seen and evaluated history was obtained from patient and review of medical record Patient care was discussed with her primary care physician who is familiar with the patient spoke with her earlier today over the phone. He agrees with plan for patient patient in observation with social work consult for placement in a subacute rehab Disposition Clinical Impression: Intractable pain, Unable to walk, Failure of outpatient treatment Disposition: ADMITTED IP TO THIS HOSP Condition: Stable Is patient prescribed a controlled substance at d/c from ED?: No Referrals: Orlando Moore MD [Primary Care Provider] - 1-2 days
[2020-07-25] MEDS ORDERED: HYDROcodone/APAP 10-325MG 1 EACH TAB PO ONE (18:03)
[2020-07-25] MEDS: ACETAMINOPHEN TAB 325 MG TAB PO PRN (23:24)
[2020-07-26] MEDS ORDERED: ALPRAZolam 0.25 MG TAB PO PRN (00:37)
[2020-07-26] MEDS ORDERED: FAMOTIDINE 20 MG TAB PO PRN (00:37)
[2020-07-26] MEDS ORDERED: traZODone HCL 100 MG TAB PO PRN (01:00)
[2020-07-26] MEDS: HYDROcodone/APAP 10-325MG 1 EACH TAB PO SCH ×5 (01:29→21:07)
[2020-07-26] MEDS: GABAPENTIN 300 MG CAP PO SCH ×4 (01:29→21:07)
[2020-07-26] MEDS: ZIPRASIDONE 60 MG CAP PO SCH ×2 (01:33→21:07)
[2020-07-26] MEDS: APIXABAN 5 MG TAB PO SCH ×2 (08:58→21:07)
[2020-07-26] MEDS: buPROPion XL 150 MG TAB.ER.24H PO SCH ×3 (08:58→21:07)
[2020-07-26] MEDS: ETODOLAC 400 MG TAB PO SCH (08:59)
[2020-07-26] MEDS: busPIRone HCl 5 MG TAB PO SCH ×3 (08:59→21:07)
[2020-07-26] MEDS: FERROUS SULFATE 325 MG TAB PO SCH ×3 (09:00→21:07)
[2020-07-26] MEDS: VIT A,C & E-LUTEIN-MINERALS 1 EACH TAB PO SCH ×2 (09:00→21:07)
[2020-07-26] MEDS: SPIRONOLACTONE 25 MG TAB PO SCH (09:01)
[2020-07-26] MEDS: hydrOXYzine pamoate 25 MG CAP PO SCH (09:03)
[2020-07-26] MEDS: POTASSIUM CHLORIDE ER 20 MEQ TAB.ER PO SCH (09:13)
[2020-07-26] MEDS: CHOLECALCIFEROL 25 MCG (1000 IU) TABLET PO SCH (09:13)
--- NOTE | 2020-07-26 18:52 | HP ---
HISTORY AND PHYSICAL CHIEF COMPLAINT: Pelvic pain, failure to thrive and inability to ambulate. HISTORY OF PRESENT ILLNESS: This is another admission for this 69-year-old white female. She fell a month or 2 ago and fractured her pelvis. She was sent to a [facility] where she underwent surgery. She then went to a longterm for rehab and went home. She was doing reasonably well and then she fell. She came back in the hospital and was transferred back to [place] where nothing further was done. She was sent home. However, she is not doing well at home. She can't walk or get about and the family cannot take care of her. She is brought back to the emergency room for readmission, placement and physical therapy. REVIEW OF SYSTEMS: She has had no neurologic problems, difficulty with vision or hearing, chest pain, shortness of breath, abdominal pain, etc. Past medical history, family history and personal social history are all otherwise unremarkable or unchanged from her recent admissions and discharges. PHYSICAL EXAMINATION: Her blood pressure is 137/74 with a pulse of 80, respirations of 15 and she is afebrile. General she appeared to be slightly pale and in no acute distress. Skin was dry. Head, ears, eyes, nose, mouth and throat were normal. Chest is clear to auscultation. Cardiac exam demonstrates sinus rhythm and there are no murmurs or extra sounds. Abdomen is soft, nontender. Extremities are normal except for her orthopedic deficiencies in the lower extremities from a prior fracture. Neurologically she is intact. IMPRESSION: 1. General debility and failure to thrive. 2. Inability to ambulate. 3. Pain in the right pelvic girdle area with ambulation. 4. Status post surgical stabilization of pelvic fracture. 5. Chronic obstructive pulmonary disease. PLAN: 1. Bedrest. 2. IV fluids. 3. PT and OT. 4. Discharge planning for rehab. MMODL / IJN: [id number] /
--- NOTE | 2020-07-26 19:05 | PN ---
PROGRESS NOTE CHIEF COMPLAINT: Fractured pelvis and inability to bear weight. HISTORY OF PRESENT ILLNESS: This lady is doing fairly well and is comfortable. PHYSICAL EXAMINATION: Chest is clear. Cardiac exam is normal. Abdomen is soft and nontender. IMPRESSION: Fracture of the pelvis status post surgery and inability to bear weight. PLAN: Physical therapy and then discharge again to rehab. MMODL / IJN: [id number] /
[2020-07-26] MEDS: PRAVASTATIN SODIUM 40 MG TAB PO SCH (21:07)
[2020-07-26] MEDS: MIRTAZAPINE 45 MG TABLET PO SCH (21:07)
[2020-07-27] MEDS: VIT A,C & E-LUTEIN-MINERALS 1 EACH TAB PO SCH ×2 (08:39→20:59)
[2020-07-27] MEDS: hydrOXYzine pamoate 25 MG CAP PO SCH (08:39)
[2020-07-27] MEDS: busPIRone HCl 5 MG TAB PO SCH ×3 (08:40→20:59)
[2020-07-27] MEDS: POTASSIUM CHLORIDE ER 20 MEQ TAB.ER PO SCH (08:41)
[2020-07-27] MEDS: FERROUS SULFATE 325 MG TAB PO SCH ×3 (08:41→20:59)
[2020-07-27] MEDS: SPIRONOLACTONE 25 MG TAB PO SCH (08:41)
[2020-07-27] MEDS: ETODOLAC 400 MG TAB PO SCH (08:41)
[2020-07-27] MEDS: HYDROcodone/APAP 10-325MG 1 EACH TAB PO SCH ×4 (08:41→20:59)
[2020-07-27] MEDS: GABAPENTIN 300 MG CAP PO SCH ×3 (08:41→21:00)
[2020-07-27] MEDS: CHOLECALCIFEROL 25 MCG (1000 IU) TABLET PO SCH (08:41)
[2020-07-27] MEDS: buPROPion XL 150 MG TAB.ER.24H PO SCH ×3 (08:41→20:59)
[2020-07-27] MEDS: APIXABAN 5 MG TAB PO SCH ×2 (08:41→20:59)
--- NOTE | 2020-07-27 17:55 | PN ---
PROGRESS NOTE DATE OF SERVICE: 07/27/2020 CHIEF COMPLAINT: Status post fracture of the pelvis with inability to ambulate. HISTORY OF PRESENT ILLNESS: This lady is stable. Vital signs are normal. She has had no shortness of breath, chest pain, fever, chills, etc. PHYSICAL EXAMINATION: Chest is clear. Cardiac exam is normal. The abdomen is soft, nontender. Extremities are normal. IMPRESSION: Fracture of the pelvis with inability to ambulate. PLAN: Await arrangements to be made for her to go to rehab. MMODL / IJN: [id number] /
[2020-07-27] MEDS: MIRTAZAPINE 45 MG TABLET PO SCH (20:59)
[2020-07-27] MEDS: ZIPRASIDONE 60 MG CAP PO SCH (20:59)
[2020-07-27] MEDS: PRAVASTATIN SODIUM 40 MG TAB PO SCH (20:59)
[2020-07-28] MEDS: ACETAMINOPHEN TAB 325 MG TAB PO PRN (06:09)
[2020-07-28] MEDS: VIT A,C & E-LUTEIN-MINERALS 1 EACH TAB PO SCH (08:34)
[2020-07-28] MEDS: buPROPion XL 150 MG TAB.ER.24H PO SCH ×2 (08:34→15:56)
[2020-07-28] MEDS: hydrOXYzine pamoate 25 MG CAP PO SCH (08:34)
[2020-07-28] MEDS: ETODOLAC 400 MG TAB PO SCH (08:34)
[2020-07-28] MEDS: GABAPENTIN 300 MG CAP PO SCH ×2 (08:35→15:57)
[2020-07-28] MEDS: CHOLECALCIFEROL 25 MCG (1000 IU) TABLET PO SCH (08:35)
[2020-07-28] MEDS: SPIRONOLACTONE 25 MG TAB PO SCH (08:35)
[2020-07-28] MEDS: APIXABAN 5 MG TAB PO SCH (08:35)
[2020-07-28] MEDS: HYDROcodone/APAP 10-325MG 1 EACH TAB PO SCH ×2 (08:35→13:24)
[2020-07-28] MEDS: POTASSIUM CHLORIDE ER 20 MEQ TAB.ER PO SCH (08:35)
[2020-07-28] MEDS: busPIRone HCl 5 MG TAB PO SCH ×2 (08:36→15:57)
[2020-07-28] MEDS: FERROUS SULFATE 325 MG TAB PO SCH ×2 (08:36→15:57)
[2020-07-28 12:28] VITALS: PULSE 75; RESP 17; TEMP 98.1
[2020-07-28 12:31] VITALS: BP 96/61
--- NOTE | 2020-07-28 13:09 | DS ---
DISCHARGE SUMMARY CHIEF COMPLAINT: Pain in the hip and inability to bear weight and ambulate. HISTORY OF PRESENT ILLNESS AND PHYSICAL EXAM: Details of this lady's history and physical can be found in the initial workup. COURSE IN THE HOSPITAL: After admission she was placed on bedrest and started on intravenous fluids and attempt at physical therapy. She could not bear weight. It was determined that she could not be managed at home and she will go back to [facility]. A bed was found and placement was arranged and she will go there on the . FINAL DIAGNOSES: 1. Fracture of the pelvis, status post ORIF. 2. Inability to ambulate. 3. Right hip pain. 4. Chronic obstructive pulmonary disease. OPERATIONS: None. CONSULTATION: None. She is improved. MMODL / IJN: [id number] /
[2020-07-29] MEDS ORDERED: NON FORMULARY DRUG (Alendronate Sodium [Alendronate Sodium] 70 MG Tablet) PO SCH (00:37)
== END 2020-07-28 17:01 ==
LOC: EC 16:53 → 5NMEDONC 17:26
PROVIDERS: ADMIT Family Medicine; ATTEND Family Medicine
DX: R26.2 Difficulty in walking, not elsewhere classified (principal); M25.551 Pain in right hip; R62.7 Adult failure to thrive; J44.9 Chronic obstructive pulmonary disease, unspecified; I25.10 Atherosclerotic heart disease of native coronary artery without angina pectoris; F31.9 Bipolar disorder, unspecified; Z79.899 Other long term (current) drug therapy; Z79.01 Long term (current) use of anticoagulants; Z90.710 Acquired absence of both cervix and uterus; Z83.3 Family history of diabetes mellitus; Z82.49 Family history of ischemic heart disease and other diseases of the circulatory system; Z82.5 Family history of asthma and other chronic lower respiratory diseases; Z87.81 Personal history of (healed) traumatic fracture; Z20.822 Contact with and (suspected) exposure to COVID-19; Z96.60 Presence of unspecified orthopedic joint implant
CPT/HCPCS: 99285; 97530 ×2; 97162; 97535; 97166; 87635; G0378 ×4

== ENCOUNTER 2020-12-16 19:18 | Emergency (ER) | payer MEDICARE, OTHER ==
[2020-12-16 19:30] VITALS: TEMP 98.9
--- NOTE | 2020-12-16 20:11 | ED ---
Lower Extremity Injury HPI - General Chief Complaint: Extremity Injury, Lower Stated Complaint: RT foot injury Time Seen by Provider: 12/16/20 19:36 Source: patient Mode of arrival: wheelchair Limitations: no limitations - History of Present Illness Initial Comments: Patient is a 70-year-old female presenting to the emergency Department with complaints of pain in her right great toe. Patient states she was walking back inside her house and not lift up her foot high enough and jammed it on the dorsal. She states this happened about 10 AM this morning. She continues to have pain and swelling present she came in for evaluation. She admits to previous nerve surgery of her right foot, no other injuries. She is no further complaints. - Related Data Home Medications Medication Instructions Recorded Confirmed Pravastatin Sodium [Pravachol] 40 mg PO HS 11/16/15 07/25/20 Ziprasidone HCl [Geodon] 60 mg PO HS 11/16/15 07/25/20 buPROPion XL [Wellbutrin XL] 150 mg PO TID 11/16/15 07/25/20 hydrOXYzine pamoate [Vistaril] 25 mg PO DAILY 11/16/15 07/25/20 ALPRAZolam [Xanax] 0.25 mg PO TID PRN 08/09/17 07/25/20 Alendronate Sodium 70 mg PO TH 04/02/19 07/25/20 Famotidine [Pepcid] 20 mg PO BID PRN 05/17/20 07/25/20 Gabapentin 300 mg PO TID 05/17/20 07/25/20 Potassium Chloride ER [K-Dur 20] 60 meq PO DAILY 05/17/20 07/25/20 Apixaban [Eliquis] 5 mg PO BID 07/14/20 07/25/20 Cholecalciferol [Vitamin D3 (25 50 mcg PO DAILY 07/14/20 07/25/20 Mcg = 1000 Iu)] Diclofenac Sodium [Voltaren] 75 mg PO DAILY 07/14/20 07/25/20 Mirtazapine [Remeron] 45 mg PO HS 07/14/20 07/25/20 busPIRone HCl [Buspar] 5 mg PO TID 07/14/20 07/25/20 traZODone HCL 100 mg PO HS PRN 07/14/20 07/25/20 Ferrous Sulfate [Iron (65 MG 325 mg PO TID 07/25/20 07/25/20 Elemental)] Spironolactone 25 mg PO DAILY 07/25/20 07/25/20 Allergies Allergy/AdvReac Type Severity Reaction Status Date / Time No Known Allergies Allergy Verified 12/16/20 19:30 Review of Systems ROS Statement: Those systems with pertinent positive or pertinent negative responses have been documented in the HPI. ROS Other: All systems not noted in ROS Statement are negative. Past Medical History Past Medical History: Coronary Artery Disease (CAD), Chest Pain / Angina, CVA/TIA, Eye Disorder, Osteoarthritis (OA), Renal Disease Additional Past Medical History / Comment(s): EDEMA OF LEGS AT TIMES, MACULAR DEGENERATION; Pt. states she had chest pain years ago as well as a stroke History of Any Multi-Drug Resistant Organisms: MRSA Date of last positivie culture/infection: face (unknown yr) MDRO Source:: Face Past Surgical History: Back Surgery, Cholecystectomy, Hysterectomy, Joint Replacement Additional Past Surgical History / Comment(s): shoulder surgery, pelvic fracture repaired. Past Anesthesia/Blood Transfusion Reactions: No Reported Reaction Past Psychological History: Anxiety, Bipolar Smoking Status: Never smoker Past Alcohol Use History: None Reported Past Drug Use History: None Reported - Past Family History Mother Family Medical History: Cancer Additional Family Medical History / Comment(s): Breast cancer Father Family Medical History: Cancer Additional Family Medical History / Comment(s): Lung cancer Sister(s) Family Medical History: AICD/Pacemaker, Cancer, Chest Pain / Angina, Congestive Heart Failure (CHF), COPD, Coronary Artery Disease (CAD), CVA/TIA, Diabetes Mellitus, GERD/Reflux, Hyperlipidemia, Hypertension, Liver Disease, Myocardial Infarction ([place]), Osteoarthritis (OA), Pneumonia, Renal Disease Additional Family Medical History / Comment(s): SISTER X2 General Exam - General Exam Comments Initial Comments: GENERAL: Patient is well-developed and well-nourished. Patient is nontoxic and in no acute distress. HEAD: Atraumatic, normocephalic. EYES: Pupils equal round and reactive to light, extraocular movements intact, sclera anicteric, conjunctiva are normal. Eyelids were unremarkable. LUNGS: Unlabored respirations. Breath sounds clear to auscultation bilaterally and equal. No wheezes rales or rhonchi. HEART: Regular rate and rhythm without murmurs, rubs or gallops. MUSCULOSKELETAL: She has pain with palpation of the right great toe, bruising present. She has painful range of motion. Neurovascular intact. No deformity, very mild swelling present. No clubbing or cyanosis. NEUROLOGICAL: Patient is alert and oriented x 3. SKIN: Warm, Dry, normal turgor, no rashes or lesions noted. Limitations: no limitations Course Vital Signs 12/16/20 19:27 Temperature 98.9 F Pulse Rate 79 Respiratory 17 Rate Blood Pressure 123/83 O2 Sat by Pulse 96 Oximetry Medical Decision Making - Medical Decision Making Patient is a 70-year-old female here with right great toe pain after she hit it on a door sill about 10 AM today. She does have some mild swelling, bruising present, pain over the first great toe. X-ray reveals a suspicious small fracture of the distal phalanx of the great toe. Recommended repeat x-rays in 7-10 days. Patient is requesting pain medic ation. I will give her a shot of pain meds before discharge. She'll follow up with orthopedics. She is agreeable to this plan of care is stable for discharge. Disposition Clinical Impression: Fracture of right great toe Disposition: HOME SELF-CARE Condition: Stable Instructions (If sedation given, give patient instructions): Toe Fracture (ED) Additional Instructions: Please return to the Emergency Department if symptoms worsen or any other concerns. Recommend ice to the area, elevation above the heart level to control swelling. Please follow-up with your family doctor or orthopedics in 7-10 days for repeat x-rays. Is patient prescribed a controlled substance at d/c from ED?: No Referrals: Orlando Moore MD [Primary Care Provider] - 1-2 days Suraj Encarnacion DO [Doctor of Osteopathic Medicine] - 1-2 days Time of Disposition: 20:42
--- NOTE | 2020-12-16 20:24 | XR ---
Result: History: Great toe pain. Comparison: None available. Technique: 3 views of the right foot. Findings: There is a suspicious small fracture of the great toe distal phalangeal base at the lateral aspect. R emote healed fourth metatarsal fractures. There are scattered moderate degenerative changes. Impression: Suspicious small fracture of the great toe distal phalanx. Repeat radiographs in 7-10 days may be obt ained for confirmation as clinically indicated.
[2020-12-16] MEDS ORDERED: MORPHINE SULFATE 2 MG/ML SYRINGE IM STA (20:40)
[2020-12-16 21:03] VITALS: BP 128/88; PULSE 76; RESP 18
== END 2020-12-16 20:48 | disposition home or self-care (01) ==
LOC: EC 19:18
DX: S92.421A Displaced fracture of distal phalanx of right great toe, initial encounter for closed fracture (principal); M19.90 Unspecified osteoarthritis, unspecified site; Z79.899 Other long term (current) drug therapy; W23.0XXA Caught, crushed, jammed, or pinched between moving objects, initial encounter; Y93.01 Activity, walking, marching and hiking; Y92.009 Unspecified place in unspecified non-institutional (private) residence as the place of occurrence of the external cause
CPT/HCPCS: 99283; 96372; 73630; J2270

== ENCOUNTER 2020-12-27 12:47 | Emergency (ER) | payer MEDICARE, OTHER ==
[2020-12-27 13:02] VITALS: TEMP 98.9
--- NOTE | 2020-12-27 14:38 | XR ---
EXAMINATION TYPE: XR wrist complete LT DATE OF EXAM: 12/27/2020 COMPARISON: 12/27/2020 hand HISTORY: Fall, pain TECHNIQUE: 4 views of the left wrist were obtained. 3 views of the bilateral hands were obtained. FINDINGS: Left wrist: Spiral fractures of the proximal third and fourth metacarpals is evident. There is increa sed scapholunate space compatible with disassociation. This may be chronic. Soft tissues appear margo l. Left hand: Spiral fractures of the third and fourth metacarpal are again evident. Degenerative joint changes are present in the proximal distal interphalangeal joint spaces of the fifth digit. Milder di ffuse narrowing is present within the proximal and distal interphalangeal joint spaces of the remaini ng digits. Soft tissues are normal. Right hand: Advanced degenerative changes present at the proximal interphalangeal joint space of the fifth digit. There is an old fifth metacarpal fracture. There is diffuse narrowing of the distal inte rphalangeal joint spaces of the remaining proximal interphalangeal joint spaces. Soft tissues appear normal. IMPRESSION: 1. Spiral fracture nondisplaced within the third left proximal diaphyseal metacarpal. 2. Spiral fracture with minimal displacement in the proximal to mid diaphyseal fourth left metacarpal . 3. Scapholunate disassociation left hand. This could be further evaluated with MRI. 4. No acute fractures right hand. 5. Bilateral hand joint space degenerative changes
[2020-12-27 15:07] LABS: Appearance,Urine Cloudy (Clear); Bacteria,Urine Rare /hpf; Bilirubin,Urine Negative (Negative); Blood,Urine Negative (Negative); Color,Urine Yellow; Glucose,Urine (UA) Negative (Negative); Ketones,Urine Negative (Negative); Leukocyte Esterase,Urine Large (Negative); Nitrite,Urine Negative (Negative); PH, Urine 6.5 (5.0-8.0); Protein,Urine Trace (Negative); RBC,Urine 3 /hpf (0-5); Specific Gravity,Urine 1.025 (1.001-1.035); WBC,Urine >182 /hpf (0-5)
[2020-12-27 15:19] LABS: Albumin 4.8 g/dL (3.5-5.0); Calcium 9.7 mg/dL (8.4-10.2); Potassium 3.6 mmol/L (3.5-5.1); Total Bilirubin 0.7 mg/dL (0.2-1.3); Total Protein 7.4 g/dL (6.3-8.2)
[2020-12-27 15:29] LABS: Basophils % (A) 0 %; Eosinophils # (A) 0.1 k/uL (0-0.7); Eosinophils % (A) 2 %; HCT 40.5 % (34.0-46.0); HGB 13.7 gm/dL (11.4-16.0); Lymphocytes # (A) 1.2 k/uL (1.0-4.8); Lymphocytes % (A) 24 %; MCHC 33.9 g/dL (31.0-37.0); MCV 91.4 fL (80.0-100.0); Mean Platelet Volume 7.7; Monocytes # (A) 0.4 k/uL (0-1.0); Monocytes % (A) 9 %; Neutrophils # (A) 3.2 k/uL (1.3-7.7); Neutrophils % (A) 63 %; Platelet Count 132 k/uL (150-450); RBC 4.43 m/uL (3.80-5.40); RDW 14.7 % (11.5-15.5)
[2020-12-27] MEDS ORDERED: cefTRIAXone 1,000 MG VIAL (IM USE) IM STA (16:10)
--- NOTE | 2020-12-27 16:28 | ED ---
General Adult HPI - General Chief complaint: Fall Stated complaint: Fall, Bilateral hand injury Time Seen by Provider: 12/27/20 13:18 Source: patient, RN notes reviewed Mode of arrival: ambulatory Limitations: no limitations - History of Present Illness Initial comments: 70-year-old female with a past medical history of CAD, CVA, renal disease presents to the emergency room for a chief complaint of fall. Patient woke up in the middle of the night last night and was walking around her room trying to find the door. She ended up in the other corner because it was very dark. Patient became disoriented and lost her footing. Patient fell on the bilateral outstretched hands. Patient did not hit her head. Patient is complaining of left hand and wrist pain as well as right hand pain. Her daughter also wants to make sure that there is nothing else wrong that may have caused the fall. Patient denies any chest pain, shortness of breath or lightheadedness at that time. She does states she was a little dizzy but thinks that was because she is disoriented about where she was in the room.Patient has no other complaints at this time including shortness of breath, chest pain, abdominal pain, nausea or vomiting, headache, or visual changes. - Related Data Home Medications Medication Instructions Recorded Confirmed Pravastatin Sodium [Pravachol] 40 mg PO HS 11/16/15 07/25/20 Ziprasidone HCl [Geodon] 60 mg PO HS 11/16/15 07/25/20 buPROPion XL [Wellbutrin XL] 150 mg PO TID 11/16/15 07/25/20 hydrOXYzine pamoate [Vistaril] 25 mg PO DAILY 11/16/15 07/25/20 ALPRAZolam [Xanax] 0.25 mg PO TID PRN 08/09/17 07/25/20 Alendronate Sodium 70 mg PO TH 04/02/19 07/25/20 Famotidine [Pepcid] 20 mg PO BID PRN 05/17/20 07/25/20 Gabapentin 300 mg PO TID 05/17/20 07/25/20 Potassium Chloride ER [K-Dur 20] 60 meq PO DAILY 05/17/20 07/25/20 Apixaban [Eliquis] 5 mg PO BID 07/14/20 07/25/20 Cholecalciferol [Vitamin D3 (25 50 mcg PO DAILY 07/14/20 07/25/20 Mcg = 1000 Iu)] Diclofenac Sodium [Voltaren] 75 mg PO DAILY 07/14/20 07/25/20 Mirtazapine [Remeron] 45 mg PO HS 07/14/20 07/25/20 busPIRone HCl [Buspar] 5 mg PO TID 07/14/20 07/25/20 traZODone HCL 100 mg PO HS PRN 07/14/20 07/25/20 Ferrous Sulfate [Iron (65 MG 325 mg PO TID 07/25/20 07/25/20 Elemental)] Spironolactone 25 mg PO DAILY 07/25/20 07/25/20 Previous Rx's Medication Instructions Recorded Cephalexin [Keflex] 500 mg PO TID 7 Days #21 cap 12/27/20 Allergies Allergy/AdvReac Type Severity Reaction Status Date / Time No Known Allergies Allergy Verified 12/27/20 13:02 Review of Systems ROS Statement: Those systems with pertinent positive or pertinent negative responses have been documented in the HPI. ROS Other: All systems not noted in ROS Statement are negative. Past Medical History Past Medical History: Coronary Artery Disease (CAD), Chest Pain / Angina, CVA/TIA, Eye Disorder, Osteoarthritis (OA), Renal Disease Additional Past Medical History / Comment(s): EDEMA OF LEGS AT TIMES, MACULAR DEGENERATION; Pt. states she had chest pain years ago as well as a stroke, History of Any Multi-Drug Resistant Organisms: MRSA Date of last positivie culture/infection: face (unknown yr) MDRO Source:: Face Past Surgical History: Back Surgery, Cholecystectomy, Hysterectomy, Joint Replacement Additional Past Surgical History / Comment(s): shoulder surgery, pelvic fracture repaired., Past Anesthesia/Blood Transfusion Reactions: No Reported Reaction Past Psychological History: Anxiety, Bipolar Smoking Status: Never smoker Past Alcohol Use History: None Reported Past Drug Use History: None Reported - Past Family History Mother Family Medical History: Cancer Additional Family Medical History / Comment(s): Breast cancer Father Family Medical History: Cancer Additional Family Medical History / Comment(s): Lung cancer Sister(s) Family Medical History: AICD/Pacemaker, Cancer, Chest Pain / Angina, Congestive Heart Failure (CHF), COPD, Coronary Artery Disease (CAD), CVA/TIA, Diabetes Mellitus, GERD/Reflux, Hyperlipidemia, Hypertension, Liver Disease, Myocardial Infarction ([place]), Osteoarthritis (OA), Pneumonia, Renal Disease Additional Family Medical History / Comment(s): SISTER X2 General Exam - General Exam Comments Initial Comments: Left hand: Patient has tenderness on the dorsum of the mid left hand. No tenderness in the fingers. Mild dorsal wrist tenderness. No scaphoid tenderness. Limited range of motion of the left wrist secondary to pain. Patient able to move all digits of the left hand.Radial pulse 2+. Capillary refill less than 2 seconds. Right hand: Patient has ecchymosis of the second metacarpal head with minimal tenderness. Range of motion of the right hand and wrist. No wrist pain. Radial pulse 2+. Capillary refill less than 2 seconds. Limitations: no limitations General appearance: alert, in no apparent distress Head exam: Present: atraumatic, normocephalic, normal inspection Eye exam: Present: normal appearance, PERRL, EOMI. Absent: scleral icterus, conjunctival injection, periorbital swelling ENT exam: Present: normal exam, mucous membranes moist Neck exam: Present: normal inspection, full ROM. Absent: tenderness Respiratory exam: Present: normal lung sounds bilaterally. Absent: respiratory distress, wheezes Cardiovascular Exam: Present: regular rate, normal rhythm, normal heart sounds GI/Abdominal exam: Present: soft, normal bowel sounds. Absent: distended, tenderness, guarding, rebound, rigid Course Vital Signs 12/27/20 12:59 Temperature 98.9 F Pulse Rate 78 Respiratory 17 Rate Blood Pressure 119/86 O2 Sat by Pulse 97 Oximetry Procedures - Orthopedic Splinting/Casting Injury #1 Side: left Upper Extremity Injury Location: short arm Upper Extremity Immobilizer: volar splint Additional Comments: Neurovascular status intact after splint applied. Medical Decision Making - Medical Decision Making Vitals are stable. HPI and physical exam as documented. CBC CMP unremarkable. Troponin within normal limits. Urinalysis however does show infection. Patient was given IM Rocephin. X-ray did show fracture of the third of fourth metacarpals of the left hand. Patient was splinted in a volar wrist splint. No scaphoid tenderness. No acute fractures of the left wrist or right hand. At this time I suspect patient fell possibly because of UTI but also because she is disoriented in the room with the lights off. Patient will follow-up with orthopedics. She'll return for any worsening symptoms. [facility] and will be referred to them. - Lab Data Result diagrams: 12/27/20 14:21 12/27/20 14:21 Lab Results 12/27/20 12/27/20 12/27/20 Range/Units 14:21 14:21 14:21 WBC 5.0 (3.8-10.6) k/uL RBC 4.43 (3.80-5.40) m/uL Hgb 13.7 (11.4-16.0) gm/dL Hct 40.5 (34.0-46.0) % MCV 91.4 (80.0-100.0) fL MCH 31.0 (25.0-35.0) pg MCHC 33.9 (31.0-37.0) g/dL RDW 14.7 (11.5-15.5) % Plt Count 132 L (150-450) k/uL MPV 7.7 Neutrophils % 63 % Lymphocytes % 24 % Monocytes % 9 % Eosinophils % 2 % Basophils % 0 % Neutrophils # 3.2 (1.3-7.7) k/uL Lymphocytes # 1.2 (1.0-4.8) k/uL Monocytes # 0.4 (0-1.0) k/uL Eosinophils # 0.1 (0-0.7) k/uL Basophils # 0.0 (0-0.2) k/uL Sodium 135 L (137-145) mmol/L Potassium 3.6 (3.5-5.1) mmol/L Chloride 96 L (98-107) mmol/L Carbon Dioxide 27 (22-30) mmol/L Anion Gap 12 mmol/L BUN 30 H (7-17) mg/dL Creatinine 1.06 H (0.52-1.04) mg/dL Est GFR (CKD-EPI)AfAm 63 (>60 ml/min/1.73 sqM) Est GFR (CKD-EPI)NonAf 54 (>60 ml/min/1.73 sqM) Glucose 104 H (74-99) mg/dL Calcium 9.7 (8.4-10.2) mg/dL Total Bilirubin 0.7 (0.2-1.3) mg/dL AST 37 H (14-36) U/L ALT 23 (4-34) U/L Alkaline Phosphatase 86 (38-126) U/L Troponin I (0.000-0.034) ng/mL Total Protein 7.4 (6.3-8.2) g/dL Albumin 4.8 (3.5-5.0) g/dL Urine Color Yellow Urine Appearance Cloudy H (Clear) Urine pH 6.5 (5.0-8.0) Ur Specific [place] 1.025 (1.001-1.035) Urine Protein Trace H (Negative) Urine Glucose (UA) Negative (Negative) Urine Ketones Negative (Negative) Urine Blood Negative (Negative) Urine Nitrite Negative (Negative) Urine Bilirubin Negative (Negative) Urine Urobilinogen 3.0 (<2.0) mg/dL Ur Leukocyte Esterase Large H (Negative) Urine RBC 3 (0-5) /hpf Urine WBC >182 H (0-5) /hpf Urine WBC Clumps Occasional H (None) /hpf Urine Bacteria Rare H (None) /hpf 12/27/20 Range/Units 14:21 WBC (3.8-10.6) k/uL RBC (3.80-5.40) m/uL Hgb (11.4-16.0) gm/dL Hct (34.0-46.0) % MCV (80.0-100.0) fL MCH (25.0-35.0) pg MCHC (31.0-37.0) g/dL RDW (11.5-15.5) % Plt Count (150-450) k/uL MPV Neutrophils % % Lymphocytes % % Monocytes % % Eosinophils % % Basophils % % Neutrophils # (1.3-7.7) k/uL Lymphocytes # (1.0-4.8) k/uL Monocytes # (0-1.0) k/uL Eosinophils # (0-0.7) k/uL Basophils # (0-0.2) k/uL Sodium (137-145) mmol/L Potassium (3.5-5.1) mmol/L Chloride (98-107) mmol/L Carbon Dioxide (22-30) mmol/L Anion Gap mmol/L BUN (7-17) mg/dL Creatinine (0.52-1.04) mg/dL Est GFR (CKD-EPI)AfAm (>60 ml/min/1.73 sqM) Est GFR (CKD-EPI)NonAf (>60 ml/min/1.73 sqM) Glucose (74-99) mg/dL Calcium (8.4-10.2) mg/dL Total Bilirubin (0.2-1.3) mg/dL AST (14-36) U/L ALT (4-34) U/L Alkaline Phosphatase (38-126) U/L Troponin I 0.019 (0.000-0.034) ng/mL Total Protein (6.3-8.2) g/dL Albumin (3.5-5.0) g/dL Urine Color Urine Appearance (Clear) Urine pH (5.0-8.0) Ur Specific [place] (1.001-1.035) Urine Protein (Negative) Urine Glucose (UA) (Negative) Urine Ketones (Negative) Urine Blood (Negative) Urine Nitrite (Negative) Urine Bilirubin (Negative) Urine Urobilinogen (<2.0) mg/dL Ur Leukocyte Esterase (Negative) Urine RBC (0-5) /hpf Urine WBC (0-5) /hpf Urine WBC Clumps (None) /hpf Urine Bacteria (None) /hpf Disposition Clinical Impression: Fall, Hand fracture, left, UTI (urinary tract infection) Disposition: HOME SELF-CARE Condition: Good Instructions (If sedation given, give patient instructions): Hand Fracture (ED), Urinary Tract Infection in Women (ED) Additional Instructions: Take antibiotic as directed. Follow-up with primary care and orthopedics. Return for any worsening symptoms. Prescriptions: Cephalexin [Keflex] 500 mg PO TID 7 Days #21 cap Is patient prescribed a controlled substance at d/c from ED?: No Referrals: Orlando Moore MD [Primary Care Provider] - 1-2 days Rasheed Mitchell MD [STAFF PHYSICIAN] - 1-2 days Time of Disposition: 16:27
[2020-12-27 16:44] VITALS: BP 124/92; PULSE 74; RESP 18
== END 2020-12-27 16:36 | disposition home or self-care (01) ==
LOC: EC 12:47
DX: N39.0 Urinary tract infection, site not specified (principal); S62.335A Displaced fracture of neck of fourth metacarpal bone, left hand, initial encounter for closed fracture; S62.363A Nondisplaced fracture of neck of third metacarpal bone, left hand, initial encounter for closed fracture; I25.7 Atherosclerosis of coronary artery bypass graft(s) and coronary artery of transplanted heart with angina pectoris; Z79.899 Other long term (current) drug therapy; Z86.73 Personal history of transient ischemic attack (TIA), and cerebral infarction without residual deficits; W01.198A Fall on same level from slipping, tripping and stumbling with subsequent striking against other object, initial encounter; Y92.009 Unspecified place in unspecified non-institutional (private) residence as the place of occurrence of the external cause
CPT/HCPCS: 36415; 93005; 80053; 84484; 85025; 81001; 87086; 73130; 73110; 96372; 99284; 29125; J0696

== ENCOUNTER 2021-02-21 16:28 | Emergency (ER) | payer MEDICARE, OTHER ==
[2021-02-21 16:44] VITALS: TEMP 97.3
[2021-02-21] MEDS ORDERED: HYDROmorphone 1 MG/ML 1 ML SYRINGE IVP STA ×3 (16:58→19:35)
[2021-02-21] MEDS ORDERED: HYDROmorphone 1 MG/ML 1 ML SYRINGE IM STA (17:01)
--- NOTE | 2021-02-21 19:31 | ED ---
Fall HPI - General Chief Complaint: Fall Stated Complaint: FALL,RT hip injury Time Seen by Provider: 02/21/21 16:40 Source: patient, EMS Mode of arrival: EMS - History of Present Illness Initial Comments: Patient is a 70-year-old female with past history of coronary artery disease, CVA who presents emergency Department with reported right hip pain. She states that she wore new shoes today. She tripped on the shoes and fell from a standing position onto a coffee table. Incident happened 30 minutes prior to arrival. She was unable to get up and ambulate. EMS was called. They had significant difficulty moving the patient onto the stretcher. The right leg was noted to be shortened and rotated. She does have previous history of surgical repair at [facility] of her distal right femur per the patient. Patient denies hitting her head. No loss of consciousness. She is not on any blood thinners. She denies any neck or back pain. No pain in her upper extremities. No numbness, tingling or weakness in her foot. Patient did receive 100 mcg of Fentayl without improvement. No other alleviating, precipitating or modifying factors - Related Data Home Medications Medication Instructions Recorded Confirmed Pravastatin Sodium [Pravachol] 40 mg PO HS 11/16/15 02/21/21 Ziprasidone HCl [Geodon] 60 mg PO HS 11/16/15 02/21/21 buPROPion XL [Wellbutrin XL] 450 mg PO DAILY 11/16/15 02/21/21 hydrOXYzine pamoate [Vistaril] 25 mg PO DAILY 11/16/15 02/21/21 ALPRAZolam [Xanax] 0.25 mg PO HS 08/09/17 02/21/21 Alendronate Sodium 70 mg PO MO 04/02/19 02/21/21 Potassium Chloride ER [K-Dur 20] 20 meq PO BID 05/17/20 02/21/21 busPIRone HCl [Buspar] 5 mg PO TID 07/14/20 02/21/21 Allopurinol [Zyloprim] 300 mg PO HS 02/21/21 02/21/21 Furosemide [Lasix] 20 mg PO DAILY 02/21/21 02/21/21 Gabapentin [Neurontin] 400 mg PO BID 02/21/21 02/21/21 HYDROcodone/APAP 10-325MG [[place] 1 tab PO QID 02/21/21 02/21/21 10-325] Spironolactone-Hctz 25-25Mg 1 tab PO DAILY 02/21/21 02/21/21 [Aldactazide 25-25Mg] Allergies Allergy/AdvReac Type Severity Reaction Status Date / Time No Known Allergies Allergy Verified 02/21/21 19:41 Review of Systems ROS Statement: Those systems with pertinent positive or pertinent negative responses have been documented in the HPI. ROS Other: All systems not noted in ROS Statement are negative. Past Medical History Past Medical History: Coronary Artery Disease (CAD), Chest Pain / Angina, CVA/TIA, Eye Disorder, Osteoarthritis (OA), Renal Disease Additional Past Medical History / Comment(s): EDEMA OF LEGS AT TIMES, MACULAR DEGENERATION; Pt. states she had chest pain years ago as well as a stroke, History of Any Multi-Drug Resistant Organisms: MRSA Date of last positivie culture/infection: face (unknown yr) MDRO Source:: Face Past Surgical History: Back Surgery, Cholecystectomy, Hysterectomy, Joint Replacement Additional Past Surgical History / Comment(s): shoulder surgery, pelvic fracture repaired., Past Anesthesia/Blood Transfusion Reactions: No Reported Reaction Past Psychological History: Anxiety, Bipolar Smoking Status: Never smoker Past Alcohol Use History: None Reported Past Drug Use History: None Reported - Past Family History Mother Family Medical History: Cancer Additional Family Medical History / Comment(s): Breast cancer Father Family Medical History: Cancer Additional Family Medical History / Comment(s): Lung cancer Sister(s) Family Medical History: AICD/Pacemaker, Cancer, Chest Pain / Angina, Congestive Heart Failure (CHF), COPD, Coronary Artery Disease (CAD), CVA/TIA, Diabetes Mellitus, GERD/Reflux, Hyperlipidemia, Hypertension, Liver Disease, Myocardial Infarction ([place]), Osteoarthritis (OA), Pneumonia, Renal Disease Additional Family Medical History / Comment(s): SISTER X2 General Exam Limitations: no limitations General appearance: alert, in no apparent distress Head exam: Present: atraumatic, normocephalic, normal inspection Eye exam: Present: normal appearance, PERRL, EOMI. Absent: scleral icterus, conjunctival injection, periorbital swelling ENT exam: Present: normal exam, mucous membranes moist Neck exam: Present: normal inspection. Absent: tenderness, meningismus, lymphadenopathy Respiratory exam: Present: normal lung sounds bilaterally. Absent: respiratory distress, wheezes, rales, rhonchi, stridor Cardiovascular Exam: Present: regular rate, normal rhythm, normal heart sounds. Absent: systolic murmur, diastolic murmur, rubs, gallop, clicks GI/Abdominal exam: Present: soft, normal bowel sounds. Absent: distended, tenderness, guarding, rebound, rigid Extremities exam: Present: tenderness (Right hip tenderness. Right leg is shortened and rotated externally. 2+ DP and PT pulses. Intact sensation over the medial, lateral and dorsal aspect of the bilateral lower extremites), normal capillary refill. Absent: pedal edema, joint swelling, calf tenderness Back exam: Present: normal inspection Neurological exam: Present: alert, oriented X3, CN II-XII intact Psychiatric exam: Present: normal affect, normal mood Skin exam: Present: warm, dry, intact, normal color. Absent: rash Course Vital Signs 02/21/21 02/21/21 16:37 19:37 Temperature 97.3 F L Pulse Rate 80 81 Respiratory 20 18 Rate Blood Pressure 129/77 115/93 O2 Sat by Pulse 99 96 Oximetry - Reevaluation(s) Reevaluation #1: Spoke with Dr. Mcgill - will need more information regarding previous repairs before accepting 02/21/21 1857 Reevaluation #2: Spoke with Dr. Powers - will transfer to [place] 02/21/21 19:30 Reevaluation #3: 02/21/21 19:54 Dr. Oconnell accepts Reevaluation #4: 02/21/21 20:22 Awaiting callback from transfer center. Still no accepting trauma doctor Reevaluation #5: Still attempting to get ahold of transfer center - on hold. No accepting trauma doc. 02/21/21 20:46 Dr. Pike accepted. EMS called for transfer 02/21/21 20:50 Multiple EMS units have be into the hospital however none are available to take transfer. Called dispatch who states they have a unit on the way right now. 02/21/21 22:13 Medical Decision Making - Medical Decision Making On arrival patient is placed into room 7. A thorough history and physical exam is performed here patient is neurovascularly intact. She is requesting more pain meds. She was given 1 mg of Dilaudid. Patient is difficult to access the IV. Ultrasound guidance is placed by JACQUELINE Egan. X-rays are completed which demonstrate a comminuted and displaced fracture of the right proximal femoral metaphysis. I did speak with Dr. Powers on 2 occasions. He initially requests more information regarding the patient's surgical repair of her distal right femur. The patient is a very poor historian. I did review the patient's chart and have difficulty finding any information regarding the surgical repair. I did speak with Dr. Powers once again who feels that if the patient had multiple surgical repairs out of [facility] that she should be transferred for any further procedures. He is apprehensive to remove any hardware in the distal right femur as he is unaware of when the procedure was completed. I did call and speak with Dr. Haile who accepted transfer. Dr. Pike accepted transfer. Patients transfer delayed due to lack of EMS to transport patient and delay in return call from callback center. Disposition Clinical Impression: Closed right hip fracture, Fall Disposition: OTHER INSTITUTION NOT DEFINED Condition: Stable Is patient prescribed a controlled substance at d/c from ED?: No Referrals: Orlando Moore MD [Primary Care Provider] - 1-2 days - Out of Hospital Transfer - Req. Specs Out of Hospital Transfer - Requested Specifics: Other Emergency Center ([facility])
--- NOTE | 2021-02-21 19:36 | XR ---
EXAMINATION TYPE: XR Hip RT and AP Pelvis, XR femur RT DATE OF EXAM: 02/21/2021 COMPARISON: NONE HISTORY: Fall TECHNIQUE: A single AP view of the pelvis is obtained. Two views of the right hip are obtained. AP an d Lateral views of the right femur. FINDINGS: There is a comminuted and displaced fracture of the right proximal femur. Partial visualization of plate and screw fixation of right femur. Partially visualized intramedullary nail of the left femur. Lumbar spinal fusion hardware. Sacroiliac screws. No acute fracture of the pelvis. IMPRESSION: 1. There is a comminuted and displaced fracture of the right proximal femoral metaphysis. 2. No acute fracture of the pelvis.
[2021-02-21 19:38] VITALS: BP 115/93; PULSE 81; RESP 18
--- NOTE | 2021-02-21 19:40 | XR ---
EXAMINATION TYPE: XR chest 1V DATE OF EXAM: 02/21/2021 COMPARISON: CT abdomen October HISTORY: Fall TECHNIQUE: Single frontal view of the chest is obtained. FINDINGS: There is no focal air space opacity, pleural effusion, or pneumothorax seen. The cardiac silhouette size is within normal limits. The osseous structures are intact. Retrocardiac opacity likely relates to hiatal hernia seen on prior CT abdomen. IMPRESSION: No acute process.
== END 2021-02-21 22:58 | disposition other institution (70) ==
LOC: EC 16:28
DX: S72.351A Displaced comminuted fracture of shaft of right femur, initial encounter for closed fracture (principal); Z86.73 Personal history of transient ischemic attack (TIA), and cerebral infarction without residual deficits; W01.190A Fall on same level from slipping, tripping and stumbling with subsequent striking against furniture, initial encounter; Y92.009 Unspecified place in unspecified non-institutional (private) residence as the place of occurrence of the external cause
CPT/HCPCS: 73502; 73552; 71045; 99285; 96374; 96376; 96372; J1170

== ENCOUNTER → 2021-03-11 | Outpatient (CLI) | payer MEDICARE, OTHER ==
--- NOTE | 2021-03-11 17:04 | XR ---
EXAMINATION TYPE: XR Hip Complete RT, XR femur RT DATE OF EXAM: 03/11/2021 CLINICAL HISTORY: pain TECHNIQUE: Two views of the right femur and right hip are obtained. COMPARISON: 02/21/2021 FINDINGS: Again noted is comminuted mildly displaced fracture of the proximal right femoral subtrochanteric reg ion. No significant change is appreciated. Intramedullary connor and fixation screws are in place. Fixat ion sideplate noted as well. IMPRESSION: No interval change in proximal femoral fracture.
== END | disposition home or self-care (01) ==
LOC: RADXRMAIN 15:42
PROVIDERS: ATTEND Orthopaedic Surgery Orthopaedic Trauma
DX: S72.21XA Displaced subtrochanteric fracture of right femur, initial encounter for closed fracture (principal)
CPT/HCPCS: 73502

== ENCOUNTER → 2021-03-31 | Outpatient (CLI) | payer MEDICARE, OTHER ==
--- NOTE | 2021-03-31 11:14 | XR ---
EXAMINATION TYPE: XR Hip Complete RT DATE OF EXAM: 03/31/2021 COMPARISON: 03/11/2021 HISTORY: Fracture repair TECHNIQUE: 2 view right hip FINDINGS: 2 femoral pins are within the right hip. Medullary connor is present. Comminuted fracture in t he subtrochanteric region is present. Transverse fracture of the proximal femur is faintly visualized . IMPRESSION: 1. No new fractures post fracture repair
--- NOTE | 2021-03-31 11:21 | XR ---
EXAMINATION TYPE: XR femur RT DATE OF EXAM: 03/31/2021 COMPARISON: 03/11/2021 HISTORY: Fracture TECHNIQUE: Right femur is examined in 2 views. Images are obtained post fracture repair. FINDINGS: Medullary connor and hip pins are present through the subtrochanteric fracture. Plate and scre ws from prior distal fracture repair is evident. There is a transverse fracture in the mid medullary portion of the right femur. Degenerative changes are noted at the knee joint space. IMPRESSION: 1. Status post fracture repair. No new fractures are evident
== END | disposition home or self-care (01) ==
LOC: RADXRMAIN 10:29
PROVIDERS: ATTEND Orthopaedic Surgery Orthopaedic Trauma
DX: S72.321A Displaced transverse fracture of shaft of right femur, initial encounter for closed fracture (principal); S72.21XA Displaced subtrochanteric fracture of right femur, initial encounter for closed fracture
CPT/HCPCS: 73502

== ENCOUNTER → 2021-05-10 | Outpatient (CLI) | payer MEDICARE, OTHER ==
--- NOTE | 2021-05-10 10:12 | XR ---
Right hip and right femur HISTORY: Fracture 2 views of the right hip, frontal lateral views of the right femur on 4 additional images submitted a nd correlated to prior right femur and hip dated 03/31/2021 The fracture through the proximal right femur and postop change status post intramedullary connor placem ent, side screws is again noted. There is also a lucency present along the proximal femur at the leve l of the side plate similar to prior exam, side plate is displaced similar to prior. No evident perio stitis with exception along the medial aspect of the proximal aspect of the right femur on the obliqu e view. Postop changes again noted along the distal right femur with cortical thickening. Bone minera lization is reduced. IMPRESSION: Findings are similar to prior exam, postop changes, areas of fracture again noted with so me questionable healing as described, no other significant change in fracture healing. Hardware as de scribed.
== END | disposition home or self-care (01) ==
LOC: RADXRMAIN 08:49
PROVIDERS: ATTEND Orthopaedic Surgery
DX: S72.91XD Unspecified fracture of right femur, subsequent encounter for closed fracture with routine healing (principal); X58.XXXD Exposure to other specified factors, subsequent encounter
CPT/HCPCS: 73502

== ENCOUNTER 2021-11-21 13:46 | Emergency (ER) | payer MEDICARE, OTHER ==
[2021-11-21 13:51] VITALS: BP 128/90; PULSE 80; RESP 18; TEMP 98.4
--- NOTE | 2021-11-21 14:12 | ED ---
General Adult HPI - General Chief complaint: Extremity Injury, Lower Stated complaint: Fall left knee pain Time Seen by Provider: 11/21/21 13:48 Source: patient Mode of arrival: ambulatory Limitations: no limitations - History of Present Illness Initial comments: Dictation was produced using [employer] dictation software. please excuse any grammatical, word or spelling errors. Chief Complaint: 70-year-old female presents with left knee pain History of Present Illness: She is a 70-year-old female presents to the emergency department for left knee pain. Patient states she tripped over suitcase 2 days ago landed on her left knee. Patient denies any other injuries. Patient's decided not to go to the emergency department at that time patient that her pain would go away. Yesterday and today she was not able to walk. She decided come to be evaluated today due to persistent symptoms. Patient denies any numbness distally paresthesias to the lower extremity. The ROS documented in this emergency department record has been reviewed and confirmed by me. Those systems with pertinent positive or negative responses have been documented in the HPI. All other systems are other negative and/or noncontributory. PHYSICAL EXAM: General Impression: Alert and oriented x3, not in acute distress HEENT: Normocephalic atraumatic, extra-ocular movements intact, pupils equal and reactive to light bilaterally, mucous membranes moist. Cardiovascular: Heart regular rate and rhythm Chest: Able to complete full sentences, no retractions, no tachypnea Abdomen: abdomen soft, non-tender, non-distended, no organomegaly Musculoskeletal: Pulses present and equal in all extremities, no peripheral edema Knee: Palpatory tenderness to the lateral left knee joint, no appreciable effusion, no bruising, no gross deformity Motor: no focal deficits noted Neurological: CN II-XII grossly intact, no focal motor or sensory deficits noted Skin: Intact with no visualized rashes Psych: Normal affect and mood ED course: 70-year-old female presents to the emergency Department with left knee pain after she tripped over suitcase 2 days ago. Vital signs upon arrival are within acceptable limits. The x-rays unremarkable for any acute processes. There however does appear to be moderate tricompartmental osteocytic changes. Clinical presentation consistent with knee contusion and knee strain. Patient dose of IM analgesics and will be discharged. - Related Data Home Medications Medication Instructions Recorded Confirmed Pravastatin Sodium [Pravachol] 40 mg PO HS 11/16/15 11/21/21 buPROPion XL [Wellbutrin XL] 450 mg PO DAILY 11/16/15 11/21/21 hydrOXYzine pamoate [Vistaril] 25 mg PO DAILY 11/16/15 11/21/21 ziprasidone HCL [Geodon] 60 mg PO HS 11/16/15 11/21/21 ALPRAZolam [Xanax] 0.25 mg PO TID PRN 08/09/17 11/21/21 Alendronate Sodium 70 mg PO MO 04/02/19 11/21/21 Potassium Chloride ER [K-Dur 20] 20 meq PO DAILY 05/17/20 11/21/21 Furosemide [Lasix] 20 mg PO BID 02/21/21 11/21/21 Gabapentin [Neurontin] 400 mg PO QID PRN 02/21/21 11/21/21 HYDROcodone/APAP 10-325MG [[place] 1 tab PO QID 02/21/21 11/21/21 10-325] Spironolactone-Hctz 25-25Mg 1 tab PO DAILY 02/21/21 11/21/21 [Aldactazide 25-25Mg] allopurinoL [Zyloprim] 300 mg PO HS 02/21/21 11/21/21 Albuterol Inhaler [Ventolin Hfa 1 - 2 puff INHALATION RT-QID PRN 11/21/21 11/21/21 Inhaler] Cholecalciferol [Vitamin D3 (25 25 mcg PO DAILY 11/21/21 11/21/21 Mcg = 1000 Iu)] Docusate Sodium 250mg 250 mg PO DAILY 11/21/21 11/21/21 Sulfamethox-Tmp 800-160Mg [Bactrim 1 tab PO Q12HR 11/21/21 11/21/21 DS 800-160 mg] Vit C/E/Zn/Coppr/Lutein/Zeaxan 1 cap PO BID 11/21/21 11/21/21 [Preservision Areds 2 Softgel] traZODone HCL [Desyrel] 100 mg PO HS PRN 11/21/21 11/21/21 Allergies Allergy/AdvReac Type Severity Reaction Status Date / Time No Known Allergies Allergy Verified 11/21/21 14:57 Review of Systems ROS Statement: Those systems with pertinent positive or pertinent negative responses have been documented in the HPI. ROS Other: All systems not noted in ROS Statement are negative. Past Medical History Past Medical History: Coronary Artery Disease (CAD), Chest Pain / Angina, CVA/TIA, Eye Disorder, Osteoarthritis (OA), Renal Disease Additional Past Medical History / Comment(s): EDEMA OF LEGS AT TIMES, MACULAR DEGENERATION; Pt. states she had chest pain years ago as well as a stroke, History of Any Multi-Drug Resistant Organisms: MRSA Date of last positivie culture/infection: face (unknown yr) MDRO Source:: Face Past Surgical History: Back Surgery, Cholecystectomy, Hysterectomy, Joint Replacement Additional Past Surgical History / Comment(s): shoulder surgery, pelvic fracture repaired., Past Anesthesia/Blood Transfusion Reactions: No Reported Reaction Past Psychological History: Anxiety, Bipolar Smoking Status: Never smoker Past Alcohol Use History: None Reported Past Drug Use History: None Reported - Past Family History Mother Family Medical History: Cancer Additional Family Medical History / Comment(s): Breast cancer Father Family Medical History: Cancer Additional Family Medical History / Comment(s): Lung cancer Sister(s) Family Medical History: AICD/Pacemaker, Cancer, Chest Pain / Angina, Congestive Heart Failure (CHF), COPD, Coronary Artery Disease (CAD), CVA/TIA, Diabetes Mellitus, GERD/Reflux, Hyperlipidemia, Hypertension, Liver Disease, Myocardial Infarction (VT), Osteoarthritis (OA), Pneumonia, Renal Disease Additional Family Medical History / Comment(s): SISTER X2 General Exam Limitations: no limitations Course Vital Signs 11/21/21 13:47 Temperature 98.4 F Pulse Rate 80 Respiratory 18 Rate Blood Pressure 128/90 O2 Sat by Pulse 96 Oximetry Disposition Clinical Impression: Knee contusion Disposition: HOME SELF-CARE Condition: Good Instructions (If sedation given, give patient instructions): Knee Sprain (ED) Is patient prescribed a controlled substance at d/c from ED?: No Referrals: Orlando Moore MD [Primary Care Provider] - 1-2 days [facility] [Provider Group] - 1-2 days Time of Disposition: 15:11
[2021-11-21] MEDS ORDERED: MORPHINE SULFATE 4 MG/ML SYRINGE IM STA (14:35)
--- NOTE | 2021-11-21 15:01 | XR ---
EXAMINATION TYPE: XR knee complete LT DATE OF EXAM: 11/21/2021 2:22 PM INDICATION: Patient age:Female; 70 years old; Reason for study: fall 2 days ago; COMPARISON: None. TECHNIQUE: The Left knee(s) was examined in 3 projections. Frontal lateral and oblique. FINDINGS: No evidence of any acute osseous pathology, joint space narrowing, soft tissue swelling, or significant joint effusion is noted. Tricompartmental osteophyte formation involving the femoral c ondyles, tibial plateau and patella. IMPRESSION: 1. No acute osseous pathology. 2. Moderate tricompartmental osteoarthritic changes.
[2021-11-21] MEDS ORDERED: ACET/COD 300 MG/30 MG STARTER PACK 6 TAB BTL PO STA (15:11)
== END 2021-11-21 16:32 | disposition home or self-care (01) ==
LOC: EC 13:46
DX: S80.02XA Contusion of left knee, initial encounter (principal); Z86.73 Personal history of transient ischemic attack (TIA), and cerebral infarction without residual deficits; W03.XXXA Other fall on same level due to collision with another person, initial encounter
CPT/HCPCS: 73562; 99283; 96372; J2270

== ENCOUNTER 2021-12-09 14:57 | Observation (INO) | payer MEDICARE, OTHER ==
--- NOTE | 2021-12-09 15:32 | ED ---
Weakness HPI - General Chief complaint: Weakness Stated complaint: Weakness Time Seen by Provider: 12/09/21 15:05 Source: patient, EMS Mode of arrival: EMS Limitations: physical limitation - History of Present Illness Initial comments: 71-year-old female with past medical history of coronary artery disease, CVA, congestive heart failure presents to the emergency department with inability to ambulate. Patient fell week ago. She is reevaluated in the emergency room for knee pain and discharged home. She has not ambulated since. Cannot weight-bear on her left ankle. Normally ambulates with a walker however has been bedbound. Her fianc has been helping her use a bedside commode. She has not been taking her Lasix as she has difficulty getting up to go to the bathroom. She is taking her Magnolia for pain. Denies any new falls. This morning she felt extremely shaky has that she was going to pass out. Denies chest pain or shortness of breath. No fevers no changes or bowel or bladder habits. No alleviating, precipitating or modifying factors - Related Data Home Medications Medication Instructions Recorded Confirmed buPROPion XL [Wellbutrin XL] 150 mg PO TID 11/16/15 12/09/21 ziprasidone HCL [Geodon] 60 mg PO HS 11/16/15 12/09/21 ALPRAZolam [Xanax] 0.25 mg PO TID PRN 08/09/17 12/09/21 Alendronate Sodium 70 mg PO MO 04/02/19 12/09/21 HYDROcodone/APAP 10-325MG [Magnolia 1 tab PO QID 02/21/21 12/09/21 10-325] Spironolactone-Hctz 25-25Mg 1 tab PO DAILY 02/21/21 12/09/21 [Aldactazide 25-25 MG] allopurinoL [Zyloprim] 300 mg PO DAILY 02/21/21 12/09/21 Albuterol Inhaler [Ventolin Hfa 2 puff INHALATION RT-QID PRN 11/21/21 12/09/21 Inhaler] Cholecalciferol [Vitamin D3 (125 125 mcg PO DAILY 12/09/21 12/09/21 Mcg = 5000 Iu)] Docusate Sodium 250 mg PO DAILY 12/09/21 12/09/21 hydrOXYzine pamoate [Vistaril] 25 mg PO DAILY 12/09/21 12/09/21 Allergies Allergy/AdvReac Type Severity Reaction Status Date / Time No Known Allergies Allergy Verified 12/09/21 16:51 Review of Systems ROS Statement: Those systems with pertinent positive or pertinent negative responses have been documented in the HPI. ROS Other: All systems not noted in ROS Statement are negative. Past Medical History Past Medical History: Coronary Artery Disease (CAD), Chest Pain / Angina, CVA/TIA, Eye Disorder, Osteoarthritis (OA), Renal Disease Additional Past Medical History / Comment(s): EDEMA OF LEGS AT TIMES, MACULAR DEGENERATION; Pt. states she had chest pain years ago as well as a stroke, History of Any Multi-Drug Resistant Organisms: MRSA Date of last positivie culture/infection: face (unknown yr) MDRO Source:: Face Past Surgical History: Back Surgery, Cholecystectomy, Hysterectomy, Joint Replacement Additional Past Surgical History / Comment(s): shoulder surgery, pelvic fracture repaired., Past Anesthesia/Blood Transfusion Reactions: No Reported Reaction Past Psychological History: Anxiety, Bipolar Smoking Status: Never smoker Past Alcohol Use History: None Reported Past Drug Use History: None Reported - Past Family History Mother Family Medical History: Cancer Additional Family Medical History / Comment(s): Breast cancer Father Family Medical History: Cancer Additional Family Medical History / Comment(s): Lung cancer Sister(s) Family Medical History: AICD/Pacemaker, Cancer, Chest Pain / Angina, Congestive Heart Failure (CHF), COPD, Coronary Artery Disease (CAD), CVA/TIA, Diabetes Me llitus, GERD/Reflux, Hyperlipidemia, Hypertension, Liver Disease, Myocardial Infarction (CO), Osteoarthritis (OA), Pneumonia, Renal Disease Additional Family Medical History / Comment(s): SISTER X2 General Exam Limitations: physical limitation General appearance: alert, in no apparent distress Head exam: Present: atraumatic, normocephalic, normal inspection Eye exam: Present: normal appearance, PERRL, EOMI. Absent: scleral icterus, conjunctival injection, periorbital swelling ENT exam: Present: normal exam, mucous membranes dry Neck exam: Present: normal inspection. Absent: tenderness, meningismus, ly mphadenopathy Respiratory exam: Present: normal lung sounds bilaterally. Absent: respiratory distress, wheezes, rales, rhonchi, stridor Cardiovascular Exam: Present: regular rate, normal rhythm, normal heart sounds. Absent: systolic murmur, diastolic murmur, rubs, gallop, clicks GI/Abdominal exam: Present: soft, normal bowel sounds. Absent: distended, tenderness, guarding, rebound, rigid Extremities exam: Present: tenderness (to palpation of the medial/lateral ankle and dorsal midfoot. associated swelling without deformity. ), normal capillary refill, pedal edema (brawny edema, 4+). Absent: joint swelling, calf tenderness Back exam: Present: normal inspection Neurological exam: Present: alert, oriented X3, CN II-XII intact Psychiatric exam: Present: normal affect, normal mood Skin exam: Present: warm, dry, intact, normal color. Absent: rash Course Vital Signs 12/09/21 12/09/21 12/09/21 15:04 16:58 18:15 Temperature 98.1 F 98.2 F Pulse Rate 82 84 80 Respiratory 20 18 18 Rate Blood Pressure 121/80 120/78 122/74 O2 Sat by Pulse 96 100 98 Oximetry EKG Findings - EKG Comments: EKG Findings:: EKG demonstrates sinus rhythm with rate of 80. MO interval 166. QRS 88. QTC 47. No acute ST segment elevations or depressions Medical Decision Making - Medical Decision Making Upon arrival patient was placed into room 6. IV was established laboratory studies were conducted. Patient does go over for a chest x-ray and an x-ray of her left foot and ankle. Laboratory studies are reviewed. X-ray demonstrates no acute fracture. Patient has had difficulty with ambulation for the past week and therefore I will admit the patient for orthopedic evaluation. [facility] for [facility] consult was placed for this group. I spoke with Dr. Hsu who is covering for Dr. Moore. She did agree to admit the patient. Patient was taken to floor in stable condition - Lab Data Result diagrams: 12/11/21 06:38 12/12/21 06:10 Lab Results 12/09/21 12/09/21 12/09/21 Range/Units 15:50 15:50 15:50 WBC 4.1 (3.8-10.6) k/uL RBC 4.28 (3.80-5.40) m/uL Hgb 13.4 (11.4-16.0) gm/dL Hct 41.4 (34.0-46.0) % MCV 96.8 (80.0-100.0) fL MCH 31.4 (25.0-35.0) pg MCHC 32.4 (31.0-37.0) g/dL RDW 14.8 (11.5-15.5) % Plt Count 154 (150-450) k/uL MPV 7.5 Immature Gran % (Auto) % Absolute Nucleated RBC (0.00-0.00) X 10*3/uL Neutrophils % 77 % Lymphocytes % 13 % Monocytes % 7 % Eosinophils % 1 % Basophils % 1 % Immature Gran # (0.00-0.04) X 10*3/uL Neutrophils # 3.1 (1.3-7.7) k/uL Lymphocytes # 0.6 L (1.0-4.8) k/uL Monocytes # 0.3 (0-1.0) k/uL Eosinophils # 0.1 (0-0.7) k/uL Basophils # 0.0 (0-0.2) k/uL NRBC/100 WBC Diff (0.0-0.0) /100 WBCS PT 11.0 (9.0-12.0) sec INR 1.0 (<1.2) APTT 26.0 (22.0-30.0) sec Sodium 133 L (137-145) mmol/L Potassium 4.6 (3.5-5.1) mmol/L Chloride 95 L (98-107) mmol/L Carbon Dioxide 28 (22-30) mmol/L Anion Gap 10 mmol/L BUN 20 H (7-17) mg/dL Creatinine 0.87 (0.52-1.04) mg/dL Est GFR (CKD-EPI)AfAm 79 (>60 ml/min/1.73 sqM) Est GFR (CKD-EPI)NonAf 68 (>60 ml/min/1.73 sqM) BUN/Creatinine Ratio (12.00-20.00) Ratio Glucose 109 H (74-99) mg/dL POC Glucose (mg/dL) (70-110) mg/dL POC Glu Fuel [employer] Builder ID Plasma Lactic Acid Ry (0.7-2.0) mmol/L Calcium 10.0 (8.4-10.2) mg/dL Magnesium 1.9 (1.6-2.3) mg/dL Total Bilirubin 0.8 (0.2-1.3) mg/dL Conjugated Bilirubin (0.20-0.40) mg/dL Unconjugated Bilirubin (0.20-1.00) mg/dL AST 47 H (14-36) U/L ALT 28 (4-34) U/L Alkaline Phosphatase 119 (38-126) U/L Troponin I (0.000-0.034) ng/mL NT-Pro-B Natriuret Pep pg/mL Total Protein 8.1 (6.3-8.2) g/dL Albumin 4.9 (3.5-5.0) g/dL Globulin (1.6-3.3) g/dL Albumin/Globulin Ratio (1.60-3.17) g/dL Urine Color Urine Appearance (Clear) Urine pH (5.0-8.0) Ur Specific Babbitt (1.001-1.035) Urine Protein (Negative) Urine Glucose (UA) (Negative) Urine Ketones (Negative) Urine Blood (Negative) Urine Nitrite (Negative) Urine Bilirubin (Negative) Urine Urobilinogen (<2.0) mg/dL Ur Leukocyte Esterase (Negative) 12/09/21 12/09/21 12/09/21 Range/Units 15:50 15:50 15:51 WBC (3.8-10.6) k/uL RBC (3.80-5.40) m/uL Hgb (11.4-16.0) gm/dL Hct (34.0-46.0) % MCV (80.0-100.0) fL MCH (25.0-35.0) pg MCHC (31.0-37.0) g/dL RDW (11.5-15.5) % Plt Count (150-450) k/uL MPV Immature Gran % (Auto) % Absolute Nucleated RBC (0.00-0.00) X 10*3/uL Neutrophils % % Lymphocytes % % Monocytes % % Eosinophils % % Basophils % % Immature Gran # (0.00-0.04) X 10*3/uL Neutrophils # (1.3-7.7) k/uL Lymphocytes # (1.0-4.8) k/uL Monocytes # (0-1.0) k/uL Eosinophils # (0-0.7) k/uL Basophils # (0-0.2) k/uL NRBC/100 WBC Diff (0.0-0.0) /100 WBCS PT (9.0-12.0) sec INR (<1.2) APTT (22.0-30.0) sec Sodium (137-145) mmol/L Potassium (3.5-5.1) mmol/L Chloride (98-107) mmol/L Carbon Dioxide (22-30) mmol/L Anion Gap mmol/L BUN (7-17) mg/dL Creatinine (0.52-1.04) mg/dL Est GFR (CKD-EPI)AfAm (>60 ml/min/1.73 sqM) Est GFR (CKD-EPI)NonAf (>60 ml/min/1.73 sqM) BUN/Creatinine Ratio (12.00-20.00) Ratio Glucose (74-99) mg/dL POC Glucose (mg/dL) (70-110) mg/dL POC Glu Fuel [employer] Builder ID Plasma Lactic Acid Ry 1.0 (0.7-2.0) mmol/L Calcium (8.4-10.2) mg/dL Magnesium (1.6-2.3) mg/dL Total Bilirubin (0.2-1.3) mg/dL Conjugated Bilirubin (0.20-0.40) mg/dL Unconjugated Bilirubin (0.20-1.00) mg/dL AST (14-36) U/L ALT (4-34) U/L Alkaline Phosphatase (38-126) U/L Troponin I <0.012 (0.000-0.034) ng/mL NT-Pro-B Natriuret Pep 155 pg/mL Total Protein (6.3-8.2) g/dL Albumin (3.5-5.0) g/dL Globulin (1.6-3.3) g/dL Albumin/Globulin Ratio (1.60-3.17) g/dL Urine Color Urine Appearance (Clear) Urine pH (5.0-8.0) Ur Specific Babbitt (1.001-1.035) Urine Protein (Negative) Urine Glucose (UA) (Negative) Urine Ketones (Negative) Urine Blood (Negative) Urine Nitrite (Negative) Urine Bilirubin (Negative) Urine Urobilinogen (<2.0) mg/dL Ur Leukocyte Esterase (Negative) 12/09/21 12/09/21 12/10/21 Range/Units 15:51 22:30 06:24 WBC 3.17 L (3.8-10.6) k/uL RBC 3.73 L (3.80-5.40) m/uL Hgb 11.9 L (11.4-16.0) gm/dL Hct 35.6 L (34.0-46.0) % MCV 95.4 (80.0-100.0) fL MCH 31.9 (25.0-35.0) pg MCHC 33.4 (31.0-37.0) g/dL RDW 14.8 H (11.5-15.5) % Plt Count 137 L (150-450) k/uL MPV 10.9 Immature Gran % (Auto) 0 % Absolute Nucleated RBC 0 (0.00-0.00) X 10*3/uL Neutrophils % 46.1 % Lymphocytes % 36.6 % Monocytes % 14.2 % Eosinophils % 2.8 % Basophils % 0.3 % Immature Gran # 0 (0.00-0.04) X 10*3/uL Neutrophils # 1.46 L (1.3-7.7) k/uL Lymphocytes # 1.16 (1.0-4.8) k/uL Monocytes # 0.45 (0-1.0) k/uL Eosinophils # 0.09 (0-0.7) k/uL Basophils # 0.01 (0-0.2) k/uL NRBC/100 WBC Diff 0 (0.0-0.0) /100 WBCS PT (9.0-12.0) sec INR (<1.2) APTT (22.0-30.0) sec Sodium (137-145) mmol/L Potassium (3.5-5.1) mmol/L Chloride (98-107) mmol/L Carbon Dioxide (22-30) mmol/L Anion Gap mmol/L BUN (7-17) mg/dL Creatinine (0.52-1.04) mg/dL Est GFR (CKD-EPI)AfAm (>60 ml/min/1.73 sqM) Est GFR (CKD-EPI)NonAf (>60 ml/min/1.73 sqM) BUN/Creatinine Ratio (12.00-20.00) Ratio Glucose (74-99) mg/dL POC Glucose (mg/dL) 108 (70-110) mg/dL POC Glu Fuel Cell Builder ID Dayanara Laughlin Plasma Lactic Acid Ry (0.7-2.0) mmol/L Calcium (8.4-10.2) mg/dL Magnesium (1.6-2.3) mg/dL Total Bilirubin (0.2-1.3) mg/dL Conjugated Bilirubin (0.20-0.40) mg/dL Unconjugated Bilirubin (0.20-1.00) mg/dL AST (14-36) U/L ALT (4-34) U/L Alkaline Phosphatase (38-126) U/L Troponin I (0.000-0.034) ng/mL NT-Pro-B Natriuret Pep pg/mL Total Protein (6.3-8.2) g/dL Albumin (3.5-5.0) g/dL Globulin (1.6-3.3) g/dL Albumin/Globulin Ratio (1.60-3.17) g/dL Urine Color Light Yellow Urine Appearance Clear (Clear) Urine pH 7.5 (5.0-8.0) Ur Specific Babbitt 1.009 (1.001-1.035) Urine Protein Negative (Negative) Urine Glucose (UA) Negative (Negative) Urine Ketones Negative (Negative) Urine Blood Negative (Negative) Urine Nitrite Negative (Negative) Urine Bilirubin Negative (Negative) Urine Urobilinogen <2.0 (<2.0) mg/dL Ur Leukocyte Esterase Negative (Negative) 12/10/21 12/10/21 12/10/21 Range/Units 06:24 06:24 06:49 WBC (3.8-10.6) k/uL RBC (3.80-5.40) m/uL Hgb (11.4-16.0) gm/dL Hct (34.0-46.0) % MCV (80.0-100.0) fL MCH (25.0-35.0) pg MCHC (31.0-37.0) g/dL RDW (11.5-15.5) % Plt Count (150-450) k/uL MPV Immature Gran % (Auto) % Absolute Nucleated RBC (0.00-0.00) X 10*3/uL Neutrophils % % Lymphocytes % % Monocytes % % Eosinophils % % Basophils % % Immature Gran # (0.00-0.04) X 10*3/uL Neutrophils # (1.3-7.7) k/uL Lymphocytes # (1.0-4.8) k/uL Monocytes # (0-1.0) k/uL Eosinophils # (0-0.7) k/uL Basophils # (0-0.2) k/uL NRBC/100 WBC Diff (0.0-0.0) /100 WBCS PT (9.0-12.0) sec INR (<1.2) APTT (22.0-30.0) sec Sodium 134 L (137-145) mmol/L Potassium 4.0 (3.5-5.1) mmol/L Chloride 96 (98-107) mmol/L Carbon Dioxide 24.7 (22-30) mmol/L Anion Gap 13.30 mmol/L BUN 15.4 (7-17) mg/dL Creatinine 0.9 (0.52-1.04) mg/dL Est GFR (CKD-EPI)AfAm 75.6 (>60 ml/min/1.73 sqM) Est GFR (CKD-EPI)NonAf 65.2 (>60 ml/min/1.73 sqM) BUN/Creatinine Ratio 17.11 (12.00-20.00) Ratio Glucose 89 (74-99) mg/dL POC Glucose (mg/dL) 100 (70-110) mg/dL POC Glu Fuel Cell Builder ID Dora Gilliland Plasma Lactic Acid Ry (0.7-2.0) mmol/L Calcium 9.5 (8.4-10.2) mg/dL Magnesium (1.6-2.3) mg/dL Total Bilirubin 0.50 (0.2-1.3) mg/dL Conjugated Bilirubin <0.20 L (0.20-0.40) mg/dL Unconjugated Bilirubin (0.20-1.00) mg/dL AST 39 H (14-36) U/L ALT 21 (4-34) U/L Alkaline Phosphatase 112 (38-126) U/L Troponin I (0.000-0.034) ng/mL NT-Pro-B Natriuret Pep pg/mL Total Protein 6.8 (6.3-8.2) g/dL Albumin 4.3 (3.5-5.0) g/dL Globulin 2.5 (1.6-3.3) g/dL Albumin/Globulin Ratio 1.72 (1.60-3.17) g/dL Urine Color Urine Appearance (Clear) Urine pH (5.0-8.0) Ur Specific Babbitt (1.001-1.035) Urine Protein (Negative) Urine Glucose (UA) (Negative) Urine Ketones (Negative) Urine Blood (Negative) Urine Nitrite (Negative) Urine Bilirubin (Negative) Urine Urobilinogen (<2.0) mg/dL Ur Leukocyte Esterase (Negative) 12/10/21 12/10/21 12/10/21 Range/Units 11:11 16:27 21:34 WBC (3.8-10.6) k/uL RBC (3.80-5.40) m/uL Hgb (11.4-16.0) gm/dL Hct (34.0-46.0) % MCV (80.0-100.0) fL MCH (25.0-35.0) pg MCHC (31.0-37.0) g/dL RDW (11.5-15.5) % Plt Count (150-450) k/uL MPV Immature Gran % (Auto) % Absolute Nucleated RBC (0.00-0.00) X 10*3/uL Neutrophils % % Lymphocytes % % Monocytes % % Eosinophils % % Basophils % % Immature Gran # (0.00-0.04) X 10*3/uL Neutrophils # (1.3-7.7) k/uL Lymphocytes # (1.0-4.8) k/uL Monocytes # (0-1.0) k/uL Eosinophils # (0-0.7) k/uL Basophils # (0-0.2) k/uL NRBC/100 WBC Diff (0.0-0.0) /100 WBCS PT (9.0-12.0) sec INR (<1.2) APTT (22.0-30.0) sec Sodium (137-145) mmol/L Potassium (3.5-5.1) mmol/L Chloride (98-107) mmol/L Carbon Dioxide (22-30) mmol/L Anion Gap mmol/L BUN (7-17) mg/dL Creatinine (0.52-1.04) mg/dL Est GFR (CKD-EPI)AfAm (>60 ml/min/1.73 sqM) Est GFR (CKD-EPI)NonAf (>60 ml/min/1.73 sqM) BUN/Creatinine Ratio (12.00-20.00) Ratio Glucose (74-99) mg/dL POC Glucose (mg/dL) 101 141 H 101 (70-110) mg/dL POC Glu Fuel Cell Builder Dora Kaba, Balbir Carr Plasma Lactic Acid Ry (0.7-2.0) mmol/L Calcium (8.4-10.2) mg/dL Magnesium (1.6-2.3) mg/dL Total Bilirubin (0.2-1.3) mg/dL Conjugated Bilirubin (0.20-0.40) mg/dL Unconjugated Bilirubin (0.20-1.00) mg/dL AST (14-36) U/L ALT (4-34) U/L Alkaline Phosphatase (38-126) U/L Troponin I (0.000-0.034) ng/mL NT-Pro-B Natriuret Pep pg/mL Total Protein (6.3-8.2) g/dL Albumin (3.5-5.0) g/dL Globulin (1.6-3.3) g/dL Albumin/Globulin Ratio (1.60-3.17) g/dL Urine Color Urine Appearance (Clear) Urine pH (5.0-8.0) Ur Specific Babbitt (1.001-1.035) Urine Protein (Negative) Urine Glucose (UA) (Negative) Urine Ketones (Negative) Urine Blood (Negative) Urine Nitrite (Negative) Urine Bilirubin (Negative) Urine Urobilinogen (<2.0) mg/dL Ur Leukocyte Esterase (Negative) 12/11/21 12/11/21 12/11/21 Range/Units 06:38 06:38 07:29 WBC 2.89 L (3.8-10.6) k/uL RBC 3.90 L (3.80-5.40) m/uL Hgb 12.3 (11.4-16.0) gm/dL Hct 38.0 (34.0-46.0) % MCV 97.4 H (80.0-100.0) fL MCH 31.5 (25.0-35.0) pg MCHC 32.4 (31.0-37.0) g/dL RDW 15.1 H (11.5-15.5) % Plt Count 105 L (150-450) k/uL MPV 10.8 Immature Gran % (Auto) 0.3 % Absolute Nucleated RBC 0 (0.00-0.00) X 10*3/uL Neutrophils % 51.3 % Lymphocytes % 32.2 % Monocytes % 12.8 % Eosinophils % 3.1 % Basophils % 0.3 % Immature Gran # 0.01 (0.00-0.04) X 10*3/uL Neutrophils # 1.48 L (1.3-7.7) k/uL Lymphocytes # 0.93 (1.0-4.8) k/uL Monocytes # 0.37 (0-1.0) k/uL Eosinophils # 0.09 (0-0.7) k/uL Basophils # 0.01 (0-0.2) k/uL NRBC/100 WBC Diff 0 (0.0-0.0) /100 WBCS PT (9.0-12.0) sec INR (<1.2) APTT (22.0-30.0) sec Sodium 137 (137-145) mmol/L Potassium 3.9 (3.5-5.1) mmol/L Chloride 104 (98-107) mmol/L Carbon Dioxide 22.8 (22-30) mmol/L Anion Gap 10.80 mmol/L BUN 9.8 (7-17) mg/dL Creatinine 0.9 (0.52-1.04) mg/dL Est GFR (CKD-EPI)AfAm 80.9 (>60 ml/min/1.73 sqM) Est GFR (CKD-EPI)NonAf 69.8 (>60 ml/min/1.73 sqM) BUN/Creatinine Ratio 11.49 L (12.00-20.00) Ratio Glucose 84 (74-99) mg/dL POC Glucose (mg/dL) 79 (70-110) mg/dL POC Glu Fuel [employer] Builder ID Dora Gilliland Plasma Lactic Acid Ry (0.7-2.0) mmol/L Calcium 9.3 (8.4-10.2) mg/dL Magnesium (1.6-2.3) mg/dL Total Bilirubin (0.2-1.3) mg/dL Conjugated Bilirubin (0.20-0.40) mg/dL Unconjugated Bilirubin (0.20-1.00) mg/dL AST (14-36) U/L ALT (4-34) U/L Alkaline Phosphatase (38-126) U/L Troponin I (0.000-0.034) ng/mL NT-Pro-B Natriuret Pep pg/mL Total Protein (6.3-8.2) g/dL Albumin (3.5-5.0) g/dL Globulin (1.6-3.3) g/dL Albumin/Globulin Ratio (1.60-3.17) g/dL Urine Color Urine Appearance (Clear) Urine pH (5.0-8.0) Ur Specific Babbitt (1.001-1.035) Urine Protein (Negative) Urine Glucose (UA) (Negative) Urine Ketones (Negative) Urine Blood (Negative) Urine Nitrite (Negative) Urine Bilirubin (Negative) Urine Urobilinogen (<2.0) mg/dL Ur Leukocyte Esterase (Negative) 12/11/21 12/11/21 12/11/21 Range/Units 11:31 16:57 22:24 WBC (3.8-10.6) k/uL RBC (3.80-5.40) m/uL Hgb (11.4-16.0) gm/dL Hct (34.0-46.0) % MCV (80.0-100.0) fL MCH (25.0-35.0) pg MCHC (31.0-37.0) g/dL RDW (11.5-15.5) % Plt Count (150-450) k/uL MPV Immature Gran % (Auto) % Absolute Nucleated RBC (0.00-0.00) X 10*3/uL Neutrophils % % Lymphocytes % % Monocytes % % Eosinophils % % Basophils % % Immature Gran # (0.00-0.04) X 10*3/uL Neutrophils # (1.3-7.7) k/uL Lymphocytes # (1.0-4.8) k/uL Monocytes # (0-1.0) k/uL Eosinophils # (0-0.7) k/uL Basophils # (0-0.2) k/uL NRBC/100 WBC Diff (0.0-0.0) /100 WBCS PT (9.0-12.0) sec INR (<1.2) APTT (22.0-30.0) sec Sodium (137-145) mmol/L Potassium (3.5-5.1) mmol/L Chloride (98-107) mmol/L Carbon Dioxide (22-30) mmol/L Anion Gap mmol/L BUN (7-17) mg/dL Creatinine (0.52-1.04) mg/dL Est GFR (CKD-EPI)AfAm (>60 ml/min/1.73 sqM) Est GFR (CKD-EPI)NonAf (>60 ml/min/1.73 sqM) BUN/Creatinine Ratio (12.00-20.00) Ratio Glucose (74-99) mg/dL POC Glucose (mg/dL) 125 H 84 86 (70-110) mg/dL POC Glu Fuel Cell Builder Dora Kaba Joanne Kelly, Jamie Plasma Lactic Acid Ry (0.7-2.0) mmol/L Calcium (8.4-10.2) mg/dL Magnesium (1.6-2.3) mg/dL Total Bilirubin (0.2-1.3) mg/dL Conjugated Bilirubin (0.20-0.40) mg/dL Unconjugated Bilirubin (0.20-1.00) mg/dL AST (14-36) U/L ALT (4-34) U/L Alkaline Phosphatase (38-126) U/L Troponin I (0.000-0.034) ng/mL NT-Pro-B Natriuret Pep pg/mL Total Protein (6.3-8.2) g/dL Albumin (3.5-5.0) g/dL Globulin (1.6-3.3) g/dL Albumin/Globulin Ratio (1.60-3.17) g/dL Urine Color Urine Appearance (Clear) Urine pH (5.0-8.0) Ur Specific Babbitt (1.001-1.035) Urine Protein (Negative) Urine Glucose (UA) (Negative) Urine Ketones (Negative) Urine Blood (Negative) Urine Nitrite (Negative) Urine Bilirubin (Negative) Urine Urobilinogen (<2.0) mg/dL Ur Leukocyte Esterase (Negative) 12/12/21 12/12/21 12/12/21 Range/Units 06:10 07:06 11:53 WBC (3.8-10.6) k/uL RBC (3.80-5.40) m/uL Hgb (11.4-16.0) gm/dL Hct (34.0-46.0) % MCV (80.0-100.0) fL MCH (25.0-35.0) pg MCHC (31.0-37.0) g/dL RDW (11.5-15.5) % Plt Count (150-450) k/uL MPV Immature Gran % (Auto) % Absolute Nucleated RBC (0.00-0.00) X 10*3/uL Neutrophils % % Lymphocytes % % Monocytes % % Eosinophils % % Basophils % % Immature Gran # (0.00-0.04) X 10*3/uL Neutrophils # (1.3-7.7) k/uL Lymphocytes # (1.0-4.8) k/uL Monocytes # (0-1.0) k/uL Eosinophils # (0-0.7) k/uL Basophils # (0-0.2) k/uL NRBC/100 WBC Diff (0.0-0.0) /100 WBCS PT (9.0-12.0) sec INR (<1.2) APTT (22.0-30.0) sec Sodium 138 (137-145) mmol/L Potassium 4.0 (3.5-5.1) mmol/L Chloride 103 (98-107) mmol/L Carbon Dioxide 24.2 (22-30) mmol/L Anion Gap 10.80 mmol/L BUN 10.3 (7-17) mg/dL Creatinine 0.8 (0.52-1.04) mg/dL Est GFR (CKD-EPI)AfAm 87.2 (>60 ml/min/1.73 sqM) Est GFR (CKD-EPI)NonAf 75.2 (>60 ml/min/1.73 sqM) BUN/Creatinine Ratio 12.88 (12.00-20.00) Ratio Glucose 84 (74-99) mg/dL POC Glucose (mg/dL) 88 95 (70-110) mg/dL POC Glu [employer] ID [email or web address], Angela zelaya, Angela Plasma Lactic Acid Ry (0.7-2.0) mmol/L Calcium 9.5 (8.4-10.2) mg/dL Magnesium (1.6-2.3) mg/dL Total Bilirubin (0.2-1.3) mg/dL Conjugated Bilirubin (0.20-0.40) mg/dL Unconjugated Bilirubin (0.20-1.00) mg/dL AST (14-36) U/L ALT (4-34) U/L Alkaline Phosphatase (38-126) U/L Troponin I (0.000-0.034) ng/mL NT-Pro-B Natriuret Pep pg/mL Total Protein (6.3-8.2) g/dL Albumin (3.5-5.0) g/dL Globulin (1.6-3.3) g/dL Albumin/Globulin Ratio (1.60-3.17) g/dL Urine Color Urine Appearance (Clear) Urine pH (5.0-8.0) Ur Specific [place] (1.001-1.035) Urine Protein (Negative) Urine Glucose (UA) (Negative) Urine Ketones (Negative) Urine Blood (Negative) Urine Nitrite (Negative) Urine Bilirubin (Negative) Urine Urobilinogen (<2.0) mg/dL Ur Leukocyte Esterase (Negative) 12/12/21 12/12/21 12/13/21 Range/Units 16:31 20:30 07:23 WBC (3.8-10.6) k/uL RBC (3.80-5.40) m/uL Hgb (11.4-16.0) gm/dL Hct (34.0-46.0) % MCV (80.0-100.0) fL MCH (25.0-35.0) pg MCHC (31.0-37.0) g/dL RDW (11.5-15.5) % Plt Count (150-450) k/uL MPV Immature Gran % (Auto) % Absolute Nucleated RBC (0.00-0.00) X 10*3/uL Neutrophils % % Lymphocytes % % Monocytes % % Eosinophils % % Basophils % % Immature Gran # (0.00-0.04) X 10*3/uL Neutrophils # (1.3-7.7) k/uL Lymphocytes # (1.0-4.8) k/uL Monocytes # (0-1.0) k/uL Eosinophils # (0-0.7) k/uL Basophils # (0-0.2) k/uL NRBC/100 WBC Diff (0.0-0.0) /100 WBCS PT (9.0-12.0) sec INR (<1.2) APTT (22.0-30.0) sec Sodium (137-145) mmol/L Potassium (3.5-5.1) mmol/L Chloride (98-107) mmol/L Carbon Dioxide (22-30) mmol/L Anion Gap mmol/L BUN (7-17) mg/dL Creatinine (0.52-1.04) mg/dL Est GFR (CKD-EPI)AfAm (>60 ml/min/1.73 sqM) Est GFR (CKD-EPI)NonAf (>60 ml/min/1.73 sqM) BUN/Creatinine Ratio (12.00-20.00) Ratio Glucose (74-99) mg/dL POC Glucose (mg/dL) 89 106 83 (70-110) mg/dL POC Glu [employer] ETTA zelaya, Angela Carr, Lise [place] Plasma Lactic Acid Ry (0.7-2.0) mmol/L Calcium (8.4-10.2) mg/dL Magnesium (1.6-2.3) mg/dL Total Bilirubin (0.2-1.3) mg/dL Conjugated Bilirubin (0.20-0.40) mg/dL Unconjugated Bilirubin (0.20-1.00) mg/dL AST (14-36) U/L ALT (4-34) U/L Alkaline Phosphatase (38-126) U/L Troponin I (0.000-0.034) ng/mL NT-Pro-B Natriuret Pep pg/mL Total Protein (6.3-8.2) g/dL Albumin (3.5-5.0) g/dL Globulin (1.6-3.3) g/dL Albumin/Globulin Ratio (1.60-3.17) g/dL Urine Color Urine Appearance (Clear) Urine pH (5.0-8.0) Ur Specific [place] (1.001-1.035) Urine Protein (Negative) Urine Glucose (UA) (Negative) Urine Ketones (Negative) Urine Blood (Negative) Urine Nitrite (Negative) Urine Bilirubin (Negative) Urine Urobilinogen (<2.0) mg/dL Ur Leukocyte Esterase (Negative) 12/13/21 12/13/21 12/13/21 Range/Units 11:27 16:48 20:17 WBC (3.8-10.6) k/uL RBC (3.80-5.40) m/uL Hgb (11.4-16.0) gm/dL Hct (34.0-46.0) % MCV (80.0-100.0) fL MCH (25.0-35.0) pg MCHC (31.0-37.0) g/dL RDW (11.5-15.5) % Plt Count (150-450) k/uL MPV Immature Gran % (Auto) % Absolute Nucleated RBC (0.00-0.00) X 10*3/uL Neutrophils % % Lymphocytes % % Monocytes % % Eosinophils % % Basophils % % Immature Gran # (0.00-0.04) X 10*3/uL Neutrophils # (1.3-7.7) k/uL Lymphocytes # (1.0-4.8) k/uL Monocytes # (0-1.0) k/uL Eosinophils # (0-0.7) k/uL Basophils # (0-0.2) k/uL NRBC/100 WBC Diff (0.0-0.0) /100 WBCS PT (9.0-12.0) sec INR (<1.2) APTT (22.0-30.0) sec Sodium (137-145) mmol/L Potassium (3.5-5.1) mmol/L Chloride (98-107) mmol/L Carbon Dioxide (22-30) mmol/L Anion Gap mmol/L BUN (7-17) mg/dL Creatinine (0.52-1.04) mg/dL Est GFR (CKD-EPI)AfAm (>60 ml/min/1.73 sqM) Est GFR (CKD-EPI)NonAf (>60 ml/min/1.73 sqM) BUN/Creatinine Ratio (12.00-20.00) Ratio Glucose (74-99) mg/dL POC Glucose (mg/dL) 100 133 H 115 H (70-110) mg/dL POC Glu [employer] ID Lise Lay, Paola Avendano Plasma Lactic Acid Ry (0.7-2.0) mmol/L Calcium (8.4-10.2) mg/dL Magnesium (1.6-2.3) mg/dL Total Bilirubin (0.2-1.3) mg/dL Conjugated Bilirubin (0.20-0.40) mg/dL Unconjugated Bilirubin (0.20-1.00) mg/dL AST (14-36) U/L ALT (4-34) U/L Alkaline Phosphatase (38-126) U/L Troponin I (0.000-0.034) ng/mL NT-Pro-B Natriuret Pep pg/mL Total Protein (6.3-8.2) g/dL Albumin (3.5-5.0) g/dL Globulin (1.6-3.3) g/dL Albumin/Globulin Ratio (1.60-3.17) g/dL Urine Color Urine Appearance (Clear) Urine pH (5.0-8.0) Ur Specific [place] (1.001-1.035) Urine Protein (Negative) Urine Glucose (UA) (Negative) Urine Ketones (Negative) Urine Blood (Negative) Urine Nitrite (Negative) Urine Bilirubin (Negative) Urine Urobilinogen (<2.0) mg/dL Ur Leukocyte Esterase (Negative) 12/14/21 Range/Units 06:53 WBC (3.8-10.6) k/uL RBC (3.80-5.40) m/uL Hgb (11.4-16.0) gm/dL Hct (34.0-46.0) % MCV (80.0-100.0) fL MCH (25.0-35.0) pg MCHC (31.0-37.0) g/dL RDW (11.5-15.5) % Plt Count (150-450) k/uL MPV Immature Gran % (Auto) % Absolute Nucleated RBC (0.00-0.00) X 10*3/uL Neutrophils % % Lymphocytes % % Monocytes % % Eosinophils % % Basophils % % Immature Gran # (0.00-0.04) X 10*3/uL Neutrophils # (1.3-7.7) k/uL Lymphocytes # (1.0-4.8) k/uL Monocytes # (0-1.0) k/uL Eosinophils # (0-0.7) k/uL Basophils # (0-0.2) k/uL NRBC/100 WBC Diff (0.0-0.0) /100 WBCS PT (9.0-12.0) sec INR (<1.2) APTT (22.0-30.0) sec Sodium (137-145) mmol/L Potassium (3.5-5.1) mmol/L Chloride (98-107) mmol/L Carbon Dioxide (22-30) mmol/L Anion Gap mmol/L BUN (7-17) mg/dL Creatinine (0.52-1.04) mg/dL Est GFR (CKD-EPI)AfAm (>60 ml/min/1.73 sqM) Est GFR (CKD-EPI)NonAf (>60 ml/min/1.73 sqM) BUN/Creatinine Ratio (12.00-20.00) Ratio Glucose (74-99) mg/dL POC Glucose (mg/dL) 116 H (70-110) mg/dL POC Glu [employer] ID [facility] Plasma Lactic Acid Ry (0.7-2.0) mmol/L Calcium (8.4-10.2) mg/dL Magnesium (1.6-2.3) mg/dL Total Bilirubin (0.2-1.3) mg/dL Conjugated Bilirubin (0.20-0.40) mg/dL Unconjugated Bilirubin (0.20-1.00) mg/dL AST (14-36) U/L ALT (4-34) U/L Alkaline Phosphatase (38-126) U/L Troponin I (0.000-0.034) ng/mL NT-Pro-B Natriuret Pep pg/mL Total Protein (6.3-8.2) g/dL Albumin (3.5-5.0) g/dL Globulin (1.6-3.3) g/dL Albumin/Globulin Ratio (1.60-3.17) g/dL Urine Color Urine Appearance (Clear) Urine pH (5.0-8.0) Ur Specific [place] (1.001-1.035) Urine Protein (Negative) Urine Glucose (UA) (Negative) Urine Ketones (Negative) Urine Blood (Negative) Urine Nitrite (Negative) Urine Bilirubin (Negative) Urine Urobilinogen (<2.0) mg/dL Ur Leukocyte Esterase (Negative) Disposition Clinical Impression: Unable to walk, Intractable pain, Left foot pain, Fall Disposition: ADMITTED IP TO THIS [facility] Condition: Stable Is patient prescribed a controlled substance at d/c from ED?: No Decision to Admit Reason: Admit from EC Decision Date: 12/09/21 Decision Time: 17:35
[2021-12-09 15:59] LABS: Basophils % (A) 1 %; Eosinophils # (A) 0.1 k/uL (0-0.7); Eosinophils % (A) 1 %; HCT 41.4 % (34.0-46.0); HGB 13.4 gm/dL (11.4-16.0); Lymphocytes # (A) 0.6 k/uL (1.0-4.8); Lymphocytes % (A) 13 %; MCH 31.4 pg (25.0-35.0); MCHC 32.4 g/dL (31.0-37.0); MCV 96.8 fL (80.0-100.0); Mean Platelet Volume 7.5; Monocytes # (A) 0.3 k/uL (0-1.0); Monocytes % (A) 7 %; Neutrophils # (A) 3.1 k/uL (1.3-7.7); Neutrophils % (A) 77 %; Platelet Count 154 k/uL (150-450); RBC 4.28 m/uL (3.80-5.40); RDW 14.8 % (11.5-15.5); WBC 4.1 k/uL (3.8-10.6)
[2021-12-09 16:10] LABS: Albumin 4.9 g/dL (3.5-5.0); Magnesium 1.9 mg/dL (1.6-2.3); Potassium 4.6 mmol/L (3.5-5.1); Total Bilirubin 0.8 mg/dL (0.2-1.3); Total Protein 8.1 g/dL (6.3-8.2)
--- NOTE | 2021-12-09 16:51 | XR ---
EXAMINATION TYPE: XR chest 2V DATE OF EXAM: 12/09/2021 COMPARISON: 08/11/2017 HISTORY: Weakness TECHNIQUE: FINDINGS: There is no heart failure nor confluent pneumonic infiltrate. There is hiatal hernia. No pl eural effusion. Bony thorax shows anterior wedging 75% of midthoracic vertebra. IMPRESSION: Large hiatal hernia. Inspiration decrease compared to the old exam.
--- NOTE | 2021-12-09 16:58 | XR ---
EXAMINATION TYPE: XR ankle complete LT DATE OF EXAM: 12/09/2021 COMPARISON: NONE HISTORY: Pain TECHNIQUE: 3 views FINDINGS: Ankle mortise is anatomic. There is soft tissue swelling around the ankle. No fracture seen . There is moderate spurring at the talonavicular joint. This fusion of the subtalar joint. IMPRESSION: Soft tissue swelling. Deformities as above. No fracture seen.
--- NOTE | 2021-12-09 17:00 | XR ---
EXAMINATION TYPE: XR foot complete LT DATE OF EXAM: 12/09/2021 COMPARISON: NONE HISTORY: Pain TECHNIQUE: 3 views FINDINGS: There is soft tissue swelling of the forefoot. There is plantar and Achilles calcaneal spur ring. There is some mild hammertoe deformity. There is mild hallux valgus. There is spurring of the t alonavicular joint. There is some deformity distal fifth metatarsal related to old healed fracture. IMPRESSION: Soft tissue swelling. No fracture seen.
[2021-12-09 17:11] LABS: Appearance,Urine Clear (Clear); Bilirubin,Urine Negative (Negative); Blood,Urine Negative (Negative); Color,Urine Light Yellow; Glucose,Urine (UA) Negative (Negative); Ketones,Urine Negative (Negative); Leukocyte Esterase,Urine Negative (Negative); Nitrite,Urine Negative (Negative); PH, Urine 7.5 (5.0-8.0); Protein,Urine Negative (Negative); Specific Gravity,Urine 1.009 (1.001-1.035); Urobilinogen,Urine <2.0 mg/dL (<2.0)
[2021-12-09] MEDS ORDERED: MORPHINE SULFATE 4 MG/ML SYRINGE IVP STA (17:34)
[2021-12-09] MEDS ORDERED: NALOXONE 0.4 MG/ML 1 ML VIAL IV PRN (17:35)
[2021-12-09] MEDS: ALBUTEROL NEBULIZED 2.5 MG/3 ML INHALATION PRN (20:05)
[2021-12-09] MEDS: ALPRAZolam 0.25 MG TAB PO PRN (20:25)
[2021-12-09] MEDS ORDERED: ONDANSETRON 4 MG/2 ML VIAL IVP PRN (21:58)
[2021-12-09] MEDS: HYDROcodone/APAP 10-325MG 1 EACH TAB PO PRN (22:27)
[2021-12-09] MEDS: ZIPRASIDONE 60 MG CAP PO SCH (22:27)
[2021-12-09] MEDS: buPROPion XL 150 MG TAB.ER.24H PO SCH (22:27)
[2021-12-09 22:31] LABS: Glucose,Whole Blood 108 mg/dL (70-110)
[2021-12-10 06:50] LABS: Glucose,Whole Blood 100 mg/dL (70-110)
[2021-12-10] MEDS: buPROPion XL 150 MG TAB.ER.24H PO SCH ×3 (08:17→21:13)
[2021-12-10] MEDS: allopurinoL 300 MG TAB PO SCH (08:17)
[2021-12-10] MEDS: hydrOXYzine pamoate 25 MG CAP PO SCH (08:17)
[2021-12-10] MEDS: CHOLECALCIFEROL 125 MCG (5000 IU) TABLET PO SCH (08:18)
[2021-12-10] MEDS: DOCUSATE 100 MG CAP PO SCH (08:18)
[2021-12-10] MEDS: SPIRONOLACTONE-HCTZ 25-25MG 1 EACH TAB PO SCH (08:18)
[2021-12-10] MEDS: ALBUTEROL NEBULIZED 2.5 MG/3 ML INHALATION PRN (08:58)
--- NOTE | 2021-12-10 10:56 | P.HPIM ---
History of Present Illness H&P Date: 12/09/21 Chief Complaint: Weakness/inability to ambulate 71-year-old female with past medical history of coronary artery disease, CVA, congestive heart failure presents to the emergency department with inability to ambulate. Patient fell week ago. She is reevaluated in the emergency room for knee pain and discharged home. She has not ambulated since. Cannot weight-bear on her left ankle. Normally ambulates with a walker however has been bedbound. Her fianc has been helping her use a bedside commode. She has not been taking her Lasix as she has difficulty getting up to go to the bathroom. She is taking her [place] for pain. Denies any new falls. This morning she felt extremely shaky has that she was going to pass out. Denies chest pain or shortness of breath. No fevers no changes or bowel or bladder habits. No alleviating, precipitating or modifying factors Blood work completed in ED reveals a WBC of 4.1, hemoglobin 13.4 and platelet count of 154, sodium 133, potassium 4.6, BUN/creatinine of 20/0.87 X-ray demonstrates no acute fracture. Patient has had difficulty with ambulation for the past week and therefore I will admit the patient for orthopedic evaluation. [facility] for the consult was placed for this group. Review of Systems REVIEW OF SYSTEMS: CONSTITUTIONAL: No fever, no malaise, no fatigue. HEENT: No recent visual problems or hearing problems. Denied any sore throat. CARDIOVASCULAR: No chest pain, orthopnea, PND, no palpitations, no syncope. PULMONARY: No shortness of breath, no cough, no hemoptysis. GASTROINTESTINAL: No diarrhea, no nausea, no vomiting, no abdominal pain. NEUROLOGICAL: No headaches, no weakness, no numbness. HEMATOLOGICAL: Denies any bleeding or petechiae. GENITOURINARY: Denies any burning micturition, frequency, or urgency. MUSCULOSKELETAL/RHEUMATOLOGICAL: Denies any joint pain, swelling, or any muscle pain. ENDOCRINE: Denies any polyuria or polydipsia. The rest of the 14-point review of systems is negative. Past Medical History Past Medical History: Coronary Artery Disease (CAD), Chest Pain / Angina, CVA/TIA, Eye Disorder, Osteoarthritis (OA), Renal Disease Additional Past Medical History / Comment(s): EDEMA OF LEGS AT TIMES, MACULAR DEGENERATION; Pt. states she had chest pain years ago as well as a stroke, History of Any Multi-Drug Resistant Organisms: MRSA Date of last positivie culture/infection: face (unknown yr) MDRO Source:: Face Past Surgical History: Back Surgery, Cholecystectomy, Hysterectomy, Joint Replacement Additional Past Surgical History / Comment(s): shoulder surgery, pelvic fracture repaired., Past Anesthesia/Blood Transfusion Reactions: No Reported Reaction Past Psychological History: Anxiety, Bipolar Smoking Status: Never smoker Past Alcohol Use History: None Reported Past Drug Use History: None Reported - Past Family History Mother Family Medical History: Cancer Additional Family Medical History / Comment(s): Breast cancer Father Family Medical History: Cancer Additional Family Medical History / Comment(s): Lung cancer Sister(s) Family Medical History: AICD/Pacemaker, Cancer, Chest Pain / Angina, Congestive Heart Failure (CHF), COPD, Coronary Artery Disease (CAD), CVA/TIA, Diabetes Mellitus, GERD/Reflux, Hyperlipidemia, Hypertension, Liver Disease, Myocardial Infarction ([place]), Osteoarthritis (OA), Pneumonia, Renal Disease Additional Family Medical History / Comment(s): SISTER X2 Medications and Allergies Home Medications Medication Instructions Recorded Confirmed Type buPROPion XL [Wellbutrin XL] 150 mg PO TID 11/16/15 12/09/21 History ziprasidone HCL [Geodon] 60 mg PO HS 11/16/15 12/09/21 History ALPRAZolam [Xanax] 0.25 mg PO TID PRN 08/09/17 12/09/21 History Alendronate Sodium 70 mg PO MO 04/02/19 12/09/21 History HYDROcodone/APAP 10-325MG [[place] 1 tab PO QID 02/21/21 12/09/21 History 10-325] Spironolactone-Hctz 25-25Mg 1 tab PO DAILY 02/21/21 12/09/21 History [Aldactazide 25-25Mg] allopurinoL [Zyloprim] 300 mg PO DAILY 02/21/21 12/09/21 History Albuterol Inhaler [Ventolin Hfa 2 puff INHALATION RT-QID PRN 11/21/21 12/09/21 History Inhaler] Cholecalciferol [Vitamin D3 (125 125 mcg PO DAILY 12/09/21 12/09/21 History Mcg = 5000 Iu)] Docusate Sodium 250 mg PO DAILY 12/09/21 12/09/21 History hydrOXYzine pamoate [Vistaril] 25 mg PO DAILY 12/09/21 12/09/21 History Allergies Allergy/AdvReac Type Severity Reaction Status Date / Time No Known Allergies Allergy Verified 12/09/21 16:51 Physical Exam Vitals: Vital Signs Temp Pulse Pulse Resp BP BP Pulse Ox 12/09/21 18:38 98.6 F 84 17 113/79 95 12/09/21 18:15 98.2 F 80 18 122/74 98 12/09/21 16:58 84 18 120/78 100 12/09/21 15:04 98.1 F 82 20 121/80 96 Intake and Output 12/09/21 12/09/21 12/09/21 06:59 14:59 22:59 Other: Weight 72.575 kg - Constitutional General appearance: Present: average body habitus, cooperative, no acute distress - EENT Eyes: Present: anicteric sclerae, EOMI, PERRLA, normal appearance ENT: Present: hearing grossly normal, normal oropharynx Ears: bilateral: normal - Neck Neck: Present: normal ROM. Absent: lymphadenopathy, rigidity, thyromegaly Carotids: negative: bruit present Thyroid: bilateral: normal size, negative: enlarged, nodule - Respiratory Respiratory: bilateral: CTA, negative: rales, rhonchi, wheezing - Cardiovascular Rhythm: regular Heart sounds: normal: S1, S2 Abnormal Heart Sounds: Absent: systolic murmur, diastolic murmur - Gastrointestinal General gastrointestinal: Present: normal bowel sounds, soft. Absent: distended, organomegaly, tenderness - Genitourinary Genitourinary Comment(s): deferred - Integumentary Integumentary: Present: normal turgor. Absent: jaundiced, rash, ulcer - Neurologic Neurologic: Present: CNII-XII intact. Absent: focal deficits - Musculoskeletal Musculoskeletal: Present: gait normal, strength equal bilaterally - Psychiatric Psychiatric: Present: A&O x's 3, appropriate affect, intact judgment & insight Results CBC & Chem 7: 12/09/21 15:50 12/09/21 15:50 Labs: Abnormal Lab Results - Last 24 Hours (Table) 07/22/22 07/22/22 Range/Units 15:50 15:50 Lymphocytes # 0.6 L (1.0-4.8) k/uL Sodium 133 L (137-145) mmol/L Chloride 95 L (98-107) mmol/L BUN 20 H (7-17) mg/dL Glucose 109 H (74-99) mg/dL AST 47 H (14-36) U/L Assessment and Plan Assessment: 1. Fall/intractable Left foot pain/inability to ambulate - Pain controlled with Toradol; orthopedic surgery is consulted; we will plan to consult PT/OT once orthopedic recommendations are in 2. Mild renal injury; we will start patient on IV fluids, normal saline at 75 mL an hour; monitor renal function and electrolytes; strict JACK's; avoid nephrotoxins and hypotension 3. Mild hyponatremia; slow IV fluid hydration as indicated in form of normal saline at a rate of 75 mL an hour; we will monitor electrolytes closely 4. Transaminitis; possibly medication related; we will order liver function test and make recommendations accordingly 5. Hypertension; continue with Aldactazide 2525 milligrams 1 daily 6. History of CVA/TIA; currently not on aspirin or statin therapy 7. Osteoarthritis; [place] 10/325 mg by mouth 4 times a day when necessary 8. Bipolar depression; Geodon 60 mg by mouth daily at bedtime along with Wellbutrin 150 mg 3 times a day
[2021-12-10 11:12] LABS: Glucose,Whole Blood 101 mg/dL (70-110)
[2021-12-10 11:43] LABS: Basophils # (A) 0.01 X 10*3/uL (0.00-0.10); Basophils % (A) 0.3 %; Eosinophils # (A) 0.09 X 10*3/uL (0.04-0.35); Eosinophils % (A) 2.8 %; HCT 35.6 % (37.2-46.3); HGB 11.9 g/dL (12.0-15.0); Immature Grans, Automated 0 %; Lymphocytes # (A) 1.16 X 10*3/uL (0.90-5.00); Lymphocytes % (A) 36.6 %; MCH 31.9 pg (27.0-32.0); MCHC 33.4 g/dL (32.0-37.0); MCV 95.4 fL (80.0-97.0); Mean Platelet Volume 10.9 fL (9.5-12.2); Monocytes # (A) 0.45 X 10*3/uL (0.20-1.00); Monocytes % (A) 14.2 %; NRBC Per 100 WBC 0 /100 WBCS (0.0-0.0); Neutrophils # (A) 1.46 X 10*3/uL (1.80-7.70); Neutrophils % (A) 46.1 %; Platelet Count 137 X 10*3/uL (140-440); RBC 3.73 X 10*6/uL (4.10-5.20); RDW 14.8 % (11.5-14.5); WBC 3.17 X 10*3/uL (4.50-10.00)
[2021-12-10] MEDS: HYDROcodone/APAP 10-325MG 1 EACH TAB PO PRN ×2 (11:45→17:38)
[2021-12-10] MEDS: SODIUM CHLORIDE 0.9% 1,000 ML IV SCH (11:46)
[2021-12-10 12:36] LABS: African American GFR (CKD) 75.6 (60.0-200.0); Anion Gap 13.3 mmol/L (10.00-18.00); BUN/Creat Ratio 17.11 Ratio (12.00-20.00); Blood Urea Nitrogen 15.4 mg/dL (9.0-27.0); Calcium 9.5 mg/dL (8.7-10.3); Carbon Dioxide 24.7 mmol/L (20.0-27.5); Non-African American GFR(CKD) 65.2 (60.0-200.0)
--- NOTE | 2021-12-10 14:21 | P.CNOR ---
History of Present Illness - HPI Consult date: 12/10/21 History of present illness: History of Presenting Illness Patient is a pleasant 71-year-old female who presented to the ER for frequent falls and inability to ambulate for approximately 1 week. Patient reported she had fallen and came into the ER recently and had x-rays of her knee and was sent home. Patient states since this time she has been unable to get up on her own and her family has been assisting her. She states that she is normally independent with a walker. Patient has full range of motion of left lower extremity with some weakness noted when asked to lift her leg off of bed. She denies any numbness tingling to bilateral lower extremities. Patient denies any perineal numbness/tingling and loss of bowel or bladder. She denies any nausea/vomiting, fever, or chest pain. Review of Systems Pertinent positives and negatives as discussed in HPI, a complete review of systems was performed and all other systems are negative. Physical Examination General: The patient is awake and alert, in no acute distress Skin: Skin is warm and dry with no obvious rashes or lesions. Hairy patches absent, no dorsal skin dimples, no cafe au lait spots, and no surgical incisions. Eye: Pupils are equal, round and reactive to light, extra-ocular movements are intact; there is normal conjunctiva bilaterally. Neck: The neck is supple, there is no tenderness and ROM intact. Cardiovascular: There is a regular rate and rhythm. No murmur, rub or gallop is appreciated. Respiratory: Lungs are clear to auscultation, respirations are non-labored, breath sounds are equal. Gastrointestinal: Soft, non-distended, non-tender abdomen. Back: There is no tenderness to palpation in the midline, paralumbar, pa rathoracic or buttocks region. There is no obvious deformity. Musculoskeletal: ROM limited secondary to pain and stiffness from surgical procedure. Shoulder abduction 5/5, elbow flexors 5/5, wrist dorsiflexors 5/5. finger abductor 5/5, photography teacher 5/5, hip flexor 4/5, knee flexor 4/5, ankle dorsiflexor 4/5, ankle plantarflexion 4/5 and extensor hallucis 4/5. Neurological: CN 2-12 intact. There are no obvious motor or sensory deficits. Movement and coordination equal and intact. Sensory exam to light touch intact C5-T1 and intact from L2-S1. Reflexes 2/4 in bilateral upper and lower extremities. Negative Hoffmans, babinski, and clonus signs. Psychiatric: Cooperative, appropriate mood & affect, normal judgment. Assessment and Plan Inability to ambulate Left foot pain Advanced midfoot arthritis -Appreciate systems security consultant and team management. -Daily PT/OT, increase ambulation strength and balance, WBAT -Continue with pain management -Dispo: No orthopedic surgical interventions at this time. Patient may follow up in office as outpatient prn. Please contact our service if any further questions. *I reviewed and discussed this case with my attending Dr. Coleman, whom has reviewed this chart and films and is in agreement with assessment and plan of care as outlined above. I have personally seen and examined the patient, performed the documentation and the assessment and plan as written. Number of minutes spent on the visit: 25m Past Medical History Past Medical History: Coronary Artery Disease (CAD), Chest Pain / Angina, CVA/TIA, Eye Disorder, Osteoarthritis (OA), Renal Disease Additional Past Medical History / Comment(s): EDEMA OF LEGS AT TIMES, MACULAR DEGENERATION; Pt. states she had chest pain years ago as well as a stroke, History of Any Multi-Drug Resistant Organisms: MRSA Year Discovered:: face (unknown yr) MDRO Source:: Face Past Surgical History: Back Surgery, Cholecystectomy, Hysterectomy, Joint Replacement Additional Past Surgical History / Comment(s): shoulder surgery, pelvic fracture repaired., Past Anesthesia/Blood Transfusion Reactions: No Reported Reaction Past Psychological History: Anxiety, Bipolar Smoking Status: Never smoker Past Alcohol Use History: None Reported Past Drug Use History: None Reported - Past Family History Mother Family Medical History: Cancer Additional Family Medical History / Comment(s): Breast cancer Father Family Medical History: Cancer Additional Family Medical History / Comment(s): Lung cancer Sister(s) Family Medical History: AICD/Pacemaker, Cancer, Chest Pain / Angina, Congestive Heart Failure (CHF), COPD, Coronary Artery Disease (CAD), CVA/TIA, Diabetes Mellitus, GERD/Reflux, Hyperlipidemia, Hypertension, Liver Disease, Myocardial Infarction ([place]), Osteoarthritis (OA), Pneumonia, Renal Disease Additional Family Medical History / Comment(s): SISTER X2 Medications and Allergies Home Medications Medication Instructions Recorded Confirmed Type buPROPion XL [Wellbutrin XL] 150 mg PO TID 11/16/15 12/09/21 History ziprasidone HCL [Geodon] 60 mg PO HS 11/16/15 12/09/21 History ALPRAZolam [Xanax] 0.25 mg PO TID PRN 08/09/17 12/09/21 History Alendronate Sodium 70 mg PO MO 04/02/19 12/09/21 History HYDROcodone/APAP 10-325MG [[place] 1 tab PO QID 02/21/21 12/09/21 History 10-325] Spironolactone-Hctz 25-25Mg 1 tab PO DAILY 02/21/21 12/09/21 History [Aldactazide 25-25Mg] allopurinoL [Zyloprim] 300 mg PO DAILY 02/21/21 12/09/21 History Albuterol Inhaler [Ventolin Hfa 2 puff INHALATION RT-QID PRN 11/21/21 12/09/21 History Inhaler] Cholecalciferol [Vitamin D3 (125 125 mcg PO DAILY 12/09/21 12/09/21 History Mcg = 5000 Iu)] Docusate Sodium 250 mg PO DAILY 12/09/21 12/09/21 History hydrOXYzine pamoate [Vistaril] 25 mg PO DAILY 12/09/21 12/09/21 History Allergies Allergy/AdvReac Type Severity Reaction Status Date / Time No Known Allergies Allergy Verified 12/09/21 16:51 Results - Labs Labs: Abnormal Lab Results - Last 24 Hours (Table) 12/09/21 12/09/21 12/10/21 Range/Units 15:50 15:50 06:24 WBC 3.17 L (4.50-10.00) X 10*3/uL RBC 3.73 L (4.10-5.20) X 10*6/uL Hgb 11.9 L (12.0-15.0) g/dL Hct 35.6 L (37.2-46.3) % RDW 14.8 H (11.5-14.5) % Plt Count 137 L (140-440) X 10*3/uL Neutrophils # 1.46 L (1.80-7.70) X 10*3/uL Lymphocytes # 0.6 L (1.0-4.8) k/uL Sodium 133 L (137-145) mmol/L Chloride 95 L (98-107) mmol/L BUN 20 H (7-17) mg/dL Glucose 109 H (74-99) mg/dL AST 47 H (14-36) U/L 12/10/21 Range/Units 06:24 WBC (4.50-10.00) X 10*3/uL RBC (4.10-5.20) X 10*6/uL Hgb (12.0-15.0) g/dL Hct (37.2-46.3) % RDW (11.5-14.5) % Plt Count (140-440) X 10*3/uL Neutrophils # (1.80-7.70) X 10*3/uL Lymphocytes # (1.0-4.8) k/uL Sodium 134 L (137-145) mmol/L Chloride (98-107) mmol/L BUN (7-17) mg/dL Glucose (74-99) mg/dL AST (14-36) U/L H & H 12/09/21 12/10/21 Range/Units 15:50 06:24 Hgb 13.4 11.9 L (11.4-16.0) gm/dL Hct 41.4 35.6 L (34.0-46.0) % Coagulation 12/09/21 Range/Units 15:50 INR 1.0 (<1.2) Result Diagrams: 12/10/21 06:24 12/10/21 06:24
[2021-12-10 16:31] LABS: Glucose,Whole Blood 141 mg/dL (70-110)
[2021-12-10] MEDS ORDERED: SODIUM CHLORIDE 0.9% 500 ML 250 ML IV ONE (21:01)
[2021-12-10] MEDS: ALPRAZolam 0.25 MG TAB PO PRN (21:13)
[2021-12-10] MEDS: GABAPENTIN 400 MG CAP PO SCH (21:13)
[2021-12-10] MEDS: ZIPRASIDONE 60 MG CAP PO SCH (21:13)
[2021-12-10 21:35] LABS: Glucose,Whole Blood 101 mg/dL (70-110)
[2021-12-11] MEDS: HYDROcodone/APAP 10-325MG 1 EACH TAB PO PRN ×3 (01:20→16:43)
[2021-12-11] MEDS: SODIUM CHLORIDE 0.9% 1,000 ML IV SCH ×2 (01:21→14:17)
[2021-12-11 07:30] LABS: Glucose,Whole Blood 79 mg/dL (70-110)
[2021-12-11] MEDS: SPIRONOLACTONE-HCTZ 25-25MG 1 EACH TAB PO SCH (07:55)
[2021-12-11] MEDS: hydrOXYzine pamoate 25 MG CAP PO SCH (08:01)
[2021-12-11] MEDS: DOCUSATE 100 MG CAP PO SCH (08:01)
[2021-12-11] MEDS: allopurinoL 300 MG TAB PO SCH (08:02)
[2021-12-11] MEDS: buPROPion XL 150 MG TAB.ER.24H PO SCH ×3 (08:02→20:08)
[2021-12-11] MEDS: CHOLECALCIFEROL 125 MCG (5000 IU) TABLET PO SCH (08:02)
[2021-12-11] MEDS: GABAPENTIN 400 MG CAP PO SCH ×3 (08:02→20:08)
[2021-12-11 09:37] LABS: Basophils # (A) 0.01 X 10*3/uL (0.00-0.10); Basophils % (A) 0.3 %; Eosinophils # (A) 0.09 X 10*3/uL (0.04-0.35); Eosinophils % (A) 3.1 %; HGB 12.3 g/dL (12.0-15.0); Immature Grans, Automated 0.3 %; Lymphocytes # (A) 0.93 X 10*3/uL (0.90-5.00); Lymphocytes % (A) 32.2 %; MCH 31.5 pg (27.0-32.0); MCHC 32.4 g/dL (32.0-37.0); MCV 97.4 fL (80.0-97.0); Mean Platelet Volume 10.8 fL (9.5-12.2); Monocytes # (A) 0.37 X 10*3/uL (0.20-1.00); Monocytes % (A) 12.8 %; NRBC Per 100 WBC 0 /100 WBCS (0.0-0.0); Neutrophils # (A) 1.48 X 10*3/uL (1.80-7.70); Neutrophils % (A) 51.3 %; Platelet Count 105 X 10*3/uL (140-440); RDW 15.1 % (11.5-14.5); WBC 2.89 X 10*3/uL (4.50-10.00)
[2021-12-11 10:23] LABS: African American GFR (CKD) 80.9 (60.0-200.0); Anion Gap 10.8 mmol/L (10.00-18.00); BUN/Creat Ratio 11.49 Ratio (12.00-20.00); Blood Urea Nitrogen 9.8 mg/dL (9.0-27.0); Calcium 9.3 mg/dL (8.7-10.3); Carbon Dioxide 22.8 mmol/L (20.0-27.5); Non-African American GFR(CKD) 69.8 (60.0-200.0); Potassium 3.9 mmol/L (3.5-5.5)
[2021-12-11 11:33] LABS: Glucose,Whole Blood 125 mg/dL (70-110)
[2021-12-11 16:58] LABS: Glucose,Whole Blood 84 mg/dL (70-110)
[2021-12-11] MEDS: ZIPRASIDONE 60 MG CAP PO SCH (20:08)
[2021-12-11] MEDS: ALPRAZolam 0.25 MG TAB PO PRN (20:13)
[2021-12-11 22:25] LABS: Glucose,Whole Blood 86 mg/dL (70-110)
--- NOTE | 2021-12-11 22:28 | P.PN ---
Subjective Progress Note Date: 12/10/21 Principal diagnosis: Fall/intractable Left foot pain/inability to ambulate Mild renal injury Mild hyponatremia Transaminitis 71-year-old female with past medical history of coronary artery disease, CVA, congestive heart failure presents to the emergency department with inability to ambulate. Patient fell week ago. She is reevaluated in the emergency room for knee pain and discharged home. She has not ambulated since. Cannot weight-bear on her left ankle. Normally ambulates with a walker however has been bedbound. Her fianc has been helping her use a bedside commode. She has not been taking her Lasix as she has difficulty getting up to go to the bathroom. She is taking her [place] for pain. Denies any new falls. This morning she felt extremely shaky has that she was going to pass out. Denies chest pain or shortness of breath. No fevers no changes or bowel or bladder habits. No alleviating, precipitating or modifying factors Blood work completed in ED reveals a WBC of 4.1, hemoglobin 13.4 and platelet count of 154, sodium 133, potassium 4.6, BUN/creatinine of 20/0.87 X-ray demonstrates no acute fracture. Patient has had difficulty with ambulation for the past week and therefore I will admit the patient for orthopedic evaluation. [facility] for the consult was placed for this group. 12/11/2021 Patient is seen and evaluated in room at bedside; discussed with nursing staff; continues to complain of severe pain which is somewhat improved from yesterday Vital signs are reviewed and stable Patient has been evaluated by orthopedic surgery and no orthopedic surgical intervention is recommended at this time; patient is recommended to follow-up in outpatient as needed - Continue with pain management; PT's to evaluate patient with possible placement Objective - Vital Signs Vital signs: Vital Signs Temp 98.3 F 12/10/21 08:00 Pulse 84 12/10/21 09:08 Resp 17 12/10/21 02:09 BP 98/65 12/10/21 08:00 Pulse Ox 96 12/10/21 08:00 FiO2 Intake & Output 12/09/21 12/10/21 12/10/21 18:59 06:59 18:59 Output Total 1100 Balance -1100 Weight 72.575 kg 72.575 kg Output: Urine 1100 Other: Voiding Method Indwelling Catheter Indwelling Catheter - Exam - Constitutional General appearance: Present: average body habitus, cooperative, no acute distress - EENT Eyes: Present: anicteric sclerae, EOMI, PERRLA, normal appearance ENT: Present: hearing grossly normal, normal oropharynx Ears: bilateral: normal - Neck Neck: Present: normal ROM. Absent: lymphadenopathy, rigidity, thyromegaly Carotids: negative: bruit present Thyroid: bilateral: normal size, negative: enlarged, nodule - Respiratory Respiratory: bilateral: CTA, negative: rales, rhonchi, wheezing - Cardiovascular Rhythm: regular Heart sounds: normal: S1, S2 Abnormal Heart Sounds: Absent: systolic murmur, diastolic murmur - Gastrointestinal General gastrointestinal: Present: normal bowel sounds, soft. Absent: distended, organomegaly, tenderness - Genitourinary Genitourinary Comment(s): deferred - Integumentary Integumentary: Present: normal turgor. Absent: jaundiced, rash, ulcer - Neurologic Neurologic: Present: CNII-XII intact. Absent: focal deficits - Musculoskeletal Musculoskeletal: Present: gait normal, strength equal bilaterally - Psychiatric Psychiatric: Present: A&O x's 3, appropriate affect, intact judgment & insight - Labs CBC & Chem 7: 12/11/21 06:38 12/11/21 06:38 Labs: Abnormal Lab Results - Last 24 Hours (Table) 12/09/21 12/09/21 12/10/21 Range/Units 15:50 15:50 06:24 WBC 3.17 L (4.50-10.00) X 10*3/uL RBC 3.73 L (4.10-5.20) X 10*6/uL Hgb 11.9 L (12.0-15.0) g/dL Hct 35.6 L (37.2-46.3) % RDW 14.8 H (11.5-14.5) % Plt Count 137 L (140-440) X 10*3/uL Neutrophils # 1.46 L (1.80-7.70) X 10*3/uL Lymphocytes # 0.6 L (1.0-4.8) k/uL Sodium 133 L (137-145) mmol/L Chloride 95 L (98-107) mmol/L BUN 20 H (7-17) mg/dL Glucose 109 H (74-99) mg/dL AST 47 H (14-36) U/L 12/10/21 Range/Units 06:24 WBC (4.50-10.00) X 10*3/uL RBC (4.10-5.20) X 10*6/uL Hgb (12.0-15.0) g/dL Hct (37.2-46.3) % RDW (11.5-14.5) % Plt Count (140-440) X 10*3/uL Neutrophils # (1.80-7.70) X 10*3/uL Lymphocytes # (1.0-4.8) k/uL Sodium 134 L (137-145) mmol/L Chloride (98-107) mmol/L BUN (7-17) mg/dL Glucose (74-99) mg/dL AST (14-36) U/L Assessment and Plan Assessment: 1. Fall/intractable Left foot pain/inability to ambulate - Pain controlled with Toradol; orthopedic surgery is consulted; we will plan to consult PT/OT once orthopedic recommendations are in 2. Mild renal injury; we will start patient on IV fluids, normal saline at 75 mL an hour; monitor renal function and electrolytes; strict JACK's; avoid nephrotoxins and hypotension 3. Mild hyponatremia; slow IV fluid hydration as indicated in form of normal saline at a rate of 75 mL an hour; we will monitor electrolytes closely 4. Transaminitis; possibly medication related; we will order liver function test and make recommendations accordingly 5. Hypertension; continue with Aldactazide 2525 milligrams 1 daily 6. History of CVA/TIA; currently not on aspirin or statin therapy 7. Osteoarthritis; [place] 10/325 mg by mouth 4 times a day when necessary 8. Bipolar depression; Geodon 60 mg by mouth daily at bedtime along with Wellbutrin 150 mg 3 times a day
[2021-12-12] MEDS: SODIUM CHLORIDE 0.9% 1,000 ML IV SCH ×2 (03:34→08:01)
[2021-12-12] MEDS: HYDROcodone/APAP 10-325MG 1 EACH TAB PO PRN ×3 (06:05→21:34)
[2021-12-12 07:08] LABS: Glucose,Whole Blood 88 mg/dL (70-110)
[2021-12-12] MEDS: DOCUSATE 100 MG CAP PO SCH (07:59)
[2021-12-12] MEDS: allopurinoL 300 MG TAB PO SCH (07:59)
[2021-12-12] MEDS: hydrOXYzine pamoate 25 MG CAP PO SCH (07:59)
[2021-12-12] MEDS: GABAPENTIN 400 MG CAP PO SCH ×3 (07:59→21:30)
[2021-12-12] MEDS: CHOLECALCIFEROL 125 MCG (5000 IU) TABLET PO SCH (07:59)
[2021-12-12] MEDS: SPIRONOLACTONE-HCTZ 25-25MG 1 EACH TAB PO SCH (08:00)
[2021-12-12] MEDS: buPROPion XL 150 MG TAB.ER.24H PO SCH ×3 (08:00→21:30)
[2021-12-12 09:38] LABS: African American GFR (CKD) 87.2 (60.0-200.0); Anion Gap 10.8 mmol/L (10.00-18.00); BUN/Creat Ratio 12.88 Ratio (12.00-20.00); Blood Urea Nitrogen 10.3 mg/dL (9.0-27.0); Calcium 9.5 mg/dL (8.7-10.3); Carbon Dioxide 24.2 mmol/L (20.0-27.5); Non-African American GFR(CKD) 75.2 (60.0-200.0)
[2021-12-12 11:54] LABS: Glucose,Whole Blood 95 mg/dL (70-110)
[2021-12-12 15:42] VITALS: BMI 33.4
[2021-12-12 15:45] LABS: ALT 21 U/L (8-44); AST 39 U/L (13-35); Albumin 4.3 g/dL (3.8-4.9); Albumin/Globulin Ratio 1.72 (1.60-3.17); Alkaline Phosphatase 112 U/L (41-126); Bilirubin, Conjugated <0.20 mg/dL (0.20-0.40); Globulin 2.5 g/dL (1.6-3.3); Total Protein 6.8 g/dL (6.2-8.2)
[2021-12-12 16:32] LABS: Glucose,Whole Blood 89 mg/dL (70-110)
[2021-12-12 20:32] LABS: Glucose,Whole Blood 106 mg/dL (70-110)
[2021-12-12] MEDS: ALPRAZolam 0.25 MG TAB PO PRN (20:44)
[2021-12-12] MEDS: ZIPRASIDONE 60 MG CAP PO SCH (21:30)
[2021-12-13] MEDS: SODIUM CHLORIDE 0.9% 1,000 ML IV SCH ×2 (07:16→15:48)
[2021-12-13 07:24] LABS: Glucose,Whole Blood 83 mg/dL (70-110)
[2021-12-13] MEDS: buPROPion XL 150 MG TAB.ER.24H PO SCH ×3 (08:13→21:13)
[2021-12-13] MEDS: DOCUSATE 100 MG CAP PO SCH (08:13)
[2021-12-13] MEDS: GABAPENTIN 400 MG CAP PO SCH ×3 (08:13→21:12)
[2021-12-13] MEDS: hydrOXYzine pamoate 25 MG CAP PO SCH (08:13)
[2021-12-13] MEDS: CHOLECALCIFEROL 125 MCG (5000 IU) TABLET PO SCH (08:13)
[2021-12-13] MEDS: allopurinoL 300 MG TAB PO SCH (08:14)
[2021-12-13] MEDS: SPIRONOLACTONE-HCTZ 25-25MG 1 EACH TAB PO SCH (08:15)
[2021-12-13] MEDS: HYDROcodone/APAP 10-325MG 1 EACH TAB PO PRN ×3 (08:15→21:12)
[2021-12-13 11:28] LABS: Glucose,Whole Blood 100 mg/dL (70-110)
[2021-12-13 16:50] LABS: Glucose,Whole Blood 133 mg/dL (70-110)
--- NOTE | 2021-12-13 17:43 | PN ---
PROGRESS NOTE CHIEF COMPLAINT: Pain in the left foot, ankle and left knee. HISTORY OF PRESENT ILLNESS: This lady's is still complaining of a lot of pain in the left foot and left ankle as well as left knee. Because of her prior orthopedic problems on the right, she is having trouble bearing weight on the left leg which is creating knee pain. She has been seen by Orthopedics. She is waiting to go to [facility]. She is requesting a knee brace. REVIEW OF SYSTEMS: She denies any other problems. PHYSICAL EXAM: Head, ears, eyes, nose, mouth and normal. Chest is clear. Cardiac exam is normal. Abdomen is soft, nontender. She has prior orthopedic issues and foreshortening of the right leg. Left knee is hypertrophic. It is tender, it suggests significant arthritis. IMPRESSION: 1. Pain in the left foot and ankle. 2. Left knee arthritis. PLAN: 1. Request knee brace from physical therapy. 2. Await discharge to [facility]. MMVLAD / LEILA: [id number] /
--- NOTE | 2021-12-13 18:13 | PN ---
PROGRESS NOTE DATE OF SERVICE: 12/12/2021 CHIEF COMPLAINT: Pain in the left ankle and left knee. HISTORY OF PRESENT ILLNESS: This lady is still complaining a great deal about pain in the left knee and states that she cannot walk. Orthopedics has seen her for her left ankle and left foot. She would like to see about getting a knee brace. We are waiting to get her into the skilled nursing. PHYSICAL EXAMINATION: Vital signs are normal. Chest is clear. Cardiac exam is normal. Abdomen is soft, nontender. The right knee is definitely hypertrophic and tender. She cannot straighten it. Right foot and ankle appear to be normal. IMPRESSION: 1. Pain in the right foot and ankle with inability to ambulate. 2. Osteoarthritis of the left knee. PLAN: Will look into ordering a brace for her left knee before she goes to the skilled nursing, the date of which is to be determined. MMMORTEZAL / IJN: [id number] /
[2021-12-13 20:18] LABS: Glucose,Whole Blood 115 mg/dL (70-110)
[2021-12-13] MEDS: ALPRAZolam 0.25 MG TAB PO PRN (21:12)
[2021-12-13] MEDS: ZIPRASIDONE 60 MG CAP PO SCH (21:12)
[2021-12-14 06:55] LABS: Glucose,Whole Blood 116 mg/dL (70-110)
[2021-12-14] MEDS: SODIUM CHLORIDE 0.9% 1,000 ML IV SCH ×2 (07:11→21:19)
[2021-12-14] MEDS: HYDROcodone/APAP 10-325MG 1 EACH TAB PO PRN ×3 (07:24→23:01)
[2021-12-14] MEDS: hydrOXYzine pamoate 25 MG CAP PO SCH (09:25)
[2021-12-14] MEDS: DOCUSATE 100 MG CAP PO SCH (09:26)
[2021-12-14] MEDS: GABAPENTIN 400 MG CAP PO SCH ×3 (09:26→21:17)
[2021-12-14] MEDS: allopurinoL 300 MG TAB PO SCH (09:26)
[2021-12-14] MEDS: CHOLECALCIFEROL 125 MCG (5000 IU) TABLET PO SCH (09:26)
[2021-12-14] MEDS: SPIRONOLACTONE-HCTZ 25-25MG 1 EACH TAB PO SCH (09:27)
[2021-12-14] MEDS: buPROPion XL 150 MG TAB.ER.24H PO SCH ×3 (09:27→21:17)
[2021-12-14 12:02] LABS: Glucose,Whole Blood 83 mg/dL (70-110)
--- NOTE | 2021-12-14 15:14 | DS ---
DISCHARGE SUMMARY CHIEF COMPLAINT: Pain in the left foot and ankle with inability to ambulate. HISTORY OF PRESENT ILLNESS AND PHYSICAL EXAMINATION: Details of this lady's history and physical can be found in the initial workup. LABORATORY STUDIES: While she was in the hospital, she had laboratory studies, details of which can be found in the laboratory section of her chart. COURSE IN THE HOSPITAL: After admission, she was placed on bedrest, started on intravenous fluids and analgesics. She was seen by Orthopedics and studies failed to demonstrate any pathology in the foot of the ankle. She did complain of a lot of discomfort on instability in the left knee and this was also evaluated. It was felt that she should return to the group home. Arrangements were made for her to go to [facility] on December 14. She will go there on light activity about the house and physical therapy as well as her usual medications. FINAL DIAGNOSES: 1. Intractable pain in the left foot, left ankle. 2. General debility and inability to ambulate. 3. Osteoarthritis, left knee. OPERATIONS: None. CONSULTATIONS: Orthopedics. She is improved. MMODL / IJN: [id number] /
[2021-12-14 16:33] LABS: Glucose,Whole Blood 91 mg/dL (70-110)
[2021-12-14 19:20] LABS: Glucose,Whole Blood 148 mg/dL (70-110)
[2021-12-14] MEDS: ALPRAZolam 0.25 MG TAB PO PRN (21:17)
[2021-12-14] MEDS: ZIPRASIDONE 60 MG CAP PO SCH (21:17)
[2021-12-15 06:47] LABS: Glucose,Whole Blood 93 mg/dL (70-110)
[2021-12-15] MEDS: HYDROcodone/APAP 10-325MG 1 EACH TAB PO PRN ×3 (09:42→22:12)
[2021-12-15] MEDS: allopurinoL 300 MG TAB PO SCH (11:07)
[2021-12-15] MEDS: buPROPion XL 150 MG TAB.ER.24H PO SCH ×3 (11:08→22:03)
[2021-12-15] MEDS: DOCUSATE 100 MG CAP PO SCH (11:08)
[2021-12-15] MEDS: CHOLECALCIFEROL 125 MCG (5000 IU) TABLET PO SCH (11:08)
[2021-12-15] MEDS: GABAPENTIN 400 MG CAP PO SCH ×3 (11:09→22:00)
[2021-12-15] MEDS: SPIRONOLACTONE-HCTZ 25-25MG 1 EACH TAB PO SCH (11:09)
[2021-12-15] MEDS: hydrOXYzine pamoate 25 MG CAP PO SCH (11:10)
[2021-12-15 11:35] LABS: Glucose,Whole Blood 114 mg/dL (70-110)
[2021-12-15 16:43] LABS: Glucose,Whole Blood 109 mg/dL (70-110)
[2021-12-15 19:06] LABS: Glucose,Whole Blood 120 mg/dL (70-110)
[2021-12-15] MEDS: ZIPRASIDONE 60 MG CAP PO SCH (22:00)
[2021-12-15] MEDS: ALPRAZolam 0.25 MG TAB PO PRN (22:13)
[2021-12-15] MEDS: SODIUM CHLORIDE 0.9% 1,000 ML IV SCH (22:29)
[2021-12-16] MEDS: SODIUM CHLORIDE 0.9% 1,000 ML IV SCH (01:53)
[2021-12-16 07:16] LABS: Glucose,Whole Blood 78 mg/dL (70-110)
[2021-12-16] MEDS: HYDROcodone/APAP 10-325MG 1 EACH TAB PO PRN ×2 (07:31→13:58)
[2021-12-16] MEDS: allopurinoL 300 MG TAB PO SCH (09:38)
[2021-12-16] MEDS: CHOLECALCIFEROL 125 MCG (5000 IU) TABLET PO SCH (09:38)
[2021-12-16] MEDS: DOCUSATE 100 MG CAP PO SCH (09:38)
[2021-12-16] MEDS: buPROPion XL 150 MG TAB.ER.24H PO SCH ×2 (09:38→15:46)
[2021-12-16] MEDS: SPIRONOLACTONE-HCTZ 25-25MG 1 EACH TAB PO SCH (09:38)
[2021-12-16] MEDS: hydrOXYzine pamoate 25 MG CAP PO SCH (09:38)
[2021-12-16] MEDS: GABAPENTIN 400 MG CAP PO SCH ×2 (09:38→15:46)
[2021-12-16 11:37] LABS: Glucose,Whole Blood 92 mg/dL (70-110)
[2021-12-16] MEDS: ALPRAZolam 0.25 MG TAB PO PRN (12:23)
--- NOTE | 2021-12-16 14:00 | PN ---
PROGRESS NOTE DATE OF SERVICE: 12/15/2021 CHIEF COMPLAINT: Pain in the left ankle and foot. HISTORY OF PRESENT ILLNESS: This lady was discharged and apparently a bed is being awaited. She has not gotten the knee brace that she requested. A consult has been placed with Physical Therapy. PHYSICAL EXAMINATION: Chest is clear. Cardiac exam is normal. Abdomen is soft, nontender. IMPRESSION: 1. Intractable pain in the left foot and left ankle. 2. Arthritis of the left knee. PLAN: Await discharge to half-way. MMODL / IJN: [id number] /
--- NOTE | 2021-12-16 15:09 | PN ---
PROGRESS NOTE DATE OF SERVICE: 12/16/2021 CHIEF COMPLAINT: Pain in the left foot and ankle. HISTORY OF PRESENT ILLNESS: This lady continues to slowly improve. She is waiting for a bed to open up at the [facility]. PHYSICAL EXAMINATION: Her chest is clear. Cardiac exam is normal. The abdomen is soft, nontender. IMPRESSION: Arthritis in the left foot and ankle. PLAN: Await discharge to [facility]. MMODL / IJN: [id number] /
[2021-12-16 16:11] VITALS: BP 92/68; PULSE 85; RESP 17; TEMP 98.4
== END 2021-12-16 16:05 ==
LOC: EC 14:57 → 4SSUR 17:35 → OBSVTOIN 12-14 07:23 → INTOOBSV 12-14 07:23 → UNDODISIN 12-16 16:05
PROVIDERS: ADMIT Family Medicine; ATTEND Family Medicine
DX: M79.672 Pain in left foot (principal); E87.1 Hypo-osmolality and hyponatremia; M17.12 Unilateral primary osteoarthritis, left knee; M19.072 Primary osteoarthritis, left ankle and foot; I11.0 Hypertensive heart disease with heart failure; I50.9 Heart failure, unspecified; I25.10 Atherosclerotic heart disease of native coronary artery without angina pectoris; R29.6 Repeated falls; M25.362 Other instability, left knee; K44.9 Diaphragmatic hernia without obstruction or gangrene; T50.1X6A Underdosing of loop [high-ceiling] diuretics, initial encounter; Z91.128 Patient's intentional underdosing of medication regimen for other reason; H35.30 Unspecified macular degeneration; R74.01 Elevation of levels of liver transaminase levels; F31.9 Bipolar disorder, unspecified; F41.9 Anxiety disorder, unspecified; R53.81 Other malaise; Z79.891 Long term (current) use of opiate analgesic; Z79.899 Other long term (current) drug therapy; Z86.73 Personal history of transient ischemic attack (TIA), and cerebral infarction without residual deficits; Z74.01 Bed confinement status; Z87.01 Personal history of pneumonia (recurrent); Z86.14 Personal history of Methicillin resistant Staphylococcus aureus infection; Z90.710 Acquired absence of both cervix and uterus; Z90.49 Acquired absence of other specified parts of digestive tract; Z96.60 Presence of unspecified orthopedic joint implant; Z98.890 Other specified postprocedural states; Z80.1 Family history of malignant neoplasm of trachea, bronchus and lung; Z80.3 Family history of malignant neoplasm of breast; Z82.3 Family history of stroke; Z82.49 Family history of ischemic heart disease and other diseases of the circulatory system; Z82.5 Family history of asthma and other chronic lower respiratory diseases; Z83.3 Family history of diabetes mellitus; Z83.49 Family history of other endocrine, nutritional and metabolic diseases; Z82.61 Family history of arthritis; Z84.1 Family history of disorders of kidney and ureter
CPT/HCPCS: 96361; 96375; 96374; 99285; 51702; 36415; 94640 ×2; 93005; 97116; 97530 ×5; 97162; 97166; 83880; 80053; 80048 ×3; 80076; 83605; 83735; 84484; 85025 ×3; 85610; 85730; 81003; 73610; 73630; 71046; G0378 ×8; J2270; J2405

== ENCOUNTER 2022-04-22 01:33 | Observation (INO) | payer MEDICARE, OTHER ==
[2022-04-22] MEDS ORDERED: SODIUM CHLORIDE 0.9% 500 ML 500 ML IV STA (01:52)
[2022-04-22] MEDS ORDERED: ASPIRIN 81 MG PO STA (01:52)
--- NOTE | 2022-04-22 01:58 | ED ---
General Adult HPI - General Chief complaint: Chest Pain Stated complaint: Chest Pain Time Seen by Provider: 04/22/22 01:48 Source: patient, EMS, RN notes reviewed, old records reviewed Mode of arrival: EMS Limitations: no limitations - History of Present Illness Initial comments: 71-year-old female presents to the emergency room via EMS with complaints of midsternal chest pain radiating to her left jaw and between her shoulder blades. Patient states that the pain started 2 hours ago while at rest and has been constant. Denies any nausea vomiting or diarrhea. No fevers. No cough or shortness of breath. No diaphoresis. Patient states that she does have a blockage behind her heart which is being medically managed. Also has a history of coronary artery disease, angina, and CVA. -: hour(s) (2) Location: chest Radiation: other (jaw and between shoulder blades) Severity scale (1-10): 9 Quality: sharp Consistency: constant Improves with: none Worsens with: none Associated Symptoms: other (sore throat) - Related Data Home Medications Medication Instructions Recorded Confirmed buPROPion XL [Wellbutrin XL] 150 mg PO TID 11/16/15 12/09/21 ziprasidone HCL [Geodon] 60 mg PO HS 11/16/15 12/09/21 ALPRAZolam [Xanax] 0.25 mg PO TID PRN 08/09/17 12/09/21 Alendronate Sodium 70 mg PO MO 04/02/19 12/09/21 HYDROcodone/APAP 10-325MG [[place] 1 tab PO QID 02/21/21 12/09/21 10-325] Spironolactone-Hctz 25-25Mg 1 tab PO DAILY 02/21/21 12/09/21 [Aldactazide 25-25 MG] allopurinoL [Zyloprim] 300 mg PO DAILY 02/21/21 12/09/21 Albuterol Inhaler [Ventolin Hfa 2 puff INHALATION RT-QID PRN 11/21/21 12/09/21 Inhaler] Cholecalciferol [Vitamin D3 (125 125 mcg PO DAILY 12/09/21 12/09/21 Mcg = 5000 Iu)] Docusate Sodium 250 mg PO DAILY 12/09/21 12/09/21 hydrOXYzine pamoate [Vistaril] 25 mg PO DAILY 12/09/21 12/09/21 Allergies Allergy/AdvReac Type Severity Reaction Status Date / Time No Known Allergies Allergy Verified 04/22/22 01:43 Review of Systems ROS Statement: Those systems with pertinent positive or pertinent negative responses have been documented in the HPI. ROS Other: All systems not noted in ROS Statement are negative. Past Medical History Past Medical History: Coronary Artery Disease (CAD), Chest Pain / Angina, CVA/TIA, Eye Disorder, Osteoarthritis (OA), Renal Disease Additional Past Medical History / Comment(s): EDEMA OF LEGS AT TIMES, MACULAR DEGENERATION; Pt. states she had chest pain years ago as well as a stroke, History of Any Multi-Drug Resistant Organisms: MRSA Date of last positivie culture/infection: face (unknown yr) MDRO Source:: Face Past Surgical History: Back Surgery, Cholecystectomy, Hysterectomy, Joint Replacement Additional Past Surgical History / Comment(s): shoulder surgery, pelvic fracture repaired., Past Anesthesia/Blood Transfusion Reactions: No Reported Reaction Past Psychological History: Anxiety, Bipolar Smoking Status: Never smoker Past Alcohol Use History: None Reported Past Drug Use History: None Reported - Past Family History Mother Family Medical History: Cancer Additional Family Medical History / Comment(s): Breast cancer Father Family Medical History: Cancer Additional Family Medical History / Comment(s): Lung cancer Sister(s) Family Medical History: AICD/Pacemaker, Cancer, Chest Pain / Angina, Congestive Heart Failure (CHF), COPD, Coronary Artery Disease (CAD), CVA/TIA, Diabetes Mellitus, GERD/Reflux, Hyperlipidemia, Hypertension, Liver Disease, Myocardial Infarction (MA), Osteoarthritis (OA), Pneumonia, Renal Disease Additional Family Medical History / Comment(s): SISTER X2 General Exam Limitations: no limitations General appearance: alert, in no apparent distress Head exam: Present: atraumatic, normocephalic Eye exam: Absent: scleral icterus, conjunctival injection, periorbital swelling ENT exam: Present: mucous membranes moist Neck exam: Present: normal inspection, full ROM. Absent: tenderness, m eningismus, lymphadenopathy Respiratory exam: Present: normal lung sounds bilaterally, rales (bases). Absent: respiratory distress, wheezes, rhonchi, stridor, chest wall tenderness, accessory muscle use Cardiovascular Exam: Present: regular rate GI/Abdominal exam: Present: soft. Absent: distended, tenderness Extremities exam: Present: pedal edema (BLLE nonpitting) Back exam: Absent: tenderness, CVA tenderness (R), CVA tenderness (L) Neurological exam: Present: alert, oriented X3 Psychiatric exam: Present: normal affect, normal mood Skin exam: Present: warm, dry, normal color. Absent: cyanosis, diaphoretic, pallor Course Vital Signs 04/22/22 04/22/22 01:40 03:26 Temperature 96.9 F L 97.1 F L Pulse Rate 78 87 Respiratory 20 18 Rate Blood Pressure 100/68 131/95 O2 Sat by Pulse 92 L 95 Oximetry EKG Findings - EKG Results: EKG: sinus rhythm (Ventricular rate 90, IA interval 0.154, QRS 0.102, QTC 0.407, normal axis) Medical Decision Making - Medical Decision Making Patient presents to the emergency room with complaints of 2 hours of chest pain midsternal radiating into her left jaw from between her shoulder blades. She does have a history of coronary artery disease, angina and stroke. Patient has chronic bilateral lower extremity edema with hyperpigmentation. Chest x-ray reviewed by me shows increased pulmonary markings consistent with interstitial edema worse on the left. Radiologist interpretation mild pulmonary interstitial edema could be mild acute heart failure. Lungs clear of consolidation. Hiatal hernia without change comparison November 2021 Labs show no leukocytosis. Electrolytes are unremarkable. Troponin is negative at 0.012. BNP 222. Influenza, RSV and coronavirus swabs are negative. Patient was given baby aspirin and started on heparin. She'll be admitted for chest pain with cardiology in consult. Case discussed with Dr. Costa. - Lab Data Result diagrams: 04/22/22 02:21 04/22/22 02:21 Lab Results 04/22/22 04/22/22 04/22/22 Range/Units 02:21 02:21 02:21 WBC 6.3 (3.8-10.6) k/uL RBC 4.25 (3.80-5.40) m/uL Hgb 13.9 (11.4-16.0) gm/dL Hct 41.3 (34.0-46.0) % MCV 97.1 (80.0-100.0) fL MCH 32.6 (25.0-35.0) pg MCHC 33.5 (31.0-37.0) g/dL RDW 15.0 (11.5-15.5) % Plt Count 93 L (150-450) k/uL MPV 9.1 Neutrophils % 73 % Lymphocytes % 12 % Monocytes % 12 % Eosinophils % 0 % Basophils % 1 % Neutrophils # 4.6 (1.3-7.7) k/uL Lymphocytes # 0.7 L (1.0-4.8) k/uL Monocytes # 0.8 (0-1.0) k/uL Eosinophils # 0.0 (0-0.7) k/uL Basophils # 0.0 (0-0.2) k/uL Manual Slide Review Performed PT 10.3 (9.0-12.0) sec INR 1.0 (<1.2) APTT 26.8 (22.0-30.0) sec Sodium 137 (137-145) mmol/L Potassium 3.7 (3.5-5.1) mmol/L Chloride 100 (98-107) mmol/L Carbon Dioxide 29 (22-30) mmol/L Anion Gap 8 mmol/L BUN 24 H (7-17) mg/dL Creatinine 0.93 (0.52-1.04) mg/dL Est GFR (CKD-EPI)AfAm 73 (>60 ml/min/1.73 sqM) Est GFR (CKD-EPI)NonAf 63 (>60 ml/min/1.73 sqM) Glucose 123 H (74-99) mg/dL Calcium 9.0 (8.4-10.2) mg/dL Magnesium 1.7 (1.6-2.3) mg/dL Total Bilirubin 0.7 (0.2-1.3) mg/dL AST 34 (14-36) U/L ALT 23 (4-34) U/L Alkaline Phosphatase 57 (38-126) U/L Troponin I (0.000-0.034) ng/mL NT-Pro-B Natriuret Pep pg/mL Total Protein 6.9 (6.3-8.2) g/dL Albumin 4.5 (3.5-5.0) g/dL Influenza Type A (PCR) (Not Detectd) Influenza Type B (PCR) (Not Detectd) RSV (PCR) (Not Detectd) SARS-CoV-2 (PCR) (Not Detectd) 04/22/22 04/22/22 04/22/22 Range/Units 02:21 02:21 02:29 WBC (3.8-10.6) k/uL RBC (3.80-5.40) m/uL Hgb (11.4-16.0) gm/dL Hct (34.0-46.0) % MCV (80.0-100.0) fL MCH (25.0-35.0) pg MCHC (31.0-37.0) g/dL RDW (11.5-15.5) % Plt Count (150-450) k/uL MPV Neutrophils % % Lymphocytes % % Monocytes % % Eosinophils % % Basophils % % Neutrophils # (1.3-7.7) k/uL Lymphocytes # (1.0-4.8) k/uL Monocytes # (0-1.0) k/uL Eosinophils # (0-0.7) k/uL Basophils # (0-0.2) k/uL Manual Slide Review PT (9.0-12.0) sec INR (<1.2) APTT (22.0-30.0) sec Sodium (137-145) mmol/L Potassium (3.5-5.1) mmol/L Chloride (98-107) mmol/L Carbon Dioxide (22-30) mmol/L Anion Gap mmol/L BUN (7-17) mg/dL Creatinine (0.52-1.04) mg/dL Est GFR (CKD-EPI)AfAm (>60 ml/min/1.73 sqM) Est GFR (CKD-EPI)NonAf (>60 ml/min/1.73 sqM) Glucose (74-99) mg/dL Calcium (8.4-10.2) mg/dL Magnesium (1.6-2.3) mg/dL Total Bilirubin (0.2-1.3) mg/dL AST (14-36) U/L ALT (4-34) U/L Alkaline Phosphatase (38-126) U/L Troponin I <0.012 (0.000-0.034) ng/mL NT-Pro-B Natriuret Pep 222 pg/mL Total Protein (6.3-8.2) g/dL Albumin (3.5-5.0) g/dL Influenza Type A (PCR) Not Detected (Not Detectd) Influenza Type B (PCR) Not Detected (Not Detectd) RSV (PCR) Not Detected (Not Detectd) SARS-CoV-2 (PCR) Not Detected (Not Detectd) Disposition Clinical Impression: Chest pain Disposition: ADMITTED IP TO THIS HOSP Decision Date: 04/22/22 Decision Time: 03:22
[2022-04-22 02:29] LABS: Basophils % (A) 1 %; Eosinophils % (A) 0 %; HCT 41.3 % (34.0-46.0); HGB 13.9 gm/dL (11.4-16.0); Lymphocytes # (A) 0.7 k/uL (1.0-4.8); Lymphocytes % (A) 12 %; MCH 32.6 pg (25.0-35.0); MCHC 33.5 g/dL (31.0-37.0); MCV 97.1 fL (80.0-100.0); Mean Platelet Volume 9.1; Monocytes # (A) 0.8 k/uL (0-1.0); Monocytes % (A) 12 %; Neutrophils # (A) 4.6 k/uL (1.3-7.7); Neutrophils % (A) 73 %; RBC 4.25 m/uL (3.80-5.40); WBC 6.3 k/uL (3.8-10.6)
[2022-04-22 02:44] LABS: Partial Thromboplastin Time 26.8 sec (22.0-30.0); Prothrombin Time 10.3 sec (9.0-12.0)
[2022-04-22 02:47] LABS: Albumin 4.5 g/dL (3.5-5.0); Magnesium 1.7 mg/dL (1.6-2.3); Potassium 3.7 mmol/L (3.5-5.1); Total Bilirubin 0.7 mg/dL (0.2-1.3); Total Protein 6.9 g/dL (6.3-8.2)
[2022-04-22 02:55] LABS: Platelet Count 93 k/uL (150-450)
--- NOTE | 2022-04-22 03:02 | XR ---
EXAMINATION TYPE: XR chest 2V DATE OF EXAM: 04/22/2022 COMPARISON: 12/09/2021 HISTORY: Chest pain TECHNIQUE: 2 views FINDINGS: There is some pulmonary interstitial edema. There are chest leads. No pleural effusion. Nery gs are clear of consolidation. There is hiatal hernia. IMPRESSION: There is mild pulmonary interstitial edema which is new compared to the old exam and coul d be mild acute heart failure. Hiatal hernia without change.
[2022-04-22] MEDS ORDERED: HEPARIN SODIUM 1,000 UN/ML (10ML VL) IV ONE (03:17)
[2022-04-22] MEDS ORDERED: HEPARIN SODIUM 1,000 UN/ML (10ML VL) IV PRN (03:17)
[2022-04-22] MEDS ORDERED: ACETAMINOPHEN TAB 325 MG TAB PO PRN (03:18)
[2022-04-22] MEDS ORDERED: NALOXONE 0.4 MG/ML 1 ML VIAL IV PRN (03:18)
[2022-04-22] MEDS ORDERED: NITROGLYCERIN SL TABS 0.4 MG TAB SUBLINGUAL PRN (03:21)
[2022-04-22] MEDS ORDERED: HEPARIN SOD,PORK IN 0.45% NACL 25,000 UNIT in 0.45% NACL 1 250ML.BAG IV SCH (03:30)
[2022-04-22] MEDS ORDERED: GABAPENTIN 400 MG CAP PO PRN (14:35)
[2022-04-22] MEDS ORDERED: ALBUTEROL NEBULIZED 2.5 MG/3 ML INHALATION PRN (14:35)
[2022-04-22] MEDS ORDERED: ALPRAZolam 0.5 MG TAB PO PRN (14:35)
[2022-04-22] MEDS: HYDROcodone/APAP 5-325MG 1 EACH TAB PO PRN (15:02)
--- NOTE | 2022-04-22 15:12 | CA ---
Transthoracic Echo Report Name: Ebony Restrepo Age: 71 Gender: F : 1950 Exam Date: 04/22/2022 08:12 Exam Location: [facility] Ht (in): 50 Wt (lb): 150 Ordering Physician: Anuj Russell Attending/Referring Phys: Apricot Washer Domenica Sheikh RDCS Procedure CPT: Indications: Chest Pain Cardiac Hx: Technical Quality: Contrast 1: Total Dose (mL): Contrast 2: Total Dose (mL): MEASUREMENTS (Male / Female) Normal Values 2D ECHO LV Diastolic Diameter PLAX 3.7 cm 4.2 - 5.9 / 3.9 - 5.3 cm LV Systolic Diameter PLAX 2.8 cm IVS Diastolic Thickness 0.9 cm 0.6 - 1.0 / 0.6 - 0.9 cm LVPW Diastolic Thickness 0.9 cm 0.6 - 1.0 / 0.6 - 0.9 cm LV Relative Wall Thickness 0.5 RV Internal Dim ED PLAX 2.7 cm M-MODE MV E Point Septal Separation 0.7 cm DOPPLER MV Area PHT 3.6 cm??? Mitral E Point Velocity 102.4 cm/s Mitral A Point Velocity 92.8 cm/s Mitral E to A Ratio 1.1 MV Deceleration Time 212.4 ms MV E' Velocity 5.6 cm/s Mitral E to MV E' Ratio 18.4 TR Peak Velocity 246.2 cm/s TR Peak Gradient 24.2 mmHg Right Ventricular Systolic Press 29.2 mmHg FINDINGS Left Ventricle Left ventricular ejection fraction is estimated at 55%. Left ventricular cavity size normal. Mildly increased left ventricular wall thickness. Right Ventricle Normal right ventricular size and function. Right ventricular systolic pressure within normal limits. Right Atrium Normal right atrial size. Left Atrium Normal left atrial size. Mitral Valve Structurally normal mitral valve. Mitral annular calcification. Mild mitral regurgitation. Aortic Valve Trileaflet aortic valve. Aortic valve sclerosis. Tricuspid Valve Structurally normal tricuspid valve. Mild tricuspid regurgitation. Pulmonic Valve Structurally normal pulmonic valve. Pericardium Normal pericardium. Aorta Normal size aortic root and proximal ascending aorta. CONCLUSIONS Technically suboptimal study with normal LV systolic function Mild mitral regurgitation Previewed by: Dr. Willis Oliveira MD (Electronically Signed) Final Date: 22 April 2022 15:11
[2022-04-22] MEDS: buPROPion XL 150 MG TAB.ER.24H PO SCH ×2 (15:33→19:47)
[2022-04-22 20:11] LABS: Amorphous Sediment,Urine Rare /hpf; Appearance,Urine Cloudy (Clear); Bilirubin,Urine Negative (Negative); Blood,Urine Trace (Negative); Color,Urine Yellow; Glucose,Urine (UA) Negative (Negative); Ketones,Urine Negative (Negative); Leukocyte Esterase,Urine Large (Negative); Nitrite,Urine Negative (Negative); PH, Urine 7.5 (5.0-8.0); Protein,Urine Negative (Negative); RBC,Urine 2 /hpf (0-5); Specific Gravity,Urine 1.015 (1.001-1.035); Squamous Epithelial Cell,Urine <1 /hpf (0-4); WBC,Urine 12 /hpf (0-5)
--- NOTE | 2022-04-22 20:31 | HP ---
HISTORY AND PHYSICAL CHIEF COMPLAINT: Chest pain. HISTORY OF PRESENT ILLNESS: This is another admission for this 71-year-old white female. She presented to the emergency room, stating that she had had anterior chest pain for 2 days. She described it is a pressure-like feeling like somebody standing on her chest. She had no associated shortness of breath, diaphoresis, nausea, radiation of pain, etc. REVIEW OF SYSTEMS: She has had no other symptoms and has been doing fairly well. She has had multiple orthopedic issues in the past resulting in several surgeries that have left her nearly unable to ambulate. Past medical history, family history, personal and social histories are other otherwise unremarkable. PHYSICAL EXAMINATION: VITAL SIGNS: Blood pressure is 139/86 with a pulse of 84, respirations of 30, and she is afebrile. GENERAL: She appeared to be well developed, well nourished. She was in no acute distress. HEAD, EARS, EYES, NOSE, MOUTH AND THROAT: Normal. CHEST: Clear. CARDIAC: Normal. ABDOMEN: Soft and nontender. EXTREMITIES: Unremarkable except for her postsurgical changes. NEUROLOGICAL: She is intact. DIAGNOSES: She is admitted to the hospital with diagnoses of: 1. Chest pain. 2. Hypertension. PLAN: 1. Bedrest. 2. IV fluids. 3. Serial EKGs and enzymes. 4. Cardiology consult. CLAIRE / LEILA: [id number] /
[2022-04-22] MEDS ORDERED: ZIPRASIDONE 60 MG CAP PO SCH (21:00)
[2022-04-23] MEDS: HYDROcodone/APAP 5-325MG 1 EACH TAB PO PRN (03:36)
--- NOTE | 2022-04-23 06:11 | CONS ---
CONSULTATION Cardiology Consultation CHIEF COMPLAINT: Chest pain. Ebony is a 71-year-old lady, who is a poor historian, has history of COPD, who presented to hospital complaining of chest discomfort. It is mild in intensity, pericardial that radiated between her shoulder blades, but not consists with diaphoresis. There is no shortness of breath. She does not have leg edema, PND, or orthopnea. At the time of my evaluation, she appears comfortable at rest. EKG shows sinus rhythm with nonspecific ST-T wave changes. An echocardiogram showed normal left ventricular size, wall motion, systolic function. Three sets of cardiac enzymes have all been negative. BNP is normal. PAST MEDICAL HISTORY: Significant for COPD, hypertension, dyslipidemia. MEDICATIONS: At home included: 1. Xanax. 2. Ventolin. 3. Wellbutrin. 4. [place]. 5. Aldactazide. 6. Geodon. ALLERGIES: No known drug allergies. FAMILY HISTORY: Significant for coronary artery disease. SOCIAL HISTORY: Significant for smoking. There is no history of EtOH abuse or drug abuse. REVIEW OF SYSTEMS: review of systems has been performed. Pertinents are as documented. PHYSICAL EXAMINATION: GENERAL: Comfortable at rest. VITAL SIGNS: Stable. CHEST: Reveals diminished air entry at the bases. HEART: Reveals first and second heart sounds. No gallop. ABDOMEN: Soft. EXTREMITIES: Reveal mild edema. Peripheral pulses are felt. LABORATORY DATA: Showed that the hemoglobin is 13.9, potassium is 3.7, creatinine is 0.9. ASSESSMENT AND PLAN: Chest pain, MS ruled out. I will stop the IV heparin, ambulate her, see how she does. If she is doing well, we can consider a stress test on Sunday and cardiac catheterization if necessary. MMODL / IJN: [id number] /
[2022-04-23] MEDS: buPROPion XL 150 MG TAB.ER.24H PO SCH (08:20)
[2022-04-23 08:29] VITALS: PULSE 85; RESP 16; TEMP 98.2
[2022-04-23] MEDS ORDERED: SPIRONOLACTONE-HCTZ 25-25MG 1 EACH TAB PO SCH (09:00)
[2022-04-23] MEDS ORDERED: allopurinoL 300 MG TAB PO SCH (09:00)
[2022-04-23 09:41] LABS: INR 1.01 (0.90-1.11); Prothrombin Time 11.4 sec (9.9-11.9)
[2022-04-23 10:20] LABS: Basophils # (A) 0.01 X 10*3/uL (0.00-0.10); Basophils % (A) 0.2 %; Eosinophils # (A) 0.02 X 10*3/uL (0.04-0.35); Eosinophils % (A) 0.3 %; HCT 37.6 % (37.2-46.3); HGB 12.5 g/dL (12.0-15.0); Immature Grans, Automated 0.2 %; Lymphocytes # (A) 0.82 X 10*3/uL (0.90-5.00); Lymphocytes % (A) 13.1 %; MCHC 33.2 g/dL (32.0-37.0); MCV 96.2 fL (80.0-97.0); Mean Platelet Volume 12.1 fL (9.5-12.2); Monocytes # (A) 0.63 X 10*3/uL (0.20-1.00); NRBC Per 100 WBC 0 /100 WBCS (0.0-0.0); Neutrophils # (A) 4.78 X 10*3/uL (1.80-7.70); Neutrophils % (A) 76.2 %; Platelet Count 76 X 10*3/uL (140-440); RBC 3.91 X 10*6/uL (4.10-5.20); RDW 15.3 % (11.5-14.5); WBC 6.27 X 10*3/uL (4.50-10.00)
[2022-04-23 10:21] LABS: RBC Morphology NORMAL
[2022-04-23 11:10] VITALS: BP 95/66
--- NOTE | 2022-04-23 12:02 | PN ---
PROGRESS NOTE SUBJECTIVE: A 71-year-old lady who is admitted to hospital with chest pain and ruled out myocardial infarction. This morning she is doing well. Denies any further episodes of chest pain. Echocardiogram shows normal LV function and wall motion. OBJECTIVE: VITAL SIGNS: Afebrile, heart rate is 85 beats per minute, blood pressure 94/65, O2 saturation is 95% on room air. NECK: There is no jugular venous distention. CHEST: Reveals good air entry bilaterally. HEART: Reveals first and second heart sounds. No gallop, no murmur. ABDOMEN: Soft. EXTREMITIES: Did not reveal any edema, peripheral pulses are felt. LABORATORY DATA: Labs showed that the hemoglobin is 13.9, troponins are negative, and potassium is 3.7. ASSESSMENT: Chest pain, myocardial infarction ruled out. The patient is doing well. I talked to her about staying here and getting a stress test done tomorrow, going home and scheduling a dobutamine stress echo as outpatient. She wishes to go home and will schedule a stress test through her primary care physician's office. MMODL / IJN: [id number] /
--- NOTE | 2022-04-23 13:08 | DS ---
DISCHARGE SUMMARY CHIEF COMPLAINT: Chest pain for 2 days. HISTORY OF PRESENT ILLNESS AND PHYSICAL EXAMINATION: Details of this lady's history and physical can be found in the initial workup. LABORATORY STUDIES: While she is in the hospital, she had laboratory studies, details of which can be found in the laboratory section of her chart. COURSE IN THE HOSPITAL: After admission, she was placed on bedrest on intravenous fluids and had serial EKGs and enzymes. She was seen by Cardiology and it was felt that she could be discharged on , and she will go home on her usual activity, diet, and medications. She will follow up in the office in several days and Cardiology is planning a stress test in the future. FINAL DIAGNOSIS: 1. Atypical chest pain. 2. History of hypertension. OPERATIONS: None. CONSULTATIONS: Cardiology. She is improved. MMODL / BISMARKN: [id number] /
== END 2022-04-23 14:21 | disposition home or self-care (01) ==
LOC: EC 01:33 → 6NMEDSUR 03:28
PROVIDERS: ADMIT Family Medicine; ATTEND Family Medicine
DX: R07.89 Other chest pain (principal); J44.9 Chronic obstructive pulmonary disease, unspecified; I25.10 Atherosclerotic heart disease of native coronary artery without angina pectoris; I10 Essential (primary) hypertension; E78.5 Hyperlipidemia, unspecified; N28.9 Disorder of kidney and ureter, unspecified; J02.9 Acute pharyngitis, unspecified; H35.30 Unspecified macular degeneration; M19.90 Unspecified osteoarthritis, unspecified site; I34.0 Nonrheumatic mitral (valve) insufficiency; R60.0 Localized edema; L81.9 Disorder of pigmentation, unspecified; K44.9 Diaphragmatic hernia without obstruction or gangrene; F31.9 Bipolar disorder, unspecified; F41.9 Anxiety disorder, unspecified; Z20.822 Contact with and (suspected) exposure to COVID-19; Z79.891 Long term (current) use of opiate analgesic; Z79.899 Other long term (current) drug therapy; Z86.73 Personal history of transient ischemic attack (TIA), and cerebral infarction without residual deficits; Z86.14 Personal history of Methicillin resistant Staphylococcus aureus infection; Z90.710 Acquired absence of both cervix and uterus; Z90.49 Acquired absence of other specified parts of digestive tract; Z96.60 Presence of unspecified orthopedic joint implant; Z98.890 Other specified postprocedural states; Z80.3 Family history of malignant neoplasm of breast; Z80.1 Family history of malignant neoplasm of trachea, bronchus and lung; Z82.49 Family history of ischemic heart disease and other diseases of the circulatory system; Z83.3 Family history of diabetes mellitus; Z82.61 Family history of arthritis; Z83.49 Family history of other endocrine, nutritional and metabolic diseases; Z82.5 Family history of asthma and other chronic lower respiratory diseases
CPT/HCPCS: 96376 ×2; 96366 ×2; 96361; 96365; 99285; 36415; 93005; 93306; 83880; 80053; 83735; 84484; 85025 ×2; 85610 ×2; 85730; 81001; 87086; 87636; 71046; G0378 ×2; J1644 ×2

== ENCOUNTER 2022-06-01 17:15 | Inpatient (IN) | payer MEDICARE, OTHER ==
[2022-06-01] MEDS ORDERED: AZITHROMYCIN 500 MG in SODIUM CHLORIDE 0.9% 250 ML IVPB STA (19:41)
[2022-06-01] MEDS ORDERED: SODIUM CHLORIDE 0.9% 500 ML 500 ML IV STA (19:41)
[2022-06-01] MEDS ORDERED: IPRATROPIUM-ALBUTEROL 3 ML NEB INHALATION STA (19:41)
--- NOTE | 2022-06-01 20:49 | ED ---
General Adult HPI - General Chief complaint: Upper Respiratory Infection Stated complaint: Pneumonia,Sent by PCP Time Seen by Provider: 06/01/22 19:25 Source: patient Mode of arrival: ambulatory Limitations: no limitations - History of Present Illness Initial comments: Patient is a 71-year-old female presenting with chief complaint of difficulty breathing. Patient was seen by her PCP Dr. Moore for this issue who prompted her to report to the ER after taking a chest x-ray and office concerning for pneumonia. Patient was seen at [facility], she stayed overnight in the left yesterday because "she didn't like the way the staff was treating her". Patient states that she called Dr. Moore today who advised her to report back to the hospital for continuing treatment. She is continuing to have shortness of breath and some chest tightness. No fever or chills. No nausea, vomiting, abdominal pain. She admits to productive cough. - Related Data Home Medications Medication Instructions Recorded Confirmed buPROPion XL [Wellbutrin XL] 150 mg PO TID 11/16/15 06/01/22 ziprasidone HCL [Geodon] 60 mg PO HS 11/16/15 06/01/22 Alendronate Sodium 70 mg PO FR 04/02/19 06/01/22 HYDROcodone/APAP 10-325MG [[place] 1 tab PO QID 02/21/21 06/01/22 10-325] Spironolactone-Hctz 25-25Mg 2 tab PO DAILY 02/21/21 06/01/22 [Aldactazide 25-25 MG] allopurinoL [Zyloprim] 300 mg PO BID 02/21/21 06/01/22 Albuterol Inhaler [Ventolin Hfa 2 puff INHALATION RT-Q6H PRN 11/21/21 06/01/22 Inhaler] ALPRAZolam [Xanax] 0.5 mg PO TID PRN 04/22/22 06/01/22 Gabapentin [Neurontin] 400 mg PO QID PRN 04/22/22 06/01/22 Pravastatin Sodium [Pravachol] 40 mg PO DAILY 04/22/22 06/01/22 Ondansetron [Zofran] 4 mg PO Q6H PRN 06/01/22 06/01/22 Allergies Allergy/AdvReac Type Severity Reaction Status Date / Time No Known Allergies Allergy Verified 06/01/22 22:15 Review of Systems ROS Statement: Those systems with pertinent positive or pertinent negative responses have been documented in the HPI. ROS Other: All systems not noted in ROS Statement are negative. Past Medical History Past Medical History: Coronary Artery Disease (CAD), Chest Pain / Angina, CVA/ TIA, Eye Disorder, Osteoarthritis (OA), Renal Disease Additional Past Medical History / Comment(s): EDEMA OF LEGS AT TIMES, MACULAR DEGENERATION; Pt. states she had chest pain years ago as well as a stroke, History of Any Multi-Drug Resistant Organisms: MRSA Date of last positivie culture/infection: face (unknown yr) MDRO Source:: Face Past Surgical History: Back Surgery, Cholecystectomy, Hysterectomy, Joint Replacement Additional Past Surgical History / Comment(s): shoulder surgery, pelvic fracture repaired., Past Anesthesia/Blood Transfusion Reactions: No Reported Reaction Past Psychological History: Anxiety, Bipolar Smoking Status: Never smoker Past Alcohol Use History: None Reported Past Drug Use History: None Reported - Past Family History Mother Family Medical History: Cancer Additional Family Medical History / Comment(s): Breast cancer Father Family Medical History: Cancer Additional Family Medical History / Comment(s): Lung cancer Sister(s) Family Medical History: AICD/Pacemaker, Cancer, Chest Pain / Angina, Congestive Heart Failure (CHF), COPD, Coronary Artery Disease (CAD), CVA/TIA, Diabetes Mellitus, GERD/Reflux, Hyperlipidemia, Hypertension, Liver Disease, Myocardial Infarction (OR), Osteoarthritis (OA), Pneumonia, Renal Disease Additional Family Medical History / Comment(s): SISTER X2 General Exam Limitations: no limitations General appearance: alert, in no apparent distress Head exam: Present: atraumatic, normocephalic, normal inspection Eye exam: Present: normal appearance Neck exam: Present: normal inspection Respiratory exam: Present: wheezes. Absent: respiratory distress, rales, rhonchi, stridor Cardiovascular Exam: Present: regular rate, normal rhythm, normal heart sounds. Absent: systolic murmur, diastolic murmur, rubs, gallop, clicks Neurological exam: Present: alert, oriented X3, CN II-XII intact Psychiatric exam: Present: normal affect, normal mood Skin exam: Present: warm, dry, intact, normal color. Absent: rash Course Vital Signs 06/01/22 06/01/2206/01/23 18:10 19:39 19:50 Temperature 98.4 F 98.2 F Pulse Rate 98 94 92 Respiratory 20 14 Rate Blood Pressure 117/80 116/79 102/55 O2 Sat by Pulse 96 94 L 97 Oximetry 06/01/22 06/01/22 06/01/22 20:55 21:00 21:44 Temperature Pulse Rate 94 96 103 H Respiratory 16 Rate Blood Pressure 93/58 O2 Sat by Pulse 97 Oximetry EKG Findings - EKG Comments: EKG Findings:: Sinus rhythm. Ventricular rate 95. MI interval 160. QRS 93. QTc 356. QTc 409. T-wave inversion in leads 2, 3, aVF as well as the lateral leads. There appears to be some progression from previous EKGs. EKG is interp reted by myself as well as my attending Dr. Carlos Medical Decision Making - Medical Decision Making Was pt. sent in by a medical professional or institution (, PA, SAUSAGE STUFFER, urgent care, hospital, or group home...) When possible be specific @ -PCP Dr. Moore Did you speak to anyone other than the patient for history (EMS, parent, family, police, friend...)? What history was obtained from this source @ -[No] Did you review nursing and triage notes (agree or disagree)? Why? @ -[I reviewed and agree with nursing and triage notes] Were old charts reviewed (outside hosp., previous admission, EMS record, old EKG, old radiological studies, urgent care reports/EKG's, group home records)? Report findings @ -Previous visits reviewed Differential Diagnosis (chest pain, altered mental status, abdominal pain women, abdominal pain men, vaginal bleeding, weakness, fever, dyspnea, syncope, headache, dizziness, GI bleed, back pain, seizure, CVA, palpatations, mental health)? @ -[facility] Differential Dyspnea: Coronary syndrome, arrhythmia, tamponade, asthma, COPD, pulmonary embolism, pneumonia, pneumothorax, pulmonary effusion, anaphylaxis, diabetic ketoacidosis, flailed chest, pulmonary contusion, diaphragmatic rupture, anemia, neuromuscular this is not meant to be an all-inclusive list. EKG interpreted by me (3pts min.). @ -[As above] X-rays interpreted by me (1pt min.). @ -X-ray shows left basilar airspace opacities correlate for left pleural effusion and/or developing pneumonia as well as cardiomegaly. CT interpreted by me (1pt min.). @ -[None done] U/S interpreted by me (1pt. min.). @ -[None done] What testing was considered but not performed or refused? (CT, X-rays, U/S, lab s)? Why? @ -[None] What meds were considered but not given or refused? Why? @ -[None] Did you discuss the management of the patient with other professionals (professionals i.e. DrYaquelin, PA, SAUSAGE STUFFER, lab, RT, psych nurse, social work supervisor, straw baler, teacher, geographic area intelligence officer, embedded case manager)? Give summary @ -[No] Was smoking cessation discussed for >3mins.? @ -[No] Was critical care preformed (if so, how long)? @ -[No] Were there social determinants of health that impacted care today? How? (Homelessness, low income, unemployed, alcoholism, drug addiction, transportation, low edu. Level, literacy, decrease access to med. care, half-way, rehab)? @ -[No] Was there de-escalation of care discussed even if they declined (Discuss DNR or withdrawal of care, Hospice)? DNR status @ -[No] What co-morbidities impacted this encounter? (DM, HTN, Smoking, COPD, CAD, Cancer, CVA, ARF, Chemo, Hep., AIDS, mental health diagnosis, sleep apnea, morbid obesity)? @ -COPD, coronary artery disease Was patient admitted / discharged? Hospital course, mention meds given and route, prescriptions, significant lab abnormalities, going to OR and other pertinent info. @ -Patient is a 71-year-old female presenting with chief complaint of dyspnea. Patient was seen by her PCP. Days ago for this complaint chest x-ray was concerning for pneumonia and she was advised to report to the hospital. Patient was at [facility] and stayed overnight, she left yesterday as she did not like the way she was being treated. She called her PCPs office today who advised that she report back to the hospital for continued treatment. She is continuing to have dyspnea and some chest tightness. Chest x-ray shows possible pleural effusion or developing pneumonia, patient was covered with azithromycin and Rocephin. WBC 5.3. Mild transaminitis. Troponin is less than 0.012. Patient is negative for influenza, RSV, and Covid. I spoke with Dr. Moore regarding the patient, he requested that I order a CT of the chest due to the pleural effusion. He also requested that a placement for Vicodin 7.5 every 6 hours when necessary for pain before ordered as patient has history of chronic pain. He accepted admission. Patient is agreeable with this plan. I discussed this case with my attending Dr. Carlos Undiagnosed new problem with uncertain prognosis? @ -[No] Drug Therapy requiring intensive monitoring for toxicity (Heparin, Nitro, Insulin, Cardizem)? @ -[No] Were any procedures done? @ -[No] Diagnosis/symptom? @ -Pneumonia Acute, or Chronic, or Acute on Chronic? @ -acute Uncomplicated (without systemic symptoms) or Complicated (systemic symptoms)? @ -complicated Side effects of treatment? @ -[No] Exacerbation, Progression, or Severe Exacerbation? @ -[No] Poses a threat to life or bodily function? How? (Chest pain, USA, OR, pneumonia, PE, COPD, DKA, ARF, appy, cholecystitis, CVA, Diverticulitis, Homicidal, Suicidal, threat to staff... and all critical care pts) @ -yes - Lab Data Result diagrams: 06/01/22 20:45 06/01/22 20:45 Lab Results 06/01/22 06/01/22 06/01/22 Range/Units 20:07 20:45 20:45 WBC 5.3 (3.8-10.6) k/uL RBC 3.85 (3.80-5.40) m/uL Hgb 12.1 (11.4-16.0) gm/dL Hct 37.0 (34.0-46.0) % MCV 96.0 (80.0-100.0) fL MCH 31.4 (25.0-35.0) pg MCHC 32.7 (31.0-37.0) g/dL RDW 14.4 (11.5-15.5) % Plt Count 167 D (150-450) k/uL MPV 8.8 Neutrophils % 72 % Lymphocytes % 15 % Monocytes % 10 % Eosinophils % 1 % Basophils % 0 % Neutrophils # 3.8 (1.3-7.7) k/uL Lymphocytes # 0.8 L (1.0-4.8) k/uL Monocytes # 0.5 (0-1.0) k/uL Eosinophils # 0.1 (0-0.7) k/uL Basophils # 0.0 (0-0.2) k/uL PT 10.6 (9.0-12.0) sec INR 1.0 (<1.2) APTT 23.2 (22.0-30.0) sec Sodium (137-145) mmol/L Potassium (3.5-5.1) mmol/L Chloride (98-107) mmol/L Carbon Dioxide (22-30) mmol/L Anion Gap mmol/L BUN (7-17) mg/dL Creatinine (0.52-1.04) mg/dL Est GFR (CKD-EPI)AfAm (>60 ml/min/1.73 sqM) Est GFR (CKD-EPI)NonAf (>60 ml/min/1.73 sqM) Glucose (74-99) mg/dL Plasma Lactic Acid Ry (0.7-2.0) mmol/L Calcium (8.4-10.2) mg/dL Total Bilirubin (0.2-1.3) mg/dL AST (14-36) U/L ALT (4-34) U/L Alkaline Phosphatase (38-126) U/L Troponin I (0.000-0.034) ng/mL Total Protein (6.3-8.2) g/dL Albumin (3.5-5.0) g/dL Influenza Type A (PCR) Not Detected (Not Detectd) Influenza Type B (PCR) Not Detected (Not Detectd) RSV (PCR) Not Detected (Not Detectd) SARS-CoV-2 (PCR) Not Detected (Not Detectd) 06/01/22 06/01/22 06/01/22 Range/Units 20:45 20:45 20:45 WBC (3.8-10.6) k/uL RBC (3.80-5.40) m/uL Hgb (11.4-16.0) gm/dL Hct (34.0-46.0) % MCV (80.0-100.0) fL MCH (25.0-35.0) pg MCHC (31.0-37.0) g/dL RDW (11.5-15.5) % Plt Count (150-450) k/uL MPV Neutrophils % % Lymphocytes % % Monocytes % % Eosinophils % % Basophils % % Neutrophils # (1.3-7.7) k/uL Lymphocytes # (1.0-4.8) k/uL Monocytes # (0-1.0) k/uL Eosinophils # (0-0.7) k/uL Basophils # (0-0.2) k/uL PT (9.0-12.0) sec INR (<1.2) APTT (22.0-30.0) sec Sodium 138 (137-145) mmol/L Potassium 3.6 (3.5-5.1) mmol/L Chloride 102 (98-107) mmol/L Carbon Dioxide 25 (22-30) mmol/L Anion Gap 11 mmol/L BUN 20 H (7-17) mg/dL Creatinine 0.66 (0.52-1.04) mg/dL Est GFR (CKD-EPI)AfAm >90 (>60 ml/min/1.73 sqM) Est GFR (CKD-EPI)NonAf >90 (>60 ml/min/1.73 sqM) Glucose 93 (74-99) mg/dL Plasma Lactic Acid Ry 1.1 (0.7-2.0) mmol/L Calcium 9.0 (8.4-10.2) mg/dL Total Bilirubin 0.9 (0.2-1.3) mg/dL AST 94 H (14-36) U/L ALT 63 H (4-34) U/L Alkaline Phosphatase 165 H (38-126) U/L Troponin I <0.012 (0.000-0.034) ng/mL Total Protein 7.0 (6.3-8.2) g/dL Albumin 4.0 (3.5-5.0) g/dL Influenza Type A (PCR) (Not Detectd) Influenza Type B (PCR) (Not Detectd) RSV (PCR) (Not Detectd) SARS-CoV-2 (PCR) (Not Detectd) Disposition Clinical Impression: Pneumonia Disposition: ADMITTED IP TO [facility] Condition: Fair Time of Disposition: 21:48 Decision to Admit Reason: Admit from EC Decision Date: 06/01/22 Decision Time: 21:48
[2022-06-01 20:57] LABS: Basophils % (A) 0 %; Eosinophils # (A) 0.1 k/uL (0-0.7); Eosinophils % (A) 1 %; HGB 12.1 gm/dL (11.4-16.0); Lymphocytes # (A) 0.8 k/uL (1.0-4.8); Lymphocytes % (A) 15 %; MCH 31.4 pg (25.0-35.0); MCHC 32.7 g/dL (31.0-37.0); Mean Platelet Volume 8.8; Monocytes # (A) 0.5 k/uL (0-1.0); Monocytes % (A) 10 %; Neutrophils # (A) 3.8 k/uL (1.3-7.7); Neutrophils % (A) 72 %; RBC 3.85 m/uL (3.80-5.40); RDW 14.4 % (11.5-15.5); WBC 5.3 k/uL (3.8-10.6)
[2022-06-01 20:59] LABS: Platelet Count 167 k/uL (150-450)
[2022-06-01 21:05] LABS: Potassium 3.6 mmol/L (3.5-5.1)
[2022-06-01 21:06] LABS: ALT 63 U/L (4-34); AST 94 U/L (14-36); African American GFR (CKD) >90 (>60 ml/min/1.73 sqM); Alkaline Phosphatase 165 U/L (38-126); Anion Gap 11 mmol/L; Blood Urea Nitrogen 20 mg/dL (7-17); Carbon Dioxide 25 mmol/L (22-30); Chloride 102 mmol/L (98-107); Glucose 93 mg/dL (74-99); Non-African American GFR(CKD) >90 (>60 ml/min/1.73 sqM); Sodium 138 mmol/L (137-145); Total Bilirubin 0.9 mg/dL (0.2-1.3)
[2022-06-01 21:07] LABS: Partial Thromboplastin Time 23.2 sec (22.0-30.0); Prothrombin Time 10.6 sec (9.0-12.0)
--- NOTE | 2022-06-01 21:08 | XR ---
EXAMINATION TYPE: XR chest 2V DATE OF EXAM: 06/01/2022 8:49 PM COMPARISON: Chest radiographs from 04/22/2022 TECHNIQUE: XR chest 2V two-view. CLINICAL INDICATION:Female, 71 years old with history of difficulty breathing; FINDINGS: Lungs/Pleura: Opacity in the left lung base is new from prior and could represent combination of diap hragm and left pleural effusion. Pulmonary vascularity: Unremarkable. Heart/mediastinum: Cardiomediastinal silhouette is partially obscured due to overlying and adjacent o pacities. A hiatal hernia is again seen. Musculoskeletal: No acute osseous pathology. Old right-sided rib fractures. IMPRESSION: 1. Left basilar airspace opacities correlate for left pleural effusion and/or developing pneumonia. 2. Cardiomegaly.
[2022-06-01] MEDS ORDERED: NALOXONE 0.4 MG/ML 1 ML VIAL IV PRN (21:38)
[2022-06-01] MEDS ORDERED: HYDROcodone/APAP 7.5-325MG 1 EACH TAB PO PRN (21:40)
[2022-06-01] MEDS ORDERED: RX INFO: IV CONTRAST WAS GIVEN 1 EACH MISC MISCELLANE PRN (21:43)
[2022-06-02] MEDS ORDERED: ALPRAZolam 0.25 MG TAB PO STA (08:59)
--- NOTE | 2022-06-02 09:04 | US ---
EXAMINATION TYPE: US chest DATE OF EXAM: 06/02/2022 COMPARISON: CXR CLINICAL HISTORY: Markings for thoracentesis by pulmonary staff. Pleural effusion TECHNIQUE: Targeted ultrasound of the posterior lower bilateral hemithoraces EXAM MEASUREMENTS: Right Pleural Effusion pocket size: 0.0 cm Left Pleural Effusion pocket size: 1.5 cm Left skin surface to fluid distance: 3.4 cm Right side NOT marked for possible thoracentesis outside the dept. Left side NOT marked for possible thoracentesis outside the dept. Pulmonologists are able to review the images in the patient?s EMR. IMPRESSIONS: 1. No visualized pleural effusion on the right. 2. Trace left pleural effusion.
--- NOTE | 2022-06-02 11:25 | CT ---
EXAMINATION TYPE: CT angio chest DATE OF EXAM: 06/02/2022 COMPARISON: Radiograph 06/01/2022 HISTORY: 71-year-old female SOB TECHNIQUE: Contiguous axial scanning of the chest performed with IV Contrast, patient injected with 6 0 mL of Isovue 300. Coronal/sagittal MIP reconstructions performed. CT DLP: 345.80 mGycm Automated exposure control for dose reduction was used. FINDINGS: Heart upper limits of normal in size with small pericardial effusion. LAD and circumflex coronary art francis calcifications are present. Ectasia ascending aorta 3.8 cm. Mild atherosclerotic arch calcifications. Bovine configuration to the aortic arch. Borderline to mildly enlarged 1.1 cm right tracheoesophageal lymph node, axial image 18. Otherwise, n o thoracic lymphadenopathy by CT size criteria. Satisfactory opacification of the pulmonary artery system. There is some breathing motion artifact which limits evaluation. No definite pulmonary embolus is see n. There is a moderate left and trace right pleural effusion. Atelectasis of the large posterior and of the left lower lobe. Mild adjacent atelectasis on the right. Large hiatal hernia involving two thirds of the stomach in the lower chest. Cholecystectomy clips. Bones: Severe degenerative change right shoulder and moderate at the left shoulder. There is vertebra l compression collapse and T7 with retropulsion into the ventral spinal canal contributing to mild-to -moderate spinal stenosis narrowing. The vertebral compression deformity was seen on the 12/09/2021 ra diograph. Mild superior end plate deformity of both T11 and L1 likely chronic as well. IMPRESSION: 1. BREATHING MOTION ARTIFACT LIMITING THE EVALUATION. NO DEFINITE PULMONARY EMBOLUS. 2. MODERATE LEFT PLEURAL EFFUSION WITH ADJACENT ATELECTATIC COLLAPSE OF MOST OF THE LEFT LOWER LOBE. A SMALL PORTION OF THE SUPERIOR SEGMENT REMAINS AERATED. CORRELATE CLINICALLY TO EXCLUDE UNDERLYING P NEUMONIA. 3. TRACE RIGHT PLEURAL EFFUSION WITH ADJACENT ATELECTASIS. 4. BORDERLINE TO MILDLY ENLARGED 1.1 CM RIGHT SUPERIOR MEDIASTINAL LYMPH NODE PROBABLY REACTIVE/POST INFLAMMATORY. ATTENTION ON FOLLOW-UP. 5. LARGE HIATAL HERNIA INVOLVING TWO THIRDS OF THE STOMACH IN THE LOWER CHEST. 6. CHRONIC VERTEBRAL COMPRESSION COLLAPSE OF T7.
[2022-06-02] MEDS ORDERED: IPRATROPIUM-ALBUTEROL 3 ML NEB INHALATION PRN (13:15)
--- NOTE | 2022-06-02 13:17 | P.CNPUL ---
History of Present Illness Consult date: 06/02/22 Requesting physician: Azael Alba Reason for consult: dyspnea Chief complaint: shortness of breath for 4 days History of present illness: Patient is a 71-year-old, , female presenting with chief complaint of difficulty breathing for 4 or 5 days. Patient was seen by her PCP Dr. Moore for this issue who prompted her to report to the ER after taking a chest x-ray in the office concerning for pneumonia. Patient was seen at [facility], she stayed overnight and then left against MEDICAL advice yesterday because "she didn't like the way the staff was treating her". Patient states that she called Dr. Moore today who advised her to report back to the hospital for continuing treatment. She is continuing to have shortness of breath and some chest tightness. denies fever or chills, cough, hemoptysis, nausea, vomiting, abdominal pain. she denies any sick contacts. patient's past medical history is positive for coronary artery disease, CVA/TIA, chronic kidney disease, hiatal hernia, GERD, anxiety, bipolar. she denies history of smoking. patient is sitting up in bed, on room air, in no acute distress. her chest x-ray on arrival did show left basilar airspace opacity which could correlate with left pleural effusion or pneumonia and some mild cardiomegaly and a large hiatal hernia. A follow up chest CT angiogram was performed which was limited due to breathing artifact however no definite pulmonary embolism was identified. A moderate left pleural effusion was found with compressive atelectasis of the left lower lobe which could correlate with underlining pneumonia. There is also a right trace pleural effusion identified. Mildly enlarged mediastinal lymph node 1.1 cm on the right superior segment was identified. And a large hiatal hernia was redemonstrated. There was also a chronic vertebral collapse of T7. a chest ultrasound was performed which showed only a trace left pleural effusion. her CBC on arrival showed a WBC count of 5.3, hemoglobin of 12.1, hematocrit 37, platelets 167,000. her BMP showed a sodium 138, potassium 3.6, chloride 102, serum CO2 25, BUN 20, creatinine 0.66, glucose 93. Normal saline is infusing at 20 mL per hour. she's afebrile.Patient's LFTs were mildly elevated. Troponins are negative 1. .patient's proBNP was 1290. patient did have an echocardiogram performed on a recent admission on 04/22/2022 which showed a preserved ejection fraction of 55% with some mild mitral regurgitation. patient is currently being managed with DuoNeb inhalation. Patient did receive azithromycin and Rocephin in the ER. She is afebrile. Vital signs remain stable. Review of Systems REVIEW OF SYSTEMS: CONSTITUTIONAL: Denies any recent significant weight loss or weight gain. EYES: Denies change in vision. EARS, NOSE, MOUTH, THROAT: Denies headaches, denies sore throat. CARDIOVASCULAR: Denies chest pain, palpitations or syncopal episodes. RESPIRATORY: see HPI GASTROINTESTINAL: Denies change in appetite, denies abdominal pain GENITOURINARY: Denies hematuria, denies infections. MUSKULOSKELETAL: Denies pain, denies swelling. INTEGUMENTARY: Denies rash, denies eczema. NEUROLOGICAL: Denies recent memory loss, no recent seizure activity. PSYCHIATRIC: Denies anxiety, denies depression. HEMATOLOGIC/LYMPHATIC: Denies anemia, denies enlarged lymph nodes. Past Medical History Past Medical History: Coronary Artery Disease (CAD), Chest Pain / Angina, CVA/TIA, Eye Disorder, Osteoarthritis (OA), Renal Disease Additional Past Medical History / Comment(s): EDEMA OF LEGS AT TIMES, MACULAR DEGENERATION; Pt. states she had chest pain years ago as well as a stroke, History of Any Multi-Drug Resistant Organisms: MRSA Date of last positivie culture/infection: face (unknown yr) MDRO Source:: Face Past Surgical History: Back Surgery, Cholecystectomy, Hysterectomy, Joint Replacement Additional Past Surgical History / Comment(s): shoulder surgery, pelvic fracture repaired., Past Anesthesia/Blood Transfusion Reactions: No Reported Reaction Past Psychological History: Anxiety, Bipolar Smoking Status: Never smoker Past Alcohol Use History: None Reported Past Drug Use History: None Reported - Past Family History Mother Family Medical History: Cancer Additional Family Medical History / Comment(s): Breast cancer Father Family Medical History: Cancer Additional Family Medical History / Comment(s): Lung cancer Sister(s) Family Medical History: AICD/Pacemaker, Cancer, Chest Pain / Angina, Congestive Heart Failure (CHF), COPD, Coronary Artery Disease (CAD), CVA/TIA, Diabetes Mellitus, GERD/Reflux, Hyperlipidemia, Hypertension, Liver Disease, Myocardial Infarction ([place]), Osteoarthritis (OA), Pneumonia, Renal Disease Additional Family Medical History / Comment(s): SISTER X2 Medications and Allergies Home Medications Medication Instructions Recorded Confirmed Type buPROPion XL [Wellbutrin XL] 150 mg PO TID 11/16/15 06/01/22 History ziprasidone HCL [Geodon] 60 mg PO HS 11/16/15 06/01/22 History Alendronate Sodium 70 mg PO FR 04/02/19 06/01/22 History HYDROcodone/APAP 10-325MG [Hodges 1 tab PO QID 02/21/21 06/01/22 History 10-325] Spironolactone-Hctz 25-25Mg 2 tab PO DAILY 02/21/21 06/01/22 History [Aldactazide 25-25 MG] allopurinoL [Zyloprim] 300 mg PO BID 02/21/21 06/01/22 History Albuterol Inhaler [Ventolin Hfa 2 puff INHALATION RT-Q6H PRN 11/21/21 06/01/22 History Inhaler] ALPRAZolam [Xanax] 0.5 mg PO TID PRN 04/22/22 06/01/22 History Gabapentin [Neurontin] 400 mg PO QID PRN 04/22/22 06/01/22 History Pravastatin Sodium [Pravachol] 40 mg PO DAILY 04/22/22 06/01/22 History Ondansetron [Zofran] 4 mg PO Q6H PRN 06/01/22 06/01/22 History Allergies Allergy/AdvReac Type Severity Reaction Status Date / Time No Known Allergies Allergy Verified 06/01/22 22:15 Physical Exam Vitals: Vital Signs Temp Pulse Pulse Resp BP BP Pulse Ox 06/02/22 07:55 98.3 F 102 H 16 111/74 94 L 06/02/22 02:41 98.5 F 94 20 119/79 93 L 06/01/22 23:02 98.4 F 100 20 117/81 95 06/01/22 21:44 103 H 16 93/58 97 06/01/22 21:00 96 06/01/22 20:55 94 06/01/22 19:50 92 14 102/55 97 06/01/22 19:39 98.2 F 94 116/79 94 L 06/01/22 18:10 98.4 F 98 20 117/80 96 Intake and Output 06/01/22 06/02/22 06/02/22 22:59 06:59 14:59 Intake Total 200 Balance 200 Intake: Oral 200 Other: Voiding Method Bedside Commode # Voids 1 Weight 77.111 kg 77.111 kg GENERAL EXAM: Alert, active, comfortable in no apparent distress. HEAD: Normocephalic and atraumatic EYES: Normal reaction of pupils, equal size. NOSE: Clear with pink turbinates. THROAT: No erythema or exudates. NECK: No masses, no JVD. CHEST: No chest wall deformity. LUNGS: Equal air entry with no crackles, wheeze, rhonchi or dullness. on room air.No conversational dyspnea or accessory muscle use. CVS: S1 and S2 normal with no audible murmur, regular rhythm. ABDOMEN: No hepatosplenomegaly, normal bowel sounds, no guarding or rigidity. SPINE: No scoliosis or deformity SKIN: No rashes CENTRAL NERVOUS SYSTEM: No focal deficits, tone is normal in all 4 extremities. EXTREMITIES: There is no peripheral edema, clubbing, or cyanosis. Peripheral pulses are intact. Results - Laboratory Findings CBC and BMP: 06/01/22 20:45 06/01/22 20:45 PT/INR, D-dimer PT 10.6 sec (9.0-12.0) 06/01/22 20:45 INR 1.0 (<1.2) 06/01/22 20:45 Abnormal lab findings: Abnormal Labs 06/01/22 06/01/22 20:45 20:45 Lymphocytes # 0.8 L BUN 20 H AST 94 H ALT 63 H Alkaline Phosphatase 165 H - Diagnostic Findings Chest x-ray: image reviewed CT scan - chest: image reviewed Assessment and Plan Assessment: community-acquired pneumonia. chest CT angiogram was limited due to breathing artifact however no definite pulmonary embolism was identified. A moderate left pleural effusion was found with compressive atelectasis of the left lower lobe which could correlate with underlying pneumonia. There is also a right trace pleural effusion identified. Mildly enlarged mediastinal lymph node 1.1 cm on the right superior segment was identified. And a large hiatal hernia was redemonstrated. There was also a chronic vertebral collapse of T7. ultrasound of the chest revealed trace left pleural effusion, not enough for thoracentesis. we'll cover empirically with Rocephin and Zithromax. chest pain, chest CTA negative for pulmonary embolus Dyspnea, improved hiatal hernia coronary artery disease macular degeneration Anxiety Bipolar Plan: patient's medications, labs, chest x-ray Continue updrafts as needed we will empirically cover the patient with a course of azithromycin and ceftriaxone. Patient is clinically stable and can remain in a general medical floor we will continue to follow. I have personally seen and examined the patient, performed the documentation and the assessment and plan as written. Number of minutes spent on the visit: 20 Time with Patient: Greater than 30
[2022-06-02] MEDS: AZITHROMYCIN 500 MG TAB PO SCH (13:34)
[2022-06-02] MEDS ORDERED: ONDANSETRON 4 MG TAB PO PRN (15:48)
[2022-06-02] MEDS ORDERED: ALPRAZolam 0.5 MG TAB PO PRN (15:48)
[2022-06-02] MEDS: buPROPion XL 150 MG TAB.ER.24H PO SCH ×2 (16:42→21:27)
[2022-06-02] MEDS: HYDROcodone/APAP 10-325MG 1 EACH TAB PO SCH ×2 (17:35→21:27)
[2022-06-02] MEDS: allopurinoL 300 MG TAB PO SCH (20:27)
[2022-06-02] MEDS: ZIPRASIDONE 60 MG CAP PO SCH (20:27)
[2022-06-02] MEDS: GABAPENTIN 400 MG CAP PO PRN (21:27)
[2022-06-03] MEDS: PRAVASTATIN SODIUM 40 MG TAB PO SCH (08:18)
[2022-06-03] MEDS: buPROPion XL 150 MG TAB.ER.24H PO SCH ×3 (08:18→22:14)
[2022-06-03] MEDS: HYDROcodone/APAP 10-325MG 1 EACH TAB PO SCH ×4 (08:18→22:14)
[2022-06-03] MEDS: AZITHROMYCIN 500 MG TAB PO SCH (08:18)
[2022-06-03] MEDS: allopurinoL 300 MG TAB PO SCH ×2 (08:18→22:15)
[2022-06-03] MEDS: SPIRONOLACTONE-HCTZ 25-25MG 1 EACH TAB PO SCH (08:18)
--- NOTE | 2022-06-03 12:32 | P.PN ---
Subjective Progress Note Date: 06/03/22 Patient is a 71-year-old, , female presenting with chief complaint of difficulty breathing for 4 or 5 days. Patient was seen by her PCP Dr. Moore for this issue who prompted her to report to the ER after taking a chest x-ray in the office concerning for pneumonia. Patient was seen at [facility], she stayed overnight and then left against MEDICAL advice yesterday because "she didn't like the way the staff was treating her". Patient states that she called Dr. Moore today who advised her to report back to the hospital for continuing treatment. She is continuing to have shortness of breath and some chest tightness. denies fever or chills, cough, hemoptysis, nausea, vomiting, a bdominal pain. she denies any sick contacts. patient's past medical history is positive for coronary artery disease, CVA/TIA, chronic kidney disease, hiatal hernia, GERD, anxiety, bipolar. she denies history of smoking. patient is sitting up in bed, on room air, in no acute distress. her chest x-ray on arrival did show left basilar airspace opacity which could correlate with left pleural effusion or pneumonia and some mild cardiomegaly and a large hiatal hernia. A follow up chest CT angiogram was performed which was limited due to breathing artifact however no definite pulmonary embolism was identified. A moderate left pleural effusion was found with compressive atelectasis of the left lower lobe which could correlate with underlining pneumonia. There is also a right trace pleural effusion identified. Mildly enlarged mediastinal lymph node 1.1 cm on the right superior segment was identified. And a large hiatal hernia was redemonstrated. There was also a chronic vertebral collapse of T7. a chest ultrasound was performed which showed only a trace left pleural effusion. her CBC on arrival showed a WBC count of 5.3, hemoglobin of 12.1, hematocrit 37, platelets 167,000. her BMP showed a sodium 138, potassium 3.6, chloride 102, serum CO2 25, BUN 20, creatinine 0.66, glucose 93. Normal saline is infusing at 20 mL per hour. she's afebrile.Patient's LFTs were mildly elevated. Troponins are negative 1. .patient's proBNP was 1290. patient did have an echocardiogram performed on a recent admission on 04/22/2022 which showed a preserved ejection fraction of 55% with some mild mitral regurgitation. patient is currently being managed with DuoNeb inhalation. Patient did receive azithromycin and Rocephin in the ER. She is afebrile. Vital signs remain stable. The patient is seen today 06/03/2022 in follow-up on the regular medical floor. She is sitting up in bed. Awake alert no acute distress. Denies any shortness breath, cough or congestion. Maintaining good O2 saturations in the mid 90s on room air. Afebrile. Hemodynamically stable. Continued on Rocephin and azith romycin. Remains on DuoNeb inhalations. Objective - Vital Signs Vital signs: Vital Signs Temp 97.7 F 06/03/22 07:25 Pulse 74 06/03/22 07:25 Resp 16 06/03/22 07:25 BP 108/72 06/03/22 07:25 Pulse Ox 94 L 06/03/22 07:25 FiO2 Intake & Output 06/02/22 06/03/22 06/03/22 18:59 06:59 18:59 Intake Total 100 Balance 100 Intake: Intake, IV Titration 100 Amount cefTRIAXone 1 gm In 100 Sodium Chloride 0.9% 50 ml @ 100 mls/hr IVPB Q24HR [facility] Rx#:[id number] Other: Voiding Method Bedside Commode Toilet Bedside Commode Diaper Incontinent # Voids 1 1 - Exam GENERAL EXAM: Alert, pleasant 71-year-old female, on room air, comfortable in no apparent distress. HEAD: Normocephalic. EYES: Normal reaction of pupils, equal size. NOSE: Clear with pink turbinates. THROAT: No erythema or exudates. NECK: No masses, no JVD. CHEST: No chest wall deformity. LUNGS: Equal air entry with no crackles, wheeze, rhonchi or dullness. CVS: S1 and S2 normal with no audible murmur, regular rhythm. ABDOMEN: No hepatosplenomegaly, normal bowel sounds, no guarding or rigidity. SPINE: No scoliosis or deformity SKIN: No rashes CENTRAL NERVOUS SYSTEM: No focal deficits, tone is normal in all 4 extremities. EXTREMITIES: There is no peripheral edema. No clubbing, no cyanosis. Peripheral pulses are intact. - Labs CBC & Chem 7: 06/01/22 20:45 06/01/22 20:45 Labs: Abnormal Lab Results - Last 24 Hours (Table) 06/02/22 Range/Units 09:10 Procalcitonin 0.10 H (0.02-0.09) ng/mL Assessment and Plan Assessment: Community-acquired pneumonia. chest CT angiogram was limited due to breathing artifact however no definite pulmonary embolism was identified. A moderate left pleural effusion was found with compressive atelectasis of the left lower lobe which could correlate with underlying pneumonia. There is also a right trace pleural effusion identified. Mildly enlarged mediastinal lymph node 1.1 cm on the right superior segment was identified. And a large hiatal hernia was red emonstrated. There was also a chronic vertebral collapse of T7. ultrasound of the chest revealed trace left pleural effusion, not enough for thoracentesis. Currently on empirically with Rocephin and Zithromax. Chest pain, chest CTA negative for pulmonary embolus Dyspnea, improved Hiatal hernia Coronary artery disease Macular degeneration Anxiety Bipolar sorter Plan: The patient was seen and evaluated Medications reviewed Stable for discharge from the pulmonary standpoint Complete course of antibiotics Follow-up in the office in 1 week I have personally seen and examined the patient, performed the documentation and the assessment and plan as written. Number of minutes spent on the visit: 10.
[2022-06-03 14:50] LABS: Basophils % (A) 0 %; Eosinophils # (A) 0.1 k/uL (0-0.7); Eosinophils % (A) 2 %; HGB 12.4 gm/dL (11.4-16.0); Lymphocytes # (A) 0.7 k/uL (1.0-4.8); Lymphocytes % (A) 22 %; MCH 31.5 pg (25.0-35.0); MCHC 31.9 g/dL (31.0-37.0); MCV 98.7 fL (80.0-100.0); Mean Platelet Volume 8.6; Monocytes # (A) 0.3 k/uL (0-1.0); Monocytes % (A) 8 %; Neutrophils # (A) 2.1 k/uL (1.3-7.7); Neutrophils % (A) 65 %; Platelet Count 180 k/uL (150-450); RBC 3.95 m/uL (3.80-5.40); RDW 14.2 % (11.5-15.5); WBC 3.2 k/uL (3.8-10.6)
[2022-06-03 15:21] LABS: ALT 60 U/L (4-34); AST 71 U/L (14-36); African American GFR (CKD) >90 (>60 ml/min/1.73 sqM); Albumin 3.9 g/dL (3.5-5.0); Albumin/Globulin Ratio 1.3; Alkaline Phosphatase 142 U/L (38-126); Anion Gap 12 mmol/L; Blood Urea Nitrogen 15 mg/dL (7-17); Calcium 8.9 mg/dL (8.4-10.2); Carbon Dioxide 21 mmol/L (22-30); Chloride 106 mmol/L (98-107); Globulin 3.1 g/dL; Glucose 144 mg/dL (74-99); Non-African American GFR(CKD) >90 (>60 ml/min/1.73 sqM); Potassium 3.9 mmol/L (3.5-5.1); Sodium 139 mmol/L (137-145); Total Bilirubin 0.5 mg/dL (0.2-1.3)
--- NOTE | 2022-06-03 18:33 | PN ---
PROGRESS NOTE DATE OF SERVICE: 06/03/2022 CHIEF COMPLAINT: Left pleural effusion and shortness of breath. HISTORY OF PRESENT ILLNESS: This lady is feeling a lot better. However, liver enzymes are slightly elevated, as is her BNP. Her picture is not completely compatible with pneumonia. She is also starting to develop slight right-sided pleural effusion. Congestive heart failure would have to be considered. PHYSICAL EXAMINATION: LUNGS: Breath sounds are still diminished on the left. VITAL SIGNS: Normal. CARDIAC: Normal. ABDOMEN: Soft. IMPRESSION: 1. Left pleural effusion. 2. Small right pleural effusion. 3. Elevated liver function studies, possibly related to passive congestion in the liver. 4. Elevated BNP. 5. Rule out congestive heart failure. PLAN: 1. Echocardiogram. 2. Continue to follow blood work. CAROLEL / IJN: [id number] /
[2022-06-03 20:42] LABS: Appearance,Urine Cloudy (Clear); Bacteria,Urine Rare /hpf; Bilirubin,Urine Negative (Negative); Blood,Urine Trace (Negative); Color,Urine Yellow; Glucose,Urine (UA) Negative (Negative); Hyaline Casts,Urine 1 /lpf (0-2); Ketones,Urine Negative (Negative); Leukocyte Esterase,Urine Moderate (Negative); Mucus,Urine Rare /hpf; Nitrite,Urine Negative (Negative); Protein,Urine Trace (Negative); RBC,Urine 2 /hpf (0-5); Specific Gravity,Urine 1.029 (1.001-1.035); Squamous Epithelial Cell,Urine 10 /hpf (0-4); WBC,Urine 2 /hpf (0-5)
[2022-06-03] MEDS: ZIPRASIDONE 60 MG CAP PO SCH (22:14)
[2022-06-03] MEDS: GABAPENTIN 400 MG CAP PO PRN (22:23)
[2022-06-04] MEDS: PRAVASTATIN SODIUM 40 MG TAB PO SCH (08:17)
[2022-06-04] MEDS: buPROPion XL 150 MG TAB.ER.24H PO SCH ×3 (08:17→21:12)
[2022-06-04] MEDS: HYDROcodone/APAP 10-325MG 1 EACH TAB PO SCH ×4 (08:17→21:12)
[2022-06-04] MEDS: allopurinoL 300 MG TAB PO SCH ×2 (08:17→21:12)
[2022-06-04] MEDS: AZITHROMYCIN 500 MG TAB PO SCH (08:17)
[2022-06-04] MEDS: SPIRONOLACTONE-HCTZ 25-25MG 1 EACH TAB PO SCH (08:18)
--- NOTE | 2022-06-04 13:04 | P.PN ---
Subjective Progress Note Date: 06/04/22 Principal diagnosis: Left lower lobe community-acquired pneumonia and parapneumonic effusion Patient is a 71-year-old, , female presenting with chief complaint of difficulty breathing for 4 or 5 days. Patient was seen by her PCP Dr. Moore for this issue who prompted her to report to the ER after taking a chest x-ray in the office concerning for pneumonia. Patient was seen at [facility], she stayed overnight and then left against MEDICAL advice yesterday because "she didn't like the way the staff was treating her". Patient states that she called Dr. Moore today who advised her to report back to the hospital for continuing treatment. She is continuing to have shortness of breath and some chest tightness. denies fever or chills, cough, hemoptysis, nausea, vomiting, abdominal pain. she denies any sick contacts. patient's past medical history is positive for coronary artery disease, CVA/TIA, chronic kidney disease, hiatal hernia, GERD, anxiety, bipolar. she denies history of smoking. patient is sitting up in bed, on room air, in no acute distress. her chest x-ray on arrival did show left basilar airspace opacity which could correlate with left pleural effusion or pneumonia and some mild cardiomegaly and a large hiatal hernia. A follow up chest CT angiogram was performed which was limited due to breathing artifact however no definite pulmonary embolism was identified. A moderate left pleural effusion was found with compressive atelectasis of the left lower lobe which could correlate with underlining pneumonia. There is also a right trace pleural effusion identified. Mildly enlarged mediastinal lymph node 1.1 cm on the right superior segment was identified. And a large hiatal hernia was redemonstrated. There was also a chronic vertebral collapse of T7. a chest ultrasound was performed which showed only a trace left pleural effusion. her CBC on arrival showed a WBC count of 5.3, hemoglobin of 12.1, hematocrit 37, platelets 167,000. her BMP showed a sodium 138, potassium 3.6, chloride 102, serum CO2 25, BUN 20, creatinine 0.66, glucose 93. Normal saline is infusing at 20 mL per hour. she's afebrile.Patient's LFTs were mildly elevated. Troponins are negative 1. .patient's proBNP was 1290. patient did have an echocardiogram performed on a recent admission on 04/22/2022 which showed a preserved ejection fraction of 55% with some mild mitral regurgitation. patient is currently being managed with DuoNeb inhalation. Patient did receive azithromycin and Rocephin in the ER. She is afebrile. Vital signs remain stable. The patient is seen today 06/03/2022 in follow-up on the regular medical floor. She is sitting up in bed. Awake alert no acute distress. Denies any shortness breath, cough or congestion. Maintaining good O2 saturations in the mid 90s on room air. Afebrile. Hemodynamically stable. Continued on Rocephin and azithromycin. Remains on DuoNeb inhalations. Reevaluated today on 06/04/2022, patient is doing well, asymptomatic sitting at a bedside chair, eating on room air, not in any form of distress. Patient remains on antibiotics, could be transitioned to oral antibiotics and could consider discharge planning with outpatient follow-up. Apparently had echocardiogram was ordered, I believe all of this could be done on outpatient basis. Patient could be potentially discharged home and follow up on outpatient basis. Objective - Vital Signs Vital signs: Vital Signs Temp 98.3 F 06/04/22 07:31 Pulse 82 06/04/22 07:31 Resp 16 06/04/22 07:31 BP 106/66 06/04/22 07:31 Pulse Ox 97 06/04/22 07:31 FiO2 Intake & Output 06/03/22 06/04/22 06/04/22 18:59 06:59 18:59 Intake Total 50 Balance 50 Intake: Intake, IV Titration 50 Amount cefTRIAXone 1 gm In 50 Sodium Chloride 0.9% 50 ml @ 100 mls/hr IVPB Q24HR [facility] Rx#:[id number] Other: Voiding Method Toilet Toilet Bedside Commode Bedside Commode Diaper Diaper Incontinent Incontinent # Voids 1 1 - Exam Physical Exam: Revealed a 71-year-old female in no distress Head: Atraumatic normocephalic. HEENT:[Neck is supple.] [No neck masses.] [No thyromegaly.] [No JVD.] Chest: [Clear throughout, no crackles, no rhonchi, no wheezes.] Cardiac Exam: [Normal S1 and S2, no S3 gallop, no murmur.] Abdomen: [Soft, nontender, no megaly, no rebound, no guarding, normal bowel sounds.] Extremities: [No clubbing, no edema, no cyanosis.] Neurological Exam: [No focal neurologic deficit.] Alert and oriented 3 Psychiatric: Normal mood affect and normal mental status examination - Labs CBC & Chem 7: 06/03/22 14:30 06/03/22 14:30 Labs: Abnormal Lab Results - Last 24 Hours (Table) 06/03/22 06/03/22 06/03/22 Range/Units 14:30 14:30 20:05 WBC 3.2 L (3.8-10.6) k/uL Lymphocytes # 0.7 L (1.0-4.8) k/uL Carbon Dioxide 21 L (22-30) mmol/L Glucose 144 H (74-99) mg/dL AST 71 H (14-36) U/L ALT 60 H (4-34) U/L Alkaline Phosphatase 142 H (38-126) U/L Urine Appearance Cloudy H (Clear) Urine Protein Trace H (Negative) Urine Blood Trace H (Negative) Ur Leukocyte Esterase Moderate H (Negative) Ur Squamous Epith Cells 10 H (0-4) /hpf Urine Bacteria Rare H (None) /hpf Urine Mucus Rare H (None) /hpf Assessment and Plan Assessment: Impression: Acute community-acquired pneumonia. chest CT angiogram was limited due to breath ing artifact however no definite pulmonary embolism was identified. A moderate left pleural effusion was found with compressive atelectasis of the left lower lobe which could correlate with underlying pneumonia. There is also a right trace pleural effusion identified. Mildly enlarged mediastinal lymph node 1.1 cm on the right superior segment was identified. And a large hiatal hernia was redemonstrated. There was also a chronic vertebral collapse of T7. ultrasound of the chest revealed trace left pleural effusion, not enough for thoracentesis. we'll cover empirically with Rocephin and Zithromax. chest pain, chest CTA negative for pulmonary embolus Dyspnea, improved hiatal hernia coronary artery disease macular degeneration Anxiety Bipolar disorder. Recommendation: Will clear the patient to be discharged home on oral antibiotics Patient to follow up on outpatient basis Her echocardiogram could be done also on outpatient basis Will follow as needed. Time with Patient: Less than 30
[2022-06-04] MEDS: GABAPENTIN 400 MG CAP PO PRN (19:30)
[2022-06-04] MEDS: ZIPRASIDONE 60 MG CAP PO SCH (21:12)
[2022-06-05] MEDS: GABAPENTIN 400 MG CAP PO PRN ×2 (06:28→21:13)
--- NOTE | 2022-06-05 09:09 | XR ---
EXAMINATION TYPE: XR chest 1V portable DATE OF EXAM: 06/05/2022 9:03 AM COMPARISON: Chest radiographs from 06/01/2022, CTA chest 06/02/2022, ultrasound chest 06/02/2022 TECHNIQUE: XR chest 1V portable Portable AP radiograph of the chest. CLINICAL INDICATION:Female, 71 years old with history of pleural effusion; FINDINGS: Lungs/Pleura: Small left pleural effusion with associated atelectasis. Right lung is clear. No pneumo thorax. Pulmonary vascularity: Unremarkable. Heart/mediastinum: Cardiomediastinal silhouette is stable. Large hiatal hernia redemonstrated. Musculoskeletal: No acute osseous pathology. IMPRESSION: 1. Small left pleural effusion with associated atelectasis redemonstrated. 2. Large lateral hernia demonstrated.
[2022-06-05] MEDS: buPROPion XL 150 MG TAB.ER.24H PO SCH ×3 (09:39→21:10)
[2022-06-05] MEDS: HYDROcodone/APAP 10-325MG 1 EACH TAB PO SCH ×4 (09:39→21:10)
[2022-06-05] MEDS: allopurinoL 300 MG TAB PO SCH ×2 (09:39→21:11)
[2022-06-05] MEDS: PRAVASTATIN SODIUM 40 MG TAB PO SCH (09:40)
[2022-06-05] MEDS: SPIRONOLACTONE-HCTZ 25-25MG 1 EACH TAB PO SCH (09:40)
[2022-06-05] MEDS ORDERED: IOPAMIDOL CONTRAST (ORAL USE) VIAL PO PRN (10:44)
--- NOTE | 2022-06-05 11:20 | P.PN ---
Subjective Progress Note Date: 06/05/22 Principal diagnosis: Left lower lobe community-acquired pneumonia and parapneumonic effusion Patient is a 71-year-old, , female presenting with chief complaint of difficulty breathing for 4 or 5 days. Patient was seen by her PCP Dr. Moore for this issue who prompted her to report to the ER after taking a chest x-ray in the office concerning for pneumonia. Patient was seen at [facility], she stayed overnight and then left against MEDICAL advice yesterday because "she didn't like the way the staff was treating her". Patient states that she called Dr. Moore today who advised her to report back to the hospital for continuing treatment. She is continuing to have shortness of breath and some chest tightness. denies fever or chills, cough, hemoptysis, nausea, vomiting, abdominal pain. she denies any sick contacts. patient's past medical history is positive for coronary artery disease, CVA/TIA, chronic kidney disease, hiatal hernia, GERD, anxiety, bipolar. she denies history of smoking. patient is sitting up in bed, on room air, in no acute distress. her chest x-ray on arrival did show left basilar airspace opacity which could correlate with left pleural effusion or pneumonia and some mild cardiomegaly and a large hiatal hernia. A follow up chest CT angiogram was performed which was limited due to breathing artifact however no definite pulmonary embolism was identified. A moderate left pleural effusion was found with compressive atelectasis of the left lower lobe which could correlate with underlining pneumonia. There is also a right trace pleural effusion identified. Mildly enlarged mediastinal lymph node 1.1 cm on the right superior segment was identified. And a large hiatal hernia was redemonstrated. There was also a chronic vertebral collapse of T7. a chest ultrasound was performed which showed only a trace left pleural effusion. her CBC on arrival showed a WBC count of 5.3, hemoglobin of 12.1, hematocrit 37, platelets 167,000. her BMP showed a sodium 138, potassium 3.6, chloride 102, serum CO2 25, BUN 20, creatinine 0.66, glucose 93. Normal saline is infusing at 20 mL per hour. she's afebrile.Patient's LFTs were mildly elevated. Troponins are negative 1. .patient's proBNP was 1290. patient did have an echocardiogram performed on a recent admission on 04/22/2022 which showed a preserved ejection fraction of 55% with some mild mitral regurgitation. patient is currently being managed with DuoNeb inhalation. Patient did receive azithromycin and Rocephin in the ER. She is afebrile. Vital signs remain stable. The patient is seen today 06/03/2022 in follow-up on the regular medical floor. She is sitting up in bed. Awake alert no acute distress. Denies any shortness breath, cough or congestion. Maintaining good O2 saturations in the mid 90s on room air. Afebrile. Hemodynamically stable. Continued on Rocephin and azithromycin. Remains on DuoNeb inhalations. Reevaluated today on 06/04/2022, patient is doing well, asymptomatic sitting at a bedside chair, eating on room air, not in any form of distress. Patient remains on antibiotics, could be transitioned to oral antibiotics and could consider discharge planning with outpatient follow-up. Apparently had echocardiogram was ordered, I believe all of this could be done on outpatient basis. Patient could be potentially discharged home and follow up on outpatient basis. I am reevaluating this patient today 06/05/2022 in follow-up on a general medical floor. Patient is resting comfortably, on room air, in no acute distress. patient feels that her breathing is back to baseline. patient's chest x-ray from today redemonstrated a small left pleural effusion with compressive atelectasis and a large hiatal hernia. no new labs to review today. patient continues to receive empiric Rocephin. she remains afebrile, and her vital signs remain stable. Objective - Vital Signs Vital signs: Vital Signs Temp 98.1 F 06/05/22 07:33 Pulse 75 06/05/22 07:33 Resp 16 06/05/22 07:33 BP 106/70 06/05/22 07:33 Pulse Ox 95 06/05/22 07:33 FiO2 Intake & Output 06/04/22 06/05/22 06/05/22 18:59 06:59 18:59 Intake Total 50 300 Balance 50 300 Intake: Intake, IV Titration 50 Amount cefTRIAXone 1 gm In 50 Sodium Chloride 0.9% 50 ml @ 100 mls/hr IVPB Q24HR FORMERLY [facility], 1928–1983 Rx#:[id number] Oral 300 Other: Voiding Method Toilet Bedside Commode Diaper Incontinent # Voids 2 - Exam Physical Exam: a 71-year-old, female, in no acute distress Head: Atraumatic normocephalic. HEENT:[Neck is supple.] [No neck masses.] [No thyromegaly.] [No JVD.] Chest: mild rhonchi appreciated throughout. No crackles or wheezes. On room air. No accessory muscle use or conversational dyspnea Cardiac Exam: [Normal S1 and S2, no S3 gallop, no murmur.] Abdomen: [Soft, nontender, no megaly, no rebound, no guarding, normal bowel sounds.] Extremities: [No clubbing, no edema, no cyanosis.] Neurological Exam: [No focal neurologic deficit.] Alert and oriented 3 Psychiatric: Normal mood affect and normal mental status examination - Labs CBC & Chem 7: 06/03/22 14:30 06/03/22 14:30 Assessment and Plan Assessment: community-acquired pneumonia. chest CT angiogram was limited due to breathing artifact however no definite pulmonary embolism was identified. A moderate left pleural effusion was found with compressive atelectasis of the left lower lobe which could correlate with underlying pneumonia. There is also a right trace pleural effusion identified. Mildly enlarged mediastinal lymph node 1.1 cm on the right superior segment was identified. And a large hiatal hernia was redemonstrated. There was also a chronic vertebral collapse of T7. ultrasound of the chest revealed trace left pleural effusion, not enough for thoracentesis. we'll cover empirically with Rocephin and Zithromax. chest pain improved, chest CTA negative for pulmonary embolus Dyspnea, improved hiatal hernia coronary artery disease macular degeneration Anxiety Bipolar Plan: patient's medications, labs, chest x-ray Continue updrafts as needed continue ceftriaxone for now, may transition to oral antibiotics for discharge. patient is cleared for discharge, and may follow-up in the office I have personally seen and examined the patient, performed the documentation and the assessment and plan as written. Number of minutes spent on the visit: 10 Time with Patient: Less than 30
--- NOTE | 2022-06-05 17:49 | CT ---
EXAMINATION TYPE: CT abdomen pelvis w con DATE OF EXAM: 06/05/2022 COMPARISON: None INDICATION: Elevated LFT's. Patient has no complaints at time of scan pertaining to her abdomen. DLP: 1269.1 mGycm, Automated exposure control for dose reduction was used. CONTRAST: 70ml mL of Isovue 300. Study performed with Oral Contrast TECHNIQUE: Axial images were obtained from above the diaphragm to the pubic rami in the axial plane a t 5 mm thick sections. Reconstructed images are reviewed on the computer in the coronal plane. FINDINGS: Limited CT sections are obtained the lung bases. There is a small left pleural effusion. Large hiata l hernia is present. Compressive atelectasis at the left lung base is evident. CT ABDOMEN: Liver: Normal Spleen: Normal Pancreas: Normal Adrenal glands: The adrenal glands are normal. Gallbladder: Surgically absent Kidneys: No masses are evident. No hydronephrosis is present. No cysts are present. Delayed images were obtained through the kidneys, which remain unremarkable. Aorta: Vascular calcification is within the aorta. Inferior vena cava: Normal. CT PELVIS: Extensive postsurgical changes are within the lower spine and within the bilateral hips. T his causes beam hardening artifact in some limitation on evaluation through the pelvis. Pelvic fractu res are evident sacroiliac joint degenerative changes are present. Lumbar laminectomies been performe d. There is facet hypertrophy in the lower lumbar spine. Fecal debris is colon. Oral contrast extends to distal small bowel loops. There are loops of bowel wh ich are incompletely distended or lack oral contrast limiting their evaluation. Appendix: The appendix is not identified. No dilated tubular structure or inflammatory changes eviden t. Urinary bladder: Normal. Genitourinary structures: Uterus and ovaries are not identified. Osseous structures: No suspicious lytic or sclerotic lesions. Prior pelvic fractures are evident. IMPRESSIONS: 1. Moderate fecal retention through the ascending and transverse colon. 2. Small left pleural effusion with compressive atelectasis at the left lung base. 3. Large hiatal hernia
--- NOTE | 2022-06-05 19:34 | PN ---
PROGRESS NOTE DATE OF SERVICE: 06/05/2022 CHIEF COMPLAINT: Difficulty breathing, elevated liver function studies, and left pleural effusion. HISTORY OF PRESENT ILLNESS: This lady is doing fairly well. We are awaiting an echocardiogram. CT of the abdomen and pelvis are also pending looking at her liver enzymes. PHYSICAL EXAMINATION: GENERAL: She seems to be feeling well. She is awake and alert. Color is good. CHEST: Improving. There are better breath sounds of the left base. CARDIAC: Normal. ABDOMEN: Soft, nontender. IMPRESSION: 1. Left pleural effusion. 2. Shortness of breath. 3. Pneumonitis. 4. Elevated liver function studies. 5. Congestive heart failure. PLAN: Await results of echocardiogram. MMODL / IJN: [id number] /
[2022-06-05] MEDS: ZIPRASIDONE 60 MG CAP PO SCH (21:11)
[2022-06-06 07:54] VITALS: RESP 16
[2022-06-06] MEDS: PRAVASTATIN SODIUM 40 MG TAB PO SCH (10:11)
[2022-06-06] MEDS: SPIRONOLACTONE-HCTZ 25-25MG 1 EACH TAB PO SCH (10:11)
[2022-06-06] MEDS: buPROPion XL 150 MG TAB.ER.24H PO SCH ×3 (10:11→21:22)
[2022-06-06] MEDS: allopurinoL 300 MG TAB PO SCH ×2 (10:11→21:22)
[2022-06-06] MEDS: HYDROcodone/APAP 10-325MG 1 EACH TAB PO SCH ×4 (10:12→21:21)
--- NOTE | 2022-06-06 12:01 | P.PN ---
Subjective Progress Note Date: 06/06/22 Principal diagnosis: Left lower lobe community-acquired pneumonia and parapneumonic effusion Patient is a 71-year-old, , female presenting with chief complaint of difficulty breathing for 4 or 5 days. Patient was seen by her PCP Dr. Moore for this issue who prompted her to report to the ER after taking a chest x-ray in the office concerning for pneumonia. Patient was seen at [facility], she stayed overnight and then left against MEDICAL advice yesterday because "she didn't like the way the staff was treating her". Patient states that she called Dr. Moore today who advised her to report back to the hospital for continuing treatment. She is continuing to have shortness of breath and some chest tightness. denies fever or chills, cough, hemoptysis, nausea, vomiting, abdominal pain. she denies any sick contacts. patient's past medical history is positive for coronary artery disease, CVA/TIA, chronic kidney disease, hiatal hernia, GERD, anxiety, bipolar. she denies history of smoking. patient is sitting up in bed, on room air, in no acute distress. her chest x-ray on arrival did show left basilar airspace opacity which could correlate with left pleural effusion or pneumonia and some mild cardiomegaly and a large hiatal hernia. A follow up chest CT angiogram was performed which was limited due to breathing artifact however no definite pulmonary embolism was identified. A moderate left pleural effusion was found with compressive atelectasis of the left lower lobe which could correlate with underlining pneumonia. There is also a right trace pleural effusion identified. Mildly enlarged mediastinal lymph node 1.1 cm on the right superior segment was identified. And a large hiatal hernia was redemonstrated. There was also a chronic vertebral collapse of T7. a chest ultrasound was performed which showed only a trace left pleural effusion. her CBC on arrival showed a WBC count of 5.3, hemoglobin of 12.1, hematocrit 37, platelets 167,000. her BMP showed a sodium 138, potassium 3.6, chloride 102, serum CO2 25, BUN 20, creatinine 0.66, glucose 93. Normal saline is infusing at 20 mL per hour. she's afebrile.Patient's LFTs were mildly elevated. Troponins are negative 1. .patient's proBNP was 1290. patient did have an echocardiogram performed on a recent admission on 04/22/2022 which showed a preserved ejection fraction of 55% with some mild mitral regurgitation. patient is currently being managed with DuoNeb inhalation. Patient did receive azithromycin and Rocephin in the ER. She is afebrile. Vital signs remain stable. The patient is seen today 06/03/2022 in follow-up on the regular medical floor. She is sitting up in bed. Awake alert no acute distress. Denies any shortness breath, cough or congestion. Maintaining good O2 saturations in the mid 90s on room air. Afebrile. Hemodynamically stable. Continued on Rocephin and azithromycin. Remains on DuoNeb inhalations. Reevaluated today on 06/04/2022, patient is doing well, asymptomatic sitting at a bedside chair, eating on room air, not in any form of distress. Patient remains on antibiotics, could be transitioned to oral antibiotics and could consider discharge planning with outpatient follow-up. Apparently had echocardiogram was ordered, I believe all of this could be done on outpatient basis. Patient could be potentially discharged home and follow up on outpatient basis. I am reevaluating this patient today 06/05/2022 in follow-up on a general medical floor. Patient is resting comfortably, on room air, in no acute distress. patient feels that her breathing is back to baseline. patient's chest x-ray from today redemonstrated a small left pleural effusion with compressive atelectasis and a large hiatal hernia. no new labs to review today. patient continues to receive empiric Rocephin. she remains afebrile, and her vital signs remain stable. I'm reevaluating this patient today on 06/06/2022 in follow-up on a general medical floor. Patient is currently resting comfortably in bed, on room air, in no acute distress. She is currently receiving an echocardiogram. Patient has no pulmonary complaints. No new chest x-ray to review today. Patient did have an abdominal/pelvis CT with contrast yesterday because of elevated LFTs. This study showed moderate fecal retention of the ascending and transverse colon, small left pleural effusion with compressive atelectasis at the lung left lung base, and a large hiatal hernia. Patient denies any abdominal pain. Patient did have a positive hep C IgG antibody. No new CBC or BMP today. Continues to receive empiric Rocephin and bronchodilators. Patient remains afebrile. Vital signs remain stable. Objective - Vital Signs Vital signs: Vital Signs Temp 97.9 F 06/06/22 07:42 Pulse 80 06/06/22 07:42 Resp 16 06/06/22 07:42 BP 109/69 06/06/22 07:42 Pulse Ox 94 L 06/06/22 07:42 FiO2 Intake & Output 06/05/22 06/06/22 06/06/22 18:59 06:59 18:59 Intake Total 100 Balance 100 Intake: Oral 100 Other: Voiding Method Toilet Bedside Commode Diaper Incontinent # Voids 1 2 - Exam Physical Exam: a 71-year-old, female, in no acute distress Head: Atraumatic normocephalic. HEENT:[Neck is supple.] [No neck masses.] [No thyromegaly.] [No JVD.] Chest: No lung sounds clear to auscultation with equal air entry throughout. No crackles, rhonchi, wheezes. On room air. No accessory muscle use or con versational dyspnea Cardiac Exam: [Normal S1 and S2, no S3 gallop, no murmur.] Abdomen: [Soft, nontender, no megaly, no rebound, no guarding, normal bowel sounds.] Extremities: [No clubbing, no edema, no cyanosis.] Neurological Exam: [No focal neurologic deficit.] Alert and oriented 3 Psychiatric: Normal mood affect and normal mental status examination - Labs CBC & Chem 7: 06/03/22 14:30 06/03/22 14:30 Labs: Abnormal Lab Results - Last 24 Hours (Table) 06/03/22 Range/Units 14:30 Hep C IgG Ab Reactive A (Nonreactive) Assessment and Plan Assessment: community-acquired pneumonia. chest CT angiogram was limited due to breathing artifact however no definite pulmonary embolism was identified. A moderate left pleural effusion was found with compressive atelectasis of the left lower lobe which could correlate with underlying pneumonia. There is also a right trace pleural effusion identified. Mildly enlarged mediastinal lymph node 1.1 cm on the right superior segment was identified. And a large hiatal hernia was redemonstrated. There was also a chronic vertebral collapse of T7. ultrasound of the chest revealed trace left pleural effusion, not enough for thoracentesis. Being covered empirically with Rocephin. chest pain improved, chest CTA negative for pulmonary embolus Dyspnea, improved hiatal hernia coronary artery disease macular degeneration Anxiety Bipolar Plan: patient's medications, labs, and abdominal CT reviewed Continue updrafts as needed continue ceftriaxone for now, may transition to oral antibiotics for discharge. From a pulmonary perspective, patient is cleared for discharge, and we will see as needed. I have personally seen and examined the patient, performed the documentation and the assessment and plan as written. Number of minutes spent on the visit: 10 Time with Patient: Less than 30
[2022-06-06 15:22] LABS: Basophils % (A) 1 %; Eosinophils # (A) 0.1 k/uL (0-0.7); Eosinophils % (A) 3 %; HCT 38.5 % (34.0-46.0); HGB 12.5 gm/dL (11.4-16.0); Lymphocytes # (A) 0.6 k/uL (1.0-4.8); Lymphocytes % (A) 21 %; MCH 31.2 pg (25.0-35.0); MCHC 32.5 g/dL (31.0-37.0); MCV 95.8 fL (80.0-100.0); Mean Platelet Volume 7.9; Monocytes # (A) 0.2 k/uL (0-1.0); Monocytes % (A) 7 %; Neutrophils % (A) 66 %; Platelet Count 183 k/uL (150-450); RBC 4.02 m/uL (3.80-5.40); RDW 14.3 % (11.5-15.5)
[2022-06-06 15:45] LABS: ALT 43 U/L (4-34); AST 44 U/L (14-36); African American GFR (CKD) >90 (>60 ml/min/1.73 sqM); Albumin 4.1 g/dL (3.5-5.0); Albumin/Globulin Ratio 1.4; Alkaline Phosphatase 116 U/L (38-126); Anion Gap 12 mmol/L; Blood Urea Nitrogen 17 mg/dL (7-17); Calcium 9.4 mg/dL (8.4-10.2); Carbon Dioxide 27 mmol/L (22-30); Chloride 102 mmol/L (98-107); Globulin 2.9 g/dL; Glucose 118 mg/dL (74-99); Non-African American GFR(CKD) 84 (>60 ml/min/1.73 sqM); Potassium 4.2 mmol/L (3.5-5.1); Sodium 141 mmol/L (137-145); Total Bilirubin 0.5 mg/dL (0.2-1.3)
--- NOTE | 2022-06-06 16:03 | CA ---
Transthoracic Echo Report Name: Ebony Restrepo Age: 71 Gender: F : 1950 Exam Date: 06/06/2022 07:40 Exam Location: [facility] Ht (in): 51 Wt (lb): 170 Ordering Physician: Orlando Moore MD Attending/Referring Phys: Teresa BOBBY [employer] Kimberly Ramirez, STEPH Procedure CPT: Indications: effusion, elev. BNP Cardiac Hx: Technical Quality: fair Contrast 1: Total Dose (mL): Contrast 2: Total Dose (mL): MEASUREMENTS (Male / Female) Normal Values 2D ECHO RV Internal Dim ED PLAX 4.5 cm LA Volume 76.7 cm??? 18 - 58 / 22 - 52 cm??? M-MODE Aortic Root Diameter MM 3.1 cm LA Systolic Diameter MM 4.2 cm LA Ao Ratio MM 1.4 AV Cusp Separation MM 1.5 cm DOPPLER AV Peak Velocity 135.6 cm/s AV Peak Gradient 7.4 mmHg LVOT Peak Velocity 90.4 cm/s LVOT Peak Gradient 3.3 mmHg MV Area PHT 4.1 cm??? MR Peak Velocity 288.2 cm/s MR Peak Gradient 33.2 mmHg Mitral E Point Velocity 79.3 cm/s Mitral A Point Velocity 82.6 cm/s Mitral E to A Ratio 1.0 MV Deceleration Time 186.0 ms MV E' Velocity 7.6 cm/s Mitral E to MV E' Ratio 10.5 TR Peak Velocity 278.1 cm/s TR Peak Gradient 30.9 mmHg FINDINGS Left Ventricle Right Ventricle Mild to moderate right ventricular dilatation. Right ventricular systolic pressure within normal limits. RVSP 33 Right Atrium Normal right atrial size. Left Atrium Severely increased left atrial volume. Mitral Valve Mitral annular calcification of posterior leaflet. Aortic Valve Trileaflet aortic valve. Tricuspid Valve Moderate tricuspid regurgitation. Pulmonic Valve Pulmonic valve not well visualized. Pericardium No pericardial effusion. Aorta Normal size aortic root and proximal ascending aorta. CONCLUSIONS Normal LV cavity size with normal LV systolic function RV enlargement Suboptimal acoustic windows Previewed by: Dr. Surinder Ham MD (Electronically Signed) Final Date: 06 June 2022 16:02
--- NOTE | 2022-06-06 20:34 | PN ---
PROGRESS NOTE DATE OF SERVICE: 06/04/2022 CHIEF COMPLAINT: Left pleural effusion. HISTORY OF PRESENT ILLNESS: This lady is doing a little bit better. Breathing is improving. Her effusion may either be due to heart failure or pneumonitis. Her BNP was elevated. Echocardiogram has been ordered. Liver enzymes are also being investigated. PHYSICAL EXAMINATION: GENERAL: She is not jaundiced. CHEST: Clear. CARDIAC: Normal. ABDOMEN: Soft and nontender. IMPRESSION: 1. Left pleural effusion-improving. 2. Elevated liver function studies, etiology unknown. 3. Elevated BNP. PLAN: 1. Await echocardiogram. 2. Viral hepatitis antibody profile has been ordered. MMODL / IJN: [id number] /
--- NOTE | 2022-06-06 21:04 | PN ---
PROGRESS NOTE DATE OF SERVICE: 06/02/2022 CHIEF COMPLAINT: Left pleural effusion and shortness of breath with respiratory failure. HISTORY OF PRESENT ILLNESS: This lady is doing fairly well. She is still quite short of breath. Her left pleural effusion is being evaluated, and apparently, she has a small right pleural effusion. REVIEW OF SYSTEMS: She denies fever, chills, chest pain, etc. She is still short of breath. PHYSICAL EXAMINATION: CHEST: Reveals decreased breath sounds on the left. CARDIAC: Normal. ABDOMEN: Soft and nontender. IMPRESSION: Left-sided pleural effusion, etiology unknown. PLAN: Continue workup. She is being seen by Pulmonology. MMODL / IJN: [id number] /
[2022-06-06] MEDS: GABAPENTIN 400 MG CAP PO PRN (21:21)
[2022-06-06] MEDS: ZIPRASIDONE 60 MG CAP PO SCH (21:22)
--- NOTE | 2022-06-07 00:04 | PN ---
PROGRESS NOTE DATE OF SERVICE: 06/06/2022 CHIEF COMPLAINT: Left pleural effusion. HISTORY OF PRESENT ILLNESS: This lady continues to improve regarding her pulmonary picture. However, she is tested positive for hepatitis C, and hepatitis HARNESS[employer]KER has been ordered. PHYSICAL EXAMINATION: GENERAL: She is not jaundiced. ABDOMEN: Soft, nontender. CHEST: Clear. CARDIAC: Normal. IMPRESSION: 1. Left-sided pleural effusion, probably due to pneumonitis. 2. Hepatitis C. PLAN: Obtain hepatitis [employer]ARNESS[employer]KER. She can probably go home in the next day or so, but we are still awaiting results of the echocardiogram, which was ordered several days ago. MMODL / IJN: [id number] /
[2022-06-07] MEDS: buPROPion XL 150 MG TAB.ER.24H PO SCH ×3 (08:17→21:23)
[2022-06-07] MEDS: allopurinoL 300 MG TAB PO SCH ×2 (08:18→21:23)
[2022-06-07] MEDS: PRAVASTATIN SODIUM 40 MG TAB PO SCH (08:18)
[2022-06-07] MEDS: HYDROcodone/APAP 10-325MG 1 EACH TAB PO SCH ×4 (08:18→21:23)
[2022-06-07] MEDS: SPIRONOLACTONE-HCTZ 25-25MG 1 EACH TAB PO SCH (08:19)
--- NOTE | 2022-06-07 20:40 | XR ---
EXAMINATION TYPE: XR chest 2V DATE OF EXAM: 06/07/2022 6:50 PM COMPARISON: Chest radiographs from 06/05/2022. TECHNIQUE: XR chest 2V Frontal and lateral views of the chest. CLINICAL INDICATION:Female, 71 years old with history of L. pleural effusion; FINDINGS: Lungs/Pleura: Unchanged small left pleural effusion with associated atelectasis. Right lung is clear. No pneumothorax. Pulmonary vascularity: Unremarkable. Heart/mediastinum: Cardiomediastinal silhouette is unremarkable. Large hiatal hernia redemonstrated. Musculoskeletal: No acute osseous pathology. Remote right-sided rib fracture. IMPRESSION: 1. Small left pleural effusion redemonstrated with associated atelectasis. 2. Large hiatal hernia redemonstrated.
[2022-06-07] MEDS: ZIPRASIDONE 60 MG CAP PO SCH (21:23)
[2022-06-07] MEDS: GABAPENTIN 400 MG CAP PO PRN (21:25)
--- NOTE | 2022-06-07 22:29 | PN ---
PROGRESS NOTE CHIEF COMPLAINT: Shortness of breath and left pleural effusion. HISTORY OF PRESENT ILLNESS: This lady continues to improve. Breathing is better. We are waiting for the results of her echocardiogram. In that she did have an elevated BNP when she was short of breath. There is a report, but it lacks ejection fraction. We are also waiting for hepatitis C RNA. PHYSICAL EXAMINATION: LUNGS: Breath sounds are improving at the left base. CARDIAC: Normal. ABDOMEN: Soft, nontender. IMPRESSION: 1. Left-sided pleural effusion. 2. Left lower lobe pneumonitis. 3. Hepatitis C. 4. Congestive heart failure. PLAN: Probably home tomorrow pending results of her echocardiogram. MMODL / IJN: [id number] /
[2022-06-08 07:40] VITALS: BP 104/72; PULSE 95; TEMP 97.9
[2022-06-08] MEDS: HYDROcodone/APAP 10-325MG 1 EACH TAB PO SCH (08:43)
[2022-06-08] MEDS: SPIRONOLACTONE-HCTZ 25-25MG 1 EACH TAB PO SCH (08:43)
[2022-06-08] MEDS: buPROPion XL 150 MG TAB.ER.24H PO SCH (08:45)
[2022-06-08] MEDS: allopurinoL 300 MG TAB PO SCH (08:45)
[2022-06-08] MEDS: PRAVASTATIN SODIUM 40 MG TAB PO SCH (09:24)
[2022-06-08 10:46] VITALS: BMI 35.5
--- NOTE | 2022-06-08 22:15 | DS ---
DISCHARGE SUMMARY CHIEF COMPLAINT: Shortness of breath. HISTORY OF PRESENT ILLNESS AND PHYSICAL EXAMINATION: Details of this lady's history and physical can be found in the initial workup. LABORATORY STUDIES: While she was in the hospital, she had laboratory studies, details of which can be found in the laboratory section of her chart. COURSE IN THE HOSPITAL: After admission, she was placed on bedrest and started on intravenous fluids, updrafts, and she was seen and followed by Pulmonology. While in the hospital, it was noted that her BNP was elevated and she was worked up for the possibility of diagnosis of congestive heart failure. An echocardiogram was ordered and finally carried out. The report did not include the ejection fraction. This was finally obtained. She was also found to have elevated liver function studies and it was wondered that this is due to chronic passive congestion of the liver. However, her viral hepatitis C antibody was positive and hep C RNA was ordered, but not back at the time of dictation. It is likely that she has active virus, even though she remembers being treated for hepatitis C in the past. FINAL DIAGNOSES: 1. Acute respiratory failure. 2. Left-sided pleural effusion. 3. Pneumonitis. 4. Elevated liver function studies. 5. Congestive heart failure. 6. Chronic passive congestion of the liver. OPERATIONS: None. CONSULTATIONS: Pulmonology. She is improved. CLAIRE / LEILA: [id number] /
--- NOTE | 2022-06-09 22:01 | HP ---
HISTORY AND PHYSICAL CHIEF COMPLAINT: Shortness of breath. HISTORY OF PRESENT ILLNESS: This lady was recently in the hospital for pneumonitis. She went home and presented in the office with extreme shortness of breath. Chest x-ray demonstrated a large left pleural effusion and she was admitted to the hospital. REVIEW OF SYSTEMS: She denies fever, chills, hemoptysis, nausea, vomiting, etc. Past medical history, family history, and personal and social histories are unremarkable and unchanged from recent discharge summary. She denies any chest pain. PHYSICAL EXAMINATION: VITAL SIGNS: Blood pressure is 126/74 with a pulse of 93 and regular, respirations of 40 and she is afebrile. GENERAL: She appeared to be dyspneic. She was slightly pale and slightly diaphoretic. HEAD, EARS, EYES, NOSE, MOUTH AND THROAT: Normal except for an old left-sided facial droop. CHEST: Demonstrated poor breath sounds in the left base and there are scattered rales and rhonchi throughout the remainder of both lung bolanos. CARDIAC: Demonstrates sinus tachycardia. ABDOMEN: Soft. EXTREMITIES: Unchanged. IMPRESSION: 1. Acute respiratory distress. 2. Left pleural effusion. 3. Recent episode of pneumonitis. PLAN: 1. Bedrest. 2. IV fluids. 3. CT of the chest. 4. Updrafts. 5. Consult with Pulmonology. 6. Possible thoracentesis. MMODL / IJN: [id number] /
== END 2022-06-08 13:12 | disposition home or self-care (01) | DRG 193 ==
LOC: EC 17:15 → 5NMEDONC 21:43
PROVIDERS: ADMIT Family Medicine; ATTEND Family Medicine
DX: J18.9 Pneumonia, unspecified organism (principal); J96.00 Acute respiratory failure, unspecified whether with hypoxia or hypercapnia; I13.0 Hypertensive heart and chronic kidney disease with heart failure and stage 1 through stage 4 chronic kidney disease, or unspecified chronic kidney disease; J98.11 Atelectasis; M48.54XA Collapsed vertebra, not elsewhere classified, thoracic region, initial encounter for fracture; B19.20 Unspecified viral hepatitis C without hepatic coma; K44.9 Diaphragmatic hernia without obstruction or gangrene; F31.9 Bipolar disorder, unspecified; F41.9 Anxiety disorder, unspecified; H35.30 Unspecified macular degeneration; K76.1 Chronic passive congestion of liver; M19.90 Unspecified osteoarthritis, unspecified site; I25.10 Atherosclerotic heart disease of native coronary artery without angina pectoris; I50.9 Heart failure, unspecified; R94.5 Abnormal results of liver function studies; N18.9 Chronic kidney disease, unspecified; Z79.899 Other long term (current) drug therapy; Z80.1 Family history of malignant neoplasm of trachea, bronchus and lung; Z82.3 Family history of stroke; Z86.73 Personal history of transient ischemic attack (TIA), and cerebral infarction without residual deficits; Z82.49 Family history of ischemic heart disease and other diseases of the circulatory system; Z82.5 Family history of asthma and other chronic lower respiratory diseases; Z71.3 Dietary counseling and surveillance; Z83.79 Family history of other diseases of the digestive system; Z28.311 Partially vaccinated for COVID-19
CPT/HCPCS: 36415; 71045; 71046; 71275; 74177; 76604; 80053; 81001; 83605; 83880; 84145; 84484; 85025; 85610; 85730; 86803; 87522; 87636; 93005; 93306; 94640; 96365; 96367; 99285

== ENCOUNTER 2022-08-05 13:50 | Observation (INO) | payer MEDICARE, OTHER ==
[2022-08-05] MEDS ORDERED: SODIUM CHLORIDE 0.9% 500 ML 500 ML IV ONE (14:12)
[2022-08-05 14:18] LABS: Glucose,Whole Blood 120 mg/dL (70-110)
--- NOTE | 2022-08-05 14:42 | ED ---
General Adult HPI - General Chief complaint: Altered Mental Status Stated complaint: AMS Time Seen by Provider: 08/05/22 14:01 Source: family, EMS, RN notes reviewed, old records reviewed Mode of arrival: EMS Limitations: altered mental status - History of Present Illness Initial comments: 71 yo female presents for evaluation of altered level consciousness. History is obtained from paramedics who state that the patient was noted to be altered. This has been throughout the day today. Very limited initial history. - Related Data Home Medications Medication Instructions Recorded Confirmed buPROPion XL [Wellbutrin XL] 150 mg PO TID 11/16/15 08/05/22 ziprasidone HCL [Geodon] 60 mg PO HS 11/16/15 08/05/22 Alendronate Sodium 70 mg PO FR 04/02/19 08/05/22 Spironolactone-Hctz 25-25Mg 2 tab PO DAILY 02/21/21 08/05/22 [Aldactazide 25-25 MG] allopurinoL [Zyloprim] 300 mg PO BID 02/21/21 08/05/22 Albuterol Inhaler [Ventolin Hfa 2 puff INHALATION RT-Q6H PRN 11/21/21 08/05/22 Inhaler] Pravastatin Sodium [Pravachol] 40 mg PO DAILY 04/22/22 08/05/22 Ondansetron [Zofran] 4 mg PO Q6H PRN 06/01/22 08/05/22 Previous Rx's Medication Instructions Recorded ALPRAZolam [Xanax] 0.5 mg PO TID PRN #30 tab 07/21/22 Baclofen [Lioresal] 10 mg PO TID #90 tab 07/21/22 Gabapentin [Neurontin] 400 mg PO QID PRN #120 cap 07/21/22 HYDROcodone/APAP 10-325MG [[place] 1 tab PO QID #40 tab 07/21/22 10-325] Allergies Allergy/AdvReac Type Severity Reaction Status Date / Time No Known Allergies Allergy Verified 08/05/22 14:31 Review of Systems ROS Statement: Those systems with pertinent positive or pertinent negative responses have been documented in the HPI. ROS Other: All systems not noted in ROS Statement are negative. Past Medical History Past Medical History: Coronary Artery Disease (CAD), Chest Pain / Angina, CVA/ TIA, Eye Disorder, Hypertension, Osteoarthritis (OA), Renal Disease Additional Past Medical History / Comment(s): EDEMA OF LEGS AT TIMES, MACULAR DEGENERATION; Pt. states she had chest pain years ago as well as a stroke, History of Any Multi-Drug Resistant Organisms: MRSA Date of last positivie culture/infection: face (unknown yr) MDRO Source:: Face Past Surgical History: Back Surgery, Cholecystectomy, Hysterectomy, Joint Replacement Additional Past Surgical History / Comment(s): shoulder surgery, pelvic fracture repaired., Past Anesthesia/Blood Transfusion Reactions: No Reported Reaction Past Psychological History: Anxiety, Bipolar Smoking Status: Never smoker Past Alcohol Use History: None Reported Past Drug Use History: None Reported - Past Family History Mother Family Medical History: Cancer Additional Family Medical History / Comment(s): Breast cancer Father Family Medical History: Cancer Additional Family Medical History / Comment(s): Lung cancer Sister(s) Family Medical History: AICD/Pacemaker, Cancer, Chest Pain / Angina, Congestive Heart Failure (CHF), COPD, Coronary Artery Disease (CAD), CVA/TIA, Diabetes Mellitus, GERD/Reflux, Hyperlipidemia, Hypertension, Liver Disease, Myocardial Infarction (VA), Osteoarthritis (OA), Pneumonia, Renal Disease Additional Family Medical History / Comment(s): SISTER X2 General Exam Limitations: altered mental status General appearance: in no apparent distress, obtunded Head exam: Present: atraumatic, normocephalic Eye exam: Present: normal appearance. Absent: PERRL (2 mm bilateral) Neck exam: Absent: tenderness, meningismus Respiratory exam: Present: other (Show respirations). Absent: respiratory distress Cardiovascular Exam: Present: regular rate, normal rhythm GI/Abdominal exam: Present: soft. Absent: distended, tenderness, guarding Extremities exam: Present: normal inspection, normal capillary refill. Absent: pedal edema, joint swelling Neurological exam: Absent: alert, oriented X3 Skin exam: Present: warm, dry, intact, normal color Course Vital Signs 08/05/22 08/05/22 08/05/22 13:52 15:12 15:50 Temperature 96.9 F L Pulse Rate 90 93 Respiratory 18 12 12 Rate Blood Pressure 121/75 121/80 O2 Sat by Pulse 96 96 Oximetry - Reevaluation(s) Reevaluation #1: 08/05/22 16:04 Further history obtained from patient's family she is on multiple sedating medications but there is no concern for overmedication at this time. The patient responds to Narcan in the emergency department becomes more alert and is able to give limited history, no pain complaints. Reevaluation #2: 08/05/22 16:57 Patient reevaluated, more alert. A family member did mention the possibility of methadone been given to the patient. I have no specific history to support this. EKG Findings - EKG Comments: EKG Findings:: EKG: Sinus rhythm ventricular rate of 88, NC interval 189, QRS duration 90, QTC 438 T-wave inversion in the inferior leads and flattened T waves with nonspecific ST segment depression in the precordial leads. No ST segment elevation Medical Decision Making - Medical Decision Making Was pt. sent in by a medical professional or institution (, [facility], MANAGER LABOR DELIVERY, urgent care, hospital, or usp...) When possible be specific @ -[No] Did you speak to anyone other than the patient for history (EMS, parent, family, police, friend...)? What history was obtained from this source @ -Spoke with the patient's family members regarding history at the time of presentation as well as paramedics. Did you review nursing and triage notes (agree or disagree)? Why? @ -[I reviewed and agree with nursing and triage notes] Were old charts reviewed (outside hosp., previous admission, EMS record, old EKG, old radiological studies, urgent care reports/EKG's, usp records)? Report findings @ -[Old chart review was performed including laboratory testing prior admissions. Differential Diagnosis (chest pain, altered mental status, abdominal pain women, abdominal pain men, vaginal bleeding, weakness, fever, dyspnea, syncope, headache, dizziness, GI bleed, back pain, seizure, CVA, palpatations, mental health, musculoskeletal)? @ -Differential Altered Mental Status: Hypoglycemia, DKA, hypercapnia, ETOH, overdose, CO poisoning, trauma, myxedema coma, HTN encephalopathy, infection, encephalitis, psychosis, intercranial hemorrhage, hepatic encephalopathy, meningitis, CVA, this is not meant to be an all-inclusive list EKG interpreted by me (3pts min.). @ -[As above] X-rays interpreted by me (1pt min.). @ -Chest x-ray reviewed negative for acute findings CT interpreted by me (1pt min.). @ -Head CT performed and reviewed by myself, volume loss without acute findings. U/S interpreted by me (1pt. min.). @ -[None done] What testing was considered but not performed or refused? (CT, X-rays, U/S, labs)? Why? @ -[None] What meds were considered but not given or refused? Why? @ -[None] Did you discuss the management of the patient with other professionals (professionals i.e. , PA, MANAGER LABOR DELIVERY, lab, RT, psych nurse, social worker palliative care, systems librarian, teacher, aircraft electronics technical officer, clinical case manager)? Give summary @ -Case discussed with Dr. Moore patient's primary care provider Was smoking cessation discussed for >3mins.? @ -[No] Was critical care preformed (if so, how long)? @ -[No] Were there social determinants of health that impacted care today? How? (Homelessness, low income, unemployed, alcoholism, drug addiction, transportation, low edu. Level, literacy, decrease access to med. care, senior care, rehab)? @ -[No] Was there de-escalation of care discussed even if they declined (Discuss DNR or withdrawal of care, Hospice)? DNR status @ -[No] What co-morbidities impacted this encounter? (DM, HTN, Smoking, COPD, CAD, Cancer, CVA, ARF, Chemo, Hep., AIDS, mental health diagnosis, sleep apnea, mor bid obesity)? @ -Chronic pain Was patient admitted / discharged? Hospital course, mention meds given and route, prescriptions, significant lab abnormalities, going to OR and other pertinent info. @ -71-year-old female presenting with altered mental status. Vital signs are stable upon arrival. The patient has pinpoint pupils. There is concern for possible accidental opiate overdose in combination with polypharmacy. The patient is on multiple sedating medications. She's given small dose of Narcan 2 with improvement in mental status. Did perform a workup including CBC, CMP, urinalysis, urine drug screen, VBG. Testing reveals a mild hypokalemia at 3.0. Her urine drug screen is positive for opiates, alcohol level is negative. Head CT is negative for intracranial hemorrhage. She does improve with Narcan but has not returned to completely normal baseline mental status. She will benefit from an observation period without sedating medications. She'll be observed in the hospital overnight. Case discussed with Dr. Moore. Undiagnosed new problem with uncertain prognosis? @ -[No] Drug Therapy requiring intensive monitoring for toxicity (Heparin, Nitro, Insulin, Cardizem)? @ -[No] Were any procedures done? @ -[No] Diagnosis/symptom? @ -[Altered mental status, suspect accidental overdose] Acute, or Chronic, or Acute on Chronic? @ -[Acute] Uncomplicated (without systemic symptoms) or Complicated (systemic symptoms)? @ -[Complicated] Side effects of treatment? @ -[No] Exacerbation, Progression, or Severe Exacerbation? @ -[No] Poses a threat to life or bodily function? How? (Chest pain, [place], VA, pneumonia, PE, COPD, DKA, ARF, appy, cholecystitis, CVA, Diverticulitis, Homicidal, Suicidal, threat to staff... and all critical care pts) @ -[Concern for overdose, and respiratory arrest.] - Lab Data Result diagrams: 08/05/22 14:41 08/05/22 14:41 Lab Results 08/05/22 08/05/22 08/05/22 Range/Units 14:17 14:41 14:41 WBC 5.2 (3.8-10.6) k/uL RBC 4.62 (3.80-5.40) m/uL Hgb 15.0 (11.4-16.0) gm/dL Hct 44.3 (34.0-46.0) % MCV 95.9 (80.0-100.0) fL MCH 32.4 (25.0-35.0) pg MCHC 33.8 (31.0-37.0) g/dL RDW 15.3 (11.5-15.5) % Plt Count 126 L (150-450) k/uL MPV 8.1 Neutrophils % 72 % Lymphocytes % 17 % Monocytes % 6 % Eosinophils % 3 % Basophils % 1 % Neutrophils # 3.7 (1.3-7.7) k/uL Lymphocytes # 0.9 L (1.0-4.8) k/uL Monocytes # 0.3 (0-1.0) k/uL Eosinophils # 0.1 (0-0.7) k/uL Basophils # 0.0 (0-0.2) k/uL PT 10.6 (9.0-12.0) sec INR 1.0 (<1.2) APTT 27.9 (22.0-30.0) sec VBG pH (7.31-7.41) VBG pCO2 (37-51) mmHg VBG HCO3 (24-28) mmol/L Sodium (137-145) mmol/L Potassium (3.5-5.1) mmol/L Chloride (98-107) mmol/L Carbon Dioxide (22-30) mmol/L Anion Gap mmol/L BUN (7-17) mg/dL Creatinine (0.52-1.04) mg/dL Est GFR (CKD-EPI)AfAm (>60 ml/min/1.73 sqM) Est GFR (CKD-EPI)NonAf (>60 ml/min/1.73 sqM) Glucose (74-99) mg/dL POC Glucose (mg/dL) 120 H (70-110) mg/dL POC Glu Service Delivery Management Consultant ID Lala Lockwood Calcium (8.4-10.2) mg/dL Total Bilirubin (0.2-1.3) mg/dL AST (14-36) U/L ALT (4-34) U/L Alkaline Phosphatase (38-126) U/L Total Protein (6.3-8.2) g/dL Albumin (3.5-5.0) g/dL Urine Color Urine Appearance (Clear) Urine pH (5.0-8.0) Ur Specific [place] (1.001-1.035) Urine Protein (Negative) Urine Glucose (UA) (Negative) Urine Ketones (Negative) Urine Blood (Negative) Urine Nitrite (Negative) Urine Bilirubin (Negative) Urine Urobilinogen (<2.0) mg/dL Ur Leukocyte Esterase (Negative) Urine Opiates Screen (NotDetected) Ur Oxycodone Screen (NotDetected) Urine Methadone Screen (NotDetected) Ur Propoxyphene Screen (NotDetected) Ur Barbiturates Screen (NotDetected) U Tricyclic Antidepress (NotDetected) Ur Phencyclidine Scrn (NotDetected) Ur Amphetamines Screen (NotDetected) U Methamphetamines Scrn (NotDetected) U Benzodiazepines Scrn (NotDetected) Urine Cocaine Screen (NotDetected) U Marijuana (THC) Screen (NotDetected) Serum Alcohol mg/dL 08/05/22 08/05/22 08/05/22 Range/Units 14:41 14:41 14:41 WBC (3.8-10.6) k/uL RBC (3.80-5.40) m/uL Hgb (11.4-16.0) gm/dL Hct (34.0-46.0) % MCV (80.0-100.0) fL MCH (25.0-35.0) pg MCHC (31.0-37.0) g/dL RDW (11.5-15.5) % Plt Count (150-450) k/uL MPV Neutrophils % % Lymphocytes % % Monocytes % % Eosinophils % % Basophils % % Neutrophils # (1.3-7.7) k/uL Lymphocytes # (1.0-4.8) k/uL Monocytes # (0-1.0) k/uL Eosinophils # (0-0.7) k/uL Basophils # (0-0.2) k/uL PT (9.0-12.0) sec INR (<1.2) APTT (22.0-30.0) sec VBG pH (7.31-7.41) VBG pCO2 (37-51) mmHg VBG HCO3 (24-28) mmol/L Sodium 136 L (137-145) mmol/L Potassium 3.0 L (3.5-5.1) mmol/L Chloride 93 L (98-107) mmol/L Carbon Dioxide 28 (22-30) mmol/L Anion Gap 15 mmol/L BUN 35 H (7-17) mg/dL Creatinine 0.87 (0.52-1.04) mg/dL Est GFR (CKD-EPI)AfAm 79 (>60 ml/min/1.73 sqM) Est GFR (CKD-EPI)NonAf 68 (>60 ml/min/1.73 sqM) Glucose 122 H (74-99) mg/dL POC Glucose (mg/dL) (70-110) mg/dL POC Glu Service Delivery Management Consultant ID Calcium 10.1 (8.4-10.2) mg/dL Total Bilirubin 1.0 (0.2-1.3) mg/dL AST 46 H (14-36) U/L ALT 41 H (4-34) U/L Alkaline Phosphatase 126 (38-126) U/L Total Protein 8.4 H (6.3-8.2) g/dL Albumin 5.1 H (3.5-5.0) g/dL Urine Color Colorless Urine Appearance Clear (Clear) Urine pH 6.0 (5.0-8.0) Ur Specific [place] 1.006 (1.001-1.035) Urine Protein Negative (Negative) Urine Glucose (UA) Negative (Negative) Urine Ketones Negative (Negative) Urine Blood Negative (Negative) Urine Nitrite Negative (Negative) Urine Bilirubin Negative (Negative) Urine Urobilinogen <2.0 (<2.0) mg/dL Ur Leukocyte Esterase Negative (Negative) Urine Opiates Screen Detected H (NotDetected) Ur Oxycodone Screen Not Detected (NotDetected) Urine Methadone Screen Not Detected (NotDetected) Ur Propoxyphene Screen Not Detected (NotDetected) Ur Barbiturates Screen Not Detected (NotDetected) U Tricyclic Antidepress Not Detected (NotDetected) Ur Phencyclidine Scrn Not Detected (NotDetected) Ur Amphetamines Screen Not Detected (NotDetected) U Methamphetamines Scrn Not Detected (NotDetected) U Benzodiazepines Scrn Not Detected (NotDetected) Urine Cocaine Screen Not Detected (NotDetected) U Marijuana (THC) Screen Not Detected (NotDetected) Serum Alcohol <10 mg/dL 08/05/22 Range/Units 15:46 WBC (3.8-10.6) k/uL RBC (3.80-5.40) m/uL Hgb (11.4-16.0) gm/dL Hct (34.0-46.0) % MCV (80.0-100.0) fL MCH (25.0-35.0) pg MCHC (31.0-37.0) g/dL RDW (11.5-15.5) % Plt Count (150-450) k/uL MPV Neutrophils % % Lymphocytes % % Monocytes % % Eosinophils % % Basophils % % Neutrophils # (1.3-7.7) k/uL Lymphocytes # (1.0-4.8) k/uL Monocytes # (0-1.0) k/uL Eosinophils # (0-0.7) k/uL Basophils # (0-0.2) k/uL PT (9.0-12.0) sec INR (<1.2) APTT (22.0-30.0) sec VBG pH 7.52 H (7.31-7.41) VBG pCO2 38 (37-51) mmHg VBG HCO3 31 H (24-28) mmol/L Sodium (137-145) mmol/L Potassium (3.5-5.1) mmol/L Chloride (98-107) mmol/L Carbon Dioxide (22-30) mmol/L Anion Gap mmol/L BUN (7-17) mg/dL Creatinine (0.52-1.04) mg/dL Est GFR (CKD-EPI)AfAm (>60 ml/min/1.73 sqM) Est GFR (CKD-EPI)NonAf (>60 ml/min/1.73 sqM) Glucose (74-99) mg/dL POC Glucose (mg/dL) (70-110) mg/dL POC Glu Service Delivery Management Consultant ID Calcium (8.4-10.2) mg/dL Total Bilirubin (0.2-1.3) mg/dL AST (14-36) U/L ALT (4-34) U/L Alkaline Phosphatase (38-126) U/L Total Protein (6.3-8.2) g/dL Albumin (3.5-5.0) g/dL Urine Color Urine Appearance (Clear) Urine pH (5.0-8.0) Ur Specific [place] (1.001-1.035) Urine Protein (Negative) Urine Glucose (UA) (Negative) Urine Ketones (Negative) Urine Blood (Negative) Urine Nitrite (Negative) Urine Bilirubin (Negative) Urine Urobilinogen (<2.0) mg/dL Ur Leukocyte Esterase (Negative) Urine Opiates Screen (NotDetected) Ur Oxycodone Screen (NotDetected) Urine Methadone Screen (NotDetected) Ur Propoxyphene Screen (NotDetected) Ur Barbiturates Screen (NotDetected) U Tricyclic Antidepress (NotDetected) Ur Phencyclidine Scrn (NotDetected) Ur Amphetamines Screen (NotDetected) U Methamphetamines Scrn (NotDetected) U Benzodiazepines Scrn (NotDetected) Urine Cocaine Screen (NotDetected) U Marijuana (THC) Screen (NotDetected) Serum Alcohol mg/dL Disposition Clinical Impression: Altered mental status, Drug overdose Disposition: ADMITTED IP TO THIS [facility] Condition: Stable Is patient prescribed a controlled substance at d/c from ED?: No Referrals: Orlando Moore MD [Primary Care Provider] - 1-2 days Time of Disposition: 17:02
--- NOTE | 2022-08-05 14:56 | CT ---
EXAMINATION TYPE: CT brain wo con DATE OF EXAM: 08/05/2022 COMPARISON: None HISTORY: AMS CT DLP: 1141.4 mGycm Automated exposure control for dose reduction was used. Images of the brain obtained with no contrast. There is mild cerebral atrophy. There is no mass effect nor midline shift. No sign of intracranial he morrhage. There is extensive hypodensity in the periventricular white matter. Calvarium is intact. The skull base is intact. IMPRESSION: Cerebral atrophy and white matter hypodensity consistent with microvascular ischemia or demyelinating disease.
--- NOTE | 2022-08-05 15:02 | XR ---
EXAMINATION TYPE: XR chest 1V portable DATE OF EXAM: 08/05/2022 COMPARISON: NONE HISTORY: 07/14/2022 TECHNIQUE: FINDINGS: There is a large hiatal hernia. There is no heart failure nor confluent pneumonic infiltrat e. There is mild subsegmental atelectasis left lung base. There is subluxation deformity at the right shoulder joint. There is narrowing of the shoulder joint spaces. IMPRESSION: Subsegmental atelectasis left lung base without much change. No heart failure.
[2022-08-05] MEDS ORDERED: NALOXONE 0.4 MG/ML 1 ML VIAL IVP PRN (15:07)
[2022-08-05 15:18] LABS: Basophils % (A) 1 %; Eosinophils # (A) 0.1 k/uL (0-0.7); Eosinophils % (A) 3 %; HCT 44.3 % (34.0-46.0); Lymphocytes # (A) 0.9 k/uL (1.0-4.8); Lymphocytes % (A) 17 %; MCH 32.4 pg (25.0-35.0); MCHC 33.8 g/dL (31.0-37.0); MCV 95.9 fL (80.0-100.0); Mean Platelet Volume 8.1; Monocytes # (A) 0.3 k/uL (0-1.0); Monocytes % (A) 6 %; Neutrophils # (A) 3.7 k/uL (1.3-7.7); Neutrophils % (A) 72 %; Platelet Count 126 k/uL (150-450); RBC 4.62 m/uL (3.80-5.40); RDW 15.3 % (11.5-15.5); WBC 5.2 k/uL (3.8-10.6)
[2022-08-05 15:27] LABS: Partial Thromboplastin Time 27.9 sec (22.0-30.0); Prothrombin Time 10.6 sec (9.0-12.0)
[2022-08-05 15:40] LABS: ALT 41 U/L (4-34); AST 46 U/L (14-36); African American GFR (CKD) 79 (>60 ml/min/1.73 sqM); Albumin 5.1 g/dL (3.5-5.0); Alcohol <10 mg/dL; Alkaline Phosphatase 126 U/L (38-126); Anion Gap 15 mmol/L; Blood Urea Nitrogen 35 mg/dL (7-17); Calcium 10.1 mg/dL (8.4-10.2); Carbon Dioxide 28 mmol/L (22-30); Chloride 93 mmol/L (98-107); Glucose 122 mg/dL (74-99); Non-African American GFR(CKD) 68 (>60 ml/min/1.73 sqM); Sodium 136 mmol/L (137-145); Total Protein 8.4 g/dL (6.3-8.2)
[2022-08-05 16:03] LABS: Appearance,Urine Clear (Clear); Bilirubin,Urine Negative (Negative); Blood,Urine Negative (Negative); Color,Urine Colorless; Glucose,Urine (UA) Negative (Negative); Ketones,Urine Negative (Negative); Leukocyte Esterase,Urine Negative (Negative); Nitrite,Urine Negative (Negative); Protein,Urine Negative (Negative); Specific Gravity,Urine 1.006 (1.001-1.035); Urobilinogen,Urine <2.0 mg/dL (<2.0)
[2022-08-05 16:08] LABS: VBG PH 7.52 (7.31-7.41)
[2022-08-05 16:23] LABS: Amphetamine Screen,Urine Not Detected (NotDetected); Barbiturate Screen,Urine Not Detected (NotDetected); Benzodiazepines Screen,Urine Not Detected (NotDetected); Cocaine Screen,Urine Not Detected (NotDetected); Methadone Screen, Urine Not Detected (NotDetected); Opiate Screen,Urine Detected (NotDetected); Oxycodone Screen, Urine Not Detected (NotDetected); Phencyclidine Screen,Urine Not Detected (NotDetected); Tricyclic Antidepressant,Urine Not Detected (NotDetected); Urn Cannabinoid Scrn Not Detected (NotDetected)
[2022-08-05] MEDS ORDERED: NALOXONE 0.4 MG/ML 1 ML VIAL IV PRN (16:56)
[2022-08-05] MEDS: SODIUM CHLORIDE 0.9% 1,000 ML IV SCH ×2 (17:12→21:11)
[2022-08-06] MEDS: ACETAMINOPHEN TAB 325 MG TAB PO PRN ×2 (02:41→21:48)
[2022-08-06] MEDS ORDERED: PATIENT'S OWN (Albuterol Inhaler [Ventolin Hfa Inhaler] 60 PUFF Gm) INHALATION PRN (11:57)
[2022-08-06] MEDS ORDERED: ONDANSETRON 4 MG TAB PO PRN (11:57)
[2022-08-06] MEDS ORDERED: GABAPENTIN 400 MG CAP PO PRN (11:57)
[2022-08-06] MEDS: BACLOFEN 10 MG TAB PO SCH ×2 (16:23→21:44)
[2022-08-06] MEDS: buPROPion XL 150 MG TAB.ER.24H PO SCH ×2 (16:23→21:44)
[2022-08-06] MEDS ORDERED: ZIPRASIDONE 60 MG CAP PO SCH (21:00)
[2022-08-06] MEDS: allopurinoL 300 MG TAB PO SCH (21:44)
--- NOTE | 2022-08-07 04:04 | PN ---
PROGRESS NOTE DATE OF SERVICE: 08/06/2022 CHIEF COMPLAINT: Mental status changes and lethargy. HISTORY OF PRESENT ILLNESS: This lady is doing little bit better. She apparently overdosed on her narcotic analgesics. She states that it was the Geodon, but this is not the case and that she responded to Narcan. PHYSICAL EXAMINATION: CHEST: Clear, but breath sounds are diminished. CARDIAC: Normal. ABDOMEN: Soft and nontender. IMPRESSION: Mental status changes and lethargy secondary to overdose of narcotic analgesics. PLAN: Continue to monitor her vital signs and increase activity. MMODL / IJN: [id number] /
--- NOTE | 2022-08-07 04:04 | HP ---
HISTORY AND PHYSICAL CHIEF COMPLAINT: Lethargy. HISTORY OF PRESENT ILLNESS: This is another admission for this 71-year-old female. She was just discharged this week. She was brought back in to the emergency room lethargic and she responded to Narcan. She does have narcotic medication for pain and it is soon that she accidentally overdosed on these. REVIEW OF SYSTEMS: Not reliably obtained. She seems comfortable and denies abdominal or chest pain. MEDICATIONS: Extensive and can be found in the MAR of her chart. In the emergency room, her potassium was low at 3.1. PHYSICAL EXAMINATION: VITAL SIGNS: Blood pressure is 128/70 with a pulse of 79, respirations of 20 and she is afebrile. GENERAL: She appeared to be slightly lethargic. She did have a left facial droop which is old. CHEST: Clear. CARDIAC: Normal. ABDOMEN: Soft and nontender. EXTREMITIES: Unremarkable. IMPRESSION: 1. Lethargy and mental status changes. 2. Probable opioid excess. PLAN: 1. Bed rest. 2. IV fluids. 3. Follow up blood pressures and vital signs. MMODL / IJN: [id number] /
[2022-08-07] MEDS: SODIUM CHLORIDE 0.9% 1,000 ML IV SCH ×2 (04:53→08:56)
[2022-08-07 08:00] VITALS: BP 127/88; PULSE 91; RESP 17; TEMP 97.8
[2022-08-07] MEDS: BACLOFEN 10 MG TAB PO SCH ×2 (08:46→16:01)
[2022-08-07] MEDS: allopurinoL 300 MG TAB PO SCH (08:47)
[2022-08-07] MEDS: buPROPion XL 150 MG TAB.ER.24H PO SCH ×2 (08:55→16:02)
[2022-08-07] MEDS ORDERED: SPIRONOLACTONE-HCTZ 25-25MG 1 EACH TAB PO SCH (09:00)
[2022-08-07] MEDS ORDERED: PRAVASTATIN SODIUM 40 MG TAB PO SCH (09:00)
--- NOTE | 2022-08-08 23:47 | DS ---
DISCHARGE SUMMARY CHIEF COMPLAINT: Lethargy. HISTORY OF PRESENT ILLNESS AND PHYSICAL EXAMINATION: Details of this lady's history and physical can be found in the initial workup. LABORATORY STUDIES: While she was in the hospital, she had laboratory studies, details of which can be found in the laboratory section of her chart. COURSE IN THE HOSPITAL: After admission, she was placed on bedrest and received Narcan, to which she responded. She stated that she thought she had taken too many of her Geodon, but it was clear that this was her analgesic. She cleared up and was doing well, and it was felt that she could go back home on the , and she will return on usual activity, diet, medications, but tranquilizers and analgesics will be withheld. FINAL DIAGNOSES: Lethargy and mental status changes secondary to accidental narcotic overdose. OPERATIONS: None. CONSULTATION: None. CONDITION: She is improved. CLAIRE / LEILA: [id number] /
== END 2022-08-07 17:53 | disposition home or self-care (01) ==
LOC: EC 13:50 → 6NMEDSUR 16:57
PROVIDERS: ADMIT Family Medicine; ATTEND Family Medicine
DX: R41.82 Altered mental status, unspecified (principal); T40.601A Poisoning by unspecified narcotics, accidental (unintentional), initial encounter; I25.10 Atherosclerotic heart disease of native coronary artery without angina pectoris; H35.30 Unspecified macular degeneration; F41.9 Anxiety disorder, unspecified; F31.9 Bipolar disorder, unspecified; J98.11 Atelectasis; K44.9 Diaphragmatic hernia without obstruction or gangrene; Z86.73 Personal history of transient ischemic attack (TIA), and cerebral infarction without residual deficits; Z79.899 Other long term (current) drug therapy; Z90.710 Acquired absence of both cervix and uterus; Z90.49 Acquired absence of other specified parts of digestive tract; Z80.3 Family history of malignant neoplasm of breast; Z80.1 Family history of malignant neoplasm of trachea, bronchus and lung; Z95.810 Presence of automatic (implantable) cardiac defibrillator; Z83.3 Family history of diabetes mellitus; Z82.49 Family history of ischemic heart disease and other diseases of the circulatory system; Z82.5 Family history of asthma and other chronic lower respiratory diseases; Z82.3 Family history of stroke
CPT/HCPCS: 96361 ×3; 96374; 99285; 36415; 94760 ×2; 93005; 80053; 82803; 85025; 85610; 85730; 81003; 80306; 71045; 70450; G0378 ×3; G0480; J2310; 80320